=== PATIENT | female | born 1925 | race Caucasian/White ===

== ENCOUNTER 2016-02-22 16:19 | Inpatient (IN) | payer OTHER ==
[~2016-02-22] VITALS: Ht 154.9 cm; Wt 53.0 kg
[~2016-02-22 16:19] MED LIST: AZIT250T PO; CALC-354 PO; CYAN250T PO; FSM70 PO; INSDGI SQ; IPRASOL4 INH; ISOS60TA25 PO; LEVO50TA PO; LPT/20 PO; LSX40 PO; MAGN1CAP2 PO; METF-384 PO; METO25TA3 PO; MOME50SP5; MONT1TAB3 PO; POLY335019 PO; POTA-327 PO; PRED10TA PO; PRT/40 PO; TIOTCAP INH; TORS20TA2 PO
[2016-02-22 18:39] LABS: BASO ABS # 0.05 K/uL (0-0.2); COMPLETE YES; EOS % 2.2 %; HEMATOCRIT 29.1 % (37-47); IG% 0.2 %; LYMPH ABS # 0.81 K/uL (1.2-3.4); MEAN CELL VOLUME 85.3 fL (80-100); MEAN CORPUSCULAR HEMOGLOBIN 30.2 pg (25-34); MEAN CORPUSCULAR HGB CONC 35.4 g/dl (32-36); MEAN PLATELET VOLUME 10.6 fL (7.4-10.4); MONO % 13.3 %; NEUT % 67.3 %; PLATELET COUNT 225 K/uL (130-400); RED BLOOD COUNT 3.41 M/uL (4.2-5.4); WHITE BLOOD COUNT 5.05 K/uL (4.8-10.8)
[2016-02-22] MEDS ORDERED: DMD20 PO (18:52)
[2016-02-22 19:01] LABS: URINE APPEARANCE CLEAR (CLEAR); URINE BILIRUBIN NEG (NEG); URINE COLOR YELLOW; URINE NITRITE NEG (NEG); URINE PH 7.5 (4.5-7.5); URINE SPECIFIC GRAVITY 1.009 (1.000-1.030); UROBILINOGEN NEG (NEG); ZZUR CULT IF INDIC CLEAN CATCH NO
[2016-02-22 19:01] LABS: BUN/CREATININE RATIO 21.9 (10-20); CALCIUM 9.1 mg/dl (8.5-10.1); CREATININE 1.5 mg/dl (0.60-1.20); POTASSIUM 3.9 mmol/L (3.5-5.1)
[2016-02-22 19:03] LABS: MANUAL MICROSCOPIC REQUIRED? NO; REVIEW REQ? NO
[2016-02-22 19:11] LABS: BETA-HYDROXYBUTYRATE 1.31 mg/dL (0.2-2.81)
[2016-02-22] MEDS ORDERED: CEFTRIAXONE SOD INJ 1 GM ADDVIAL IV STA (19:38)
[2016-02-22] MEDS ORDERED: VANCOMYCIN 1GM/270ML NSS IV STA (19:38)
[2016-02-22] MEDS ORDERED: ALBUT/IPRATROP 3MG/0.5MG NEB 3 ML VIAL INH PRN (21:15)
[2016-02-22] MEDS ORDERED: GLUCOSE 10 TABS/TUBE PO PRN (21:15)
[2016-02-22] MEDS ORDERED: ALUMINUM/MAGNESIUM/SIMETH (MAALOX MAX) 30 ML UDC PO PRN (21:15)
[2016-02-22] MEDS ORDERED: POLYETHYLENE (MIRALAX) 17 GM PACK PO PRN (21:15)
[2016-02-22] MEDS ORDERED: ONDANSETRON INJ 2 MG/ML 2 ML VIAL IV PRN (21:15)
[2016-02-22] MEDS ORDERED: DEXTROSE 50% 50 ML SYR IV PRN (21:15)
[2016-02-22] MEDS ORDERED: GLUCOSE 40% GEL 15 GM TUBE PO PRN (21:15)
[2016-02-22] MEDS ORDERED: GLUCAGON FOR INJ 1 MG VIAL SQ PRN (21:15)
[2016-02-22] MEDS ORDERED: MAGNESIUM HYDROXIDE SUSP 30 ML UDC PO PRN (21:15)
[2016-02-22] MEDS ORDERED: PHARMACY GLYCEMIC MGMT CONSULT PRN (22:42)
--- NOTE | 2016-02-22 23:01 | DIAGNOSTIC IMAGING REPORT ---
BILATERAL LOWER EXTREMITY VENOUS DOPPLER HISTORY: leg swelling COMPARISON STUDY: None. FINDINGS: No acute DVT within the bilateral lower examination. Mild thickening at the periphery of the mid right superficial femoral vein. This favors a small amount of residual chronic thrombus. This is nonocclusive. Calf vessels were not well visualized but likely patent. IMPRESSION: No acute DVT within the right or left lower extremity. Mild thickening at the periphery the right mid superficial femoral vein which favors nonocclusive chronic thrombus. Electronically signed by: Sree Gilliam M.D. 02/22/2016 10:59 PM Dictated Date/Time: 02/22/2016 10:54 PM
--- NOTE | 2016-02-22 23:06 | History and Physical ---
History & Physical Date & Time of Service: Feb 22, 2016 at 21:09 Chief Complaint: Sores On Both Legs Primary Care Physician: Ken Penaloza D.O. 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 Patient lives with her sister at home and has caregivers and nursing who come in to check on her. Wound care nurse came in today to change her dressing for her legs and noticed they were warm to touch and erythematous; she had weeping ulcerations noted - nurse tried to get an appointment with patient's primary care, but they could not take her so she presented here. She was last here in December 2015 with cellulitic changes of the lower extremities and during that episode, Bactrim was used and cleared the infection. Recently, her dose of Lasix was changed to Torsemide due to Lasix affecting her kidneys. She was last seen by Wound care last week at the clinic and was doing well; had the legs dressed at that time. Patient is demented and unable to verbalize any complaints - though she is comfortable. Past Medical/Surgical History Medical Problems: (1) Asthma, moderate persistent Status: Chronic (2) CAD (coronary artery disease) Permanent Comment: 2002 - CABG x 2 Status: Chronic (3) CKD (chronic kidney disease), stage III Status: Chronic (4) COPD, mild Status: Chronic (5) Dementia Status: Chronic (6) DM type 2 (diabetes mellitus, type 2) Status: Chronic (7) GERD (gastroesophageal reflux disease) Status: Chronic (8) HLD (hyperlipidemia) Status: Chronic (9) HTN (hypertension) Status: Chronic (10) Hypothyroidism Status: Chronic (11) TIA (transient ischemic attack) Status: Chronic Surgical Problems: (1) H/O oophorectomy Status: Chronic (2) History of cataract surgery Status: Chronic (3) History of hysterectomy Status: Chronic (4) Hx of cholecystectomy Status: Chronic (5) S/P CABG x 2 Status: Chronic (6) S/P tonsillectomy and adenoidectomy Status: Chronic Family History FH: COPD (chronic obstructive pulmonary disease) Hypertension Social History Smoking Status: Never Smoker Drug Use: none Marital Status: Housing status: lives with family Occupational Status: retired Immunizations History of Influenza Vaccine: Yes Influenza Vaccine Date: Nov 16, 2015 History of Tetanus Vaccine?: Yes Tetanus Immunization Date: Aug 12, 2014 History of Pneumococcal: Yes Pneumococcal Date: Dec 18, 2013 Multi-Drug Resistant Organisms History of MDRO: No Allergies Coded Allergies: Polymyxin B (Verified Allergy, Mild, RASH, 01/06/16) DEBBIE Inhibitors (Unverified Allergy, Unknown, UNKNOWN, 01/06/16) Camphor (Verified Allergy, Unknown, 01/06/16) Eucalyptus Oil (Verified Allergy, Unknown, 01/06/16) Menthol (Verified Allergy, Unknown, VICKS VAPO-RUB, 01/06/16) Quinolones (Unverified Allergy, Unknown, UNKNOWN, 01/06/16) Uncoded Allergies: ANGIOTENSIN RECEPTOR BLOCKERS (Allergy, Unknown, UNKNOWN, 12/02/14) Home Medications Scheduled Alendronate Sodium (Alendronate Sodium), 70 MG PO WK Atorvastatin (Atorvastatin Calcium), 1 TAB PO DAILY Azithromycin (Zithromax), 250 MG PO UD Calcium Carbonate-Cholecalcife (Caltrate 600+D), 1 TAB PO BID Cyanocobalamin (Vitamin B-12), 250 MCG PO BID Insulin Glargine (Lantus), 12 UNITS SQ DAILY Isosorbide Mononitrate Ext Rel (Imdur Ext Rel), 60 MG PO DAILY Levothyroxine Sodium (Synthroid), 50 MCG PO DAILY Magnesium Oxide (Mg Supplement (Magnesium), 400 MG PO BID Metformin Hcl (Glucophage), 500 MG PO BID Metoprolol Succ (Toprol Xl) (Toprol-Xl), 12.5 MG PO DAILY Mometasone Furoate (Nasonex), 2 SPRAY NA BID Montelukast Sodium (Singulair), 10 MG PO QPM Pantoprazole (Pantoprazole Sodium), 40 MG PO DAILY Potassium Chloride (Micro-K Ext Rel), 10 MEQ PO DAILY Prednisone Tab (Prednisone), 5 MG PO DAILY Tiotropium [place] (Spiriva Handihaler), 1 CAP INH DAILY Torsemide (Torsemide), 40 MG PO BID Scheduled PRN Ipratropium-Albuterol (Duoneb), 1 TREATMENT INH QID PRN for Shortness of Breath Polyethylene Glycol 3350 (Miralax), 1 TBS PO DAILY PRN for Constipation Physical Exam Vital Signs Date Time Temp Pulse Resp B/P Pulse Ox O2 Delivery O2 Flow Rate FiO2 02/22/16 20:33 36.7 63 15 170/72 98 Room Air 02/22/16 19:13 66 02/22/16 18:45 65 16 152/93 95 Room Air 02/22/16 16:26 36.5 66 17 146/48 100 Room Air General Appearance: no apparent distress Head: normocephalic, atraumatic Eyes: normal inspection Respiratory/Chest: lungs clear, normal breath sounds, no respiratory distress, no accessory muscle use Cardiovascular: regular rate, rhythm, no edema, no murmur Abdomen/GI: non tender, soft Extremities/Musculoskelatal: no pedal edema, + pertinent finding (b/l LE dressed, erythematous, warm to touch, weeping ulcerations) Neurologic/Psych: no motor/sensory deficits, alert, + pertinent finding ( pleasantly demented) Diagnostics Laboratory Results Results Past 24 Hours Test 02/22/16 00:00 02/22/16 18:20 02/22/16 20:17 Range/Units Urine Color YELLOW Urine Appearance CLEAR CLEAR Urine pH 7.5 4.5-7.5 Urine Specific [place] 1.009 1.000-1.030 Urine Protein NEG NEG Urine Glucose (UA) 2+ NEG Urine Ketones NEG NEG Urine Occult Blood NEG NEG Urine Nitrite NEG NEG Urine Bilirubin NEG NEG Urine Urobilinogen NEG NEG Urine Leukocyte Esterase NEG NEG White Blood Count 5.05 4.8-10.8 K/uL Red Blood Count 3.41 4.2-5.4 M/uL Hemoglobin 10.3 12.0-16.0 g/dL Hematocrit 29.1 37-47 % Mean Corpuscular Volume 85.3 80-100 fL Mean Corpuscular Hemoglobin 30.2 25-34 pg Mean Corpuscular Hemoglobin Concent 35.4 32-36 g/dl Platelet Count 225 130-400 K/uL Mean Platelet Volume 10.6 7.4-10.4 fL Neutrophils (%) (Auto) 67.3 % Lymphocytes (%) (Auto) 16.0 % Monocytes (%) (Auto) 13.3 % Eosinophils (%) (Auto) 2.2 % Basophils (%) (Auto) 1.0 % Neutrophils # (Auto) 3.40 1.4-6.5 K/uL Lymphocytes # (Auto) 0.81 1.2-3.4 K/uL Monocytes # (Auto) 0.67 0.11-0.59 K/uL Eosinophils # (Auto) 0.11 0-0.5 K/uL Basophils # (Auto) 0.05 0-0.2 K/uL RDW Standard Deviation 39.7 36.4-46.3 fL RDW Coefficient of Variation 12.8 11.5-14.5 % Immature Granulocyte % (Auto) 0.2 % Immature Granulocyte # (Auto) 0.01 0.00-0.02 K/uL Sodium Level 136 136-145 mmol/L Potassium Level 3.9 3.5-5.1 mmol/L Chloride Level 96 98-107 mmol/L Carbon Dioxide Level 32 21-32 mmol/L Anion Gap 8.0 3-11 mmol/L Blood Urea Nitrogen 33 7-18 mg/dl Creatinine 1.50 0.60-1.20 mg/dl Est Creatinine Clear Calc Drug Dose 19.5 ml/min Estimated GFR () 35.7 Estimated GFR (Non- 30.8 BUN/Creatinine Ratio 21.9 10-20 Random Glucose 369 70-99 mg/dl Calcium Level 9.1 8.5-10.1 mg/dl Total Bilirubin 0.6 0.2-1 mg/dl Direct Bilirubin 0.2 0-0.2 mg/dl Aspartate Amino Transf (AST/SGOT) 11 15-37 U/L Alanine Aminotransferase (ALT/SGPT) 15 12-78 U/L Alkaline Phosphatase 82 45-117 U/L Total Protein 6.7 6.4-8.2 gm/dl Albumin 3.2 3.4-5.0 gm/dl Lipase 119 73-393 U/L Beta-Hydroxybutyric Acid 1.31 0.2-2.81 mg/dL Bedside Lactic Acid Venous 2.68 0.90-1.70 mmol/L Microbiology Results 02/22/16 Blood Culture, Received Pending 02/22/16 Blood Culture, Received Pending Impression Assessment and Plan This is an 89 year old pleasantly demented female with PMH of CAD s/p CABG, HTN , HLD, DM2, hypothyroidism, diastolic CHF, chronic lower extremity ulcerations/ wounds presented here secondary to acute infection of bilateral lower extremities. Cellulitis of bilateral lower extremities Wound Ulcerations -->chronic lower extremity edema with diastolic CHF -->has had episodes of decompensated diastolic CHF -->recent change in Lasix to Torsemide in January 2016 -->swelling and edema improved with Torsemide dose -->has been following wound are for the ulcerations in the legs -->wound care nursing sent patient over because of erythema and more drainage -->wound culture and blood cultures pending -->started IV Rocephin and Vanco -->wound care nurse consulted -->b/l lower extremity Doppler pending Chronic Diastolic CHF -->type I diastolic CHF -->due to renal dysfunction with Lasix, switched to Torsemide -->hold Torsemide secondary to increase in creat -->monitor creat and restart Torsemide once kidney function improves CAD s/p CABG -->at baseline, no acute issues -->continue current cardiac medications -->was seen by cardiology last month with no changes in medications Insulin Dependent DM2 -->start Lantus and a sliding scale -->patient takes 5mg of prednisone daily due to breathing problems -->last A1c = 7.6% in January 2016, which was a jump 6.1% in July 2015 -->glycemic control consult HTN -->BP improving in the ER -->continue imdur, b-jose a -->avoid CCB, if able, due to edema -->DEBBIE-I and ARB allergy noted DVT ppx -->subq heparin FULL CODE
--- NOTE | 2016-02-22 23:08 | EMERGENCY ROOM VISIT NOTE ---
History Report prepared by Rosemarieiboctavio: Shayla Larsen Under the Supervision of: Dr. Cameron Mabry M.D. First contact with patient: 18:08 Chief Complaint: SWELLING TO EXTREMITY Stated Complaint: SORES ON BOTH LEGS History of Present Illness The patient is an 89 year old female who presents to the Emergency Room with complaints of worsening pain and swelling to her bilateral legs for the past 1 week. She is accompanied by her sister and nephew. The patient rates her discomfort as a 7/10. Her sister reports their home health nurse came over this afternoon and told the patient to come to the ED for further evaluation due to increased redness and warmth. The patient admits to a history of cellulitis in her bilateral legs in the past, but states it has been "quite a while" since she has experienced similar symptoms. She denies any recent falls or injuries. Her sister notes all the patient wants to do is sleep recently. The patient denies LOC, headache, fevers, chills, diaphoresis, visual changes, neck pain, chest pain, breathing difficulties, nausea, vomiting, abdominal pain, back pain , melena, hematochezia, urinary symptoms, numbness, weakness, lymphadenopathy, rash, or other complaints. Source of History: patient, sibling (sister) Onset: 1 week [employer] Position: leg (bilateral) Symptom Intensity: 7/10 Timing: worsening Associated Symptoms: + fatigue Review of Systems See HPI for pertinent positives and negatives. A total of ten systems were reviewed and were otherwise negative. Past Medical & Surgical Medical Problems: (1) Asthma, moderate persistent (2) Bilateral lower leg cellulitis (3) CAD (coronary artery disease) (4) CKD (chronic kidney disease), stage III (5) COPD, mild (6) Dementia (7) DM type 2 (diabetes mellitus, type 2) (8) GERD (gastroesophageal reflux disease) (9) HLD (hyperlipidemia) (10) HTN (hypertension) (11) Hypothyroidism (12) TIA (transient ischemic attack) (13) Ulcers of both lower extremities Surgical Problems: (1) H/O oophorectomy (2) History of cataract surgery (3) History of hysterectomy (4) Hx of cholecystectomy (5) S/P CABG x 2 (6) S/P tonsillectomy and adenoidectomy Family History FH: COPD (chronic obstructive pulmonary disease) Hypertension Social History Smoking Status: Never Smoker Alcohol Use: none Drug Use: none Marital Status: Housing Status: lives with family Occupation Status: retired Current/Historical Medications Scheduled Alendronate Sodium (Alendronate Sodium), 70 MG PO WK Atorvastatin (Atorvastatin Calcium), 1 TAB PO DAILY Azithromycin (Zithromax), 250 MG PO UD Calcium Carbonate-Cholecalcife (Caltrate 600+D), 1 TAB PO BID Cyanocobalamin (Vitamin B-12), 250 MCG PO BID Insulin Glargine (Lantus), 12 UNITS SQ DAILY Isosorbide Mononitrate Ext Rel (Imdur Ext Rel), 60 MG PO DAILY Levothyroxine Sodium (Synthroid), 50 MCG PO DAILY Magnesium Oxide (Mg Supplement (Magnesium), 400 MG PO BID Metformin Hcl (Glucophage), 500 MG PO BID Metoprolol Succ (Toprol Xl) (Toprol-Xl), 12.5 MG PO DAILY Mometasone Furoate (Nasonex), 2 SPRAY NA BID Montelukast Sodium (Singulair), 10 MG PO QPM Pantoprazole (Pantoprazole Sodium), 40 MG PO DAILY Potassium Chloride (Micro-K Ext Rel), 10 MEQ PO DAILY Prednisone Tab (Prednisone), 5 MG PO DAILY Tiotropium [place] (Spiriva Handihaler), 1 CAP INH DAILY Torsemide (Torsemide), 40 MG PO BID Scheduled PRN Ipratropium-Albuterol (Duoneb), 1 TREATMENT INH QID PRN for Shortness of Breath Polyethylene Glycol 3350 (Miralax), 1 TBS PO DAILY PRN for Constipation Allergies Coded Allergies: Polymyxin B (Verified Allergy, Mild, RASH, 01/06/16) DEBBIE Inhibitors (Unverified Allergy, Unknown, UNKNOWN, 01/06/16) Camphor (Verified Allergy, Unknown, 01/06/16) Eucalyptus Oil (Verified Allergy, Unknown, 01/06/16) Menthol (Verified Allergy, Unknown, VICKS VAPO-RUB, 01/06/16) Quinolones (Unverified Allergy, Unknown, UNKNOWN, 01/06/16) Uncoded Allergies: ANGIOTENSIN RECEPTOR BLOCKERS (Allergy, Unknown, UNKNOWN, 12/02/14) Physical Exam Vital Signs Date Time Temp Pulse Resp B/P Pulse Ox O2 Delivery O2 Flow Rate FiO2 02/22/16 23:02 36.7 64 20 177/78 91 02/22/16 22:55 64 20 177/78 91 Room Air 02/22/16 20:33 36.7 63 15 170/72 98 Room Air 02/22/16 19:13 66 02/22/16 18:45 65 16 152/93 95 Room Air 02/22/16 16:26 36.5 66 17 146/48 100 Room Air Physical Exam GENERAL: Awake, alert, uncomfortable-appearing, in no distress HENT: Normocephalic, atraumatic. Oropharynx unremarkable. EYES: Normal conjunctiva. Sclera non-icteric. NECK: Supple. No nuchal rigidity. FROM. No JVD. RESPIRATORY: Clear to auscultation. CARDIAC: Regular rate, normal rhythm. Extremities warm and well perfused. Pulses equal. ABDOMEN: Soft, non-distended. No tenderness to palpation. No rebound or guarding. No masses. RECTAL: Deferred. MUSCULOSKELETAL: Chest examination reveals no tenderness. The back is symmetrical on inspection without obvious abnormality. There is no CVA tenderness to palpation. No joint edema. LOWER EXTREMITIES: Stage 2 decubitus wound on medial and lateral aspect of right lower leg, with associated cellulitis from mid-foot to just below right knee. Left foot has breakdown of skin on medial and lateral aspect, with cellulitis from the toes up to the level of the knee. NEURO: Normal sensorium. No sensory or motor deficits noted. SKIN: No rash or jaundice noted. Medical Decision & Procedures Laboratory Results 02/22/16 18:20 Red Blood Count 3.41, Mean Corpuscular Volume 85.3, Mean Corpuscular Hemoglobin 30.2, Mean Corpuscular Hemoglobin Concent 35.4, Mean Platelet Volume 10.6, Neutrophils (%) (Auto) 67.3, Lymphocytes (%) (Auto) 16.0, Monocytes (%) (Auto) 13.3, Eosinophils (%) (Auto) 2.2, Basophils (%) (Auto) 1.0, Neutrophils # (Auto ) 3.40, Lymphocytes # (Auto) 0.81, Monocytes # (Auto) 0.67, Eosinophils # (Auto ) 0.11, Basophils # (Auto) 0.05 02/22/16 18:20 Test 02/22/16 00:00 02/22/16 18:20 02/22/16 20:17 Urine Color YELLOW Urine Appearance CLEAR (CLEAR) Urine pH 7.5 (4.5-7.5) Urine Specific [place] 1.009 (1.000-1.030) Urine Protein NEG (NEG) Urine Glucose (UA) 2+ (NEG) Urine Ketones NEG (NEG) Urine Occult Blood NEG (NEG) Urine Nitrite NEG (NEG) Urine Bilirubin NEG (NEG) Urine Urobilinogen NEG (NEG) Urine Leukocyte Esterase NEG (NEG) White Blood Count 5.05 K/uL (4.8-10.8) Red Blood Count 3.41 M/uL (4.2-5.4) Hemoglobin 10.3 g/dL (12.0-16.0) Hematocrit 29.1 % (37-47) Mean Corpuscular Volume 85.3 fL (80-100) Mean Corpuscular Hemoglobin 30.2 pg (25-34) Mean Corpuscular Hemoglobin Concent 35.4 g/dl (32-36) Platelet Count 225 K/uL (130-400) Mean Platelet Volume 10.6 fL (7.4-10.4) Neutrophils (%) (Auto) 67.3 % Lymphocytes (%) (Auto) 16.0 % Monocytes (%) (Auto) 13.3 % Eosinophils (%) (Auto) 2.2 % Basophils (%) (Auto) 1.0 % Neutrophils # (Auto) 3.40 K/uL (1.4-6.5) Lymphocytes # (Auto) 0.81 K/uL (1.2-3.4) Monocytes # (Auto) 0.67 K/uL (0.11-0.59) Eosinophils # (Auto) 0.11 K/uL (0-0.5) Basophils # (Auto) 0.05 K/uL (0-0.2) RDW Standard Deviation 39.7 fL (36.4-46.3) RDW Coefficient of Variation 12.8 % (11.5-14.5) Immature Granulocyte % (Auto) 0.2 % Immature Granulocyte # (Auto) 0.01 K/uL (0.00-0.02) Anion Gap 8.0 mmol/L (3-11) Est Creatinine Clear Calc Drug Dose 19.5 ml/min Estimated GFR () 35.7 Estimated GFR (Non- 30.8 BUN/Creatinine Ratio 21.9 (10-20) Calcium Level 9.1 mg/dl (8.5-10.1) Total Bilirubin 0.6 mg/dl (0.2-1) Direct Bilirubin 0.2 mg/dl (0-0.2) Aspartate Amino Transf (AST/SGOT) 11 U/L (15-37) Alanine Aminotransferase (ALT/SGPT) 15 U/L (12-78) Alkaline Phosphatase 82 U/L (45-117) Total Protein 6.7 gm/dl (6.4-8.2) Albumin 3.2 gm/dl (3.4-5.0) Lipase 119 U/L (73-393) Beta-Hydroxybutyric Acid 1.31 mg/dL (0.2-2.81) Bedside Lactic Acid Venous 2.68 mmol/L (0.90-1.70) Laboratory results reviewed by me Medications Administered Medications (Trade) Dose Ordered Sig/Remy Route Start Time Stop Time Status Last Admin Dose Admin Ceftriaxone Sodium (Rocephin Inj) 1 gm NOW STAT IV 02/22/16 19:38 02/22/16 19:40 DC 02/22/16 20:41 1 GM Vancomycin HCl (Vancomycin 1gm/ 270ml Nss) 1 gm NOW STAT IV 02/22/16 19:38 02/22/16 19:40 DC 02/22/16 20:41 1 GM ED Course 1824: The patient was evaluated in room A12. A complete history and physical exam was performed. 1937: Vancomycin 1 gm/270 ml NSS 1 gm IV, Rocephin 1 gm IV. 1944: I reevaluated the patient. She is resting comfortably. I discussed my plan for her to remain in the hospital for further evaluation and management and she verbalized complete understanding and agreement. 1951: I discussed the patient's case with Dr. De La Rosa, [facility] Hospitalist. The patient will be further evaluated. Medical Decision Triage Nursing notes reviewed. The patient's presentation and history were concerning for possible infection in the legs. Etiologies such as cellulitis, DVT, joint effusion, infection, trauma, muscular , lymphedema, idiopathic, CHF, as well as others were entertained. The patient was evaluated. Her legs are very concerning for cellulitis. The patient had a CBC done which showed a mild anemia. Urinalysis negative. She was mildly dehydrated on chemistry panel. LFTs were unremarkable. Blood cultures were obtained as well as wound cultures from the ulcerations on both legs. The patient was given Rocephin and vancomycin due to the concerns for infection. Ultrasound was performed and did not reveal any evidence of DVT. I did consult with the [facility] Hospitalist service for further evaluation and management as an inpatient. The patient and family were in agreement. Patient was evaluated in the Emergency Room by the hospitalist service. The chart was completed utilizing [employer] Speech voice recognition software. Grammatical errors, random word insertions, pronoun errors, and incomplete sentences are an occasional consequence of this system due to software limitations, ambient noise, and hardware issues. Any formal questions or concerns about the content, text, or information contained within the body of this dictation should be directly addressed to the physician for clarification. Consults Time Called: 1949 Consulting Physician: Dr. De La Rosa [facility] Returned Call: 1951 I discussed the patient's [facility] The patient will be further evaluated. Impression Primary Impression: Bilateral lower leg cellulitis Additional Impression: Generalized weakness Scribe Attestation The scribe's documentation has been prepared under my direction and personally reviewed by me in its entirety. I confirm that the note above accurately reflects all work, treatment, procedures, and medical decision making performed by me. Departure Information Dispostion Being Evaluated By Hospitalist Referrals Frank Larsen M.D. (PCP) Patient Instructions A Signature Page, My [facility]
[2016-02-22] MEDS ORDERED: INSULIN GLARGINE SOLOSTAR 100 UNITS/ML 3 ML PEN SC STA (23:39)
[2016-02-22] MEDS ORDERED: VANCOMYCIN CONSULT ACTIVE PRN (23:45)
[2016-02-23 00:15] VITALS: BP 182/69; PULSE 63; TEMP 37; O2SAT 100; BMI 22.1
[2016-02-23] MEDS: SODIUM CHLORIDE 0.9% 1000ML 1,000 ML IV SCH ×2 (00:26→11:37)
[2016-02-23] MEDS: INSULIN ASPART 100 UNITS/ML 3 ML PEN SC SCH ×6 (00:41→20:17)
[2016-02-23] MEDS: LEVOTHYROXINE 50 MCG TAB PO SCH (06:37)
[2016-02-23] MEDS: HEPARIN SOD 5000 UNIT/0.5 ML CARP SQ SCH ×3 (06:40→20:27)
[2016-02-23 07:03] LABS: HEMATOCRIT 25.8 % (37-47); MEAN CELL VOLUME 83.8 fL (80-100); MEAN CORPUSCULAR HEMOGLOBIN 29.2 pg (25-34); MEAN CORPUSCULAR HGB CONC 34.9 g/dl (32-36); MEAN PLATELET VOLUME 9.9 fL (7.4-10.4); PLATELET COUNT 206 K/uL (130-400); RED BLOOD COUNT 3.08 M/uL (4.2-5.4); WHITE BLOOD COUNT 5.86 K/uL (4.8-10.8)
[2016-02-23 07:26] VITALS: BP 165/62; PULSE 56; TEMP 37; O2SAT 98
[2016-02-23 07:33] LABS: BUN/CREATININE RATIO 23.8 (10-20); CALCIUM 8.6 mg/dl (8.5-10.1); CREATININE 1.1 mg/dl (0.60-1.20); MAGNESIUM 1.8 mg/dl (1.8-2.4); POTASSIUM 3.5 mmol/L (3.5-5.1)
[2016-02-23] MEDS: FLUTICASONE PROPIONATE NA SPR 16 GM BTL SCH ×2 (07:56→20:14)
[2016-02-23] MEDS: TIOTROPIUM BROMIDE 5 PUFF/90 MCG INH INH SCH (07:56)
[2016-02-23] MEDS: POTASSIUM CHLORIDE 10 MEQ TABCR PO SCH (07:57)
[2016-02-23] MEDS: ATORVASTATIN 20 MG TAB PO SCH (07:57)
[2016-02-23] MEDS: ISOSORBIDE MONONITRATE 60 MG TABCR PO SCH (07:57)
[2016-02-23] MEDS: METOPROLOL SUCC 25MG EXT REL TAB PO SCH (07:58)
[2016-02-23] MEDS: PANTOprazole SOD 40 MG TAB PO SCH (07:58)
[2016-02-23] MEDS: MAGNESIUM OXIDE 400 MG TAB PO SCH ×2 (07:58→20:14)
[2016-02-23] MEDS: CYANOCOBALAMIN 500 MCG TAB (VIT B-12) PO SCH ×2 (07:59→20:16)
[2016-02-23] MEDS ORDERED: VANCOMYCIN INJ 1,000 MG in SODIUM CHLORIDE 0.9% 250ML 250 ML IV SCH (09:00)
[2016-02-23] MEDS ORDERED: TORSEMIDE 20 MG TAB PO SCH (09:00)
[2016-02-23 09:07] LABS: ESTIMATED AVERAGE GLUCOSE 197 mg/dl; HA1C FLAG Normal (Normal)
--- NOTE | 2016-02-23 10:17 | Pharmacy Progress Note ---
Pharmacy Antibiotic Consult Date of Service: Feb 23, 2016. Pharmacy Dosing Scope Pharmacy is consulted to initiate VANC-IV dosing therapy, order appropriate labs and adjust drug dose/frequency. Subjective The patient is a 89 year old female admitted on Feb 22, 2016 at 21:26 ordered VANC/Rocephin for bilateral LE cellulitis. Pertinent PMH: recent ADM 12/2015-completed course of Bactrim po, gets f/u at [facility], CKD-3, DM-2, advanced age Objective Height (Feet): 5 Height (Inches): 1.00 Weight (Kilograms): 53.000 Lab Results (24hrs): Laboratory Tests Test 02/22/16 18:20 02/23/16 06:53 BUN/Creatinine Ratio 21.9 23.8 Blood Urea Nitrogen 33 mg/dl 26 mg/dl Creatinine 1.50 mg/dl 1.10 mg/dl White Blood Count 5.05 K/uL 5.86 K/uL Red Blood Count 3.41 M/uL Hemoglobin 10.3 g/dL Hematocrit 29.1 % Mean Corpuscular Volume 85.3 fL Mean Corpuscular Hemoglobin 30.2 pg Mean Corpuscular Hemoglobin Concent 35.4 g/dl Platelet Count 225 K/uL Mean Platelet Volume 10.6 fL Neutrophils (%) (Auto) 67.3 % Lymphocytes (%) (Auto) 16.0 % Monocytes (%) (Auto) 13.3 % Eosinophils (%) (Auto) 2.2 % Basophils (%) (Auto) 1.0 % Neutrophils # (Auto) 3.40 K/uL Lymphocytes # (Auto) 0.81 K/uL Monocytes # (Auto) 0.67 K/uL Eosinophils # (Auto) 0.11 K/uL Basophils # (Auto) 0.05 K/uL Micro Results: Item Value Date Time Blood Culture Received 02/22/162004 Blood Pending Blood Culture Received 02/22/161819 Blood Pending Gram Stain - Final Resulted 02/22/16 0000 Ulcer Leg Right Lower Gram Stain - Final Resulted 02/22/16 0000 Ulcer Leg Lower Left Recent Pertinent Medications * Day # 2: Rocephin 1 grams IV every 24 hours Assessment & Plan PLAN: Will order Vanc q 24 hours, being cautious to follow daily serum creat and make adjustments prn. Her Scr is already looking better this am. Cultures pending. Will f/u. VANC-IV: * Estimated p'kinetics: Vd~0.7L/kg, Ke~0.0268hr-1, T1/2~25 hours * Loading dose: VANC 1000mg (18 mg/kg) IV X 1 dose then: * Maintenance Dose: VANC 850mg (~15mg/kg) IV every 24 hours. * Goal trough level estimate: ~ 15 mcg/mL for skin/skin structure inf. * VANC trough level has been ordered @ [facility] prior to 02/25/16 1200 dose. Pharmacy will continue to follow and will adjust dose/frequency as necessary. Thank you
[2016-02-23] MEDS: VANCOMYCIN INJ 850 MG in SODIUM CHLORIDE 0.9% 250ML 250 ML IV SCH (11:36)
[2016-02-23] MEDS: ACETAMINOPHEN 325 MG TAB PO PRN (12:33)
--- NOTE | 2016-02-23 13:37 | Progress Note ---
Medicine Progress Note Date & Time of Visit: Feb 23, 2016 at 13:26. Subjective Sleeping and although arousable and answers 1-2 questions, falls asleep easily Just had some Tylenol for pain Sister at bedside and answering questions States she had a low-grade fever at home and wounds started to look worse; wound nurse was concerned. Pt has been afebrile here-ROS limited 2/2 fatigue. Pt denies pain at this time Wound nurse recently came by and wrapped legs; no supplies to re-wrap at bedside. Will eval later when nurse has supplies or if picture in computer Sister notes that she ate breakfast and lunch today without difficulty Objective Last 8 Hrs Date Time Temp Pulse Resp B/P Pulse Ox O2 Delivery O2 Flow Rate FiO2 02/23/16 08:00 Room Air 02/23/16 07:26 37.0 56 16 165/62 98 Room Air Physical Exam: GEN: frail, elderly, in no acute distress, arousable but lethargic HEENT: NC/AT, normal sclerae CARDIO: reg rate, S1/2 heard without m/g/r LUNGS: CTA bilaterally, no crackles, rales or wheezes, good diaphragmatic excursion ABD: soft, non-tender, non-distended, no rebound or guarding EXTREMITY: RP and DP palpable 2+ bilat, no LE swelling or edema, extremities are warm and well-perfused, dressings in place c/d/i to bilateral lower ext NEURO: could not assess 2/2 fatigue MUSC: could not assess 2/2 fatigue SKIN: warm and dry Laboratory Results: Last 24 Hours Test 02/22/16 18:20 02/22/16 20:17 02/22/16 23:37 02/23/16 00:28 White Blood Count 5.05 K/uL Red Blood Count 3.41 M/uL Hemoglobin 10.3 g/dL Hematocrit 29.1 % Mean Corpuscular Volume 85.3 fL Mean Corpuscular Hemoglobin 30.2 pg Mean Corpuscular Hemoglobin Concent 35.4 g/dl Platelet Count 225 K/uL Mean Platelet Volume 10.6 fL Neutrophils (%) (Auto) 67.3 % Lymphocytes (%) (Auto) 16.0 % Monocytes (%) (Auto) 13.3 % Eosinophils (%) (Auto) 2.2 % Basophils (%) (Auto) 1.0 % Neutrophils # (Auto) 3.40 K/uL Lymphocytes # (Auto) 0.81 K/uL Monocytes # (Auto) 0.67 K/uL Eosinophils # (Auto) 0.11 K/uL Basophils # (Auto) 0.05 K/uL RDW Standard Deviation 39.7 fL RDW Coefficient of Variation 12.8 % Immature Granulocyte % (Auto) 0.2 % Immature Granulocyte # (Auto) 0.01 K/uL Sodium Level 136 mmol/L Potassium Level 3.9 mmol/L Chloride Level 96 mmol/L Carbon Dioxide Level 32 mmol/L Anion Gap 8.0 mmol/L Blood Urea Nitrogen 33 mg/dl Creatinine 1.50 mg/dl Est Creatinine Clear Calc Drug Dose 19.5 ml/min Estimated GFR () 35.7 Estimated GFR (Non- 30.8 BUN/Creatinine Ratio 21.9 Random Glucose 369 mg/dl Calcium Level 9.1 mg/dl Total Bilirubin 0.6 mg/dl Direct Bilirubin 0.2 mg/dl Aspartate Amino Transf (AST/SGOT) 11 U/L Alanine Aminotransferase (ALT/SGPT) 15 U/L Alkaline Phosphatase 82 U/L Total Protein 6.7 gm/dl Albumin 3.2 gm/dl Lipase 119 U/L Beta-Hydroxybutyric Acid 1.31 mg/dL Bedside Lactic Acid Venous 2.68 mmol/L Lactic Acid Level 2.2 mmol/L Bedside Glucose 218 mg/dl Test 02/23/16 04:01 02/23/16 06:53 02/23/16 07:40 02/23/16 11:22 Bedside Glucose 85 mg/dl 94 mg/dl 270 mg/dl White Blood Count 5.86 K/uL Red Blood Count 3.08 M/uL Hemoglobin 9.0 g/dL Hematocrit 25.8 % Mean Corpuscular Volume 83.8 fL Mean Corpuscular Hemoglobin 29.2 pg Mean Corpuscular Hemoglobin Concent 34.9 g/dl RDW Standard Deviation 38.6 fL RDW Coefficient of Variation 12.6 % Platelet Count 206 K/uL Mean Platelet Volume 9.9 fL Sodium Level 142 mmol/L Potassium Level 3.5 mmol/L Chloride Level 102 mmol/L Carbon Dioxide Level 29 mmol/L Anion Gap 11.0 mmol/L Blood Urea Nitrogen 26 mg/dl Creatinine 1.10 mg/dl Est Creatinine Clear Calc Drug Dose 26.7 ml/min Estimated GFR () 51.9 Estimated GFR (Non- 44.8 BUN/Creatinine Ratio 23.8 Random Glucose 86 mg/dl Estimated Average Glucose 197 mg/dl Hemoglobin A1c 8.5 % Lactic Acid Level 0.9 mmol/L Calcium Level 8.6 mg/dl Magnesium Level 1.8 mg/dl Date/Time Source Procedure Growth Status 02/22/16 20:05 Blood Blood Culture Pending Received 02/22/16 18:20 Blood Blood Culture Pending Received Assessment & Plan 89 yo F with worsened infection superimposed on chronic lower extremity ulcers bilaterally Cellulitis of bilateral lower extremities Wound Ulcerations -->chronic lower extremity edema with diastolic CHF -->has had episodes of decompensated diastolic CHF -->recent change in Lasix to Torsemide in January 2016 -->swelling and edema improved with Torsemide dose -->has been following wound are for the ulcerations in the legs -->wound care nursing sent patient over because of erythema and more drainage -->wound culture and blood cultures pending -->started IV Rocephin and Vanco -->wound care nurse consulted -->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-per Heme/Onc this does not require treatment --> afebrile overnight -->will examine legs more closely when supplies are in the room (recently wrapped and patient is comfortable) Chronic Diastolic CHF -->type I diastolic CHF, chronic, compensated -->due to renal dysfunction with Lasix, switched to Torsemide -->hold Torsemide secondary to increase in creat -->monitor creat and restart Torsemide once kidney function improves CAD s/p CABG -->at baseline, no acute issues -->continue current cardiac medications -->was seen by cardiology last month with no changes in medications COPD-severe, on daily low dose prednisone, no wheezing on exam. Stable. Cont pred, Spiriva, Singulair and Duonebs as needed Insulin Dependent DM2 -->start Lantus and a sliding scale -->patient takes 5mg of prednisone daily due to breathing problems -->last A1c = 7.6% in January 2016, which was a jump 6.1% in July 2015 -->glycemic control consult HTN -->continue imdur, b-jose a -->avoid CCB, if able, due to edema -->DEBBIE-I and ARB allergy noted DVT ppx -->subq heparin Dispo-cont to monitor for improvement while awaiting culture results. Tolerating PO and renal function has improved so will stop IVF at this time. FULL CODE Janine Iyer DO [facility] Hospitalist Current Inpatient Medications: Current Inpatient Medications Medications (Trade) Dose Ordered Sig/Remy Route Start Time Stop Time Status Last Admin Dose Admin Heparin Sodium (Porcine) (Heparin Sq 5000 Unit/0.5ml) 5,000 unit Q8 SQ 02/23/16 06:00 03/24/16 05:59 02/23/16 06:40 5,000 UNIT Acetaminophen (Tylenol Tab) 650 mg Q4H PRN PO 02/22/16 21:15 03/23/16 21:14 02/23/16 12:33 650 MG Al Hydrox/Mg Hydrox/Simethicone (Maalox Max Susp) 15 ml Q4H PRN PO 02/22/16 21:15 03/23/16 21:14 Magnesium Hydroxide (Milk Of Magnesia Susp) 30 ml Q6H PRN PO 02/22/16 21:15 03/23/16 21:14 Polyethylene (Miralax Powder Packet) 17 gm DAILY PRN PO 02/22/16 21:15 03/23/16 21:14 Ondansetron HCl (Zofran Inj) 4 mg Q6H PRN IV 02/22/16 21:15 03/23/16 21:14 Insulin Aspart (novoLOG ASPART) SLIDING SCALE If C... ACHS SC 02/23/16 06:30 03/24/16 06:59 02/23/16 13:18 5 UNITS Glucose (Glucose 40% Gel) 15-30 GRAMS 15 GRAMS... UD PRN PO 02/22/16 21:15 03/23/16 21:14 Glucose (Glucose Chew Tab) 4-8 Tablets 4 Tabl... UD PRN PO 02/22/16 21:15 03/23/16 21:14 Dextrose (Dextrose 50% 50ML Syringe) 25-50ML OF 50% DW IV FOR... UD PRN IV 02/22/16 21:15 03/23/16 21:14 Glucagon (Glucagon Inj) 1 mg UD PRN SQ 02/22/16 21:15 03/23/16 21:14 Miscellaneous Information 1 ea 1 ea DAILY PRN N/A 02/22/16 22:42 03/23/16 22:41 Ceftriaxone Sodium/Dextrose (Rocephin Inj/ Dextrose Add-[place] 50ML) 50 ml @ 100 mls/hr Q24H IV 02/23/16 20:00 03/02/16 20:29 Atorvastatin Calcium (Lipitor Tab) 20 mg DAILY PO 02/23/16 09:00 03/24/16 08:59 02/23/16 07:57 20 MG Cyanocobalamin (Vitamin B-12 Tab) 250 mcg BID PO 02/23/16 09:00 03/24/16 08:59 02/23/16 07:59 250 MCG Isosorbide Mononitrate (Imdur Ext Rel Tab) 60 mg DAILY PO 02/23/16 09:00 03/24/16 08:59 02/23/16 07:57 60 MG Levothyroxine Sodium (Synthroid Tab) 50 mcg DAILYBB PO 02/23/16 06:30 03/24/16 06:59 02/23/16 06:37 50 MCG Metoprolol Succinate (Toprol Xl Tab) 12.5 mg DAILY PO 02/23/16 09:00 03/24/16 08:59 02/23/16 07:58 12.5 MG Montelukast Sodium (Singulair Tab) 10 mg QPM PO 02/23/16 21:00 03/24/16 20:59 Pantoprazole Sodium (Protonix Tab) 40 mg DAILY PO 02/23/16 09:00 03/24/16 08:59 02/23/16 07:58 40 MG Potassium Chloride (Klor-Con M10) 10 meq DAILY PO 02/23/16 09:00 03/24/16 08:59 02/23/16 07:57 10 MEQ Prednisone (PredniSONE TAB) 5 mg DAILY PO 02/23/16 09:00 03/24/16 08:59 02/23/16 07:58 5 MG Tiotropium [place] (Spiriva Handihaler Inhaler) 1 puff DAILY INH 02/23/16 09:00 03/24/16 08:59 02/23/16 07:56 1 PUFF Torsemide (Demadex Tab) 40 mg BID PO 02/23/16 09:00 03/24/16 08:59 Future Hold Magnesium Oxide (Mag-Ox Tab) 400 mg BID PO 02/23/16 09:00 03/24/16 08:59 02/23/16 07:58 400 MG Fluticasone Propionate (Flonase Nasal [place]) 2 sprays BID NA 02/23/16 09:00 03/24/16 08:59 02/23/16 07:56 2 SPRAYS Albuterol/ Ipratropium 3 ml 3 ml Q4R PRN INH 02/22/16 21:15 03/23/16 21:14 Sodium Chloride (Nss 1000ml) 1,000 ml @ 80 mls/hr [id number] IV 02/22/16 23:30 03/23/16 23:29 02/23/16 11:37 80 MLS/HR Insulin Aspart (novoLOG ASPART) SLIDING SCALE If C... 0000,0400 SC 02/23/16 00:00 03/24/16 00:00 02/23/16 00:41 4 UNITS Vancomycin HCl 1 ea 1 ea UD PRN N/A 02/22/16 23:45 03/23/16 23:44 Vancomycin HCl/ Sodium Chloride (Vancomycin Inj/ Nss 250ml) 267 ml @ 125 mls/hr DAILY@1200 IV 02/23/16 12:00 03/02/16 23:59 02/23/16 11:36 125 MLS/HR
[2016-02-23 14:30] VITALS: Ht 154.9 cm; Wt 53.0 kg
[2016-02-23] MEDS: INSULIN GLARGINE SOLOSTAR 100 UNITS/ML 3 ML PEN SC SCH (14:31)
--- NOTE | 2016-02-23 14:34 | Pharmacy Progress Note ---
Glycemic Control Intl Consult Date of Service Feb 23, 2016. Scope Glycemic Pharmacist consulted by Dr De La Rosa on 02/22/16 for glycemic control and to write orders per [facility] inpatient glycemic control protocol Objective Weight (Kilograms): 53.000 Accuchecks BSG (last 24hrs): Test 02/22/16 18:20 02/23/16 00:28 02/23/16 04:01 02/23/16 06:53 Random Glucose 369 mg/dl (70-99) 86 mg/dl (70-99) Bedside Glucose 218 mg/dl (70-90) 85 mg/dl (70-90) Test 02/23/16 07:40 02/23/16 11:22 Bedside Glucose 94 mg/dl (70-90) 270 mg/dl (70-90) Laboratory Data (last 24hrs) Test 02/22/16 18:20 02/23/16 06:53 Anion Gap 8.0 mmol/L 11.0 mmol/L BUN/Creatinine Ratio 21.9 23.8 Blood Urea Nitrogen 33 mg/dl 26 mg/dl Creatinine 1.50 mg/dl 1.10 mg/dl Potassium Level 3.9 mmol/L 3.5 mmol/L Sodium Level 136 mmol/L 142 mmol/L White Blood Count 5.05 K/uL 5.86 K/uL Red Blood Count 3.41 M/uL Hemoglobin 10.3 g/dL Hematocrit 29.1 % Mean Corpuscular Volume 85.3 fL Mean Corpuscular Hemoglobin 30.2 pg Mean Corpuscular Hemoglobin Concent 35.4 g/dl Platelet Count 225 K/uL Mean Platelet Volume 10.6 fL Neutrophils (%) (Auto) 67.3 % Lymphocytes (%) (Auto) 16.0 % Monocytes (%) (Auto) 13.3 % Eosinophils (%) (Auto) 2.2 % Basophils (%) (Auto) 1.0 % Neutrophils # (Auto) 3.40 K/uL Lymphocytes # (Auto) 0.81 K/uL Monocytes # (Auto) 0.67 K/uL Eosinophils # (Auto) 0.11 K/uL Basophils # (Auto) 0.05 K/uL Hemoglobin A1c 8.5 % HbA1c Test 02/23/16 06:53 Hemoglobin A1c 8.5 % (4.5-5.6) H Recent Pertinent Medications Outpatient Anti-diabetic Regimen: * Lantus 12 units daily, Metformin 500 mg bid * A1c = 8.5 % 02/23/16 The patient is currently receiving: * Basal insulin: Lantus 5 units x 1 dose last evening * Correctional Insulin: Novolog Correction per scale ACHS Goal Range: Low 100 mg/dL - High 140 mg/dL Correction Factor: 25 mg/dL/unit * Prandial insulin: Per carb ratio of 1 unit per 15 grams CHO consumed * Oral Agents: none Risk Factors for Insulin Resistance: * Steroids: Prednisone 5 mg daily (home dose) * Infection: cellulitis, on vancomycin, Rocephin * Pressors: no * IVF: NS @ 80 ml/hr * Recent Surgery: no * Diet: type 2 diabetic * Mechanical Ventilation: no Assessment & Plan ASSESSMENT: * ADA & AACE recommend a goal blood sugar range 140-180 mg/dl for the majority of critically ill & non-critically ill patients. However, more stringent targets may be selected in individual cases. * 89 yo type 2 diabetic moderately well controlled past 3 months. Will start similar regimen to previous admission and reassess in am. PLAN FOR INPATIENT GLYCEMIC CONTROL: * Increasing Lantus to 10 units SQ daily * Changing correction factor to 45 mg/dl/unit * Continuing carb ratio 1 unit per 15 grams CHO consumed * Changing goal range to Low 120 mg/dL - High 160 mg/dL, higher to decrease risk of hypoglycemia in elderly patient * Please note that the plan above was derived based on current level of insulin resistance and hospital stress. These recommendations are appropriate for inpatient admission only. Plan of care upon discharge will need to be reassessed to avoid potential outpatient hypo/hyperglycemia. Thank you.
--- NOTE | 2016-02-23 15:14 | Medical Consult ---
Consultation Date of Consultation: Feb 23, 2016. 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 Jones is new to consulting hematology service. 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 She was admitted to [facility] secondary to acute infection of bilateral lower extremities on 02/22/16. Wound care nurse came in yesterday to change her dressing of her legs at her home and noticed they were warm to touch and erythematous; she had weeping ulcerations noted. No acute outpatient care could be obtained so she came to [facility]. She was last here in December 2015 with cellulitic changes of the lower extremities. Bactrim was used successfully. She was last seen by wound care last week at the clinic and was doing well; had the legs dressed at that time. History obtained from admission H+P and at bedside from patient's younger sister as patient's dementia is limiting factor in history. Since the bilateral lower extremities were erythematous on admission and infection was suspected, a Doppler of bilateral lower extremities was obtained to rule out phlebitic cause. Of note, the Doppler did show a chronic right femoral vein thrombus, but no DVT bilaterally. The sister and the patient deny any major trauma to the right lower extremity in the recent past. The sister denies the patient having any history of varicose veins or personal history of venous thromboembolic disease. The left lower leg was harvested back in 2002 for CABG procedure, but no veins were harvested on the right. The sister confirms a history of intermittent congestive heart failure exacerbations over the past 3-4 years, with chronic edema of the lower extremities. Since this time, the sister states the patient has had intermittent cellulitis of the bilateral lower extremity. More recently, her Lasix was changed to torsemide due to development of CKD stage 3 in past 3-6 months. In the past couple months the patient was told she was "iron deficient" and required an intravenous infusion of Venofer at end of 01/2016. The patient states more recently she has had episodes of black stool, but no hematochezia, abdominal pain or nausea. She has not had cough, dyspnea or chest pain. She is , status post bilateral oophorectomy and hysterectomy for unknown reason. The sister confirmed that the patient has not had any blood disorders previously. She has no history of malignancy. The sister confirmed that a different biological sister in the family had recurrent VTE, unknown cause. 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 Past Medical/Surgical History Medical Problems: (1) Abrasion Status: Acute (2) Altered mental status Status: Acute (3) Fall Status: Acute (4) Fall Status: Acute (5) Generalized weakness Status: Acute (6) Head contusion Status: Acute (7) Hypoglycemia Status: Acute (8) UTI (urinary tract infection) Status: Acute Family History FH: COPD (chronic obstructive pulmonary disease) Hypertension Social History Smoking Status: Never Smoker Drug Use: none Marital Status: Housing Status: lives with family Occupation Status: retired Allergies Coded Allergies: Polymyxin B (Verified Allergy, Mild, RASH, 01/06/16) DEBBIE Inhibitors (Unverified Allergy, Unknown, UNKNOWN, 01/06/16) Angiotensin Receptor Blockers (Verified Allergy, Unknown, `, 02/23/16) Camphor (Verified Allergy, Unknown, 01/06/16) Eucalyptus Oil (Verified Allergy, Unknown, 01/06/16) Menthol (Verified Allergy, Unknown, VICKS VAPO-RUB, 01/06/16) Quinolones (Unverified Allergy, Unknown, UNKNOWN, 01/06/16) Current Inpatient Medications Current Inpatient Medications Medications (Trade) Dose Ordered Sig/Remy Route Start Time Stop Time Status Last Admin Dose Admin Heparin Sodium (Porcine) (Heparin Sq 5000 Unit/0.5ml) 5,000 unit Q8 SQ 02/23/16 06:00 03/24/16 05:59 02/23/16 06:40 5,000 UNIT Acetaminophen (Tylenol Tab) 650 mg Q4H PRN PO 02/22/16 21:15 03/23/16 21:14 Al Hydrox/Mg Hydrox/Simethicone (Maalox Max Susp) 15 ml Q4H PRN PO 02/22/16 21:15 03/23/16 21:14 Magnesium Hydroxide (Milk Of Magnesia Susp) 30 ml Q6H PRN PO 02/22/16 21:15 03/23/16 21:14 Polyethylene (Miralax Powder Packet) 17 gm DAILY PRN PO 02/22/16 21:15 03/23/16 21:14 Ondansetron HCl (Zofran Inj) 4 mg Q6H PRN IV 02/22/16 21:15 03/23/16 21:14 Insulin Aspart (novoLOG ASPART) SLIDING SCALE If C... ACHS SC 02/23/16 06:30 03/24/16 06:59 Glucose (Glucose 40% Gel) 15-30 GRAMS 15 GRAMS... UD PRN PO 02/22/16 21:15 03/23/16 21:14 Glucose (Glucose Chew Tab) 4-8 Tablets 4 Tabl... UD PRN PO 02/22/16 21:15 03/23/16 21:14 Dextrose (Dextrose 50% 50ML Syringe) 25-50ML OF 50% DW IV FOR... UD PRN IV 02/22/16 21:15 03/23/16 21:14 Glucagon (Glucagon Inj) 1 mg UD PRN SQ 02/22/16 21:15 03/23/16 21:14 Miscellaneous Information 1 ea 1 ea DAILY PRN N/A 02/22/16 22:42 03/23/16 22:41 Ceftriaxone Sodium/Dextrose (Rocephin Inj/ Dextrose Add-Fort Recovery 50ML) 50 ml @ 100 mls/hr Q24H IV 02/23/16 20:00 03/02/16 20:29 Atorvastatin Calcium (Lipitor Tab) 20 mg DAILY PO 02/23/16 09:00 03/24/16 08:59 02/23/16 07:57 20 MG Cyanocobalamin (Vitamin B-12 Tab) 250 mcg BID PO 02/23/16 09:00 03/24/16 08:59 02/23/16 07:59 250 MCG Isosorbide Mononitrate (Imdur Ext Rel Tab) 60 mg DAILY PO 02/23/16 09:00 03/24/16 08:59 02/23/16 07:57 60 MG Levothyroxine Sodium (Synthroid Tab) 50 mcg DAILYBB PO 02/23/16 06:30 03/24/16 06:59 02/23/16 06:37 50 MCG Metoprolol Succinate (Toprol Xl Tab) 12.5 mg DAILY PO 02/23/16 09:00 03/24/16 08:59 02/23/16 07:58 12.5 MG Montelukast Sodium (Singulair Tab) 10 mg QPM PO 02/23/16 21:00 03/24/16 20:59 Pantoprazole Sodium (Protonix Tab) 40 mg DAILY PO 02/23/16 09:00 03/24/16 08:59 02/23/16 07:58 40 MG Potassium Chloride (Klor-Con M10) 10 meq DAILY PO 02/23/16 09:00 03/24/16 08:59 02/23/16 07:57 10 MEQ Prednisone (PredniSONE TAB) 5 mg DAILY PO 02/23/16 09:00 03/24/16 08:59 02/23/16 07:58 5 MG Tiotropium [place] (Spiriva Handihaler Inhaler) 1 puff DAILY INH 02/23/16 09:00 03/24/16 08:59 02/23/16 07:56 1 PUFF Torsemide (Demadex Tab) 40 mg BID PO 02/23/16 09:00 03/24/16 08:59 Future Hold Magnesium Oxide (Mag-Ox Tab) 400 mg BID PO 02/23/16 09:00 03/24/16 08:59 02/23/16 07:58 400 MG Fluticasone Propionate (Flonase Nasal [place]) 2 sprays BID NA 02/23/16 09:00 03/24/16 08:59 02/23/16 07:56 2 SPRAYS Albuterol/ Ipratropium 3 ml 3 ml Q4R PRN INH 02/22/16 21:15 03/23/16 21:14 Sodium Chloride (Nss 1000ml) 1,000 ml @ 80 mls/hr [id number] IV 02/22/16 23:30 03/23/16 23:29 02/23/16 00:26 80 MLS/HR Insulin Aspart (novoLOG ASPART) SLIDING SCALE If C... 0000,0400 SC 02/23/16 00:00 03/24/16 00:00 02/23/16 00:41 4 UNITS Vancomycin HCl 1 ea 1 ea UD PRN N/A 02/22/16 23:45 03/23/16 23:44 Vancomycin HCl/ Sodium Chloride (Vancomycin Inj/ Nss 250ml) 267 ml @ 125 mls/hr DAILY@1200 IV 02/23/16 12:00 03/02/16 23:59 Review of Systems Constitutional: No chills, No fever, No sweats, No weight loss Respiratory: No cough, No shortness of breath, No sputum Cardiovascular: + chest pain, + edema, No palpitations Abdomen: + problem reported (black stools intermittently over past few months) , No constipation, No diarrhea, No nausea, No pain, No vomiting Musculoskeletal: + joint pain (knees with OA bilaterally, per sister) Neurologic: + memory loss (dementia- per sister, evident on exam), + weakness Hematologic / Lymphatic: + problem reported (right femoral vein thrombus, chronic, uncertain onset), No abnormal bleeding/bruising, No clotting problems Physical Exam Date Time Temp Pulse Resp B/P Pulse Ox O2 Delivery O2 Flow Rate FiO2 02/23/16 08:00 Room Air 02/23/16 07:26 37.0 56 16 165/62 98 Room Air 02/23/16 00:15 37.0 63 20 182/69 100 Room Air 02/22/16 23:02 36.7 64 20 177/78 91 02/22/16 22:55 64 20 177/78 91 Room Air 02/22/16 20:33 36.7 63 15 170/72 98 Room Air 02/22/16 19:13 66 02/22/16 18:45 65 16 152/93 95 Room Air 02/22/16 16:26 36.5 66 17 146/48 100 Room Air General Appearance: WD/WN, no apparent distress, + thin Respiratory/Chest: lungs clear, normal breath sounds, no respiratory distress, no accessory muscle use Cardiovascular: regular rate, rhythm, + systolic murmur, + pertinent finding ( not able to assess from upper calf to foot due to dressing for cellulitis) Abdomen/GI: normal bowel sounds, non tender, soft, + pertinent finding Neurologic/Psych: alert, + disoriented Skin: normal color, warm/dry Laboratory Results 02/22/16 18:20 Red Blood Count 3.41, Mean Corpuscular Volume 85.3, Mean Corpuscular Hemoglobin 30.2, Mean Corpuscular Hemoglobin Concent 35.4, Mean Platelet Volume 10.6, Neutrophils (%) (Auto) 67.3, Lymphocytes (%) (Auto) 16.0, Monocytes (%) (Auto) 13.3, Eosinophils (%) (Auto) 2.2, Basophils (%) (Auto) 1.0, Neutrophils # (Auto ) 3.40, Lymphocytes # (Auto) 0.81, Monocytes # (Auto) 0.67, Eosinophils # (Auto ) 0.11, Basophils # (Auto) 0.05 02/23/16 06:53 02/22/16 18:20 02/23/16 06:53 Test 02/22/16 00:00 02/22/16 18:20 02/22/16 20:17 02/22/16 23:37 Urine Color YELLOW Urine Appearance CLEAR (CLEAR) Urine pH 7.5 (4.5-7.5) Urine Specific [place] 1.009 (1.000-1.030) Urine Protein NEG (NEG) Urine Glucose (UA) 2+ (NEG) Urine Ketones NEG (NEG) Urine Occult Blood NEG (NEG) Urine Nitrite NEG (NEG) Urine Bilirubin NEG (NEG) Urine Urobilinogen NEG (NEG) Urine Leukocyte Esterase NEG (NEG) White Blood Count 5.05 K/uL (4.8-10.8) Red Blood Count 3.41 M/uL (4.2-5.4) Hemoglobin 10.3 g/dL (12.0-16.0) Hematocrit 29.1 % (37-47) Mean Corpuscular Volume 85.3 fL (80-100) Mean Corpuscular Hemoglobin 30.2 pg (25-34) Mean Corpuscular Hemoglobin Concent 35.4 g/dl (32-36) Platelet Count 225 K/uL (130-400) Mean Platelet Volume 10.6 fL (7.4-10.4) Neutrophils (%) (Auto) 67.3 % Lymphocytes (%) (Auto) 16.0 % Monocytes (%) (Auto) 13.3 % Eosinophils (%) (Auto) 2.2 % Basophils (%) (Auto) 1.0 % Neutrophils # (Auto) 3.40 K/uL (1.4-6.5) Lymphocytes # (Auto) 0.81 K/uL (1.2-3.4) Monocytes # (Auto) 0.67 K/uL (0.11-0.59) Eosinophils # (Auto) 0.11 K/uL (0-0.5) Basophils # (Auto) 0.05 K/uL (0-0.2) RDW Standard Deviation 39.7 fL (36.4-46.3) RDW Coefficient of Variation 12.8 % (11.5-14.5) Immature Granulocyte % (Auto) 0.2 % Immature Granulocyte # (Auto) 0.01 K/uL (0.00-0.02) Anion Gap 8.0 mmol/L (3-11) Est Creatinine Clear Calc Drug Dose 19.5 ml/min Estimated GFR () 35.7 Estimated GFR (Non- 30.8 BUN/Creatinine Ratio 21.9 (10-20) Calcium Level 9.1 mg/dl (8.5-10.1) Total Bilirubin 0.6 mg/dl (0.2-1) Direct Bilirubin 0.2 mg/dl (0-0.2) Aspartate Amino Transf (AST/SGOT) 11 U/L (15-37) Alanine Aminotransferase (ALT/SGPT) 15 U/L (12-78) Alkaline Phosphatase 82 U/L (45-117) Total Protein 6.7 gm/dl (6.4-8.2) Albumin 3.2 gm/dl (3.4-5.0) Lipase 119 U/L (73-393) Beta-Hydroxybutyric Acid 1.31 mg/dL (0.2-2.81) Bedside Lactic Acid Venous 2.68 mmol/L (0.90-1.70) Lactic Acid Level 2.2 mmol/L (0.4-2.0) Test 02/23/16 00:28 02/23/16 04:01 02/23/16 06:53 02/23/16 07:40 Bedside Glucose 218 mg/dl (70-90) 85 mg/dl (70-90) 94 mg/dl (70-90) Red Blood Count 3.08 M/uL (4.2-5.4) Mean Corpuscular Volume 83.8 fL (80-100) Mean Corpuscular Hemoglobin 29.2 pg (25-34) Mean Corpuscular Hemoglobin Concent 34.9 g/dl (32-36) RDW Standard Deviation 38.6 fL (36.4-46.3) RDW Coefficient of Variation 12.6 % (11.5-14.5) Mean Platelet Volume 9.9 fL (7.4-10.4) Anion Gap 11.0 mmol/L (3-11) Est Creatinine Clear Calc Drug Dose 26.7 ml/min Estimated GFR () 51.9 Estimated GFR (Non- 44.8 BUN/Creatinine Ratio 23.8 (10-20) Estimated Average Glucose 197 mg/dl Hemoglobin A1c 8.5 % (4.5-5.6) Lactic Acid Level 0.9 mmol/L (0.4-2.0) Calcium Level 8.6 mg/dl (8.5-10.1) Magnesium Level 1.8 mg/dl (1.8-2.4) Bilateral lower extremity US from 02/23/16: No acute DVT within the bilateral lower examination. Mouth thickening at the periphery of the right mid superficial femoral vein, favoring a small amount of residual chronic thrombus that is nonocclusive. Calf vessels were not well visualized but likely patent. Assessment & Plan (1) Femoral vein thrombosis, right Assessment & Plan: Dr. Rivera discussed the case with hospitalist, Dr. Iyer, this morning about chronic right femoral vein thrombus, incidental finding when Dopplers ordered on admission to r/o DVT in setting of erythematous lower extremities. Onset of thrombus is uncertain by imaging and by history, no history of acute/subacute trauma, surgery to area. Last RLE Doppler was 11/04/08 , negative for DVT or superficial thrombus. With patient's multiple co-morbid conditions of CAD, T2DM, CHF, current performance status and age, Dr. Rivera does not recommend formal anticoagulation in her case. (2) Normocytic anemia Assessment & Plan: Onset appears to be in 12/2015 (prior CBC from 04/2015 without anemia) after reviewing last few years blood work. Onset of CKD Stage 3 noted in 01/2015, with baseline Cr of 1.2/1.3 in last 9 months. Ferritin 68.9, iron 65, TIBC 276 and trans sat 24% on 01/20/16. Folic acid at 17.5 in 09/2014, vitamin B 12 at 898 in 08/2014. Nephrology consult obtained in 01/[address] De La O recommended one dose of Venofer 300 mg IV to increase ferritin to above 100 prior to starting Procrit therapy for anemia in CKD. (3) Bilateral lower leg cellulitis Assessment & Plan: Per hospitalist team. Wound and blood cultures pending. On IV Vanco and Rocephin. (4) CKD (chronic kidney disease), stage III Status: Chronic Assessment & Plan: Creatinine mildly bumped on admission to 1.5, now back to baseline around 1.2. Is currently on torsemide for issues for CKD while on Lasix for CHF exacerbations. (5) Right upper quadrant abdominal rigidity Assessment & Plan: On exam, area of firmness from below right ribs to about umbilicus. Question hepatomegaly vs edema/mass. LFTs noted to be normal. Reviewed imaging from last summer after a few falls. CT chest from 07/24/15 did not reveal hepatic abnormality, free fluid, small amount, around liver, likely from CHF. Pelvis CT from 08/29/15 without adenopathy noted. Discussed with Dr. Rivera and in light of her CKD, performance status, other comorbidities, would like to have US of [facility] to further evaluate. (6) Melena Assessment & Plan: See anemia discussion as above. Check FOBT. Not on oral iron supplement. I performed history and physical examination of the patient. I have discussed the patient's case, impression and plan with Radha Quinn PA-C. Her note reflects my findings and plan. She has multiple comorbid conditions, has chronic right femoral vein thrombus which was noted incidentally, I would not recommend anticoagulant treatment in her case unless progression of the thrombus noted.
[2016-02-23 15:51] VITALS: BP 152/51; PULSE 56; TEMP 36.7; O2SAT 96
[2016-02-23 16:15] VITALS: O2SAT 96
--- NOTE | 2016-02-23 19:21 | DIAGNOSTIC IMAGING REPORT ---
ABDOMINAL ULTRASOUND, RIGHT UPPER QUADRANT HISTORY: Bilateral lower extremity cellulitis. Hard indurated area on exam. COMPARISON: None. FINDINGS: Liver morphology is normal. There is mild dilatation of the common bile duct measuring 9 mm. The gallbladder is surgically absent. No common bile duct calculi are identified although the distal common bile duct is obscured. The pancreas is obscured by overlying bowel gas. There is no right hydronephrosis. There is a 1 cm right renal cyst. IMPRESSION: 1. Mild dilatation of the common bile duct. This is likely due to prior cholecystectomy but could be correlated with obstructive liver function tests. 2. Obscured pancreas. Electronically signed by: iK Villalpando M.D. 02/23/2016 7:19 PM Dictated Date/Time: 02/23/2016 7:16 PM
[2016-02-23] MEDS ORDERED: CEFTRIAXONE SOD INJ 1 GM in DEXTROSE 5% ADD-VANTAGE 50ML 50 ML IV SCH (20:00)
[2016-02-23] MEDS: MONTELUKAST SOD 10 MG TAB PO SCH (20:15)
[2016-02-23 22:57] VITALS: BP 157/53; PULSE 53; TEMP 37.1; O2SAT 96
[2016-02-24] MEDS ORDERED: INSULIN ASPART 100 UNITS/ML 3 ML PEN SC SCH (02:00)
[2016-02-24 05:49] LABS: HEMATOCRIT 24.1 % (37-47); MEAN CELL VOLUME 84.3 fL (80-100); MEAN CORPUSCULAR HEMOGLOBIN 30.4 pg (25-34); MEAN CORPUSCULAR HGB CONC 36.1 g/dl (32-36); MEAN PLATELET VOLUME 10.5 fL (7.4-10.4); PLATELET COUNT 199 K/uL (130-400); RED BLOOD COUNT 2.86 M/uL (4.2-5.4); WHITE BLOOD COUNT 4.82 K/uL (4.8-10.8)
[2016-02-24] MEDS: HEPARIN SOD 5000 UNIT/0.5 ML CARP SQ SCH ×3 (06:00→21:19)
[2016-02-24 06:12] LABS: BUN/CREATININE RATIO 19.1 (10-20); CALCIUM 8.2 mg/dl (8.5-10.1); CREATININE 1.2 mg/dl (0.60-1.20); POTASSIUM 3.7 mmol/L (3.5-5.1)
[2016-02-24] MEDS: LEVOTHYROXINE 50 MCG TAB PO SCH (06:24)
[2016-02-24] MEDS: INSULIN ASPART 100 UNITS/ML 3 ML PEN SC SCH ×4 (06:30→21:18)
[2016-02-24 06:54] VITALS: BP 170/70; PULSE 97; TEMP 36.6; O2SAT 96
[2016-02-24] MEDS: TIOTROPIUM BROMIDE 5 PUFF/90 MCG INH INH SCH (07:30)
[2016-02-24] MEDS: FLUTICASONE PROPIONATE NA SPR 16 GM BTL SCH ×2 (07:31→21:09)
[2016-02-24] MEDS: PANTOprazole SOD 40 MG TAB PO SCH (07:31)
[2016-02-24] MEDS: POTASSIUM CHLORIDE 10 MEQ TABCR PO SCH (07:32)
[2016-02-24] MEDS: ATORVASTATIN 20 MG TAB PO SCH (07:32)
[2016-02-24] MEDS: MAGNESIUM OXIDE 400 MG TAB PO SCH ×2 (07:32→21:11)
[2016-02-24] MEDS: METOPROLOL SUCC 25MG EXT REL TAB PO SCH (07:33)
[2016-02-24] MEDS: ISOSORBIDE MONONITRATE 60 MG TABCR PO SCH (07:33)
[2016-02-24] MEDS: CYANOCOBALAMIN 500 MCG TAB (VIT B-12) PO SCH ×2 (07:34→21:12)
[2016-02-24] MEDS: INSULIN GLARGINE SOLOSTAR 100 UNITS/ML 3 ML PEN SC SCH (07:36)
[2016-02-24] MEDS: VANCOMYCIN INJ 850 MG in SODIUM CHLORIDE 0.9% 250ML 250 ML IV SCH (12:00)
[2016-02-24] MEDS ORDERED: CEFEPIME CONSULT ACTIVE PRN ×2 (15:15)
[2016-02-24 16:00] VITALS: O2SAT 98
[2016-02-24 16:12] VITALS: BP 114/51; PULSE 62; TEMP 36.7; O2SAT 98
[2016-02-24] MEDS: CEFEPIME IV 1,000 MG in DEXTROSE 5% 100ML IV SCH (16:18)
--- NOTE | 2016-02-24 16:26 | Medical Consult ---
Consultation Date of Consultation: Feb 24, 2016. Attending Physician: Janine Iyer DO Reason for Consultation: Recurrent leg wounds/cellulitis History of Present Illness Patient is an 89 yo pleasantly demented female with PMHx of CAD, DM, and other chronic problems listed below who presented to the ED with concerns of worsening edema, erythema, and pain of the bilateral lower extremities. She states that she has had problems with her legs for "a long time." Her nephew is in the room with her during my exam and helps fill in her history. He states that she has been seen at the wound care center recently and also has been to the ED in the past for concerns of cellulitis/leg infections. She has a home health nurse that noted change in her lower extremities concerning for infection. The patient's previous records were reviewed today. I reviewed her most recent wound care visit record as well during which time she did require debridement of her wounds. Wound images were reviewed as well today. Venous Doppler of the B/L LE showed No acute DVT but possible chronic thrombus. Liver U /S showed mild dilatation of the common bile duct and obscured pancreas. On admission, her WBC count was 5.05. Her Glucose was elevated, and her Lactic acid was 2.2. I did speak to Dr. Iyer about this patient as well. Past Medical/Surgical History Medical Problems: (1) Abrasion Status: Acute (2) Altered mental status Status: Acute (3) Fall Status: Acute (4) Fall Status: Acute (5) Generalized weakness Status: Acute (6) Head contusion Status: Acute (7) Hypoglycemia Status: Acute (8) UTI (urinary tract infection) Status: Acute Medical Problems: (1) Asthma, moderate persistent (2) Bilateral lower leg cellulitis (3) CAD (coronary artery disease) (4) CKD (chronic kidney disease), stage III (5) COPD, mild (6) Dementia (7) DM type 2 (diabetes mellitus, type 2) (8) Femoral vein thrombosis, right (9) GERD (gastroesophageal reflux disease) (10) HLD (hyperlipidemia) (11) HTN (hypertension) (12) Hypothyroidism (13) Melena (14) Normocytic anemia (15) Right upper quadrant abdominal rigidity (16) TIA (transient ischemic attack) (17) Ulcers of both lower extremities Surgical Problems: (1) H/O oophorectomy (2) History of cataract surgery (3) History of hysterectomy (4) Hx of cholecystectomy (5) S/P CABG x 2 (6) S/P tonsillectomy and adenoidectomy Family History FH: COPD (chronic obstructive pulmonary disease) Hypertension Noncontributory Social History Smoking Status: Never Smoker Drug Use: none Marital Status: Housing Status: lives with family Occupation Status: retired Allergies Coded Allergies: Polymyxin B (Verified Allergy, Mild, RASH, 01/06/16) DEBBIE Inhibitors (Unverified Allergy, Unknown, UNKNOWN, 01/06/16) Angiotensin Receptor Blockers (Verified Allergy, Unknown, `, 02/23/16) Camphor (Verified Allergy, Unknown, 01/06/16) Eucalyptus Oil (Verified Allergy, Unknown, 01/06/16) Menthol (Verified Allergy, Unknown, VICKS VAPO-RUB, 01/06/16) Quinolones (Unverified Allergy, Unknown, UNKNOWN, 01/06/16) Home Medications Reported Home Medications Medications Dose Route/Sig Max Daily Dose Days Date Category Dose Instructions Torsemide 20 Mg Tab 40 Mg PO BID 02/22/16 Reported Singulair (Montelukast Sodium) 10 Mg Tab 10 Mg PO QPM 01/04/16 Reported Caltrate 600+D (Calcium Carbonate-Cholecalcife) 1 Tab Tab 1 Tab PO BID 11/24/15 Reported Synthroid (Levothyroxine Sodium) 50 Mcg Tab 50 Mcg PO DAILY 11/24/15 Reported Glucophage (Metformin Hcl) 1,000 Mg Tab 500 Mg PO BID 08/29/15 Reported Magnesium (Magnesium Oxide (Mg Supplement) 400 Mg Cap 400 Mg PO BID 08/29/15 Reported Nasonex (Mometasone Furoate) [place] 2 [place] NA BID 08/29/15 Reported Vitamin B-12 (Cyanocobalamin) 250 Mcg Tab 250 Mcg PO BID 05/24/15 Reported Zithromax (Azithromycin) 250 Mg Tab 250 Mg PO UD 08/12/14 Reported PRN RESCUE KIT Alendronate Sodium 70 Mg Tab 70 Mg PO WK 08/12/14 Reported TAKE ON MONDAYS Spiriva Handihaler (Tiotropium [place]) 18 Mcg/ Aerp 1 Cap INH DAILY 08/12/14 Reported Miralax (Polyethylene Glycol 3350) 1 Pow Pow 1 Tbs PO DAILY PRN 08/12/14 Reported Atorvastatin Calcium (Atorvastatin) 20 Mg Tab 1 Tab PO DAILY 08/12/14 Reported Imdur Ext Rel (Isosorbide Mononitrate) 60 Mg Ertab 60 Mg PO DAILY 08/12/14 Reported Pantoprazole Sodium (Pantoprazole) 40 Mg Tab 40 Mg PO DAILY 08/12/14 Reported Micro-K Ext Rel (Potassium Chloride) 10 Meq Tab 10 Meq PO DAILY 08/12/14 Reported Prednisone 10 Mg Tab 5 Mg PO DAILY 08/12/14 Reported Lantus (Insulin Glargine) Vial 12 Units SQ DAILY 08/12/14 Reported Duoneb (Ipratropium-Albuterol) 3 Ml Nebu 1 Treatment INH QID PRN 10/06/12 Reported Toprol-Xl (Metoprolol Succinate) 25 Mg Tabcr 12.5 Mg PO DAILY 02/06/09 Reported Current Inpatient Medications Current Inpatient Medications Medications (Trade) Dose Ordered Sig/Remy Route Start Time Stop Time Status Last Admin Dose Admin Heparin Sodium (Porcine) (Heparin Sq 5000 Unit/0.5ml) 5,000 unit Q8 SQ 02/23/16 06:00 03/24/16 05:59 02/24/16 12:48 5,000 UNIT Acetaminophen (Tylenol Tab) 650 mg Q4H PRN PO 02/22/16 21:15 03/23/16 21:14 02/23/16 12:33 650 MG Al Hydrox/Mg Hydrox/Simethicone (Maalox Max Susp) 15 ml Q4H PRN PO 02/22/16 21:15 03/23/16 21:14 Magnesium Hydroxide (Milk Of Magnesia Susp) 30 ml Q6H PRN PO 02/22/16 21:15 03/23/16 21:14 Polyethylene (Miralax Powder Packet) 17 gm DAILY PRN PO 02/22/16 21:15 03/23/16 21:14 Ondansetron HCl (Zofran Inj) 4 mg Q6H PRN IV 02/22/16 21:15 03/23/16 21:14 Insulin Aspart (novoLOG ASPART) SLIDING SCALE If C... ACHS SC 02/23/16 06:30 03/24/16 06:59 02/24/16 12:47 5 UNITS Glucose (Glucose 40% Gel) 15-30 GRAMS 15 GRAMS... UD PRN PO 02/22/16 21:15 03/23/16 21:14 Glucose (Glucose Chew Tab) 4-8 Tablets 4 Tabl... UD PRN PO 02/22/16 21:15 03/23/16 21:14 Dextrose (Dextrose 50% 50ML Syringe) 25-50ML OF 50% DW IV FOR... UD PRN IV 02/22/16 21:15 03/23/16 21:14 Glucagon (Glucagon Inj) 1 mg UD PRN SQ 02/22/16 21:15 03/23/16 21:14 Miscellaneous Information (Consult Glycemic Management Pharmacy) 1 ea DAILY PRN N/A 02/22/16 22:42 03/23/16 22:41 Atorvastatin Calcium (Lipitor Tab) 20 mg DAILY PO 02/23/16 09:00 03/24/16 08:59 02/24/16 07:32 20 MG Cyanocobalamin (Vitamin B-12 Tab) 250 mcg BID PO 02/23/16 09:00 03/24/16 08:59 02/24/16 07:34 250 MCG Isosorbide Mononitrate (Imdur Ext Rel Tab) 60 mg DAILY PO 02/23/16 09:00 03/24/16 08:59 02/24/16 07:33 60 MG Levothyroxine Sodium (Synthroid Tab) 50 mcg DAILYBB PO 02/23/16 06:30 03/24/16 06:59 02/24/16 06:24 50 MCG Metoprolol Succinate (Toprol Xl Tab) 12.5 mg DAILY PO 02/23/16 09:00 03/24/16 08:59 02/24/16 07:33 12.5 MG Montelukast Sodium (Singulair Tab) 10 mg QPM PO 02/23/16 21:00 03/24/16 20:59 02/23/16 20:15 10 MG Pantoprazole Sodium (Protonix Tab) 40 mg DAILY PO 02/23/16 09:00 03/24/16 08:59 02/24/16 07:31 40 MG Potassium Chloride (Klor-Con M10) 10 meq DAILY PO 02/23/16 09:00 03/24/16 08:59 02/24/16 07:32 10 MEQ Prednisone (PredniSONE TAB) 5 mg DAILY PO 02/23/16 09:00 03/24/16 08:59 02/24/16 07:33 5 MG Tiotropium [place] (Spiriva Handihaler Inhaler) 1 puff DAILY INH 02/23/16 09:00 03/24/16 08:59 02/24/16 07:30 1 PUFF Torsemide (Demadex Tab) 40 mg BID PO 02/23/16 09:00 03/24/16 08:59 Future Hold Magnesium Oxide (Mag-Ox Tab) 400 mg BID PO 02/23/16 09:00 03/24/16 08:59 02/24/16 07:32 400 MG Fluticasone Propionate (Flonase Nasal [place]) 2 sprays BID NA 02/23/16 09:00 03/24/16 08:59 02/24/16 07:31 2 SPRAYS Albuterol/ Ipratropium (Duoneb) 3 ml Q4R PRN INH 02/22/16 21:15 03/23/16 21:14 Vancomycin HCl 1 ea 1 ea UD PRN N/A 02/22/16 23:45 03/23/16 23:44 Vancomycin HCl/ Sodium Chloride (Vancomycin Inj/ Nss 250ml) 267 ml @ 125 mls/hr DAILY@1200 IV 02/23/16 12:00 03/02/16 23:59 02/24/16 12:00 125 MLS/HR Insulin Glargine (Lantus Solostar Pen) 10 unit DAILY SC 02/23/16 14:16 03/24/16 14:15 02/24/16 07:36 10 UNIT Cefepime HCl 1 ea 1 ea UD PRN N/A 02/24/16 15:15 03/25/16 15:14 Cefepime HCl/ Dextrose (Maxipime IV/D5 100ml) 111.3 ml @ 222.6 mls/ hr DAILY@1600 IV 02/24/16 16:00 03/05/16 15:59 Review of Systems ROS is unreliable due to patient's dementia Constitutional: No chills, No fever, No sweats, No weakness Eyes: No worsening of vision ENT: No hearing loss Respiratory: No cough, No shortness of breath Cardiovascular: No chest pain Abdomen: No diarrhea, No nausea, No pain, No vomiting Musculoskeletal: + problem reported (pain in B/L LE), + swelling (b/l LE) Genitourinary - Female: No dysuria, No urinary frequency Integumentary: + color change (erythema B/L LE), + new/changing skin lesions, No rash Physical Exam Date Time Temp Pulse Resp B/P Pulse Ox O2 Delivery O2 Flow Rate FiO2 02/24/16 08:00 Room Air 02/24/16 06:54 36.6 97 20 170/70 96 Room Air 02/24/16 00:00 Room Air 02/23/16 22:57 37.1 53 21 157/53 96 Room Air 02/23/16 16:15 96 Room Air General Appearance: WD/WN, no apparent distress Head: normocephalic, atraumatic Eyes: normal inspection, sclerae normal ENT: hearing grossly normal Neck: supple, trachea midline Respiratory/Chest: chest non-tender, lungs clear, normal breath sounds, no respiratory distress, no accessory muscle use Cardiovascular: regular rate, rhythm Abdomen/GI: normal bowel sounds, soft Back: normal inspection, no CVA tenderness Extremities/Musculoskelatal: no calf tenderness, normal capillary refill, + swelling Neurologic/Psych: alert, normal mood/affect Skin: normal color, + pertinent finding (bright erythema of the bilateral lower extremities. L>R. Noted multiple ulcerations which appear to be mostly superficial. Largest of which is on the left lateral leg with yellow/white areas and mildly bleeding on exam which measures at least 10 cm in length) Laboratory Results BILATERAL LOWER EXTREMITY VENOUS DOPPLER HISTORY: leg swelling COMPARISON STUDY: None. FINDINGS: No acute DVT within the bilateral lower examination. Mild thickening at the periphery of the mid right superficial femoral vein. This favors a small amount of residual chronic thrombus. This is nonocclusive. Calf vessels were not well visualized but likely patent. IMPRESSION: No acute DVT within the right or left lower extremity. Mild thickening at the periphery the right mid superficial femoral vein which favors nonocclusive chronic thrombus. ABDOMINAL ULTRASOUND, RIGHT UPPER QUADRANT HISTORY: Bilateral lower extremity cellulitis. Hard indurated area on exam. COMPARISON: None. FINDINGS: Liver morphology is normal. There is mild dilatation of the common bile duct measuring 9 mm. The gallbladder is surgically absent. No common bile duct calculi are identified although the distal common bile duct is obscured. The pancreas is obscured by overlying bowel gas. There is no right hydronephrosis. There is a 1 cm right renal cyst. IMPRESSION: 1. Mild dilatation of the common bile duct. This is likely due to prior cholecystectomy but could be correlated with obstructive liver function tests. 2. Obscured pancreas. RUN DATE: 02/24/16 [facility] LAB PAGE 1 RUN TIME: 1356 Specimen Inquiry PATIENT: RIKKI KIRAN LOC: [id number] U # : [id number] AGE/SX: 89/F ROOM: [facility] REG : 02/22/[address]: Janine Iyer DO : [id number] BED: 2 DIS : STATUS: ADM IN TLOC: SPEC #: [id number] SERG: 02/22/16-UNK STATUS: COMP REQ #: [id number] RECD: 02/22/[address]: Cameron Mabry MD SOURCE: ULCER ENTR: 02/22/[address] [facility] DR: Chris De La Rosa DO [facility]: LEG Ken Penaloza D.O. ORDERED: POLINA HADDAD/SUDHEER COMMENTS: Has Specimen Been Obtained/Collected? Y Procedure Result Verified Site GRAM STAIN Final 02/23/16 RESULT RARE EPITHELIAL CELLS NO WBCs SEEN NO ORGANISMS SEEN SURFACE WOUND CULTURE Final 02/24/16587 Organism 1 PSEUDOMONAS AERUGINOSA QUANITY FEW SENS SENSITIVITY TO FOLLOW 1. PSEUDOMONAS AERUGINOSA Target Route Dose RX AB Cost M.I.C. IQ ------ ----- ------ -- ------ -------- - ------ CEFTAZIDIME S 4 CEFEPIME S <=4 IMIPENEM S <=1 AZTREONAM S <=4 GENTAMICIN S <=4 TOBRAMYCIN S <=4 AMIKACIN S <=16 CIPROFLOXACIN S <=1 LEVOFLOXACIN S <=2 PIP/TAZO S <=16 S = SENSITIVE I = INTERMEDIATE R = RESISTANT Item Value Date Time Blood Culture - Preliminary Resulted 02/22/162004 Blood NO GROWTH TO DATE. Blood Culture - Preliminary Resulted 02/22/160 Blood NO GROWTH TO DATE. Gram Stain - Final Complete 02/22/16 0000 Ulcer Leg Right Lower Gram Stain - Final Complete 02/22/16 0000 Ulcer Leg Lower Left Last 24 Hours Test 02/23/16 16:28 02/23/16 19:46 02/24/16 02:14 02/24/16 05:10 Bedside Glucose 273 mg/dl 169 mg/dl 110 mg/dl White Blood Count 4.82 K/uL Red Blood Count 2.86 M/uL Hemoglobin 8.7 g/dL Hematocrit 24.1 % Mean Corpuscular Volume 84.3 fL Mean Corpuscular Hemoglobin 30.4 pg Mean Corpuscular Hemoglobin Concent 36.1 g/dl RDW Standard Deviation 38.9 fL RDW Coefficient of Variation 12.5 % Platelet Count 199 K/uL Mean Platelet Volume 10.5 fL Sodium Level 138 mmol/L Potassium Level 3.7 mmol/L Chloride Level 101 mmol/L Carbon Dioxide Level 30 mmol/L Anion Gap 7.0 mmol/L Blood Urea Nitrogen 23 mg/dl Creatinine 1.20 mg/dl Est Creatinine Clear Calc Drug Dose 24.5 ml/min Estimated GFR () 46.7 Estimated GFR (Non- 40.3 BUN/Creatinine Ratio 19.1 Random Glucose 97 mg/dl Calcium Level 8.2 mg/dl Test 02/24/16 07:31 02/24/16 11:29 Bedside Glucose 108 mg/dl 217 mg/dl Assessment & Plan Patient with recurrent bilateral lower extremity wounds and cellulitis with Pseudomonas growing from 1/2 cultures. She is currently on IV Cefepime and Vancomycin, which seems appropriate due to her culture results with Pseudomonas and likelihood of gram positive infection. Noted that wound care nurse is consulted- continue wound care. She likely will need at least a few more days of IV abx pending improvement. We will continue to follow this patient. PROVIDER ADDENDUM: Patient examined and reviewed with Ms. Lewis. Agree with above assessment.
--- NOTE | 2016-02-24 19:28 | Progress Note ---
Medicine Progress Note Date & Time of Visit: Feb 24, 2016 at 14:00. Subjective 89 yoF with recurrent LE cellulitis Pt feels fine today, she is alert and appropriate and sitting at bedside in a chair Dressings are off and wounds exposed with dome drainage and surrounding areas of redness Patient denies pain Denies CP, SOB, Fevers, Chills. She is tolerating PO without issue. Nephew is at bedside with her today. Objective Last 8 Hrs Date Time Temp Pulse Resp B/P Pulse Ox O2 Delivery O2 Flow Rate FiO2 02/24/16 16:12 36.7 62 16 114/51 98 Room Air Physical Exam: GEN: frail, elderly, in no acute distress, sitting in bedside chair, alert and appropriate HEENT: NC/AT, normal sclerae CARDIO: reg rate, S1/2 heard without m/g/r LUNGS: CTA bilaterally, no crackles, rales or wheezes, good diaphragmatic excursion ABD: soft, non-tender, non-distended, no rebound or guarding EXTREMITY: RP and DP palpable 2+ bilat, no LE swelling or edema, extremities are warm and well-perfused, significant ulcerative wounds (several cms on each side) with extensive surrounding erythema and some serous drainage from the wounds which makes them appear wet. NEURO: CN 2-12 grossly intact, no gross focal deficits MUSC: no gross focal deficits, moves all extremities equally SKIN: warm and dry and wounds as above. Laboratory Results: Last 24 Hours Test 02/23/16 19:46 02/24/16 02:14 02/24/16 05:10 02/24/16 07:31 Bedside Glucose 169 mg/dl 110 mg/dl 108 mg/dl White Blood Count 4.82 K/uL Red Blood Count 2.86 M/uL Hemoglobin 8.7 g/dL Hematocrit 24.1 % Mean Corpuscular Volume 84.3 fL Mean Corpuscular Hemoglobin 30.4 pg Mean Corpuscular Hemoglobin Concent 36.1 g/dl RDW Standard Deviation 38.9 fL RDW Coefficient of Variation 12.5 % Platelet Count 199 K/uL Mean Platelet Volume 10.5 fL Sodium Level 138 mmol/L Potassium Level 3.7 mmol/L Chloride Level 101 mmol/L Carbon Dioxide Level 30 mmol/L Anion Gap 7.0 mmol/L Blood Urea Nitrogen 23 mg/dl Creatinine 1.20 mg/dl Est Creatinine Clear Calc Drug Dose 24.5 ml/min Estimated GFR () 46.7 Estimated GFR (Non- 40.3 BUN/Creatinine Ratio 19.1 Random Glucose 97 mg/dl Calcium Level 8.2 mg/dl Test 02/24/16 11:29 02/24/16 16:43 Bedside Glucose 217 mg/dl 196 mg/dl Assessment & Plan 89 yo F with worsened infection superimposed on chronic lower extremity ulcers bilaterally Cellulitis of bilateral lower extremities Wound Ulcerations -->chronic lower extremity edema with diastolic CHF -->has had episodes of decompensated diastolic CHF and subsequent wounds -->recent change in Lasix to Torsemide in January 2016 which has been effective for her -->has been following wound are for the ulcerations in the legs -->wound care nursing sent patient over because of erythema and more drainage -->wound culture and blood cultures revealing some Pseudomonas and RESTROOMS OR LOUNGES MAID -->started IV Rocephin and Vanco-->Rocephin switched to Cefepime for Pseudomonal coverage on 02/23 and ID was consulted-->agrees to cont IV abx for next couple of days -->wound care nurse consulted and following -->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 JACOB-resolved, at baseline. Chronic Diastolic CHF -->type I diastolic CHF, chronic, compensated -->due to renal dysfunction with Lasix, switched to Torsemide -->hold Torsemide secondary to increase in creat which is improved to 1.2 -->no edema at this time so cont to hold CAD s/p CABG -->asymptomatic -->continue current cardiac medications -->was seen by cardiology last month with no changes in medications COPD-severe, on daily low dose prednisone, no wheezing on exam. Stable. 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 Uncertain at this time. FULL CODE DO Abel Love Hospitalist Continued [facility] stay due to: multiple IV medications needed Consultants: ID, Wound Care Current Inpatient Medications: Current Inpatient Medications Medications (Trade) Dose Ordered Sig/Remy Route Start Time Stop Time Status Last Admin Dose Admin Heparin Sodium (Porcine) (Heparin Sq 5000 Unit/0.5ml) 5,000 unit Q8 SQ 02/23/16 06:00 03/24/16 05:59 02/24/16 12:48 5,000 UNIT Acetaminophen (Tylenol Tab) 650 mg Q4H PRN PO 02/22/16 21:15 03/23/16 21:14 02/23/16 12:33 650 MG Al Hydrox/Mg Hydrox/Simethicone (Maalox Max Susp) 15 ml Q4H PRN PO 02/22/16 21:15 03/23/16 21:14 Magnesium Hydroxide (Milk Of Magnesia Susp) 30 ml Q6H PRN PO 02/22/16 21:15 03/23/16 21:14 Polyethylene (Miralax Powder Packet) 17 gm DAILY PRN PO 02/22/16 21:15 03/23/16 21:14 Ondansetron HCl (Zofran Inj) 4 mg Q6H PRN IV 02/22/16 21:15 03/23/16 21:14 Insulin Aspart (novoLOG ASPART) SLIDING SCALE If C... ACHS SC 02/23/16 06:30 03/24/16 06:59 02/24/16 16:30 3 UNITS Glucose (Glucose 40% Gel) 15-30 GRAMS 15 GRAMS... UD PRN PO 02/22/16 21:15 03/23/16 21:14 Glucose (Glucose Chew Tab) 4-8 Tablets 4 Tabl... UD PRN PO 02/22/16 21:15 03/23/16 21:14 Dextrose (Dextrose 50% 50ML Syringe) 25-50ML OF 50% DW IV FOR... UD PRN IV 02/22/16 21:15 03/23/16 21:14 Glucagon (Glucagon Inj) 1 mg UD PRN SQ 02/22/16 21:15 03/23/16 21:14 Miscellaneous Information (Consult Glycemic Management Pharmacy) 1 ea DAILY PRN N/A 02/22/16 22:42 03/23/16 22:41 Atorvastatin Calcium (Lipitor Tab) 20 mg DAILY PO 02/23/16 09:00 03/24/16 08:59 02/24/16 07:32 20 MG Cyanocobalamin (Vitamin B-12 Tab) 250 mcg BID PO 02/23/16 09:00 03/24/16 08:59 02/24/16 07:34 250 MCG Isosorbide Mononitrate (Imdur Ext Rel Tab) 60 mg DAILY PO 02/23/16 09:00 03/24/16 08:59 02/24/16 07:33 60 MG Levothyroxine Sodium (Synthroid Tab) 50 mcg DAILYBB PO 02/23/16 06:30 03/24/16 06:59 02/24/16 06:24 50 MCG Metoprolol Succinate (Toprol Xl Tab) 12.5 mg DAILY PO 02/23/16 09:00 03/24/16 08:59 02/24/16 07:33 12.5 MG Montelukast Sodium (Singulair Tab) 10 mg QPM PO 02/23/16 21:00 03/24/16 20:59 02/23/16 20:15 10 MG Pantoprazole Sodium (Protonix Tab) 40 mg DAILY PO 02/23/16 09:00 03/24/16 08:59 02/24/16 07:31 40 MG Potassium Chloride (Klor-Con M10) 10 meq DAILY PO 02/23/16 09:00 03/24/16 08:59 02/24/16 07:32 10 MEQ Prednisone (PredniSONE TAB) 5 mg DAILY PO 02/23/16 09:00 03/24/16 08:59 02/24/16 07:33 5 MG Tiotropium [place] (Spiriva Handihaler Inhaler) 1 puff DAILY INH 02/23/16 09:00 03/24/16 08:59 02/24/16 07:30 1 PUFF Torsemide (Demadex Tab) 40 mg BID PO 02/23/16 09:00 03/24/16 08:59 Future Hold Magnesium Oxide (Mag-Ox Tab) 400 mg BID PO 02/23/16 09:00 03/24/16 08:59 02/24/16 07:32 400 MG Fluticasone Propionate (Flonase Nasal [place]) 2 sprays BID NA 02/23/16 09:00 03/24/16 08:59 02/24/16 07:31 2 SPRAYS Albuterol/ Ipratropium (Duoneb) 3 ml Q4R PRN INH 02/22/16 21:15 03/23/16 21:14 Vancomycin HCl 1 ea 1 ea UD PRN N/A 02/22/16 23:45 03/23/16 23:44 Vancomycin HCl/ Sodium Chloride (Vancomycin Inj/ Nss 250ml) 267 ml @ 125 mls/hr DAILY@1200 IV 02/23/16 12:00 03/02/16 23:59 02/24/16 12:00 125 MLS/HR Insulin Glargine (Lantus Solostar Pen) 10 unit DAILY SC 02/23/16 14:16 03/24/16 14:15 02/24/16 07:36 10 UNIT Cefepime HCl 1 ea 1 ea UD PRN N/A 02/24/16 15:15 03/25/16 15:14 Cefepime HCl/ Dextrose (Maxipime IV/D5 100ml) 111.3 ml @ 222.6 mls/ hr DAILY@1600 IV 02/24/16 16:00 03/05/16 15:59 02/24/16 16:18 222.6 MLS/HR
[2016-02-24] MEDS: MONTELUKAST SOD 10 MG TAB PO SCH (21:11)
[2016-02-25 00:19] VITALS: BP 168/61; PULSE 57; TEMP 36.5; O2SAT 96
[2016-02-25] MEDS: HEPARIN SOD 5000 UNIT/0.5 ML CARP SQ SCH ×4 (06:00→21:47)
[2016-02-25] MEDS: LEVOTHYROXINE 50 MCG TAB PO SCH (07:18)
[2016-02-25 07:24] LABS: BASO % 1.1 %; BASO ABS # 0.04 K/uL (0-0.2); EOS % 5.8 %; HEMATOCRIT 23.9 % (37-47); IG% 0.3 %; LYMPH % 26.6 %; LYMPH ABS # 0.97 K/uL (1.2-3.4); MEAN CELL VOLUME 82.7 fL (80-100); MEAN CORPUSCULAR HEMOGLOBIN 29.8 pg (25-34); MEAN PLATELET VOLUME 10.1 fL (7.4-10.4); MONO % 11.8 %; NEUT % 54.4 %; PLATELET COUNT 198 K/uL (130-400); RED BLOOD COUNT 2.89 M/uL (4.2-5.4); WHITE BLOOD COUNT 3.65 K/uL (4.8-10.8)
[2016-02-25 07:46] VITALS: BP 158/53; PULSE 54; TEMP 37; O2SAT 95
[2016-02-25 07:54] LABS: BUN/CREATININE RATIO 21.4 (10-20); CALCIUM 8.6 mg/dl (8.5-10.1); CREATININE 1.1 mg/dl (0.60-1.20); POTASSIUM 3.8 mmol/L (3.5-5.1)
[2016-02-25 08:07] LABS: COMPLETE YES
[2016-02-25] MEDS: METOPROLOL SUCC 25MG EXT REL TAB PO SCH (09:00)
[2016-02-25] MEDS: ATORVASTATIN 20 MG TAB PO SCH (09:27)
[2016-02-25] MEDS: TIOTROPIUM BROMIDE 5 PUFF/90 MCG INH INH SCH (09:27)
[2016-02-25] MEDS: POTASSIUM CHLORIDE 10 MEQ TABCR PO SCH (09:27)
[2016-02-25] MEDS: FLUTICASONE PROPIONATE NA SPR 16 GM BTL SCH ×2 (09:27→20:24)
[2016-02-25] MEDS: MAGNESIUM OXIDE 400 MG TAB PO SCH ×2 (09:27→20:25)
[2016-02-25] MEDS: ISOSORBIDE MONONITRATE 60 MG TABCR PO SCH (09:27)
[2016-02-25] MEDS: CYANOCOBALAMIN 500 MCG TAB (VIT B-12) PO SCH ×2 (09:28→20:26)
[2016-02-25] MEDS: PANTOprazole SOD 40 MG TAB PO SCH (09:28)
[2016-02-25] MEDS: INSULIN ASPART 100 UNITS/ML 3 ML PEN SC SCH ×4 (09:39→20:32)
[2016-02-25] MEDS: INSULIN GLARGINE SOLOSTAR 100 UNITS/ML 3 ML PEN SC SCH (09:40)
--- NOTE | 2016-02-25 10:19 | Infectious Disease Progress Nt ---
Progress Note Date of Service Feb 25, 2016. Subjective Pt evaluation today including: conversation w/ patient, conversation w/ family (sister), physical exam, chart review, lab review, review of studies, review of inpatient medication list WBC count is 3.65 this morning and her Hgb is 8.6. Creatinine is 1.10. She is currently on IV Vancomycin and Cefepime. Blood cultures continue to show no growth. Patient is feeling OK this morning but is very fatigued. Falls asleep on and off during exam. All Other Systems: Reviewed and Negative Medications Current Inpatient Medications Medications (Trade) Dose Ordered Sig/Remy Route Start Time Stop Time Status Last Admin Dose Admin Heparin Sodium (Porcine) (Heparin Sq 5000 Unit/0.5ml) 5,000 unit Q8 SQ 02/23/16 06:00 03/24/16 05:59 02/24/16 21:19 5,000 UNIT Acetaminophen (Tylenol Tab) 650 mg Q4H PRN PO 02/22/16 21:15 03/23/16 21:14 02/23/16 12:33 650 MG Al Hydrox/Mg Hydrox/Simethicone (Maalox Max Susp) 15 ml Q4H PRN PO 02/22/16 21:15 03/23/16 21:14 Magnesium Hydroxide (Milk Of Magnesia Susp) 30 ml Q6H PRN PO 02/22/16 21:15 03/23/16 21:14 Polyethylene (Miralax Powder Packet) 17 gm DAILY PRN PO 02/22/16 21:15 03/23/16 21:14 Ondansetron HCl (Zofran Inj) 4 mg Q6H PRN IV 02/22/16 21:15 03/23/16 21:14 Insulin Aspart (novoLOG ASPART) SLIDING SCALE If C... ACHS SC 02/23/16 06:30 03/24/16 06:59 02/25/16 09:39 5 UNITS Glucose (Glucose 40% Gel) 15-30 GRAMS 15 GRAMS... UD PRN PO 02/22/16 21:15 03/23/16 21:14 Glucose (Glucose Chew Tab) 4-8 Tablets 4 Tabl... UD PRN PO 02/22/16 21:15 03/23/16 21:14 Dextrose (Dextrose 50% 50ML Syringe) 25-50ML OF 50% DW IV FOR... UD PRN IV 02/22/16 21:15 03/23/16 21:14 Glucagon (Glucagon Inj) 1 mg UD PRN SQ 02/22/16 21:15 03/23/16 21:14 Miscellaneous Information (Consult Glycemic Management Pharmacy) 1 ea DAILY PRN N/A 02/22/16 22:42 03/23/16 22:41 Atorvastatin Calcium (Lipitor Tab) 20 mg DAILY PO 02/23/16 09:00 03/24/16 08:59 02/25/16 09:27 20 MG Cyanocobalamin (Vitamin B-12 Tab) 250 mcg BID PO 02/23/16 09:00 03/24/16 08:59 02/25/16 09:28 250 MCG Isosorbide Mononitrate (Imdur Ext Rel Tab) 60 mg DAILY PO 02/23/16 09:00 03/24/16 08:59 02/25/16 09:27 60 MG Levothyroxine Sodium (Synthroid Tab) 50 mcg DAILYBB PO 02/23/16 06:30 03/24/16 06:59 02/25/16 07:18 50 MCG Metoprolol Succinate (Toprol Xl Tab) 12.5 mg DAILY PO 02/23/16 09:00 03/24/16 08:59 02/24/16 07:33 12.5 MG Montelukast Sodium (Singulair Tab) 10 mg QPM PO 02/23/16 21:00 03/24/16 20:59 02/24/16 21:11 10 MG Pantoprazole Sodium (Protonix Tab) 40 mg DAILY PO 02/23/16 09:00 03/24/16 08:59 02/25/16 09:28 40 MG Potassium Chloride (Klor-Con M10) 10 meq DAILY PO 02/23/16 09:00 03/24/16 08:59 02/25/16 09:27 10 MEQ Prednisone (PredniSONE TAB) 5 mg DAILY PO 02/23/16 09:00 03/24/16 08:59 02/25/16 09:27 5 MG Tiotropium [place] (Spiriva Handihaler Inhaler) 1 puff DAILY INH 02/23/16 09:00 03/24/16 08:59 02/25/16 09:27 1 PUFF Torsemide (Demadex Tab) 40 mg BID PO 02/23/16 09:00 03/24/16 08:59 Future Hold Magnesium Oxide (Mag-Ox Tab) 400 mg BID PO 02/23/16 09:00 03/24/16 08:59 02/25/16 09:27 400 MG Fluticasone Propionate (Flonase Nasal [place]) 2 sprays BID NA 02/23/16 09:00 03/24/16 08:59 02/25/16 09:27 2 SPRAYS Albuterol/ Ipratropium (Duoneb) 3 ml Q4R PRN INH 02/22/16 21:15 03/23/16 21:14 Vancomycin HCl 1 ea 1 ea UD PRN N/A 02/22/16 23:45 03/23/16 23:44 Vancomycin HCl/ Sodium Chloride (Vancomycin Inj/ Nss 250ml) 267 ml @ 125 mls/hr DAILY@1200 IV 02/23/16 12:00 03/02/16 23:59 02/24/16 12:00 125 MLS/HR Insulin Glargine (Lantus Solostar Pen) 10 unit DAILY SC 02/23/16 14:16 03/24/16 14:15 02/25/16 09:40 10 UNIT Cefepime HCl 1 ea 1 ea UD PRN N/A 02/24/16 15:15 03/25/16 15:14 Cefepime HCl/ Dextrose (Maxipime IV/D5 100ml) 111.3 ml @ 222.6 mls/ hr DAILY@1600 IV 02/24/16 16:00 03/05/16 15:59 02/24/16 16:18 222.6 MLS/HR Objective Vital Signs Date Time Temp Pulse Resp B/P Pulse Ox O2 Delivery O2 Flow Rate FiO2 02/25/16 07:46 37.0 54 18 158/53 95 Room Air 02/25/16 00:19 36.5 57 16 168/61 96 Room Air 02/25/16 00:00 Room Air 02/24/16 16:12 36.7 62 16 114/51 98 Room Air 02/24/16 16:00 98 Room Air Physical Exam General Appearance: WD/WN, no apparent distress Eyes: normal inspection, sclerae normal ENT: hearing grossly normal Neck: supple, trachea midline Respiratory/Chest: no respiratory distress, no accessory muscle use Cardiovascular: + bradycardia Extremities: + pertinent finding (dressings on b/l LE. Some mild drainage noted on the left lower extremity bandage. No drainage noted of the RLE. Continued moderate erythema of the bilateral lower extremities with L > R. Appears slightly improved. ) Neurologic/Psychiatric: + pertinent finding (falls asleep on and off) Skin: + pertinent finding (continued erythema as described above) Laboratory Results Item Value Date Time Blood Culture - Preliminary Resulted 02/22/162004 Blood NO GROWTH TO DATE. Blood Culture - Preliminary Resulted 02/22/161819 Blood NO GROWTH TO DATE. Gram Stain - Final Complete 02/22/16 0000 Ulcer Leg Right Lower Gram Stain - Final Complete 02/22/16 0000 Ulcer Leg Lower Left Last 24 Hours Test 02/24/16 11:29 02/24/16 16:43 02/24/16 21:08 02/25/16 06:32 Bedside Glucose 217 mg/dl 196 mg/dl 235 mg/dl White Blood Count 3.65 K/uL Red Blood Count 2.89 M/uL Hemoglobin 8.6 g/dL Hematocrit 23.9 % Mean Corpuscular Volume 82.7 fL Mean Corpuscular Hemoglobin 29.8 pg Mean Corpuscular Hemoglobin Concent 36.0 g/dl Platelet Count 198 K/uL Mean Platelet Volume 10.1 fL Neutrophils (%) (Auto) 54.4 % Lymphocytes (%) (Auto) 26.6 % Monocytes (%) (Auto) 11.8 % Eosinophils (%) (Auto) 5.8 % Basophils (%) (Auto) 1.1 % Neutrophils # (Auto) 1.99 K/uL Lymphocytes # (Auto) 0.97 K/uL Monocytes # (Auto) 0.43 K/uL Eosinophils # (Auto) 0.21 K/uL Basophils # (Auto) 0.04 K/uL RDW Standard Deviation 38.5 fL RDW Coefficient of Variation 12.5 % Immature Granulocyte % (Auto) 0.3 % Immature Granulocyte # (Auto) 0.01 K/uL Red Blood Cell Morphology Unremarkable Sodium Level 138 mmol/L Potassium Level 3.8 mmol/L Chloride Level 102 mmol/L Carbon Dioxide Level 25 mmol/L Anion Gap 11.0 mmol/L Blood Urea Nitrogen 24 mg/dl Creatinine 1.10 mg/dl Est Creatinine Clear Calc Drug Dose 26.7 ml/min Estimated GFR () 51.9 Estimated GFR (Non- 44.8 BUN/Creatinine Ratio 21.4 Random Glucose 160 mg/dl Calcium Level 8.6 mg/dl Test 02/25/16 07:10 Bedside Glucose 171 mg/dl Assessment and Plan (1) Bilateral lower leg cellulitis Patient with recurrent bilateral lower extremity wounds and cellulitis with Pseudomonas growing from 1/2 cultures and coag-negative staph growing from another. She is currently on IV Cefepime and Vancomycin, this is appropriate due to her culture results with Pseudomonas and likelihood of gram positive infection. Continue wound care. She likely will need at least a few more days of IV abx pending improvement. We will continue to follow this patient. PROVIDER ADDENDUM: Patient reviewed with Ms. Lewis. Agree with above assessment.
[2016-02-25] MEDS: VANCOMYCIN INJ 850 MG in SODIUM CHLORIDE 0.9% 250ML 250 ML IV SCH (12:28)
[2016-02-25 15:01] VITALS: BP 147/75; PULSE 60; TEMP 37; O2SAT 97
--- NOTE | 2016-02-25 15:12 | Pharmacy Progress Note ---
Pharmacy Antibiotic Prog Note Date of Service: Feb 25, 2016. Subjective: The patient is currently receiving IV Vancomycin/Cefepime for bilat LE cellulitis. The patient is currently on day #4 of Vanco therapy & day #2 of Cefepime therapy. Objective: Height (Feet): 5 Height (Inches): 1.00 Weight (Kilograms): 53.000 Levels: Item Value Date Time Vancomycin Level Trough 13.6 mcg/ml 02/25/16 1127 Lab Results (24hrs): Laboratory Tests Test 02/25/16 06:32 BUN/Creatinine Ratio 21.4 Blood Urea Nitrogen 24 mg/dl Creatinine 1.10 mg/dl White Blood Count 3.65 K/uL Red Blood Count 2.89 M/uL Hemoglobin 8.6 g/dL Hematocrit 23.9 % Mean Corpuscular Volume 82.7 fL Mean Corpuscular Hemoglobin 29.8 pg Mean Corpuscular Hemoglobin Concent 36.0 g/dl Platelet Count 198 K/uL Mean Platelet Volume 10.1 fL Neutrophils (%) (Auto) 54.4 % Lymphocytes (%) (Auto) 26.6 % Monocytes (%) (Auto) 11.8 % Eosinophils (%) (Auto) 5.8 % Basophils (%) (Auto) 1.1 % Neutrophils # (Auto) 1.99 K/uL Lymphocytes # (Auto) 0.97 K/uL Monocytes # (Auto) 0.43 K/uL Eosinophils # (Auto) 0.21 K/uL Basophils # (Auto) 0.04 K/uL Micro Results: Item Value Date Time Gram Stain - Final Complete 02/22/16 0000 Ulcer Leg Right Lower Item Value Date Time Gram Stain - Final Complete 02/22/16 0000 Ulcer Leg Lower Left RUN DATE: 02/24/16 [facility] LAB PAGE 1 RUN TIME: 1356 Specimen Inquiry PATIENT: RIKKI KIRAN LOC: [facility] U # : [id number] AGE/SX: 89/F ROOM: [facility] REG : 02/22/[address]: Janine Iyer DO : [id number] BED: 2 DIS : STATUS: ADM IN TLOC: SPEC #: [id number] SERG: 02/22/16-UNK STATUS: COMP REQ #: [id number] RECD: 02/22/[address]: Cameron Mabry MD SOURCE: ULCER ENTR: 02/22/[address]: Chris De La Rosa DO SPDESC: LEG Ken Thomas D.OSlade ORDERED: SURF ARLEEN CU/SUDHEER COMMENTS: Has Specimen Been Obtained/Collected? Y Procedure Result Verified Site GRAM STAIN Final 02/23/16-843 RESULT RARE EPITHELIAL CELLS NO WBCs SEEN NO ORGANISMS SEEN SURFACE WOUND CULTURE Final 02/24/16-1356 Organism 1 PSEUDOMONAS AERUGINOSA QUANITY FEW SENS SENSITIVITY TO FOLLOW 1. PSEUDOMONAS AERUGINOSA Target Route Dose RX AB Cost M.I.C. IQ ------ ----- ------ -- ------ -------- - ------ CEFTAZIDIME S 4 CEFEPIME S <=4 IMIPENEM S <=1 AZTREONAM S <=4 GENTAMICIN S <=4 TOBRAMYCIN S <=4 AMIKACIN S <=16 CIPROFLOXACIN S <=1 LEVOFLOXACIN S <=2 PIP/TAZO S <=16 S = SENSITIVE I = INTERMEDIATE R = RESISTANT Item Value Date Time Blood Culture - Preliminary Resulted 02/22/16 1820 Blood NO GROWTH TO DATE. Blood Culture - Preliminary Resulted 02/22/162004 Blood NO GROWTH TO DATE. Recent Pertinent Medications: Item Value Date Time Cefepime HCl 1000 111.3 ml @ 222.6 mls/hr 02/24/16 1600 mg/Dextrose DAILY@1600/IV 02/24/16 1618 Vancomycin HCl 267 ml @ 125 mls/hr 02/23/16 1200 850 mg/Sodium DAILY@1200/IV 02/25/16 1228 Chloride Vancomycin HCl 1 gm 02/22/16 1938 (Vancomycin 1gm/ NOW STAT/IV 02/22/16 2041 270ml Nss) Assessment & Plan: Vancomycin * Goal trough level: 10-15mcg/mL * Trough drawn: 13.6mcg/mL --> Therapeutic * Continue current dose of Vanco 850mg IV q24h * Recheck level in a few days if renal fxn stable, otherwise will check sooner Pharmacy will continue to follow and will adjust dose/frequency as necessary. Thank you
[2016-02-25] MEDS: CEFEPIME IV 1,000 MG in DEXTROSE 5% 100ML IV SCH (15:24)
--- NOTE | 2016-02-25 15:26 | Pharmacy Progress Note ---
Glycemic: Assessment & Plan Date of Service Feb 25, 2016. Assessment & Plan The patient received 22 units of insulin on 02/22, 20 units on 02/23. BSGs ranging 160 -235 mg/dl over the past 24hrs. Generally trending down. Still on prednisone 5 mg daily. Rocephin dc'd, now on cefepime and vancomycin. Will tighten carb ratio a bit and reassess in am. * Basal insulin: Lantus 10 units every am * Correctional Insulin: Novolog Correction per scale ACHS Goal Range: Low 120 mg/dL - High 160 mg/dL Correction Factor: 45 mg/dL/unit * Prandial insulin: Per carb ratio of 1 unit per 12 grams CHO consumed BSGs continue to improve, no other changes needed to inpatient regimen at this time. Pharmacy will continue to monitor patient daily and write orders per [facility] inpatient glycemic control protocol. Thanks. * Please note that the plan above was derived based on current level of insulin resistance and hospital stress. These recommendations are appropriate for inpatient admission only. Plan of care upon discharge will need to be reassessed to avoid potential outpatient hypo/hyperglycemia.
[2016-02-25] MEDS: ACETAMINOPHEN 325 MG TAB PO PRN (18:38)
[2016-02-25] MEDS: ACETAMINOPHEN 325 MG TAB PO SCH (20:24)
[2016-02-25] MEDS: MONTELUKAST SOD 10 MG TAB PO SCH (20:25)
[2016-02-25 23:10] VITALS: BP 178/70; PULSE 62; TEMP 37; O2SAT 96
--- NOTE | 2016-02-25 23:55 | Progress Note ---
Medicine Progress Note Date & Time of Visit: Feb 25, 2016 at 18:44. Subjective Pt and her sister report that she had pain in her legs all night overnight APAP was scheduled Nurse reports patient was sleeping most of the day today. Tolerating PO To bedside commode with assistance. No fevers/chills overnight Objective Last 8 Hrs Date Time Temp Pulse Resp B/P Pulse Ox O2 Delivery O2 Flow Rate FiO2 02/25/16 15:15 Room Air 02/25/16 15:01 37.0 60 18 147/75 97 Room Air Physical Exam: GEN: frail, elderly, in no acute distress, alert and appropriate HEENT: NC/AT, normal sclerae CARDIO: reg rate, S1/2 heard without m/g/r LUNGS: CTA bilaterally, no crackles, rales or wheezes, good diaphragmatic excursion ABD: soft, non-tender, non-distended, no rebound or guarding EXTREMITY: RP and DP palpable 2+ bilat, no LE swelling or edema, extremities are warm and well-perfused, significant ulcerative wounds (several cms on each side) with extensive surrounding erythema and some serous drainage from the wounds which makes them appear wet. NEURO: CN 2-12 grossly intact, no gross focal deficits MUSC: no gross focal deficits, moves all extremities equally SKIN: warm and dry and wounds as above. Laboratory Results: Last 24 Hours Test 02/24/16 21:08 02/25/16 06:32 02/25/16 07:10 02/25/16 11:20 Bedside Glucose 235 mg/dl 171 mg/dl 165 mg/dl White Blood Count 3.65 K/uL Red Blood Count 2.89 M/uL Hemoglobin 8.6 g/dL Hematocrit 23.9 % Mean Corpuscular Volume 82.7 fL Mean Corpuscular Hemoglobin 29.8 pg Mean Corpuscular Hemoglobin Concent 36.0 g/dl Platelet Count 198 K/uL Mean Platelet Volume 10.1 fL Neutrophils (%) (Auto) 54.4 % Lymphocytes (%) (Auto) 26.6 % Monocytes (%) (Auto) 11.8 % Eosinophils (%) (Auto) 5.8 % Basophils (%) (Auto) 1.1 % Neutrophils # (Auto) 1.99 K/uL Lymphocytes # (Auto) 0.97 K/uL Monocytes # (Auto) 0.43 K/uL Eosinophils # (Auto) 0.21 K/uL Basophils # (Auto) 0.04 K/uL RDW Standard Deviation 38.5 fL RDW Coefficient of Variation 12.5 % Immature Granulocyte % (Auto) 0.3 % Immature Granulocyte # (Auto) 0.01 K/uL Red Blood Cell Morphology Unremarkable Sodium Level 138 mmol/L Potassium Level 3.8 mmol/L Chloride Level 102 mmol/L Carbon Dioxide Level 25 mmol/L Anion Gap 11.0 mmol/L Blood Urea Nitrogen 24 mg/dl Creatinine 1.10 mg/dl Est Creatinine Clear Calc Drug Dose 26.7 ml/min Estimated GFR () 51.9 Estimated GFR (Non- 44.8 BUN/Creatinine Ratio 21.4 Random Glucose 160 mg/dl Calcium Level 8.6 mg/dl Test 02/25/16 11:27 02/25/16 16:25 Vancomycin Level Trough 13.6 mcg/ml Bedside Glucose 119 mg/dl Assessment & Plan 89 yo F with worsened infection superimposed on chronic lower extremity ulcers bilaterally Cellulitis of bilateral lower extremities Wound Ulcerations--improved -->chronic lower extremity edema with diastolic CHF -->has had episodes of decompensated diastolic CHF and subsequent wounds -->recent change in Lasix to Torsemide in January 2016 which has been effective for her -->has been following wound are for the ulcerations in the legs -->wound care nursing sent patient over because of erythema and more drainage -->wound culture and blood cultures revealing some Pseudomonas and [employer] -->started IV Rocephin and Vanco-->Rocephin switched to Cefepime for Pseudomonal coverage on 02/23 and ID was consulted-->agrees to cont IV abx for next couple of days -->wound care nurse consulted and following -->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 JACOB-resolved, at baseline. Chronic Diastolic CHF -->type I diastolic CHF, chronic, compensated -->due to renal dysfunction with Lasix, switched to Torsemide -->hold Torsemide secondary to increase in creat which is improved to 1.2 -->no edema at this time so cont to hold CAD s/p CABG -->asymptomatic -->continue current cardiac medications -->was seen by cardiology last month with no changes in medications COPD-severe, on daily low dose prednisone, no wheezing on exam. Stable. 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 Uncertain at this time. FULL CODE Janine Iyer DO [facility] Hospitalist Continued [facility] stay due to: multiple IV medications needed Consultants: ID, Wound Care Current Inpatient Medications: Current Inpatient Medications Medications (Trade) Dose Ordered Sig/Remy Route Start Time Stop Time Status Last Admin Dose Admin Heparin Sodium (Porcine) (Heparin Sq 5000 Unit/0.5ml) 5,000 unit Q8 SQ 02/23/16 06:00 03/24/16 05:59 02/25/16 13:24 5,000 UNIT Al Hydrox/Mg Hydrox/Simethicone (Maalox Max Susp) 15 ml Q4H PRN PO 02/22/16 21:15 03/23/16 21:14 Magnesium Hydroxide (Milk Of Magnesia Susp) 30 ml Q6H PRN PO 02/22/16 21:15 03/23/16 21:14 Polyethylene (Miralax Powder Packet) 17 gm DAILY PRN PO 02/22/16 21:15 03/23/16 21:14 Ondansetron HCl (Zofran Inj) 4 mg Q6H PRN IV 02/22/16 21:15 03/23/16 21:14 Insulin Aspart (novoLOG ASPART) SLIDING SCALE If C... ACHS SC 02/23/16 06:30 03/24/16 06:59 02/25/16 17:28 2 UNITS Glucose (Glucose 40% Gel) 15-30 GRAMS 15 GRAMS... UD PRN PO 02/22/16 21:15 03/23/16 21:14 Glucose (Glucose Chew Tab) 4-8 Tablets 4 Tabl... UD PRN PO 02/22/16 21:15 03/23/16 21:14 Dextrose (Dextrose 50% 50ML Syringe) 25-50ML OF 50% DW IV FOR... UD PRN IV 02/22/16 21:15 03/23/16 21:14 Glucagon (Glucagon Inj) 1 mg UD PRN SQ 02/22/16 21:15 03/23/16 21:14 Miscellaneous Information (Consult Glycemic Management Pharmacy) 1 ea DAILY PRN N/A 02/22/16 22:42 03/23/16 22:41 Atorvastatin Calcium (Lipitor Tab) 20 mg DAILY PO 02/23/16 09:00 03/24/16 08:59 02/25/16 09:27 20 MG Cyanocobalamin (Vitamin B-12 Tab) 250 mcg BID PO 02/23/16 09:00 03/24/16 08:59 02/25/16 09:28 250 MCG Isosorbide Mononitrate (Imdur Ext Rel Tab) 60 mg DAILY PO 02/23/16 09:00 03/24/16 08:59 02/25/16 09:27 60 MG Levothyroxine Sodium (Synthroid Tab) 50 mcg DAILYBB PO 02/23/16 06:30 03/24/16 06:59 02/25/16 07:18 50 MCG Metoprolol Succinate (Toprol Xl Tab) 12.5 mg DAILY PO 02/23/16 09:00 03/24/16 08:59 02/24/16 07:33 12.5 MG Montelukast Sodium (Singulair Tab) 10 mg QPM PO 02/23/16 21:00 03/24/16 20:59 02/24/16 21:11 10 MG Pantoprazole Sodium (Protonix Tab) 40 mg DAILY PO 02/23/16 09:00 03/24/16 08:59 02/25/16 09:28 40 MG Potassium Chloride (Klor-Con M10) 10 meq DAILY PO 02/23/16 09:00 03/24/16 08:59 02/25/16 09:27 10 MEQ Prednisone (PredniSONE TAB) 5 mg DAILY PO 02/23/16 09:00 03/24/16 08:59 02/25/16 09:27 5 MG Tiotropium [place] (Spiriva Handihaler Inhaler) 1 puff DAILY INH 1/10/17 09:00 03/24/16 08:59 02/25/16 09:27 1 PUFF Torsemide (Demadex Tab) 40 mg BID PO 02/23/16 09:00 03/24/16 08:59 Future Hold Magnesium Oxide (Mag-Ox Tab) 400 mg BID PO 02/23/16 09:00 03/24/16 08:59 02/25/16 09:27 400 MG Fluticasone Propionate (Flonase Nasal [place]) 2 sprays BID NA 02/23/16 09:00 03/24/16 08:59 02/25/16 09:27 2 SPRAYS Albuterol/ Ipratropium (Duoneb) 3 ml Q4R PRN INH 02/22/16 21:15 03/23/16 21:14 Vancomycin HCl 1 ea 1 ea UD PRN N/A 02/22/16 23:45 03/23/16 23:44 Vancomycin HCl/ Sodium Chloride (Vancomycin Inj/ Nss 250ml) 267 ml @ 125 mls/hr DAILY@1200 IV 02/23/16 12:00 03/02/16 23:59 02/25/16 12:28 125 MLS/HR Insulin Glargine (Lantus Solostar Pen) 10 unit DAILY SC 02/23/16 14:16 03/24/16 14:15 02/25/16 09:40 10 UNIT Cefepime HCl 1 ea 1 ea UD PRN N/A 02/24/16 15:15 03/25/16 15:14 Cefepime HCl/ Dextrose (Maxipime IV/D5 100ml) 111.3 ml @ 222.6 mls/ hr DAILY@1600 IV 02/24/16 16:00 03/05/16 15:59 02/25/16 15:24 222.6 MLS/HR Acetaminophen (Tylenol Tab) 650 mg Q6H PO 02/25/16 18:45 02/27/16 18:44 UNV
[2016-02-26] MEDS: ACETAMINOPHEN 325 MG TAB PO SCH ×5 (01:46→19:43)
[2016-02-26 05:52] LABS: BASO ABS # 0.06 K/uL (0-0.2); EOS % 6.9 %; HEMATOCRIT 23.9 % (37-47); IG% 0.3 %; LYMPH % 23.9 %; LYMPH ABS # 0.73 K/uL (1.2-3.4); MEAN CELL VOLUME 84.2 fL (80-100); MEAN CORPUSCULAR HEMOGLOBIN 29.9 pg (25-34); MEAN CORPUSCULAR HGB CONC 35.6 g/dl (32-36); MONO % 12.7 %; NEUT % 54.2 %; PLATELET COUNT 203 K/uL (130-400); RED BLOOD COUNT 2.84 M/uL (4.2-5.4); WHITE BLOOD COUNT 3.06 K/uL (4.8-10.8)
[2016-02-26 06:16] LABS: BUN/CREATININE RATIO 24.9 (10-20); CALCIUM 8.1 mg/dl (8.5-10.1); POTASSIUM 3.9 mmol/L (3.5-5.1)
[2016-02-26 06:24] LABS: COMPLETE YES
[2016-02-26] MEDS: LEVOTHYROXINE 50 MCG TAB PO SCH (06:39)
[2016-02-26] MEDS: HEPARIN SOD 5000 UNIT/0.5 ML CARP SQ SCH ×3 (06:43→20:04)
[2016-02-26 07:53] VITALS: BP 187/69; PULSE 57; TEMP 36.9; O2SAT 95
[2016-02-26] MEDS: FLUTICASONE PROPIONATE NA SPR 16 GM BTL SCH ×2 (08:18→19:43)
[2016-02-26] MEDS: TIOTROPIUM BROMIDE 5 PUFF/90 MCG INH INH SCH (08:19)
[2016-02-26] MEDS: PANTOprazole SOD 40 MG TAB PO SCH (08:19)
[2016-02-26] MEDS: METOPROLOL SUCC 25MG EXT REL TAB PO SCH (08:22)
[2016-02-26] MEDS: ATORVASTATIN 20 MG TAB PO SCH (08:23)
[2016-02-26] MEDS: CYANOCOBALAMIN 500 MCG TAB (VIT B-12) PO SCH ×2 (08:23→19:45)
[2016-02-26] MEDS: POTASSIUM CHLORIDE 10 MEQ TABCR PO SCH (08:25)
[2016-02-26] MEDS: ISOSORBIDE MONONITRATE 60 MG TABCR PO SCH (08:25)
[2016-02-26] MEDS ORDERED: AZTREONAM CONSULT ACTIVE PRN ×2 (09:45)
[2016-02-26] MEDS: MAGNESIUM OXIDE 400 MG TAB PO SCH ×2 (09:59→19:44)
[2016-02-26] MEDS ORDERED: AZTREONAM 2000 MG in DEXTROSE 5% 100 ML IV ONE (10:00)
[2016-02-26] MEDS: INSULIN ASPART 100 UNITS/ML 3 ML PEN SC SCH ×4 (10:03→20:04)
[2016-02-26] MEDS: INSULIN GLARGINE SOLOSTAR 100 UNITS/ML 3 ML PEN SC SCH (10:04)
[2016-02-26 10:59] VITALS: BP 127/48; PULSE 85
[2016-02-26] MEDS: VANCOMYCIN INJ 850 MG in SODIUM CHLORIDE 0.9% 250ML 250 ML IV SCH (11:54)
--- NOTE | 2016-02-26 12:59 | Infectious Disease Progress Nt ---
Progress Note Date of Service Feb 26, 2016. Subjective Pt evaluation today including: conversation w/ patient, conversation w/ family (sister), physical exam, chart review, lab review, review of studies, review of inpatient medication list White blood cell count this morning was 3.08. Her hemoglobin was 8.5. Her creatinine was 1.00. Blood cultures continue to show no growth to date. No new imaging studies. Note that the patient was changed from IV cefepime to IV aztreonam and continues on IV vancomycin. She continues to be very fatigued today. She states that her leg pain is slightly less. All Other Systems: Reviewed and Negative Medications Current Inpatient Medications Medications (Trade) Dose Ordered Sig/Remy Route Start Time Stop Time Status Last Admin Dose Admin Heparin Sodium (Porcine) (Heparin Sq 5000 Unit/0.5ml) 5,000 unit Q8 SQ 02/23/16 06:00 03/24/16 05:59 02/26/16 06:43 5,000 UNIT Al Hydrox/Mg Hydrox/Simethicone (Maalox Max Susp) 15 ml Q4H PRN PO 02/22/16 21:15 03/23/16 21:14 Magnesium Hydroxide (Milk Of Magnesia Susp) 30 ml Q6H PRN PO 02/22/16 21:15 03/23/16 21:14 Polyethylene (Miralax Powder Packet) 17 gm DAILY PRN PO 02/22/16 21:15 03/23/16 21:14 Ondansetron HCl (Zofran Inj) 4 mg Q6H PRN IV 02/22/16 21:15 03/23/16 21:14 Insulin Aspart (novoLOG ASPART) SLIDING SCALE If C... ACHS SC 02/23/16 06:30 03/24/16 06:59 02/26/16 10:03 3 UNITS Glucose (Glucose 40% Gel) 15-30 GRAMS 15 GRAMS... UD PRN PO 02/22/16 21:15 03/23/16 21:14 Glucose (Glucose Chew Tab) 4-8 Tablets 4 Tabl... UD PRN PO 02/22/16 21:15 03/23/16 21:14 Dextrose (Dextrose 50% 50ML Syringe) 25-50ML OF 50% DW IV FOR... UD PRN IV 02/22/16 21:15 03/23/16 21:14 Glucagon (Glucagon Inj) 1 mg UD PRN SQ 02/22/16 21:15 03/23/16 21:14 Miscellaneous Information (Consult Glycemic Management Pharmacy) 1 ea DAILY PRN N/A 02/22/16 22:42 03/23/16 22:41 Atorvastatin Calcium (Lipitor Tab) 20 mg DAILY PO 02/23/16 09:00 03/24/16 08:59 02/26/16 08:23 20 MG Cyanocobalamin (Vitamin B-12 Tab) 250 mcg BID PO 02/23/16 09:00 03/24/16 08:59 02/26/16 08:23 250 MCG Isosorbide Mononitrate (Imdur Ext Rel Tab) 60 mg DAILY PO 02/23/16 09:00 03/24/16 08:59 02/26/16 08:25 60 MG Levothyroxine Sodium (Synthroid Tab) 50 mcg DAILYBB PO 02/23/16 06:30 03/24/16 06:59 02/26/16 06:39 50 MCG Metoprolol Succinate (Toprol Xl Tab) 12.5 mg DAILY PO 02/23/16 09:00 03/24/16 08:59 02/26/16 08:22 12.5 MG Montelukast Sodium (Singulair Tab) 10 mg QPM PO 02/23/16 21:00 03/24/16 20:59 02/25/16 20:25 10 MG Pantoprazole Sodium (Protonix Tab) 40 mg DAILY PO 02/23/16 09:00 03/24/16 08:59 02/26/16 08:19 40 MG Potassium Chloride (Klor-Con M10) 10 meq DAILY PO 02/23/16 09:00 03/24/16 08:59 02/26/16 08:25 10 MEQ Prednisone (PredniSONE TAB) 5 mg DAILY PO 02/23/16 09:00 03/24/16 08:59 02/26/16 08:26 5 MG Tiotropium [place] (Spiriva Handihaler Inhaler) 1 puff DAILY INH 02/23/16 09:00 03/24/16 08:59 02/26/16 08:19 1 PUFF Torsemide (Demadex Tab) 40 mg BID PO 02/23/16 09:00 03/24/16 08:59 Future Hold Magnesium Oxide (Mag-Ox Tab) 400 mg BID PO 02/23/16 09:00 03/24/16 08:59 02/26/16 09:59 400 MG Fluticasone Propionate (Flonase Nasal [place]) 2 sprays BID NA 02/23/16 09:00 03/24/16 08:59 02/26/16 08:18 2 SPRAYS Albuterol/ Ipratropium (Duoneb) 3 ml Q4R PRN INH 02/22/16 21:15 03/23/16 21:14 Vancomycin HCl 1 ea 1 ea UD PRN N/A 02/22/16 23:45 03/23/16 23:44 Vancomycin HCl/ Sodium Chloride (Vancomycin Inj/ Nss 250ml) 267 ml @ 125 mls/hr DAILY@1200 IV 02/23/16 12:00 03/02/16 23:59 02/26/16 11:54 125 MLS/HR Insulin Glargine (Lantus Solostar Pen) 10 unit DAILY SC 02/23/16 14:16 03/24/16 14:15 02/26/16 10:04 10 UNIT Acetaminophen (Tylenol Tab) 650 mg Q6H PO 02/25/16 20:00 02/27/16 19:59 02/26/16 08:17 650 MG Aztreonam 1 ea 1 ea UD PRN N/A 02/26/16 09:45 03/27/16 09:44 Aztreonam/Dextrose (Azactam IV/D5 100ml) 110 ml @ 110 mls/hr Q12H IV 02/26/16 22:00 03/07/16 21:59 Objective Vital Signs Date Time Temp Pulse Resp B/P Pulse Ox O2 Delivery O2 Flow Rate FiO2 02/26/16 10:59 85 127/48 02/26/16 07:53 36.9 57 16 187/69 95 Room Air 02/26/16 00:00 Room Air 02/25/16 23:10 37.0 62 16 178/70 96 Room Air 02/25/16 20:00 Room Air 02/25/16 15:15 Room Air 02/25/16 15:01 37.0 60 18 147/75 97 Room Air Physical Exam General Appearance: WD/WN, + pertinent finding (sleeping on and off-lethargic) Eyes: normal inspection ENT: hearing grossly normal Neck: supple, trachea midline Respiratory/Chest: chest non-tender, no respiratory distress, no accessory muscle use Cardiovascular: regular rate, rhythm Abdomen: normal bowel sounds, non tender Extremities: + pedal edema (Mild bilaterally), + pertinent finding Neurologic/Psychiatric: alert, normal mood/affect Skin: warm/dry, no rash, + pertinent finding (Patient continues to have multiple open ulcerations of the bilateral lower extremities. These appear to be much improved today. The erythema surrounding her ulcerations is much less. She does continue to have tenderness of the surrounding area.) Laboratory Results Item Value Date Time Blood Culture - Preliminary Resulted 02/22/162004 Blood NO GROWTH TO DATE. Blood Culture - Preliminary Resulted 02/22/160 Blood NO GROWTH TO DATE. Gram Stain - Final Complete 02/22/16 0000 Ulcer Leg Right Lower Gram Stain - Final Complete 02/22/16 0000 Ulcer Leg Lower Left Last 24 Hours Test 02/25/16 16:25 02/25/16 20:21 02/26/16 05:00 02/26/16 07:44 Bedside Glucose 119 mg/dl 199 mg/dl 201 mg/dl White Blood Count 3.06 K/uL Red Blood Count 2.84 M/uL Hemoglobin 8.5 g/dL Hematocrit 23.9 % Mean Corpuscular Volume 84.2 fL Mean Corpuscular Hemoglobin 29.9 pg Mean Corpuscular Hemoglobin Concent 35.6 g/dl Platelet Count 203 K/uL Mean Platelet Volume 10.0 fL Neutrophils (%) (Auto) 54.2 % Lymphocytes (%) (Auto) 23.9 % Monocytes (%) (Auto) 12.7 % Eosinophils (%) (Auto) 6.9 % Basophils (%) (Auto) 2.0 % Neutrophils # (Auto) 1.66 K/uL Lymphocytes # (Auto) 0.73 K/uL Monocytes # (Auto) 0.39 K/uL Eosinophils # (Auto) 0.21 K/uL Basophils # (Auto) 0.06 K/uL RDW Standard Deviation 39.2 fL RDW Coefficient of Variation 12.7 % Immature Granulocyte % (Auto) 0.3 % Immature Granulocyte # (Auto) 0.01 K/uL Red Blood Cell Morphology Unremarkable Sodium Level 139 mmol/L Potassium Level 3.9 mmol/L Chloride Level 102 mmol/L Carbon Dioxide Level 28 mmol/L Anion Gap 9.0 mmol/L Blood Urea Nitrogen 25 mg/dl Creatinine 1.00 mg/dl Est Creatinine Clear Calc Drug Dose 29.3 ml/min Estimated GFR () 58.3 Estimated GFR (Non- 50.3 BUN/Creatinine Ratio 24.9 Random Glucose 181 mg/dl Calcium Level 8.1 mg/dl Test 02/26/16 11:17 Bedside Glucose 261 mg/dl Assessment and Plan (1) Bilateral lower leg cellulitis Patient with recurrent bilateral lower extremity wounds and cellulitis with Pseudomonas growing from 1/2 cultures and coag-negative staph growing from another. She is currently on IV Aztreonam and Vancomycin. She is greatly improved at this time, but she appears that she likely would benefit from at least 2-3 more days of IV antibiotic therapy. Length of therapy will be determined based on improvement. We will continue to follow. PROVIDER ADDENDUM: Patient reviewed with Ms. Lewis. Agree with above assessment.
[2016-02-26 15:11] VITALS: BP 185/78; PULSE 64; TEMP 36.5; O2SAT 96
--- NOTE | 2016-02-26 15:52 | Pharmacy Progress Note ---
Glycemic: Assessment & Plan Date of Service Feb 26, 2016. Assessment & Plan The patient received 20 units of insulin on 02/23, 22 units on 02/24. BSGs ranging 119-261 mg/dl over the past 24hrs. Still on prednisone. Cefepime dc'd and aztreonam (mixed in D5W) started. BSG may be lower at supper today due to stacking. With increased D5W in IVPB's, FBS has slowly trended up, so will increase basal a bit. Will reassess in am. * Basal insulin: Lantus 12 units every am, give 1/2 dose (6 units) if BSG is less than 120 * Correctional Insulin: Novolog Correction per scale ACHS Goal Range: Low 120 mg/dL - High 160 mg/dL Correction Factor: 45 mg/dL/unit * Prandial insulin: Per carb ratio of 1 unit per 12 grams CHO consumed BSGs continue to improve, no other changes needed to inpatient regimen at this time. Pharmacy will continue to monitor patient daily and write orders per [facility] inpatient glycemic control protocol. Thanks. * Please note that the plan above was derived based on current level of insulin resistance and hospital stress. These recommendations are appropriate for inpatient admission only. Plan of care upon discharge will need to be reassessed to avoid potential outpatient hypo/hyperglycemia.
[2016-02-26] MEDS ORDERED: SOAP SUDS ENEMA PR ONE (18:00)
[2016-02-26] MEDS ORDERED: BISACODYL 10 MG SUPP PR PRN (18:30)
--- NOTE | 2016-02-26 18:54 | Progress Note ---
Medicine Progress Note Date & Time of Visit: Feb 26, 2016 at 17:37. Subjective cont scheduled APAP-this is going well for her--pain is improved redness is much improved on the legs which were unwrapped and examined at bedside no fevers or chills Tolerating PO Denies nausea Cefepime changed to Aztreonam for better skin penetration per pharmacy [id number] ordered Objective Last 8 Hrs Date Time Temp Pulse Resp B/P Pulse Ox O2 Delivery O2 Flow Rate FiO2 02/26/16 15:11 36.5 64 22 185/78 96 Room Air 02/26/16 10:59 85 127/48 Physical Exam: GEN: frail, elderly, in no acute distress, alert and appropriate, sitting at bedside HEENT: NC/AT, normal sclerae CARDIO: reg rate, S1/2 heard without m/g/r LUNGS: CTA bilaterally, no crackles, rales or wheezes, good diaphragmatic excursion ABD: soft, non-tender, non-distended, no rebound or guarding EXTREMITY: RP and DP palpable 2+ bilat, no LE swelling or edema, extremities are warm and well-perfused, significant ulcerative wounds (several cms on each side) minimal surrounding erythema. Aquacell in place over the wounds. NEURO: CN 2-12 grossly intact, no gross focal deficits MUSC: no gross focal deficits, moves all extremities equally SKIN: warm and dry and wounds as above. Laboratory Results: Last 24 Hours Test 02/25/16 20:21 02/26/16 05:00 02/26/16 07:44 02/26/16 11:17 Bedside Glucose 199 mg/dl 201 mg/dl 261 mg/dl White Blood Count 3.06 K/uL Red Blood Count 2.84 M/uL Hemoglobin 8.5 g/dL Hematocrit 23.9 % Mean Corpuscular Volume 84.2 fL Mean Corpuscular Hemoglobin 29.9 pg Mean Corpuscular Hemoglobin Concent 35.6 g/dl Platelet Count 203 K/uL Mean Platelet Volume 10.0 fL Neutrophils (%) (Auto) 54.2 % Lymphocytes (%) (Auto) 23.9 % Monocytes (%) (Auto) 12.7 % Eosinophils (%) (Auto) 6.9 % Basophils (%) (Auto) 2.0 % Neutrophils # (Auto) 1.66 K/uL Lymphocytes # (Auto) 0.73 K/uL Monocytes # (Auto) 0.39 K/uL Eosinophils # (Auto) 0.21 K/uL Basophils # (Auto) 0.06 K/uL RDW Standard Deviation 39.2 fL RDW Coefficient of Variation 12.7 % Immature Granulocyte % (Auto) 0.3 % Immature Granulocyte # (Auto) 0.01 K/uL Red Blood Cell Morphology Unremarkable Sodium Level 139 mmol/L Potassium Level 3.9 mmol/L Chloride Level 102 mmol/L Carbon Dioxide Level 28 mmol/L Anion Gap 9.0 mmol/L Blood Urea Nitrogen 25 mg/dl Creatinine 1.00 mg/dl Est Creatinine Clear Calc Drug Dose 29.3 ml/min Estimated GFR () 58.3 Estimated GFR (Non- 50.3 BUN/Creatinine Ratio 24.9 Random Glucose 181 mg/dl Calcium Level 8.1 mg/dl Test 02/26/16 16:29 Bedside Glucose 271 mg/dl Assessment & Plan 89 yo F with worsened infection superimposed on chronic lower extremity ulcers bilaterally Cellulitis of bilateral lower extremities Wound Ulcerations--improved -->chronic lower extremity edema with diastolic CHF -->has had episodes of decompensated diastolic CHF and subsequent wounds -->recent change in Lasix to Torsemide in January 2016 which has been effective for her -->has been following wound are for the ulcerations in the legs -->wound care nursing sent patient over because of erythema and more drainage -->wound culture and blood cultures revealing Pseudomonas and [employer] -->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 Cont IV abx through the weekend per ID. -->wound care nurse consulted and following, cont Aquacell, ABD, Kerlex -->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 JACOB-resolved, at baseline. ANEMIA-poss 2/2 ACD vs frequent phlebotomy Chronic Diastolic CHF -->type I diastolic CHF, chronic, compensated -->due to renal dysfunction with Lasix, switched to Torsemide -->hold Torsemide secondary to increase in creat which is improved to 1.0 -->no edema at this time so cont to hold CAD s/p CABG -->asymptomatic -->continue current cardiac medications -->was seen by cardiology last month with no changes in medications COPD-severe, on daily low dose prednisone, no wheezing on exam. Stable. Cont pred, Spiriva, Singulair and Duonebs as needed Insulin Dependent DM2-at goal on Lantus and ISS -->patient takes 5mg of prednisone daily due to breathing problems -->last A1c = 7.6% in January 2016, which was a jump 6.1% in July 2015 -->Cont recs per glycemic control pharmacist, glucose around 200 today HTN -->continue imdur, b-jose a -->avoid CCB, if able, due to edema -->DEBBIE-I and ARB allergy noted CONSTIPATION: enema ordered today DVT ppx -->subq heparin Dispo-cont IV abx. Likely d/c to home by Mon/ FULL CODE Janine Iyer DO [facility] Hospitalist Continued [facility] stay due to: multiple IV medications needed Consultants: ID, Wound Care Current Inpatient Medications: Current Inpatient Medications Medications (Trade) Dose Ordered Sig/Remy Route Start Time Stop Time Status Last Admin Dose Admin Heparin Sodium (Porcine) (Heparin Sq 5000 Unit/0.5ml) 5,000 unit Q8 SQ 02/23/16 06:00 03/24/16 05:59 02/26/16 13:52 5,000 UNIT Al Hydrox/Mg Hydrox/Simethicone (Maalox Max Susp) 15 ml Q4H PRN PO 02/22/16 21:15 03/23/16 21:14 Magnesium Hydroxide (Milk Of Magnesia Susp) 30 ml Q6H PRN PO 02/22/16 21:15 03/23/16 21:14 Polyethylene (Miralax Powder Packet) 17 gm DAILY PRN PO 02/22/16 21:15 03/23/16 21:14 Ondansetron HCl (Zofran Inj) 4 mg Q6H PRN IV 02/22/16 21:15 03/23/16 21:14 Insulin Aspart (novoLOG ASPART) SLIDING SCALE If C... ACHS SC 02/23/16 06:30 03/24/16 06:59 02/26/16 12:46 8 UNITS Glucose (Glucose 40% Gel) 15-30 GRAMS 15 GRAMS... UD PRN PO 02/22/16 21:15 03/23/16 21:14 Glucose (Glucose Chew Tab) 4-8 Tablets 4 Tabl... UD PRN PO 02/22/16 21:15 03/23/16 21:14 Dextrose (Dextrose 50% 50ML Syringe) 25-50ML OF 50% DW IV FOR... UD PRN IV 02/22/16 21:15 03/23/16 21:14 Glucagon (Glucagon Inj) 1 mg UD PRN SQ 02/22/16 21:15 03/23/16 21:14 Miscellaneous Information (Consult Glycemic Management Pharmacy) 1 ea DAILY PRN N/A 02/22/16 22:42 03/23/16 22:41 Atorvastatin Calcium (Lipitor Tab) 20 mg DAILY PO 02/23/16 09:00 03/24/16 08:59 02/26/16 08:23 20 MG Cyanocobalamin (Vitamin B-12 Tab) 250 mcg BID PO 02/23/16 09:00 03/24/16 08:59 02/26/16 08:23 250 MCG Isosorbide Mononitrate (Imdur Ext Rel Tab) 60 mg DAILY PO 02/23/16 09:00 03/24/16 08:59 02/26/16 08:25 60 MG Levothyroxine Sodium (Synthroid Tab) 50 mcg DAILYBB PO 02/23/16 06:30 03/24/16 06:59 02/26/16 06:39 50 MCG Metoprolol Succinate (Toprol Xl Tab) 12.5 mg DAILY PO 02/23/16 09:00 03/24/16 08:59 02/26/16 08:22 12.5 MG Montelukast Sodium (Singulair Tab) 10 mg QPM PO 02/23/16 21:00 03/24/16 20:59 02/25/16 20:25 10 MG Pantoprazole Sodium (Protonix Tab) 40 mg DAILY PO 02/23/16 09:00 03/24/16 08:59 02/26/16 08:19 40 MG Potassium Chloride (Klor-Con M10) 10 meq DAILY PO 02/23/16 09:00 03/24/16 08:59 02/26/16 08:25 10 MEQ Prednisone (PredniSONE TAB) 5 mg DAILY PO 02/23/16 09:00 03/24/16 08:59 02/26/16 08:26 5 MG Tiotropium [place] (Spiriva Handihaler Inhaler) 1 puff DAILY INH 02/23/16 09:00 03/24/16 08:59 02/26/16 08:19 1 PUFF Torsemide (Demadex Tab) 40 mg BID PO 02/23/16 09:00 03/24/16 08:59 Future Hold Magnesium Oxide (Mag-Ox Tab) 400 mg BID PO 02/23/16 09:00 03/24/16 08:59 02/26/16 09:59 400 MG Fluticasone Propionate (Flonase Nasal [place]) 2 sprays BID NA 02/23/16 09:00 03/24/16 08:59 02/26/16 08:18 2 SPRAYS Albuterol/ Ipratropium (Duoneb) 3 ml Q4R PRN INH 02/22/16 21:15 03/23/16 21:14 Vancomycin HCl 1 ea 1 ea UD PRN N/A 02/22/16 23:45 03/23/16 23:44 Vancomycin HCl/ Sodium Chloride (Vancomycin Inj/ Nss 250ml) 267 ml @ 125 mls/hr DAILY@1200 IV 02/23/16 12:00 03/02/16 23:59 02/26/16 11:54 125 MLS/HR Acetaminophen (Tylenol Tab) 650 mg Q6H PO 02/25/16 20:00 02/27/16 19:59 02/26/16 14:13 650 MG Aztreonam 1 ea 1 ea UD PRN N/A 02/26/16 09:45 03/27/16 09:44 Aztreonam/Dextrose (Azactam IV/D5 100ml) 110 ml @ 110 mls/hr Q12H IV 02/26/16 22:00 03/07/16 21:59 Insulin Glargine (Lantus Solostar Pen) DAILY SC 02/27/16 09:00 03/28/16 08:59
[2016-02-26] MEDS ORDERED: SOD PHOSPHATE/SOD BIPHOSPHATE ENEMA 132 ML BTL PR ONE (19:00)
[2016-02-26] MEDS: MONTELUKAST SOD 10 MG TAB PO SCH (19:44)
[2016-02-26] MEDS: AZTREONAM IV 1,000 MG in DEXTROSE 5% 100ML IV SCH (22:18)
[2016-02-27] VITALS (7 sets, daily range): BP systolic 124–190; BP diastolic 54–82; PULSE 54–88; TEMP 36.3–37.6; O2SAT 97–98
[2016-02-27] MEDS: ACETAMINOPHEN 325 MG TAB PO SCH ×3 (01:43→13:44)
[2016-02-27] MEDS: LEVOTHYROXINE 50 MCG TAB PO SCH (06:02)
[2016-02-27] MEDS: HEPARIN SOD 5000 UNIT/0.5 ML CARP SQ SCH ×3 (06:20→22:02)
[2016-02-27] MEDS: INSULIN ASPART 100 UNITS/ML 3 ML PEN SC SCH ×4 (08:38→22:01)
[2016-02-27] MEDS: INSULIN GLARGINE SOLOSTAR 100 UNITS/ML 3 ML PEN SC SCH (08:41)
[2016-02-27] MEDS: ISOSORBIDE MONONITRATE 60 MG TABCR PO SCH (08:57)
[2016-02-27] MEDS: ATORVASTATIN 20 MG TAB PO SCH (08:58)
[2016-02-27] MEDS: MAGNESIUM OXIDE 400 MG TAB PO SCH ×2 (08:59→21:47)
[2016-02-27] MEDS: PANTOprazole SOD 40 MG TAB PO SCH (09:01)
[2016-02-27] MEDS: METOPROLOL SUCC 25MG EXT REL TAB PO SCH (09:03)
[2016-02-27] MEDS: CYANOCOBALAMIN 500 MCG TAB (VIT B-12) PO SCH ×2 (09:04→21:48)
[2016-02-27] MEDS: TIOTROPIUM BROMIDE 5 PUFF/90 MCG INH INH SCH (09:07)
[2016-02-27] MEDS: FLUTICASONE PROPIONATE NA SPR 16 GM BTL SCH ×2 (09:08→21:47)
[2016-02-27] MEDS: AZTREONAM IV 1,000 MG in DEXTROSE 5% 100ML IV SCH ×2 (09:34→22:04)
[2016-02-27] MEDS: POTASSIUM CHLORIDE 10 MEQ TABCR PO SCH (09:48)
[2016-02-27] MEDS ORDERED: VANCOMYCIN TROUGH ONE (11:30)
--- NOTE | 2016-02-27 11:51 | Pharmacy Progress Note ---
Glycemic Control: Progress Nt Date of Service Feb 27, 2016. Scope Glycemic Pharmacist consulted by Dr De La Rosa on 02/22/16 for glycemic control and to write orders per [facility] inpatient glycemic control protocol. Objective Accuchecks BSG (last 24hrs): Test 02/26/16 16:29 02/26/16 19:57 02/27/16 07:42 02/27/16 11:28 Bedside Glucose 271 mg/dl (70-90) 270 mg/dl (70-90) 150 mg/dl (70-90) 194 mg/dl (70-90) HbA1c: Test 02/23/16 06:53 Hemoglobin A1c 8.5 %(4.5-5.6) H Recent Pertinent Medications Outpatient Anti-diabetic Regimen: * Lantus 12 units SQ daily * Metformin 500mg PO BID * Also with prednisone 5mg PO daily * A1c = 8.5 % 02/23/16 The patient is currently receiving: * Basal insulin: Lantus 12 units every 24 hours * Correctional Insulin: Novolog Correction per scale ACHS Goal Range: Low 120 mg/dL - High 160 mg/dL Correction Factor: 45 mg/dL/unit * Prandial insulin: Per carb ratio of 1 unit per 12 grams CHO consumed * Oral Agents: none at this time Risk Factors for Insulin Resistance: * Steroids: Prednisone 5mg PO daily (home medication) * Infection: aztreonam and vancomycin (day #5 of ABX) * Diet: T2DM Assessment & Plan ASSESSMENT: * ADA & AACE recommend a goal blood sugar range 140-180 mg/dl for the majority of critically ill & non-critically ill patients. However, more stringent targets may be selected in individual cases. 02/27/16 * Imer has been requiring 20-32 units of insulin per day * Yesterday, the basal insulin was increased ~20% * continue this until steady state is reached. * Fasting BSG much improved this morning * BSGs increased throughout the day yesterday * Resume home metformin dose to help with insulin sensitivity * "tighten" carb ratio slightly to 1:10 * Lower goal range * A1c is current * add to discharge instructions PLAN FOR INPATIENT GLYCEMIC CONTROL: * Lantus 12 units SQ daily * half dose if BSG is below 110mg/dL * NovoLog SQ AC and HS * Correction factor: 45mg/dL/unit * Carb ratio: 1 unit per 10 g of CHO consumed * Goal range: 110-150mg/dL * Begin metformin 500mg PO BID with meals (first dose tonight with supper) * A1c * add to discharge instructions RECOMMENDATIONS FOR DISCHARGE: * Likely, Imer will be able to continue her home regimen at discharge * Please note that the plan above was derived based on current level of insulin resistance and hospital stress. These recommendations are appropriate for inpatient admission only. Plan of care upon discharge will need to be reassessed to avoid potential outpatient hypo/hyperglycemia. Thank you.
[2016-02-27] MEDS: VANCOMYCIN INJ 850 MG in SODIUM CHLORIDE 0.9% 250ML 250 ML IV SCH (13:24)
--- NOTE | 2016-02-27 14:28 | Pharmacy Progress Note ---
Pharmacy Antibiotic Prog Note Date of Service: Feb 27, 2016. Subjective: The patient is currently receiving vancomycin 850mg IV q24h and aztreonam 1g IV q12h. The patient is currently on day #6 of IV vancomycin and day #2 of IV aztreonam. Objective: Height (Feet): 5 Height (Inches): 1.00 Weight (Kilograms): 53.000 Levels: Item Value Date Time Vancomycin Level Trough 13.6 mcg/ml 02/25/16 1127 Micro Results: Item Value Date Time Gram Stain - Final Complete 02/22/16 0000 Ulcer Leg Lower Left Gram Stain - Final Complete 02/22/16 0000 Ulcer Leg Right Lower Blood Culture - Preliminary Resulted 02/22/16 182 Blood NO GROWTH TO DATE. Blood Culture - Preliminary Resulted 02/22/162004 Blood NO GROWTH TO DATE. RUN DATE: 02/24/16 [facility] PAGE 1 RUN TIME: 1356 Specimen Inquiry PATIENT: RIKKI KIRAN LOC: [id number] U # : [id number] AGE/SX: 89/F ROOM: W250 REG : 02/22/[address]: Janine Iyer, DO : 1925 BED: 2 DIS : STATUS: ADM IN TLOC: SPEC #: [id number] SERG: 02/22/16-UNK STATUS: COMP REQ #: [id number] RECD: 02/22/[address]: Cameron Mabry MD SOURCE: ULCER ENTR: 02/22/[address]: Chris De La Rosa DO SPDESC: LEG Ken Penaloza D.OSlade ORDERED: POLINA HADDAD/SUDHEER COMMENTS: Has Specimen Been Obtained/Collected? Y Procedure Result Verified Site GRAM STAIN Final 02/23/16-843 RESULT RARE EPITHELIAL CELLS NO WBCs SEEN NO ORGANISMS SEEN SURFACE WOUND CULTURE Final 02/24/16-2893 Organism 1 PSEUDOMONAS AERUGINOSA QUANITY FEW SENS SENSITIVITY TO FOLLOW 1. PSEUDOMONAS AERUGINOSA Target Route Dose RX AB Cost M.I.C. IQ ------ ----- ------ -- ------ -------- - ------ CEFTAZIDIME S 4 CEFEPIME S <=4 IMIPENEM S <=1 AZTREONAM S <=4 GENTAMICIN S <=4 TOBRAMYCIN S <=4 AMIKACIN S <=16 CIPROFLOXACIN S <=1 LEVOFLOXACIN S <=2 PIP/TAZO S <=16 S = SENSITIVE I = INTERMEDIATE R = RESISTANT Assessment & Plan: ASSESSMENT: * Patient is an 89 year-old female admitted with bilateral LE wounds and cellulitis with Pseudomonas growing with 1/2 cultures and coag-negative Staph growing from another. * Pharmacy is consulted to dose the aztreonam IV and vancomycin IV therapies. * Patient is to continue on IV ABX through the weekend and will convert to po ABX on Monday. * ID was consulted on the patient. PLAN: Vancomycin: * Patient was on 850mg IV of vancomycin daily at 12pm. * Goal trough of ~15mcg/ml. Previous trough from 02/24 was wnl at 13.6mcg/ml. * Trough was ordered for 1130 today. However, Dr. Iyer accidently DCed the trough ordered for today and vancomycin was held. Vancomycin was restarted at 1300 today. * Reordered trough level for tomorrow at 1230. * Once the level comes back, will readjust the dosing regimen. Aztreonam: * Patient continues on 1g IV q12h, which is appropriate dosing for CrCl< 30ml/ min. Pharmacy will continue to follow and will adjust dose/frequency as necessary. Thank you
--- NOTE | 2016-02-27 16:55 | Progress Note ---
Medicine Progress Note Date & Time of Visit: Feb 27, 2016 at 16:11. Subjective Sister at bedside and gave most of history as patient more interested in sleeping at this point in time. She states the patient was up most of the night taking BMs after enema and suppository were given. She also states there was still some breakthrough pain in her legs. The patient woke up and stated that everything was going well, and then went back to sleep. Objective Last 8 Hrs Date Time Temp Pulse Resp B/P Pulse Ox O2 Delivery O2 Flow Rate FiO2 02/27/16 14:59 36.4 57 18 170/54 98 Room Air 02/27/16 12:12 37.6 88 17 124/82 97 Room Air 02/27/16 11:04 36.5 60 18 168/66 98 Room Air 02/27/16 10:11 97 Room Air Physical Exam: GEN: frail, elderly, in no acute distress, alert and appropriate but fatigued HEENT: NC/AT, normal sclerae CARDIO: reg rate, S1/2 heard without m/g/r LUNGS: CTA bilaterally, no crackles, rales or wheezes, good diaphragmatic excursion ABD: soft, non-tender, non-distended, no rebound or guarding EXTREMITY: no LE swelling or edema, extremities are warm and well-perfused, significant ulcerative wounds (several cms on each side) minimal surrounding erythema-improved from yesterday. Aquacell in place over the wounds. SKIN: warm and dry and wounds as above. Laboratory Results: Last 24 Hours Test 02/26/16 16:29 02/26/16 19:48 02/26/16 19:57 02/27/16 07:42 Bedside Glucose 271 mg/dl 270 mg/dl 150 mg/dl Stool Occult Blood NEGATIVE Test 02/27/16 11:28 Bedside Glucose 194 mg/dl Assessment & Plan 89 yo F with worsened infection superimposed on chronic lower extremity ulcers bilaterally Cellulitis of bilateral lower extremities Wound Ulcerations--improved -->chronic lower extremity edema with diastolic CHF -->has had episodes of decompensated diastolic CHF and subsequent wounds -->recent change in Lasix to Torsemide in January 2016 which has been effective for her (has been on hold this hospitalization) -->has been following wound care for the ulcerations in the legs -->wound care nursing sent patient over because of erythema and more drainage -->wound culture and blood cultures revealing Pseudomonas and ENDOSCOPY TECH -->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 Cont IV abx through the weekend per ID. -->wound care nurse consulted and following, cont Aquacell, ABD, Kerlex -->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 -->some pain in legs despite scheduled APAP, so Tramadol ordered PRN on 02/26 ANEMIA-poss 2/2 ACD vs frequent phlebotomy, seen by Dr De La O in Jan 2016. Iron studies at that time revealed iron 65, Ferritin 69, TIBC 276, 25% saturation-- sufficient. Procrit considered but ferritin should be higher than 100 prior to giving this. Considering Venofer infusion as outpatient. Will discuss with Dr. De La O to see if this may be something we could do here Chronic Diastolic CHF -->type I diastolic CHF, chronic, compensated -->due to renal dysfunction with Lasix, switched to Torsemide -->hold Torsemide secondary to increase in creat which is improved to 1.0 -->no edema at this time so cont to hold CAD s/p CABG -->asymptomatic -->continue current cardiac medications -->was seen by cardiology last month with no changes in medications COPD-severe, on daily low dose prednisone, no wheezing on exam. Stable. 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 Likely d/c to home by Mon/Tues FULL CODE Janine Iyer DO [facility] Hospitalist Continued [facility] stay due to: multiple IV medications needed Consultants: ID, Wound Care Current Inpatient Medications: Current Inpatient Medications Medications (Trade) Dose Ordered Sig/Remy Route Start Time Stop Time Status Last Admin Dose Admin Heparin Sodium (Porcine) (Heparin Sq 5000 Unit/0.5ml) 5,000 unit Q8 SQ 02/23/16 06:00 03/24/16 05:59 02/27/16 13:50 5,000 UNIT Al Hydrox/Mg Hydrox/Simethicone (Maalox Max Susp) 15 ml Q4H PRN PO 02/22/16 21:15 03/23/16 21:14 Magnesium Hydroxide (Milk Of Magnesia Susp) 30 ml Q6H PRN PO 02/22/16 21:15 03/23/16 21:14 Polyethylene (Miralax Powder Packet) 17 gm DAILY PRN PO 02/22/16 21:15 03/23/16 21:14 Ondansetron HCl (Zofran Inj) 4 mg Q6H PRN IV 02/22/16 21:15 03/23/16 21:14 Insulin Aspart (novoLOG ASPART) SLIDING SCALE If C... ACHS SC 02/23/16 06:30 03/24/16 06:59 02/27/16 12:36 3 UNITS Glucose (Glucose 40% Gel) 15-30 GRAMS 15 GRAMS... UD PRN PO 02/22/16 21:15 03/23/16 21:14 Glucose (Glucose Chew Tab) 4-8 Tablets 4 Tabl... UD PRN PO 02/22/16 21:15 03/23/16 21:14 Dextrose (Dextrose 50% 50ML Syringe) 25-50ML OF 50% DW IV FOR... UD PRN IV 02/22/16 21:15 03/23/16 21:14 Glucagon (Glucagon Inj) 1 mg UD PRN SQ 02/22/16 21:15 03/23/16 21:14 Miscellaneous Information (Consult Glycemic Management Pharmacy) 1 ea DAILY PRN N/A 02/22/16 22:42 03/23/16 22:41 Atorvastatin Calcium (Lipitor Tab) 20 mg DAILY PO 02/23/16 09:00 03/24/16 08:59 02/27/16 08:58 20 MG Cyanocobalamin (Vitamin B-12 Tab) 250 mcg BID PO 02/23/16 09:00 03/24/16 08:59 02/27/16 09:04 250 MCG Isosorbide Mononitrate (Imdur Ext Rel Tab) 60 mg DAILY PO 02/23/16 09:00 03/24/16 08:59 02/27/16 08:57 60 MG Levothyroxine Sodium (Synthroid Tab) 50 mcg DAILYBB PO 02/23/16 06:30 03/24/16 06:59 02/27/16 06:02 50 MCG Metoprolol Succinate (Toprol Xl Tab) 12.5 mg DAILY PO 02/23/16 09:00 03/24/16 08:59 02/27/16 09:03 12.5 MG Montelukast Sodium (Singulair Tab) 10 mg QPM PO 02/23/16 21:00 03/24/16 20:59 02/26/16 19:44 10 MG Pantoprazole Sodium (Protonix Tab) 40 mg DAILY PO 02/23/16 09:00 03/24/16 08:59 02/27/16 09:01 40 MG Potassium Chloride (Klor-Con M10) 10 meq DAILY PO 02/23/16 09:00 03/24/16 08:59 02/27/16 09:48 10 MEQ Prednisone (PredniSONE TAB) 5 mg DAILY PO 02/23/16 09:00 03/24/16 08:59 02/27/16 09:00 5 MG Tiotropium [place] (Spiriva Handihaler Inhaler) 1 puff DAILY INH 02/23/16 09:00 03/24/16 08:59 02/27/16 09:07 1 PUFF Torsemide (Demadex Tab) 40 mg BID PO 02/23/16 09:00 03/24/16 08:59 Future Hold Magnesium Oxide (Mag-Ox Tab) 400 mg BID PO 02/23/16 09:00 03/24/16 08:59 02/27/16 08:59 400 MG Fluticasone Propionate (Flonase Nasal [place]) 2 sprays BID NA 02/23/16 09:00 2/9/17 08:59 02/27/16 09:08 2 SPRAYS Albuterol/ Ipratropium (Duoneb) 3 ml Q4R PRN INH 02/22/16 21:15 03/23/16 21:14 Vancomycin HCl 1 ea 1 ea UD PRN N/A 02/22/16 23:45 03/23/16 23:44 Vancomycin HCl/ Sodium Chloride (Vancomycin Inj/ Nss 250ml) 267 ml @ 125 mls/hr DAILY@1200 IV 02/23/16 12:00 02/27/16 18:00 02/27/16 13:24 125 MLS/HR Acetaminophen (Tylenol Tab) 650 mg Q6H PO 02/25/16 20:00 02/27/16 19:59 02/27/16 13:44 650 MG Aztreonam 1 ea 1 ea UD PRN N/A 02/26/16 09:45 03/27/16 09:44 Aztreonam/Dextrose (Azactam IV/D5 100ml) 110 ml @ 110 mls/hr Q12H IV 02/26/16 22:00 03/07/16 21:59 02/27/16 09:34 110 MLS/HR Insulin Glargine (Lantus Solostar Pen) DAILY SC 02/27/16 09:00 03/28/16 08:59 02/27/16 08:41 12 UNIT Bisacodyl (Dulcolax Supp) 10 mg DAILY PRN ND 02/26/16 18:30 03/27/16 18:29 02/26/16 19:30 10 MG Metformin HCl 500 mg 500 mg BIDM PO 02/27/16 17:00 03/28/16 16:59 Vancomycin HCl/ Sodium Chloride (Vancomycin Inj/ Nss 250ml) 267 ml @ 125 mls/hr DAILY@1300 IV 02/28/16 13:00 03/02/16 12:59
[2016-02-27] MEDS: METFORMIN HCL 500 MG TAB PO SCH (17:11)
[2016-02-27] MEDS: MONTELUKAST SOD 10 MG TAB PO SCH (21:51)
[2016-02-28] MEDS: HEPARIN SOD 5000 UNIT/0.5 ML CARP SQ SCH ×3 (06:01→21:29)
[2016-02-28] MEDS: LEVOTHYROXINE 50 MCG TAB PO SCH (06:01)
[2016-02-28 06:09] LABS: HEMATOCRIT 25.5 % (37-47); MEAN CELL VOLUME 83.3 fL (80-100); MEAN CORPUSCULAR HEMOGLOBIN 29.4 pg (25-34); MEAN CORPUSCULAR HGB CONC 35.3 g/dl (32-36); PLATELET COUNT 216 K/uL (130-400); RED BLOOD COUNT 3.06 M/uL (4.2-5.4); WHITE BLOOD COUNT 3.45 K/uL (4.8-10.8)
[2016-02-28 06:41] LABS: CALCIUM 8.1 mg/dl (8.5-10.1); CREATININE 0.9 mg/dl (0.60-1.20); MAGNESIUM 1.9 mg/dl (1.8-2.4); POTASSIUM 4.2 mmol/L (3.5-5.1)
[2016-02-28 07:57] VITALS: BP_SYST 136; BP_SYST 166; BP_SYST 198; BP_DIAS 65; BP_DIAS 66; PULSE 60; TEMP 36.8; O2SAT 96
[2016-02-28] MEDS: FLUTICASONE PROPIONATE NA SPR 16 GM BTL SCH ×2 (07:59→21:17)
[2016-02-28] MEDS: ISOSORBIDE MONONITRATE 60 MG TABCR PO SCH (08:00)
[2016-02-28] MEDS: CYANOCOBALAMIN 500 MCG TAB (VIT B-12) PO SCH ×2 (08:00→21:15)
[2016-02-28] MEDS: PANTOprazole SOD 40 MG TAB PO SCH (08:01)
[2016-02-28] MEDS: METOPROLOL SUCC 25MG EXT REL TAB PO SCH (08:01)
[2016-02-28] MEDS: ATORVASTATIN 20 MG TAB PO SCH (08:01)
[2016-02-28] MEDS: POTASSIUM CHLORIDE 10 MEQ TABCR PO SCH (08:01)
[2016-02-28] MEDS: TIOTROPIUM BROMIDE 5 PUFF/90 MCG INH INH SCH (08:02)
[2016-02-28] MEDS: METFORMIN HCL 500 MG TAB PO SCH ×2 (08:02→17:21)
[2016-02-28] MEDS: MAGNESIUM OXIDE 400 MG TAB PO SCH ×2 (08:06→21:16)
[2016-02-28] MEDS: INSULIN GLARGINE SOLOSTAR 100 UNITS/ML 3 ML PEN SC SCH (08:59)
[2016-02-28] MEDS: INSULIN ASPART 100 UNITS/ML 3 ML PEN SC SCH ×4 (08:59→21:00)
[2016-02-28] MEDS: AZTREONAM IV 1,000 MG in DEXTROSE 5% 100ML IV SCH ×2 (10:30→21:38)
[2016-02-28] MEDS ORDERED: VANCOMYCIN TROUGH ONE (12:30)
[2016-02-28] MEDS: VANCOMYCIN INJ 850 MG in SODIUM CHLORIDE 0.9% 250ML 250 ML IV SCH (13:01)
--- NOTE | 2016-02-28 14:56 | Pharmacy Progress Note ---
Pharmacy Antibiotic Prog Note Date of Service: Feb 28, 2016. Subjective: The patient is currently receiving vancomycin 850mg IV daily and aztreonam 1g IV q12h. The patient is currently on day #7 of vancomycin IV and day #3 of aztreonam IV therapies. Objective: Height (Feet): 5 Height (Inches): 1.00 Weight (Kilograms): 53.000 Levels: Item Value Date Time Vancomycin Level Trough 13.6 mcg/ml 02/25/16 1127 Vancomycin Level Trough 16.2 mcg/ml 02/28/16 1244 Lab Results (24hrs): Laboratory Tests Test 02/28/16 05:05 BUN/Creatinine Ratio 24.0 Blood Urea Nitrogen 22 mg/dl Creatinine 0.90 mg/dl White Blood Count 3.45 K/uL Micro Results: RUN DATE: 02/24/16 [facility] LAB PAGE 1 RUN TIME: 1356 Specimen Inquiry PATIENT: RIKKI KIRAN LOC: [id number] U # : [id number] AGE/SX: 89/F ROOM: [facility] REG : 02/22/[address]: Janine Iyer DO : 1925 BED: 2 DIS : STATUS: ADM IN TLOC: SPEC #: [id number] SERG: 02/22/16-UNK STATUS: COMP REQ #: [id number] RECD: 02/22/[address]: Cameron Mabry MD SOURCE: ULCER ENTR: 02/22/[address]: Chris De La Rosa DO SPDESC: LEG Ken Penaloza D.OSlade ORDERED: POLINA HADDAD/SUDHEER COMMENTS: Has Specimen Been Obtained/Collected? Y Procedure Result Verified Site GRAM STAIN Final 02/23/16-843 RESULT RARE EPITHELIAL CELLS NO WBCs SEEN NO ORGANISMS SEEN SURFACE WOUND CULTURE Final 02/24/16-7331 Organism 1 PSEUDOMONAS AERUGINOSA QUANITY FEW SENS SENSITIVITY TO FOLLOW 1. PSEUDOMONAS AERUGINOSA Target Route Dose RX AB Cost M.I.C. IQ ------ ----- ------ -- ------ -------- - ------ CEFTAZIDIME S 4 CEFEPIME S <=4 IMIPENEM S <=1 AZTREONAM S <=4 GENTAMICIN S <=4 TOBRAMYCIN S <=4 AMIKACIN S <=16 CIPROFLOXACIN S <=1 LEVOFLOXACIN S <=2 PIP/TAZO S <=16 S = SENSITIVE I = INTERMEDIATE R = RESISTANT RUN DATE: 02/24/16 [facility] LAB PAGE 1 RUN TIME: 1356 Specimen Inquiry PATIENT: RIKKI KIRAN LOC: [id number] U # : [id number] AGE/SX: 89/F ROOM: [facility] REG : 02/22/[address]: Janine Iyer DO : 1925 BED: 2 DIS : STATUS: ADM IN TLOC: SPEC #: [id number] SERG: 02/22/16-UNK STATUS: MIGUEL REQ #: [id number] RECD: 02/22/[address]: Cameron Mabry MD SOURCE: ULCER ENTR: 02/22/[address]: Chris De La Rosa [facility]G Ken Thomas D.OSlade ORDERED: SURF WND CU/SMR COMMENTS: Has Specimen Been Obtained/Collected? Y Procedure Result Verified Site GRAM STAIN Final 02/23/1608 RESULT RARE EPITHELIAL CELLS NO WBCs SEEN NO ORGANISMS SEEN SURFACE WOUND CULTURE Final 02/24/16-1356 Organism 1 PSEUDOMONAS AERUGINOSA QUANITY FEW SENS SENSITIVITY TO FOLLOW 1. PSEUDOMONAS AERUGINOSA Target Route Dose RX AB Cost M.I.C. IQ ------ ----- ------ -- ------ -------- - ------ CEFTAZIDIME S 4 CEFEPIME S <=4 IMIPENEM S <=1 AZTREONAM S <=4 GENTAMICIN S <=4 TOBRAMYCIN S <=4 AMIKACIN S <=16 CIPROFLOXACIN S <=1 LEVOFLOXACIN S <=2 PIP/TAZO S <=16 S = SENSITIVE I = INTERMEDIATE R = RESISTANT Item Value Date Time Gram Stain - Final Complete 02/22/16 0000 Ulcer Leg Right Lower Blood Culture - Final Complete 02/22/16 1820 Blood NO GROWTH Blood Culture - Final Complete 02/22/162004 Blood NO GROWTH Assessment & Plan: ASSESSMENT: * Patient is an 89 year-old female admitted with bilateral LE wounds and cellulitis with Pseudomonas growing with 1/2 cultures and coag-negative Staph growing from another. * Wound ulcerations have improved on patient. * Pharmacy is consulted to dose the aztreonam IV and vancomycin IV therapies. * Patient is to continue on IV ABX through the weekend and will convert to po ABX on Monday. * ID was consulted on the patient. PLAN: Vancomycin: * Goal trough of ~15mcg/ml. * Trough level came back today at 16.2mcg/ml, which is therapeutic. * Will continue on the the current regimen then. * Will get another level if patient continues on IV ABX/renal function drastically changes. Aztreonam: * Will continue patient on 1g IV q12h, which is appropriate dosing for CrCl< 30ml/min. However, renal function is at 32.6ml/min today, but will follow future trend and adjust accordingly. Pharmacy will continue to follow and will adjust dose/frequency as necessary. Thank you
[2016-02-28] MEDS: TRAMADOL HCL 50 MG TAB PO PRN (15:24)
[2016-02-28 15:29] VITALS: BP 121/56; PULSE 62; TEMP 36.7; O2SAT 97
--- NOTE | 2016-02-28 18:30 | Progress Note ---
Medicine Progress Note Date & Time of Visit: Feb 28, 2016 at 14:39. Subjective Resting comfortable Says everything is OK and she is not in pain She ate well this evening Sister corroborates this. Objective Last 8 Hrs Date Time Temp Pulse Resp B/P Pulse Ox O2 Delivery O2 Flow Rate FiO2 02/28/16 08:00 Room Air 02/28/16 07:57 36.8 60 18 198/65 96 Room Air 02/28/16 07:57 166/66 Physical Exam: GEN: frail, elderly, in no acute distress, alert and appropriate but fatigued HEENT: NC/AT, normal sclerae CARDIO: reg rate, S1/2 heard without m/g/r LUNGS: CTA bilaterally, no crackles, rales or wheezes, good diaphragmatic excursion ABD: soft, non-tender, non-distended, no rebound or guarding EXTREMITY: no LE swelling or edema, extremities are warm and well-perfused, significant ulcerative wounds (several cms on each side) minimal surrounding erythema-improved from yesterday. Aquacell in place over the wounds. SKIN: warm and dry and wounds as above. Laboratory Results: Last 24 Hours Test 02/27/16 16:05 02/27/16 20:23 02/28/16 05:05 02/28/16 07:35 Bedside Glucose 219 mg/dl 208 mg/dl 132 mg/dl White Blood Count 3.45 K/uL Red Blood Count 3.06 M/uL Hemoglobin 9.0 g/dL Hematocrit 25.5 % Mean Corpuscular Volume 83.3 fL Mean Corpuscular Hemoglobin 29.4 pg Mean Corpuscular Hemoglobin Concent 35.3 g/dl RDW Standard Deviation 39.1 fL RDW Coefficient of Variation 12.8 % Platelet Count 216 K/uL Mean Platelet Volume 10.0 fL Sodium Level 137 mmol/L Potassium Level 4.2 mmol/L Chloride Level 103 mmol/L Carbon Dioxide Level 24 mmol/L Anion Gap 10.0 mmol/L Blood Urea Nitrogen 22 mg/dl Creatinine 0.90 mg/dl Est Creatinine Clear Calc Drug Dose 32.6 ml/min Estimated GFR () 66.2 Estimated GFR (Non- 57.1 BUN/Creatinine Ratio 24.0 Random Glucose 106 mg/dl Calcium Level 8.1 mg/dl Magnesium Level 1.9 mg/dl Test 02/28/16 11:18 02/28/16 12:44 Bedside Glucose 179 mg/dl Vancomycin Level Trough 16.2 mcg/ml Assessment & Plan 89 yo F with worsened infection superimposed on chronic lower extremity ulcers bilaterally Cellulitis of bilateral lower extremities Wound Ulcerations--improved -->chronic lower extremity edema with diastolic CHF -->has had episodes of decompensated diastolic CHF and subsequent wounds -->recent change in Lasix to Torsemide in January 2016 which has been effective for her (has been on hold this hospitalization) -->has been following wound care for the ulcerations in the legs -->wound care nursing sent patient over because of erythema and more drainage -->wound culture and blood cultures revealing Pseudomonas 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 Cont IV abx through the weekend per ID. -->wound care nurse consulted and following, cont Aquacell, ABD, Kerlex -->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 -->some pain in legs despite scheduled APAP, so Tramadol ordered PRN on 02/26 -->tramadol very effective today per patient and her sister --area of erythema continues to improve, cont IV Vanc and Aztreonam--to be switched to orals tomorrow by ID ANEMIA-poss 2/2 ACD vs frequent phlebotomy, seen by Dr De La O in Jan 2016. Iron studies at that time revealed iron 65, Ferritin 69, TIBC 276, 25% saturation-- sufficient. Procrit considered but ferritin should be higher than 100 prior to giving this. Considering Venofer infusion as outpatient. Will discuss with Dr. De La O to see if this may be something we could do here--repeating iron studies in am Chronic Diastolic CHF -->type I diastolic CHF, chronic, compensated -->due to renal dysfunction with Lasix, switched to Torsemide -->hold Torsemide secondary to increase in creat which is improved to 1.0 -->no edema at this time so cont to hold CAD s/p CABG -->asymptomatic -->continue current cardiac medications -->was seen by cardiology last month with no changes in medications COPD-severe, on daily low dose prednisone, no wheezing on exam. Stable. 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 Likely d/c to home by Mon/ FULL CODE Janine Iyer DO [facility] Hospitalist Continued [facility] stay due to: multiple IV medications needed Consultants: ID, Wound Care Current Inpatient Medications: Current Inpatient Medications Medications (Trade) Dose Ordered Sig/Remy Route Start Time Stop Time Status Last Admin Dose Admin Heparin Sodium (Porcine) (Heparin Sq 5000 Unit/0.5ml) 5,000 unit Q8 SQ 02/23/16 06:00 03/24/16 05:59 02/28/16 13:04 5,000 UNIT Al Hydrox/Mg Hydrox/Simethicone (Maalox Max Susp) 15 ml Q4H PRN PO 02/22/16 21:15 03/23/16 21:14 Magnesium Hydroxide (Milk Of Magnesia Susp) 30 ml Q6H PRN PO 02/22/16 21:15 03/23/16 21:14 Polyethylene (Miralax Powder Packet) 17 gm DAILY PRN PO 02/22/16 21:15 03/23/16 21:14 Ondansetron HCl (Zofran Inj) 4 mg Q6H PRN IV 02/22/16 21:15 03/23/16 21:14 Insulin Aspart (novoLOG ASPART) SLIDING SCALE If C... ACHS SC 02/23/16 06:30 03/24/16 06:59 02/28/16 12:58 7 UNITS Glucose (Glucose 40% Gel) 15-30 GRAMS 15 GRAMS... UD PRN PO 02/22/16 21:15 03/23/16 21:14 Glucose (Glucose Chew Tab) 4-8 Tablets 4 Tabl... UD PRN PO 02/22/16 21:15 03/23/16 21:14 Dextrose (Dextrose 50% 50ML Syringe) 25-50ML OF 50% DW IV FOR... UD PRN IV 02/22/16 21:15 03/23/16 21:14 Glucagon (Glucagon Inj) 1 mg UD PRN SQ 02/22/16 21:15 03/23/16 21:14 Miscellaneous Information (Consult Glycemic Management Pharmacy) 1 ea DAILY PRN N/A 02/22/16 22:42 03/23/16 22:41 Atorvastatin Calcium (Lipitor Tab) 20 mg DAILY PO 02/23/16 09:00 03/24/16 08:59 02/28/16 08:01 20 MG Cyanocobalamin (Vitamin B-12 Tab) 250 mcg BID PO 02/23/16 09:00 03/24/16 08:59 02/28/16 08:00 250 MCG Isosorbide Mononitrate (Imdur Ext Rel Tab) 60 mg DAILY PO 02/23/16 09:00 03/24/16 08:59 02/28/16 08:00 60 MG Levothyroxine Sodium (Synthroid Tab) 50 mcg DAILYBB PO 02/23/16 06:30 03/24/16 06:59 02/28/16 06:01 50 MCG Metoprolol Succinate (Toprol Xl Tab) 12.5 mg DAILY PO 02/23/16 09:00 03/24/16 08:59 02/28/16 08:01 12.5 MG Montelukast Sodium (Singulair Tab) 10 mg QPM PO 02/23/16 21:00 03/24/16 20:59 02/27/16 21:51 10 MG Pantoprazole Sodium (Protonix Tab) 40 mg DAILY PO 02/23/16 09:00 03/24/16 08:59 02/28/16 08:01 40 MG Potassium Chloride (Klor-Con M10) 10 meq DAILY PO 02/23/16 09:00 03/24/16 08:59 02/28/16 08:01 10 MEQ Prednisone (PredniSONE TAB) 5 mg DAILY PO 02/23/16 09:00 03/24/16 08:59 02/28/16 08:05 5 MG Tiotropium [place] (Spiriva Handihaler Inhaler) 1 puff DAILY INH 02/23/16 09:00 03/24/16 08:59 02/28/16 08:02 1 PUFF Torsemide (Demadex Tab) 40 mg BID PO 02/23/16 09:00 03/24/16 08:59 Future Hold Magnesium Oxide (Mag-Ox Tab) 400 mg BID PO 02/23/16 09:00 03/24/16 08:59 02/28/16 08:06 400 MG Fluticasone Propionate (Flonase Nasal [place]) 2 sprays BID NA 02/23/16 09:00 03/24/16 08:59 02/28/16 07:59 2 SPRAYS Albuterol/ Ipratropium (Duoneb) 3 ml Q4R PRN INH 02/22/16 21:15 03/23/16 21:14 Vancomycin HCl (Consult) 1 ea UD PRN N/A 02/22/16 23:45 03/23/16 23:44 Aztreonam 1 ea 1 ea UD PRN N/A 02/26/16 09:45 03/27/16 09:44 Aztreonam/Dextrose (Azactam IV/D5 100ml) 110 ml @ 110 mls/hr Q12H IV 02/26/16 22:00 03/07/16 21:59 02/28/16 10:30 110 MLS/HR Insulin Glargine (Lantus Solostar Pen) DAILY SC 02/27/16 09:00 03/28/16 08:59 02/28/16 08:59 12 UNIT Bisacodyl (Dulcolax Supp) 10 mg DAILY PRN [place] 02/26/16 18:30 03/27/16 18:29 02/26/16 19:30 10 MG Metformin HCl 500 mg 500 mg BIDM PO 02/27/16 17:00 03/28/16 16:59 02/28/16 08:02 500 MG Vancomycin HCl/ Sodium Chloride (Vancomycin Inj/ Nss 250ml) 267 ml @ 125 mls/hr DAILY@1300 IV 02/28/16 13:00 03/02/16 12:59 02/28/16 13:01 125 MLS/HR Tramadol HCl (Ultram Tab) 50 mg Q6H PRN PO 02/27/16 17:00 03/28/16 16:59
[2016-02-28 19:45] VITALS: O2SAT 97
[2016-02-28] MEDS: MONTELUKAST SOD 10 MG TAB PO SCH (21:16)
[2016-02-28 22:47] VITALS: BP 207/77; PULSE 57; TEMP 37.2; O2SAT 97
[2016-02-28 23:35] VITALS: BP 167/84; PULSE 57; TEMP 37.2; O2SAT 97
[2016-02-29 00:07] VITALS: O2SAT 97
[2016-02-29] MEDS: HEPARIN SOD 5000 UNIT/0.5 ML CARP SQ SCH ×2 (05:35→14:36)
[2016-02-29] MEDS: LEVOTHYROXINE 50 MCG TAB PO SCH (05:37)
[2016-02-29 06:46] LABS: HEMATOCRIT 24.6 % (37-47); MEAN CELL VOLUME 82.8 fL (80-100); MEAN CORPUSCULAR HEMOGLOBIN 29.3 pg (25-34); MEAN CORPUSCULAR HGB CONC 35.4 g/dl (32-36); MEAN PLATELET VOLUME 9.2 fL (7.4-10.4); PLATELET COUNT 214 K/uL (130-400); RED BLOOD COUNT 2.97 M/uL (4.2-5.4); WHITE BLOOD COUNT 3.26 K/uL (4.8-10.8)
[2016-02-29 07:13] LABS: BUN/CREATININE RATIO 21.4 (10-20); CALCIUM 8.3 mg/dl (8.5-10.1); CREATININE 0.92 mg/dl (0.60-1.20); POTASSIUM 4.4 mmol/L (3.5-5.1)
[2016-02-29 08:36] VITALS: BP 154/64; PULSE 62
[2016-02-29] MEDS: TIOTROPIUM BROMIDE 5 PUFF/90 MCG INH INH SCH (08:40)
[2016-02-29] MEDS: FLUTICASONE PROPIONATE NA SPR 16 GM BTL SCH (08:40)
[2016-02-29] MEDS: ISOSORBIDE MONONITRATE 60 MG TABCR PO SCH (08:40)
[2016-02-29] MEDS: METFORMIN HCL 500 MG TAB PO SCH (08:40)
[2016-02-29] MEDS: MAGNESIUM OXIDE 400 MG TAB PO SCH (08:40)
[2016-02-29] MEDS: ATORVASTATIN 20 MG TAB PO SCH (08:40)
[2016-02-29] MEDS: POTASSIUM CHLORIDE 10 MEQ TABCR PO SCH (08:40)
[2016-02-29] MEDS: CYANOCOBALAMIN 500 MCG TAB (VIT B-12) PO SCH (08:41)
[2016-02-29] MEDS: PANTOprazole SOD 40 MG TAB PO SCH (08:41)
[2016-02-29] MEDS: METOPROLOL SUCC 25MG EXT REL TAB PO SCH (08:41)
[2016-02-29] MEDS: INSULIN ASPART 100 UNITS/ML 3 ML PEN SC SCH ×2 (08:50→12:30)
[2016-02-29] MEDS: INSULIN GLARGINE SOLOSTAR 100 UNITS/ML 3 ML PEN SC SCH (08:54)
[2016-02-29 08:58] VITALS: TEMP 36.7; O2SAT 98
[2016-02-29] MEDS: AZTREONAM IV 1,000 MG in DEXTROSE 5% 100ML IV SCH (10:50)
[2016-02-29] MEDS: TRAMADOL HCL 50 MG TAB PO PRN (11:15)
[2016-02-29 11:17] VITALS: BP 140/73
[2016-02-29] MEDS: VANCOMYCIN INJ 850 MG in SODIUM CHLORIDE 0.9% 250ML 250 ML IV SCH ×2 (12:28→12:50)
--- NOTE | 2016-02-29 12:39 | Pharmacy Progress Note ---
Glycemic: Assessment & Plan Date of Service Feb 29, 2016. Assessment & Plan Recent Pertinent Medications Outpatient Anti-diabetic Regimen: * Lantus 12 units SQ daily * Metformin 500mg PO BID * Also with prednisone 5mg PO daily * A1c = 8.5 % 02/23/16 The patient is currently receiving: * Basal insulin: Lantus 12 units every 24 hours * Correctional Insulin: NovoLog Correction per scale AC/HS Goal Range: Low 110 mg/dL - High 150 mg/dL Correction Factor: 45 mg/dL/unit * Prandial insulin: Per carb ratio of 1 unit per 10 grams CHO consumed * Oral Agents: metformin 500mg PO BID with meals Risk Factors for Insulin Resistance: * Steroids: Prednisone 5mg PO daily (home medication) * Infection: aztreonam and vancomycin ) * Diet: T2DM Assessment & Plan ASSESSMENT: * ADA & AACE recommend a goal blood sugar range 140-180 mg/dl for the majority of critically ill & non-critically ill patients. However, more stringent targets may be selected in individual cases. 02/27/16 * Imer has been requiring 20-32 units of insulin per day * Yesterday, the basal insulin was increased ~20% * continue this until steady state is reached. 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 These recommendations are appropriate for inpatient admission only. Plan of care upon discharge will need to be reassessed to avoid potential outpatient hypo/hyperglycemia. Thank you.
[2016-02-29] MEDS ORDERED: AZTR1INJ5 IV ×2 (14:42→14:49)
[2016-02-29] MEDS ORDERED: ULT50X PO (14:42)
[2016-02-29] MEDS ORDERED: CEPH-571 PO ×2 (14:42→14:49)
--- NOTE | 2016-02-29 14:56 | Discharge Instructions ---
Discharge Instructions Admission Reason for Admission: Bilateral Lower Leg Cellulitis Discharge Discharge Diagnosis / Problem: Bilateral lower leg cellulitis Discharge Goals Goal(s): Prevent Disease Progression Activity Recommendations Activity Limitations: resume your previous activity . Instructions / Follow-Up Instructions / Follow-Up Please take all medications as instructed. You will need to continue AZTREONAM IV and KEFLEX (oral) as directed for an additional 7 days while at rehab. These are antibiotics to treat your leg infection. You will need to make a follow-up appointment with Lynne Lewis PA-C with the [facility] within 1-2 weeks. You may need a referral from your primary care provider (PCP) prior to scheduling this. I have stopped your TORSEMIDE for the last week, and you have been well with no swelling or increased work of breathing. Cont to stay off of this until you are able to follow-up with your PCP. You will need a follow-up appointment from this hospitalization within 1 week of discharge from rehab. Please have the staff help make this appointment closer to your discharge date. 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 It was a pleasure taking care of you! Call if you have any questions or problems. You can reach a [facility] hospitalist on duty at [facility] 24 hours a day by calling [phone]. Take care of yourself. Janine Iyer, [facility] Hospitalist Current Hospital Diet Patient's current hospital diet: Diabetes Type 2 Diet Discharge Diet Recommended Diet: Diabetes Type 2 Diet Procedures Procedures Performed: None. Pending Studies Studies pending at discharge: no Laboratory Results Hemoglobin A1c Test 02/23/16 06:53 Range/Units Estimated Average Glucose 197 mg/dl Hemoglobin A1c 8.5 H 4.5-5.6 % Medical Emergencies . Who to Call and When: Medical Emergencies: If at any time you feel your situation is an emergency, please call 911 immediately. . Non-Emergent Contact Non-Emergency issues call your: Primary Care Provider . . "Provider Documentation" section prepared by Janine Iyer. VTE Core Measure Inpt VTE Proph given/why not?: Unfractionated heparin SQ
[2016-02-29 16:06] VITALS: BP 154/64; PULSE 57; TEMP 36.7; O2SAT 98
--- NOTE | 2016-02-29 16:21 | Infectious Disease Progress Nt ---
Progress Note Date of Service Feb 29, 2016. Subjective Pt evaluation today including: conversation w/ patient, physical exam, chart review, lab review, review of studies, conversation w/ senior market intelligence consultant (Dr. Iyer), review of inpatient medication list WBC count today was 3.26. Her creatinine was 0.92. She continues on Aztreonam and Vancomycin. Patient is feeling well today. She is hoping to leave the hospital soon. She states that she continues to have bilateral lower extremity pain especially on the right, but that they feel better than they previously had. All Other Systems: Reviewed and Negative Medications Current Inpatient Medications Medications (Trade) Dose Ordered Sig/Remy Route Start Time Stop Time Status Last Admin Dose Admin Heparin Sodium (Porcine) (Heparin Sq 5000 Unit/0.5ml) 5,000 unit Q8 SQ 02/23/16 06:00 03/24/16 05:59 02/29/16 14:36 5,000 UNIT Al Hydrox/Mg Hydrox/Simethicone (Maalox Max Susp) 15 ml Q4H PRN PO 02/22/16 21:15 03/23/16 21:14 Magnesium Hydroxide (Milk Of Magnesia Susp) 30 ml Q6H PRN PO 02/22/16 21:15 03/23/16 21:14 Polyethylene (Miralax Powder Packet) 17 gm DAILY PRN PO 02/22/16 21:15 03/23/16 21:14 Ondansetron HCl (Zofran Inj) 4 mg Q6H PRN IV 02/22/16 21:15 03/23/16 21:14 Insulin Aspart (novoLOG ASPART) SLIDING SCALE If C... ACHS SC 02/23/16 06:30 03/24/16 06:59 02/29/16 12:30 1 UNITS Glucose (Glucose 40% Gel) 15-30 GRAMS 15 GRAMS... UD PRN PO 02/22/16 21:15 03/23/16 21:14 Glucose (Glucose Chew Tab) 4-8 Tablets 4 Tabl... UD PRN PO 02/22/16 21:15 03/23/16 21:14 Dextrose (Dextrose 50% 50ML Syringe) 25-50ML OF 50% DW IV FOR... UD PRN IV 02/22/16 21:15 03/23/16 21:14 Glucagon (Glucagon Inj) 1 mg UD PRN SQ 02/22/16 21:15 03/23/16 21:14 Miscellaneous Information (Consult Glycemic Management Pharmacy) 1 ea DAILY PRN N/A 02/22/16 22:42 03/23/16 22:41 Atorvastatin Calcium (Lipitor Tab) 20 mg DAILY PO 02/23/16 09:00 03/24/16 08:59 02/29/16 08:40 20 MG Cyanocobalamin (Vitamin B-12 Tab) 250 mcg BID PO 02/23/16 09:00 03/24/16 08:59 02/29/16 08:41 250 MCG Isosorbide Mononitrate (Imdur Ext Rel Tab) 60 mg DAILY PO 02/23/16 09:00 03/24/16 08:59 02/29/16 08:40 60 MG Levothyroxine Sodium (Synthroid Tab) 50 mcg DAILYBB PO 02/23/16 06:30 03/24/16 06:59 02/29/16 05:37 50 MCG Metoprolol Succinate (Toprol Xl Tab) 12.5 mg DAILY PO 02/23/16 09:00 03/24/16 08:59 02/29/16 08:41 12.5 MG Montelukast Sodium (Singulair Tab) 10 mg QPM PO 02/23/16 21:00 03/24/16 20:59 02/28/16 21:16 10 MG Pantoprazole Sodium (Protonix Tab) 40 mg DAILY PO 02/23/16 09:00 03/24/16 08:59 02/29/16 08:41 40 MG Potassium Chloride (Klor-Con M10) 10 meq DAILY PO 02/23/16 09:00 03/24/16 08:59 02/29/16 08:40 10 MEQ Prednisone (PredniSONE TAB) 5 mg DAILY PO 02/23/16 09:00 03/24/16 08:59 02/29/16 08:41 5 MG Tiotropium [place] (Spiriva Handihaler Inhaler) 1 puff DAILY INH 02/23/16 09:00 03/24/16 08:59 02/29/16 08:40 1 PUFF Torsemide (Demadex Tab) 40 mg BID PO 02/23/16 09:00 03/24/16 08:59 Future Hold Magnesium Oxide (Mag-Ox Tab) 400 mg BID PO 02/23/16 09:00 03/24/16 08:59 02/29/16 08:40 400 MG Fluticasone Propionate (Flonase Nasal [place]) 2 sprays BID NA 02/23/16 09:00 03/24/16 08:59 02/29/16 08:40 2 SPRAYS Albuterol/ Ipratropium (Duoneb) 3 ml Q4R PRN INH 02/22/16 21:15 03/23/16 21:14 Vancomycin HCl (Consult) 1 ea UD PRN N/A 02/22/16 23:45 03/23/16 23:44 Aztreonam (Consult) 1 ea UD PRN N/A 02/26/16 09:45 03/27/16 09:44 Insulin Glargine (Lantus Solostar Pen) DAILY SC 02/27/16 09:00 03/28/16 08:59 02/29/16 08:54 6 UNIT Bisacodyl (Dulcolax Supp) 10 mg DAILY PRN WI 02/26/16 18:30 03/27/16 18:29 02/26/16 19:30 10 MG Metformin HCl 500 mg 500 mg BIDM PO 02/27/16 17:00 03/28/16 16:59 02/29/16 08:40 500 MG Vancomycin HCl/ Sodium Chloride (Vancomycin Inj/ Nss 250ml) 267 ml @ 125 mls/hr DAILY@1300 IV 02/28/16 13:00 03/02/16 12:59 02/29/16 12:50 125 MLS/HR Tramadol HCl 50 mg 50 mg Q6H PRN PO 02/27/16 17:00 03/28/16 16:59 02/29/16 11:15 50 MG Aztreonam/Dextrose (Azactam IV/D5 100ml) 110 ml @ 110 mls/hr Q12H IV 02/29/16 22:00 03/10/16 21:59 Objective Vital Signs Date Time Temp Pulse Resp B/P Pulse Ox O2 Delivery O2 Flow Rate FiO2 02/29/16 16:06 36.7 57 14 98 Room Air 02/29/16 08:58 36.7 14 98 Room Air 02/29/16 08:36 62 154/64 02/29/16 08:20 Room Air 02/29/16 00:07 97 Room Air 02/28/16 23:35 37.2 57 20 167/84 97 Room Air 02/28/16 22:47 37.2 57 19 207/77 97 Room Air 02/28/16 19:45 97 Room Air Physical Exam General Appearance: WD/WN, no apparent distress Eyes: normal inspection, sclerae normal ENT: hearing grossly normal Neck: supple, trachea midline Respiratory/Chest: no respiratory distress, no accessory muscle use Extremities: + pertinent finding (No continued swelling of the bilateral lower extremities. Continues tenderness) Neurologic/Psychiatric: alert, normal mood/affect Skin: warm/dry, + pertinent finding (Mild erythema of the bilateral lower extremities. Continues ulcerations. Much improvement seen) Laboratory Results Last 24 Hours Test 02/28/16 19:59 02/29/16 06:17 02/29/16 07:20 02/29/16 11:17 Bedside Glucose 131 mg/dl 90 mg/dl 163 mg/dl White Blood Count 3.26 K/uL Red Blood Count 2.97 M/uL Hemoglobin 8.7 g/dL Hematocrit 24.6 % Mean Corpuscular Volume 82.8 fL Mean Corpuscular Hemoglobin 29.3 pg Mean Corpuscular Hemoglobin Concent 35.4 g/dl RDW Standard Deviation 39.3 fL RDW Coefficient of Variation 12.9 % Platelet Count 214 K/uL Mean Platelet Volume 9.2 fL Sodium Level 138 mmol/L Potassium Level 4.4 mmol/L Chloride Level 104 mmol/L Carbon Dioxide Level 25 mmol/L Anion Gap 9.0 mmol/L Blood Urea Nitrogen 20 mg/dl Creatinine 0.92 mg/dl Est Creatinine Clear Calc Drug Dose 31.9 ml/min Estimated GFR () 64.4 Estimated GFR (Non- 55.6 BUN/Creatinine Ratio 21.4 Random Glucose 79 mg/dl Calcium Level 8.3 mg/dl Ionized Calcium 1.19 mmol/l Iron Level 51 mcg/dl Total Iron Binding Capacity 185 mcg/dl Transferrin 142 mg/dl Transferrin % Saturation 26 % Assessment and Plan (1) Bilateral lower leg cellulitis Patient with recurrent bilateral lower extremity wounds and cellulitis with Pseudomonas growing from 1/2 cultures and coag-negative staph growing from another. She is currently on IV Aztreonam and Vancomycin. She is greatly improved at this time, but she does appear to need some continued antibiotic therapy. I discussed this patient with Dr. Iyer. Due to culture growing Pseudomonas, the patient's quinolone allergy, and her likely placement in rehab , seems easiest to continue IV Aztreonam for this patient but transition to PO Keflex to continue gram positive coverage. She should continue for at least 1 more week and follow up with myself prior to discontinuation. Thank you PROVIDER ADDENDUM: Patient reviewed with Ms. Lewis. Agree with above assessment.
[2016-02-29] MEDS ORDERED: AZTREONAM 2000 MG in DEXTROSE 5% 100 ML IV SCH (22:00)
--- NOTE | 2016-03-03 18:12 | PULMONARY CONSULTATION ---
DATE OF CONSULTATION: 02/29/2016 HISTORY OF PRESENT ILLNESS: The patient is an elderly white female who was admitted to the hospital with bilateral lower extremity cellulitis. A consult was placed for an allergy/immunology evaluation. I was not contacted concerning this consult and was not aware of it until after the patient was already discharged from the hospital. Therefore, no consultation was performed. HOANG
--- NOTE | 2016-03-04 20:54 | Discharge Summary ---
Discharge Summary Admission Date: Feb 22, 2016 at 21:26 Discharge Date: Feb 29, 2016 Discharge Disposition: Rehab Principal Diagnosis: Acute on chronic LE cellulitis Chronic LE ulcerative wounds Procedures: None. Vaccinations: None. Consultations: ID, Wound Care Pending Studies/Follow-Up: see instructions below Medication Reconciliation New Medications: Aztreonam (Aztreonam) 1 Gm Inj 1 GM IV Q12H for 7 Days, #14 GM Please continue Aztreonam 1gm IV q12h for 7 more days, then stop Cephalexin (Keflex) 500 Mg Cap 1 CAP PO BID for 7 Days, #14 CAP Cont Keflex 500mg every 12 hours for 7 more days, then stop. Tramadol HCl (Tramadol HCl) 50 Mg Tab 50 MG PO Q6H PRN for Pain for 30 Days, #120 TAB Continued Medications: Alendronate Sodium (Alendronate Sodium) 70 Mg Tab 70 MG PO WK TAKE ON MONDAYS Atorvastatin (Atorvastatin Calcium) 20 Mg Tab 1 TAB PO DAILY Azithromycin (Zithromax) 250 Mg Tab 250 MG PO UD PRN RESCUE KIT Calcium Carbonate-Cholecalcife (Caltrate 600+D) 1 Tab Tab 1 TAB PO BID Cyanocobalamin (Vitamin B-12) 250 Mcg Tab 250 MCG PO BID, TAB Insulin Glargine (Lantus) Vial 12 UNITS SQ DAILY, VIAL Ipratropium-Albuterol (Duoneb) 3 Ml Nebu 1 TREATMENT INH QID PRN for Shortness of Breath, INHA Isosorbide Mononitrate Ext Rel (Imdur Ext Rel) 60 Mg Ertab 60 MG PO DAILY Levothyroxine Sodium (Synthroid) 50 Mcg Tab 50 MCG PO DAILY, TAB Magnesium Oxide (Mg Supplement (Magnesium) 400 Mg Cap 400 MG PO BID Metformin Hcl (Glucophage) 1,000 Mg Tab 500 MG PO BID, #180 Metoprolol Succ (Toprol Xl) (Toprol-Xl) 25 Mg Tabcr 12.5 MG PO DAILY Mometasone Furoate (Nasonex) [place] 2 SPRAY NA BID, BTL Montelukast Sodium (Singulair) 10 Mg Tab 10 MG PO QPM, TAB Pantoprazole (Pantoprazole Sodium) 40 Mg Tab 40 MG PO DAILY Polyethylene Glycol 3350 (Miralax) 1 Pow Pow 1 TBS PO DAILY PRN for Constipation Prednisone Tab (Prednisone) 10 Mg Tab 5 MG PO DAILY, TAB Tiotropium [place] (Spiriva Handihaler) 18 Mcg/ Aerp 1 CAP INH DAILY, INHALER Discontinued Medications: Potassium Chloride (Micro-K Ext Rel) 10 Meq Tab 10 MEQ PO DAILY Torsemide (Torsemide) 20 Mg Tab 40 MG PO BID, #120 Admission Information HPI (per Admitting provider): This is an 89 year old 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 Patient lives with her sister at home and has caregivers and nursing who come in to check on her. Wound care nurse came in today to change her dressing for her legs and noticed they were warm to touch and erythematous; she had weeping ulcerations noted - nurse tried to get an appointment with patient's primary care, but they could not take her so she presented here. She was last here in December 2015 with cellulitic changes of the lower extremities and during that episode, Bactrim was used and cleared the infection. Recently, her dose of Lasix was changed to Torsemide due to Lasix affecting her kidneys. She was last seen by Wound care last week at the clinic and was doing well; had the legs dressed at that time. Patient is demented and unable to verbalize any complaints - though she is comfortable. Physical Exam (per Admitting): General Appearance: no apparent distress Head: normocephalic, atraumatic Eyes: normal inspection Respiratory/Chest: lungs clear, normal breath sounds, no respiratory distress, no accessory muscle use Cardiovascular: regular rate, rhythm, no edema, no murmur Abdomen/GI: non tender, soft Extremities/Musculoskelatal: no pedal edema, + pertinent finding (b/l LE dressed, erythematous, warm to touch, weeping ulcerations) Neurologic/Psych: no motor/sensory deficits, alert, + pertinent finding ( pleasantly demented) Hospital Course 89 yo F with worsened infection superimposed on chronic lower extremity ulcers bilaterally Cellulitis of bilateral lower extremities Wound Ulcerations--improved -->chronic lower extremity edema with diastolic CHF -->has had episodes of decompensated diastolic CHF and subsequent wounds -->recent change in Lasix to Torsemide in January 2016 which has been effective for her (has been on hold this hospitalization) -->has been following wound care for the ulcerations in the legs -->wound care nursing sent patient over because of erythema and more drainage -->wound culture and blood cultures revealing Pseudomonas and ESL TUTOR -->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 Cont IV abx through the weekend per ID. -->wound care nurse consulted and following, cont Aquacell, ABD, Kerlex -->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 -->some pain in legs despite scheduled APAP, so Tramadol ordered PRN on 02/26 -->tramadol very effective today per patient and her sister --area of erythema continues to improve, cont IV Vanc and Aztreonam- -->discussed with ID and based on C&S and allergy to FQs, it was decided to cont IV Aztreonam and PO Keflex for an additional 7 days upon discharge to rehab. This was administered through PIV--not midline or PICC. ANEMIA-poss 2/2 ACD vs frequent phlebotomy, seen by Dr De La O in Jan 2016. Iron studies at that time revealed iron 65, Ferritin 69, TIBC 276, 25% saturation-- sufficient. Procrit considered but ferritin should be higher than 100 prior to giving this. Considering Venofer infusion as outpatient. Will discuss with Dr. De La O to see if this may be something we could do here--repeating iron studies in am Chronic Diastolic CHF -->type I diastolic CHF, chronic, compensated -->due to renal dysfunction with Lasix, switched to Torsemide -->hold Torsemide secondary to increase in creat which is improved to 1.0 -->no edema at this time so cont to hold CAD s/p CABG -->asymptomatic -->continue current cardiac medications -->was seen by cardiology last month with no changes in medications COPD-severe, on daily low dose prednisone, no wheezing on exam. Stable. Cont pred, Spiriva, Singulair and Duonebs as needed Insulin Dependent DM2-at goal on Lantus and ISS -->patient takes 5mg of prednisone daily due to breathing problems -->last A1c = 7.6% in January 2016, which was a jump 6.1% in July 2015 -->Cont recs per glycemic control pharmacist, glucose at goal today HTN -->continue imdur, b-jose a -->avoid CCB, if able, due to edema -->DEBBIE-I and ARB allergy noted CONSTIPATION: mult BMs s/p enema, feels better On day of discharge ulcers were improved and there was no surrounding erythema present on her wounds. Aquacell/ABDs and Kerlex was in place. Patient was afebrile, hemodynamically stable and tolerating PO. She was ambulatory with assist which was not her baseline, and therefore, qualified for rehab. She was discharged in good condition to rehab with an additional 7 days on abx including Azteonam through a peripheral IV and PO Keflex. She was instructed to follow-up with her PCP within 7 days of discharge from the hospital. Total time spent on discharge = 60 minutes This includes examination of the patient, discharge planning, medication reconciliation, and communication with other providers. Discharge Instructions Discharge Instructions Admission Reason for Admission: Bilateral Lower Leg Cellulitis Discharge Discharge Diagnosis / Problem: Bilateral lower leg cellulitis Discharge Goals Goal(s): Prevent Disease Progression Activity Recommendations Activity Limitations: resume your previous activity . Instructions / Follow-Up Instructions / Follow-Up Please take all medications as instructed. You will need to continue AZTREONAM IV and KEFLEX (oral) as directed for an additional 7 days while at rehab. These are antibiotics to treat your leg infection. You will need to make a follow-up appointment with Lynne Lewis PA-C with the [facility] within 1-2 weeks. You may need a referral from your primary care provider (PCP) prior to scheduling this. I have stopped your TORSEMIDE for the last week, and you have been well with no swelling or increased work of breathing. Cont to stay off of this until you are able to follow-up with your PCP. You will need a follow-up appointment from this hospitalization within 1 week of discharge from rehab. Please have the staff help make this appointment closer to your discharge date. 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 It was a pleasure taking care of you! Call if you have any questions or problems. You can reach a [facility] 24 hours a day by calling [phone]. Take care of yourself. Janine Iyer, DO [facility] Medical Centerist Additional Copies To Ken Penaloza D.O.
== END 2016-02-29 16:30 | DRG 603 ==
LOC: ENRESERVTM → ENRESERVDT → C.EDB 16:20 → C.MS2W 21:26
PROVIDERS: ADMIT Family Medicine; ATTEND Hospitalist
DX: L03.115 Cellulitis of right lower limb (principal); L03.116 Cellulitis of left lower limb; I82.511 Chronic embolism and thrombosis of right femoral vein; K92.1 Melena; N17.9 Acute kidney failure, unspecified; L97.929 Non-pressure chronic ulcer of unspecified part of left lower leg with unspecified severity; I50.32 Chronic diastolic (congestive) heart failure; I25.10 Atherosclerotic heart disease of native coronary artery without angina pectoris; N18.3 Chronic kidney disease, stage 3 (moderate); E03.9 Hypothyroidism, unspecified; Z95.1 Presence of aortocoronary bypass graft; I12.9 Hypertensive chronic kidney disease with stage 1 through stage 4 chronic kidney disease, or unspecified chronic kidney disease; E11.21 Type 2 diabetes mellitus with diabetic nephropathy; F03.90 Unspecified dementia, unspecified severity, without behavioral disturbance, psychotic disturbance, mood disturbance, and anxiety; D50.9 Iron deficiency anemia, unspecified; N28.1 Cyst of kidney, acquired; J44.9 Chronic obstructive pulmonary disease, unspecified; B96.5 Pseudomonas (aeruginosa) (mallei) (pseudomallei) as the cause of diseases classified elsewhere; K59.00 Constipation, unspecified; Z79.4 Long term (current) use of insulin; E78.5 Hyperlipidemia, unspecified; Z86.73 Personal history of transient ischemic attack (TIA), and cerebral infarction without residual deficits

== ENCOUNTER 2016-03-16 09:13 | Inpatient (IN) | payer OTHER ==
[2016-03-16] VITALS (9 sets, daily range): BP systolic 110–206; BP diastolic 49–75; PULSE 51–60; TEMP 36.5–36.9; O2SAT 99–100; BMI 23.3
[~2016-03-16] VITALS: Ht 154.9 cm; Wt 61.9 kg
[~2016-03-16 09:13] MED LIST changes: -ACET-1311 PO; -ATRINSX INH; -INSDGIPEN SC; -MOME6000 NAE; -MULT-16 PO; -NTRS PO; -NVLGI/PEN SC; -PRLSR20 PO; -TRAM-10 PO
[2016-03-16] MEDS ORDERED: LABETALOL HCL IV 5 MG/ML 20ML IV STA (09:26)
[2016-03-16] MEDS ORDERED: METHYLPREDNISOLONE 125 MG VIAL IV STA (09:26)
[2016-03-16] MEDS ORDERED: FAMOTIDINE 20MG/102 ML D5W IV STA (09:26)
[2016-03-16 09:37] LABS: BASO % 0.6 %; BASO ABS # 0.03 K/uL (0-0.2); COMPLETE YES; EOS % 3.3 %; HEMATOCRIT 32.1 % (37-47); IG% 0.2 %; LYMPH % 18.3 %; LYMPH ABS # 0.99 K/uL (1.2-3.4); MEAN CELL VOLUME 81.7 fL (80-100); MEAN CORPUSCULAR HEMOGLOBIN 29.8 pg (25-34); MEAN CORPUSCULAR HGB CONC 36.4 g/dl (32-36); MEAN PLATELET VOLUME 9.9 fL (7.4-10.4); NEUT % 67.6 %; PLATELET COUNT 228 K/uL (130-400); RED BLOOD COUNT 3.93 M/uL (4.2-5.4)
[2016-03-16] MEDS ORDERED: RAPID SEQUENCE INDUCTION BAG ONE (09:37)
--- NOTE | 2016-03-16 09:40 | EMERGENCY ROOM VISIT NOTE ---
History Report prepared by Gunner: Oswaldo Malave Under the Supervision of: Dr. Pallavi Christie M.D. First contact with patient: 09:20 Chief Complaint: ALTERED MENTAL STATUS Stated Complaint: AMS/HTN History of Present Illness The patient is an 89 year old female who presents to the Emergency Room via [facility] with a change of mental status. The patient is also having difficulty breathing because of airway swelling. The patient presents to the ED for altered mental status, cellulitis, confusion, and hypertension. The patient' s HPI is limited due to AMS or nonverbal status. Source of History: patient, sibling History Limited By: AMS, other (nonverbal status) Position: other (global) Associated Symptoms: + SOB (difficulty breathing) Note: Other associated symptoms: airway swelling, cellulitis, confusion, hypertension Review of Systems The ROS is limited due to AMS or nonverbal status. Past Medical & Surgical Medical Problems: (1) Asthma exacerbation (2) Asthma, moderate persistent (3) Bilateral lower leg cellulitis (4) CAD (coronary artery disease) (5) CKD (chronic kidney disease), stage III (6) COPD, mild (7) Dementia (8) DM type 2 (diabetes mellitus, type 2) (9) Femoral vein thrombosis, right (10) GERD (gastroesophageal reflux disease) (11) HLD (hyperlipidemia) (12) HTN (hypertension) (13) Hypothyroidism (14) Melena (15) Normocytic anemia (16) Right upper quadrant abdominal rigidity (17) TIA (transient ischemic attack) (18) Ulcers of both lower extremities Surgical Problems: (1) H/O oophorectomy (2) History of cataract surgery (3) History of hysterectomy (4) Hx of cholecystectomy (5) S/P CABG x 2 (6) S/P tonsillectomy and adenoidectomy Family History FH: COPD (chronic obstructive pulmonary disease) Hypertension Social History Smoking Status: Never Smoker Alcohol Use: none Drug Use: none Marital Status: Housing Status: lives with family Occupation Status: retired Current/Historical Medications Scheduled Acetaminophen (Tylenol), 650 MG PO Q6H Alendronate Sodium (Alendronate Sodium), 70 MG PO WK Atorvastatin (Atorvastatin Calcium), 1 TAB PO DAILY Calcium Carbonate-Cholecalcife (Caltrate 600+D), 1 TAB PO BID Cyanocobalamin (Vitamin B-12), 250 MCG PO BID Enteral Nutrition Formula (Nutritional Supplement), 120 ML PO TID Insulin Glargine (Lantus Solostar), 8 UNITS SC QAM Ipratropium [place] (Atrovent 0.02% Soln), 1 VIAL INH QID Isosorbide Mononitrate Ext Rel (Imdur Ext Rel), 90 MG PO DAILY Levothyroxine Sodium (Synthroid), 50 MCG PO DAILY Magnesium Oxide (Mg Supplement (Magnesium), 400 MG PO BID Metformin Hcl (Glucophage), 500 MG PO BID Metoprolol Succinate (Toprol Xl), 25 MG PO DAILY Mometasone Furoate (Nasal) (Mometasone Furoate), 2 SPRAY ELIJAH BID Montelukast Sodium (Singulair), 10 MG PO QPM Multiple Vitamins W/ Minerals (Thera-M), 1 TAB PO DAILY Omeprazole (Prilosec), 40 MG PO QAM Prednisone Tab (Prednisone), 5 MG PO DAILY Scheduled PRN Insulin Aspart (Novolog Flexpen), 0-16 UNITS SC ACHS PRN for SLIDING SCALE Ipratropium-Albuterol (Duoneb), 1 TREATMENT INH Q6H PRN for Shortness of Breath Polyethylene Glycol 3350 (Miralax), 17 GM PO DAILY PRN for Constipation Tramadol (Ultram), 50 MG PO Q6 PRN for Pain Allergies Coded Allergies: Polymyxin B (Verified Allergy, Mild, RASH, 01/06/16) DEBBIE Inhibitors (Unverified Allergy, Unknown, UNKNOWN, 01/06/16) Angiotensin Receptor Blockers (Verified Allergy, Unknown, `, 02/23/16) Camphor (Verified Allergy, Unknown, 01/06/16) Eucalyptus Oil (Verified Allergy, Unknown, 01/06/16) Menthol (Verified Allergy, Unknown, VICKS VAPO-RUB, 01/06/16) Quinolones (Unverified Allergy, Unknown, UNKNOWN, 01/06/16) Physical Exam Vital Signs Date Time Temp Pulse Resp B/P Pulse Ox O2 Delivery O2 Flow Rate FiO2 03/16/16 11:04 152/43 03/16/16 11:03 51 14 99 03/16/16 10:58 52 14 153/36 99 03/16/16 10:53 52 12 147/38 99 03/16/16 10:48 55 126/44 99 03/16/16 10:44 111/42 03/16/16 10:43 56 99 03/16/16 10:40 36.9 57 14 128/40 98 Mechanical Ventilator 03/16/16 10:38 56 128/40 98 03/16/16 10:33 56 96 03/16/16 10:30 54 137/52 98 03/16/16 10:28 54 137/52 97 03/16/16 10:26 Nasal Cannula 03/16/16 10:25 54 125/70 98 03/16/16 10:23 54 125/70 97 03/16/16 10:20 54 125/60 97 Mechanical Ventilator 03/16/16 10:19 125/60 03/16/16 10:18 54 97 03/16/16 10:15 53 150/71 98 03/16/16 10:13 55 197/88 98 Mechanical Ventilator 03/16/16 10:13 53 150/71 98 03/16/16 10:12 197/88 03/16/16 10:10 61 209/105 98 Mechanical Ventilator 03/16/16 10:10 50 03/16/16 10:08 62 209/105 98 03/16/16 10:06 79 235/135 100 03/16/16 10:04 235/135 03/16/16 10:03 62 100 03/16/16 10:00 68 236/121 100 03/16/16 09:58 69 236/121 100 03/16/16 09:57 73 247/135 99 03/16/16 09:55 247/135 03/16/16 09:53 77 100 03/16/16 09:49 211/104 03/16/16 09:48 62 03/16/16 09:33 81 17 95 03/16/16 09:28 85 8 230/128 96 03/16/16 09:27 252/129 03/16/16 09:26 251/136 03/16/16 09:25 83 22 251/136 95 Room Air 03/16/16 09:23 81 19 96 03/16/16 09:18 81 15 95 03/16/16 09:18 97 Room Air 03/16/16 09:18 81 03/16/16 09:15 266/136 Physical Exam Vital signs reviewed. General: Elderly chronically ill-appearing, frail, in no significant distress. HEENT: No scleral icterus, PERRLA, neck supple. Positive stridor with significant tongue edema. Unable to visualize the posterior oropharynx. Cardiovascular: Hypertensive, no extra sounds. Pulmonary: Clear to auscultation bilaterally, normal work of breathing. Abdomen: Soft, nontender, nondistended, positive bowel sounds. Musculoskeletal: Atraumatic, no peripheral edema. Dressing to bilateral lower extremities. Neurologic: Patient awake alert and oriented x 3, full strength in all 4 extremities. Cranial nerves 2 through 12 grossly intact. Skin: Warm, dry, no rash Medical Decision & Procedures ER Provider Diagnostic Interpretation: X-ray results as stated below per interpretation by me and the radiologist: CHEST ONE VIEW PORTABLE CLINICAL HISTORY: AMS, angioedema dyspnea COMPARISON STUDY: 01/06/2016 FINDINGS: Placement of an endotracheal tube 2.5 cm both [place]. Lungs are considered clear. Prior median sternotomy. Diaphragms smooth. IMPRESSION: Endotracheal tube in good position 2.5 cm above the [place]. Lungs are clear. Electronically signed by: Justino Baptiste M.D. 03/16/2016 10:23 AM Dictated Date/Time: 03/16/2016 10:22 AM Laboratory Results 03/16/16 08:35 Red Blood Count 3.93, Mean Corpuscular Volume 81.7, Mean Corpuscular Hemoglobin 29.8, Mean Corpuscular Hemoglobin Concent 36.4, Mean Platelet Volume 9.9, Neutrophils (%) (Auto) 67.6, Lymphocytes (%) (Auto) 18.3, Monocytes (%) (Auto) 10.0, Eosinophils (%) (Auto) 3.3, Basophils (%) (Auto) 0.6, Neutrophils # (Auto ) 3.65, Lymphocytes # (Auto) 0.99, Monocytes # (Auto) 0.54, Eosinophils # (Auto ) 0.18, Basophils # (Auto) 0.03 03/16/16 08:35 Test 03/16/16 08:35 03/16/16 10:40 White Blood Count 5.40 K/uL (4.8-10.8) Red Blood Count 3.93 M/uL (4.2-5.4) Hemoglobin 11.7 g/dL (12.0-16.0) Hematocrit 32.1 % (37-47) Mean Corpuscular Volume 81.7 fL (80-100) Mean Corpuscular Hemoglobin 29.8 pg (25-34) Mean Corpuscular Hemoglobin Concent 36.4 g/dl (32-36) Platelet Count 228 K/uL (130-400) Mean Platelet Volume 9.9 fL (7.4-10.4) Neutrophils (%) (Auto) 67.6 % Lymphocytes (%) (Auto) 18.3 % Monocytes (%) (Auto) 10.0 % Eosinophils (%) (Auto) 3.3 % Basophils (%) (Auto) 0.6 % Neutrophils # (Auto) 3.65 K/uL (1.4-6.5) Lymphocytes # (Auto) 0.99 K/uL (1.2-3.4) Monocytes # (Auto) 0.54 K/uL (0.11-0.59) Eosinophils # (Auto) 0.18 K/uL (0-0.5) Basophils # (Auto) 0.03 K/uL (0-0.2) RDW Standard Deviation 39.2 fL (36.4-46.3) RDW Coefficient of Variation 13.1 % (11.5-14.5) Immature Granulocyte % (Auto) 0.2 % Immature Granulocyte # (Auto) 0.01 K/uL (0.00-0.02) Anion Gap 11.0 mmol/L (3-11) Estimated GFR () 90.5 Estimated GFR (Non- 78.1 BUN/Creatinine Ratio 15.6 (10-20) Calcium Level 7.8 mg/dl (8.5-10.1) Magnesium Level 1.6 mg/dl (1.8-2.4) Total Bilirubin 0.6 mg/dl (0.2-1) Direct Bilirubin 0.2 mg/dl (0-0.2) Aspartate Amino Transf (AST/SGOT) 13 U/L (15-37) Alanine Aminotransferase (ALT/SGPT) 14 U/L (12-78) Alkaline Phosphatase 71 U/L (45-117) Total Creatine Kinase 48 U/L (26-192) Creatine Kinase MB 2.7 ng/ml (0.5-3.6) Creatine Kinase MB Ratio 5.6 (0-3.0) Total Protein 5.5 gm/dl (6.4-8.2) Albumin 2.5 gm/dl (3.4-5.0) Urine Color YELLOW Urine Appearance CLEAR (CLEAR) Urine pH 7.5 (4.5-7.5) Urine Specific [place] 1.016 (1.000-1.030) Urine Protein NEG (NEG) Urine Glucose (UA) 2+ (NEG) Urine Ketones NEG (NEG) Urine Occult Blood NEG (NEG) Urine Nitrite NEG (NEG) Urine Bilirubin NEG (NEG) Urine Urobilinogen NEG (NEG) Urine Leukocyte Esterase NEG (NEG) Urine WBC (Auto) 5-10 /hpf (0-5) Urine RBC (Auto) 0-4 /hpf (0-4) Urine Hyaline Casts (Auto) 0 /lpf (0-5) Urine Epithelial Cells (Auto) 10-20 /lpf (0-5) Urine Bacteria (Auto) NEG (NEG) Laboratory results per my review. Medications Administered Medications (Trade) Dose Ordered Sig/Remy Route Start Time Stop Time Status Last Admin Dose Admin Labetalol HCl (Normodyne IV) 10 mg NOW STAT IV 03/16/16 09:26 03/16/16 09:29 DC 03/16/16 10:16 10 MG Methylprednisolone Sodium Succinate (Solu-Medrol IV) 125 mg NOW STAT IV 03/16/16 09:26 03/16/16 09:29 DC 03/16/16 10:16 125 MG Famotidine (Pepcid 20mg/100 ml) 20 mg ONE STAT IV 03/16/16 09:26 03/16/16 09:29 DC 03/16/16 10:16 20 MG Miscellaneous (Rapid Sequence Induction Bag) 1 ea STK-MED ONCE N/A 03/16/16 09:37 03/16/16 09:39 DC 03/16/16 10:07 1 EA Fentanyl Citrate (Fentanyl Inj) 100 mcg STK-MED ONCE .ROUTE 03/16/16 09:41 03/16/16 09:42 DC 03/16/16 09:41 100 MCG Lidocaine HCl (Afrin W/ Lidocaine 4%) 4 ml STK-MED ONCE .ROUTE 03/16/16 09:41 03/16/16 09:43 DC 03/16/16 10:56 4 ML Lidocaine HCl (Lidocaine 2% 20MG/Ml Syringe) 100 mg STK-MED ONCE .ROUTE 03/16/16 09:47 03/16/16 09:49 DC 03/16/16 10:19 100 MG Propofol (Diprivan Iv Emulsion 100ml Vial) 1 dose STK-MED ONCE IV 03/16/16 10:07 03/16/16 10:08 DC 03/16/16 10:21 1 DOSE Magnesium Sulfate 1 gm 1 gm NOW STAT IV 03/16/16 10:14 03/16/16 10:16 DC 03/16/16 10:39 1 GM Sodium Chloride (Nss 1000ml) 1,000 ml @ 125 mls/hr Q8H STAT IV 03/16/16 10:14 03/16/16 13:30 DC 03/16/16 10:15 125 MLS/HR Succinylcholine Chloride (Quelicin Inj) 100 mg ONE ONCE IV 03/16/16 10:18 03/16/16 10:19 DC 03/16/16 10:18 100 MG ECG Indication: other Rate (beats per minute): 90 Rhythm: sinus rhythm Findings: PVC, other (t-wave abnormality in inferior and lateral leads) ED Course 0922: Past medical records reviewed. The patient was evaluated in room C6. A complete history and physical examination was performed. 0926: Ordered Famotidine 20 mg IV, Solu-Medrol IV 125 mg IV, Labetalol HCl 10 mg IV. 0933: At this time, I discussed the patient's case with Dr. Goldsmith - [employer] [facility] [place] and he agreed to come and see the patient. 1014: Ordered NSS 1000 ml @ 125 mls/hr IV, Magnesium Sulfate 1 gm IV. 1019: At this time, I discussed the patient's case with Dr. Quiroz - Hospitalist [facility] and he agreed to accept the patient for further evaluation. Medical Decision Differential diagnosis: Etiologies such as infections, reactive airway disease, pneumonia, pneumothorax , COPD, CHF, cardiac ischemia, pulmonary embolism, musculoskeletal, gastrointestinal, angioedema as well as others were entertained. This patient was evaluated and appeared to be in significant respiratory distress. Physical examination reveals a marked edema of the tongue with stridorous respirations. Patient's oxygen saturations have been maintained. A nasopharyngeal airway was inserted and seemed to improve symptoms. Patient's mental status seems to wax and wane. The patient was given IV Solu-Medrol, IV Benadryl and Pepcid. I do not suspect this to be anaphylaxis rather angioedema. The etiology of the angioedema is unclear. The patient's sister was informed of the findings. She believes that the patient would want to be intubated. She is a full code. Dr. Goldsmith of the ICU was consulted and arrived in the emergency department to assist with airway management. Patient was given various topical agents as well as IV ketamine and fentanyl. With anesthesia's assistance, Dr. Goldsmith was able to secure an airway. The patient 's laboratory work is fairly unrevealing. She does have a mild hyperglycemia. EKG reveals a normal sinus rhythm. The patient will be evaluated by the hospitalist service for admission and further management. Consults Time Called: [phone] Consulting Physician: Dr. Goldsmith - [employer] Machine Operator [facility] [place] Returned Call: [phone] At this time, I discussed the patient's case with Dr. Goldsmith and he agreed to come and see the patient. Additional Consults: Time Called: [phone] Consulted Physician: Dr. Quiroz - Hospitalist [facility] [place] Returned Call: [phone] Additional Comments: At this time, I discussed the patient's case with Dr. Quiroz and he agreed to accept the patient for further evaluation. Impression Primary Impression: Angioedema Additional Impression: Acute airway obstruction Critical Care I have personally spent greater than 30 minutes of critical care time in the direct management of this patient. This includes bedside care, interpretation of diagnostic studies, and testing, discussion with consultants, patient, and family members, and other required patient management activities. This 30 minutes is in excess of all separately billable procedures. Scribe Attestation The scribe's documentation has been prepared under my direction and personally reviewed by me in its entirety. I confirm that the note above accurately reflects all work, treatment, procedures, and medical decision making performed by me. Departure Information Dispostion Being Evaluated By Hospitalist Referrals Connor Kingsley (PCP) Problem Qualifiers Primary Impression: Angioedema Encounter type: initial encounter Qualified Codes: T78.3XXA - Angioneurotic edema, initial encounter
[2016-03-16] MEDS ORDERED: FENTANYL CITRATE INJ 50 MCG/1 ML 2 ML VIAL ONE (09:41)
[2016-03-16] MEDS ORDERED: LIDOCAINE 4% W/AFRIN NASAL SOLN 4ML ONE (09:41)
[2016-03-16 09:47] LABS: ALT/SGPT 14 U/L (12-78); BLOOD UREA NITROGEN 11 mg/dl (7-18); BUN/CREATININE RATIO 15.6 (10-20); CALCIUM 7.8 mg/dl (8.5-10.1); CARBON DIOXIDE 23 mmol/L (21-32); CHLORIDE 97 mmol/L (98-107); CREATININE 0.68 mg/dl (0.60-1.20); GLUCOSE 205 mg/dl (70-99); MAGNESIUM 1.6 mg/dl (1.8-2.4); SODIUM 131 mmol/L (136-145)
[2016-03-16] MEDS ORDERED: LIDOCAINE 2% 20 MG/ML 5ML SYR ONE (09:47)
[2016-03-16 09:52] LABS: ALKALINE PHOSPHATASE 71 U/L (45-117); AST/SGOT 13 U/L (15-37); CKMB/CK RATIO 5.6 (0-3.0)
[2016-03-16] MEDS ORDERED: NTRS PO (09:59)
[2016-03-16] MEDS ORDERED: NVLGI/PEN SC (09:59)
[2016-03-16] MEDS ORDERED: INSDGIPEN SC (09:59)
[2016-03-16] MEDS ORDERED: ACET-1311 PO (09:59)
[2016-03-16] MEDS ORDERED: MULT-16 PO (09:59)
[2016-03-16] MEDS ORDERED: MOME6000 NAE (09:59)
[2016-03-16] MEDS ORDERED: ATRINSX INH (09:59)
[2016-03-16] MEDS ORDERED: TRAM-10 PO (09:59)
[2016-03-16] MEDS ORDERED: METO25TA3 PO (09:59)
[2016-03-16] MEDS ORDERED: PRLSR20 PO (09:59)
[2016-03-16] MEDS ORDERED: PROPOFOL IV EMULSION 10 MG/ML 100 ML VIAL IV ONE ×2 (10:07→18:41)
[2016-03-16] MEDS ORDERED: MAGNESIUM SULFATE 1GM / D5W 1 GM BAG IV STA (10:14)
[2016-03-16] MEDS ORDERED: SODIUM CHLORIDE 0.9% 1000ML 1,000 ML IV STA (10:14)
[2016-03-16] MEDS ORDERED: SUCCINYLCHOLINE CHLORIDE 20 MG/ML 10 ML VIAL IV ONE (10:18)
--- NOTE | 2016-03-16 10:24 | DIAGNOSTIC IMAGING REPORT ---
CHEST ONE VIEW PORTABLE CLINICAL HISTORY: AMS, angioedema dyspnea COMPARISON STUDY: 01/06/2016 FINDINGS: Placement of an endotracheal tube 2.5 cm both [place]. Lungs are considered clear. Prior median sternotomy. Diaphragms smooth. IMPRESSION: Endotracheal tube in good position 2.5 cm above the [place]. Lungs are clear. Electronically signed by: Justino Baptiste M.D. 03/16/2016 10:23 AM Dictated Date/Time: 03/16/2016 10:22 AM
[2016-03-16] MEDS ORDERED: ALUMINUM/MAGNESIUM/SIMETH (MAALOX MAX) 30 ML UDC PO PRN (11:00)
[2016-03-16] MEDS ORDERED: MAGNESIUM HYDROXIDE SUSP 30 ML UDC PO PRN (11:00)
[2016-03-16] MEDS ORDERED: MoRPHine SULFATE 2 MG/ML CARP IV PRN (11:00)
[2016-03-16] MEDS ORDERED: MoRPHine SULFATE 4 MG/ML 1 ML CARP\\VIAL IV PRN (11:00)
[2016-03-16] MEDS ORDERED: NITROGLYCERIN 0.4 MG SL PER TAB CHARGE SL PRN (11:00)
[2016-03-16 11:12] LABS: URINE APPEARANCE CLEAR (CLEAR); URINE BILIRUBIN NEG (NEG); URINE COLOR YELLOW; URINE NITRITE NEG (NEG); URINE PH 7.5 (4.5-7.5); URINE SPECIFIC GRAVITY 1.016 (1.000-1.030); UROBILINOGEN NEG (NEG); ZZURINE CULT IF INDIC CATH NO
[2016-03-16 11:13] LABS: MANUAL MICROSCOPIC REQUIRED? NO; REVIEW REQ? NO
[2016-03-16 11:14] LABS: SULFASALICYLIC ACID NEG (NEG)
[2016-03-16] MEDS ORDERED: ALBUT/IPRATROP 3MG/0.5MG NEB 3 ML VIAL INH PRN (11:30)
[2016-03-16] MEDS ORDERED: SODIUM CHLORIDE 0.9% 1000ML 1,000 ML IV SCH (11:30)
[2016-03-16] MEDS ORDERED: HydrALAZINE HCL 20 MG/ML VIAL ONE (12:10)
[2016-03-16] MEDS ORDERED: HydrALAZINE HCL 20 MG/ML VIAL IV. STA (12:22)
[2016-03-16] MEDS ORDERED: DEXTROSE 50% 50 ML SYR IV PRN (13:00)
[2016-03-16] MEDS ORDERED: GLUCOSE 10 TABS/TUBE PO PRN (13:00)
[2016-03-16] MEDS ORDERED: GLUCAGON FOR INJ 1 MG VIAL SQ PRN (13:00)
[2016-03-16] MEDS ORDERED: GLUCOSE 40% GEL 15 GM TUBE PO PRN (13:00)
[2016-03-16] MEDS: IPRATROPIUM BROMIDE HFA INHALER INH SCH ×2 (14:58→20:53)
[2016-03-16] MEDS ORDERED: OPTIRAY 320 IV PRN (15:30)
[2016-03-16 15:33] LABS: ISTAT ARTERIAL BLOOD GAS HCO3 22 meq/L (19-24); ISTAT ARTERIAL BLOOD GAS PCO2 39 mmHg (35-46); ISTAT ARTERIAL BLOOD GAS PO2 189 mmHg (80-95); ISTAT ARTERIAL BLOOD GAS pH 7.36 (7.35-7.45); ISTAT CARBON DIOXIDE 23 mEq/l (24-31); ISTAT DELIVERY SYSTEM Ventilator; ISTAT FIO2 40 %; ISTAT PEEP 5; ISTAT RATE 12; ISTAT SITE Art Line; VE 4.8; Vt 400
[2016-03-16] MEDS ORDERED: IPRATROPIUM BROMIDE NEB SOLN 0.02% 2.5 ML VIAL INH SCH (16:00)
--- NOTE | 2016-03-16 16:56 | DIAGNOSTIC IMAGING REPORT ---
SINGLE VIEW CHEST CLINICAL HISTORY: PICC placement. FINDINGS: An AP, portable, upright chest radiograph is compared to study performed earlier the same day 03/16/2016 and correlated with chest CT dated 07/24/2015. The examination is significantly degraded by portable technique and patient rotation, as well as by the patient's head obscuring the right apex. An endotracheal tube is unchanged in position. A right PICC line has been placed. The tip crosses midline and projects over the left subclavian vein. The patient is status post midline sternotomy. The heart is enlarged and there is atherosclerotic calcification of the thoracic aorta. The pulmonary vasculature is noncongested. Chronic interstitial thickening and mild elevation of the left hemidiaphragm are unchanged. No airspace consolidation, large pleural effusion, or pneumothorax is seen. The skeletal structures are osteopenic. The bony thorax is grossly intact. Cholecystectomy clips are noted. IMPRESSION: 1. A right PICC line has been placed. The tip of the catheter crosses midline and projects of the left subclavian vein. Repositioning is indicated. 2. Cardiomegaly with no acute cardiopulmonary abnormality. Electronically signed by: Sergio Rizzo M.D. 03/16/2016 4:55 PM Dictated Date/Time: 03/16/2016 4:53 PM
[2016-03-16] MEDS: INSULIN ASPART 100 UNITS/ML 3 ML PEN SC SCH ×2 (17:29→21:22)
[2016-03-16] MEDS: METHYLPREDNISOLONE IV 60 MG in SYRINGE 0 ML IV SCH (17:30)
[2016-03-16 17:34] LABS: PROTHROMBIN TIME (PATIENT) 10.9 SECONDS (9.0-12.0)
--- NOTE | 2016-03-16 17:49 | History and Physical ---
History & Physical Date & Time of Service: Mar 16, 2016 at 17:31 Chief Complaint: Asthma Exacerbation Primary Care Physician: Connor Kingsley History of Present Illness Source: family History obtained from sister Tiffany, (poa). Patient is S/p Intubation This is an 89 y/o F with a h/o of asthma, allergies, CAD s/p CABG, DM, HTN who presented to the ED via ALS from [facility] after being found short of breath and with altered mentation. Her sister reveals that she was with her at [facility] Yesterday night and noticed that she was refusing her nebulizer treatments and kept pulling off the mask. She was not sure until later that Imer was having trouble breathing. This persisted throughout the night where she was uncomfortable and finally her sister had called for help. Upon further assessment she was found to be less responsive and short of breath. I contacted Dr. Carson at [facility] who reported that the patient was seen by him yesterday for the first time and was somewhat somnolent, baseline dementia, with a nonfocal exam. He had discussed with the sister that there were no overt signs of a stroke or infection but did do preliminary labs. Pulse ox at the time was 93-95% on RA. He offered to have her taken to the ED but the sister decided to wait and see how she did. This morning he was called about the patient being much less responsive and hypotensive; therefore was sent to the ED. There was also a comment about the patient's tongue being enlarged. In the ED, the patient was emergently intubated. Sister denies that the patient ever smoked. Denies COPD Patient had two daughter who have passed, one from [facility] and the other from [facility]. Past Medical/Surgical History Medical Problems: (1) Asthma, moderate persistent Status: Chronic (2) CAD (coronary artery disease) Permanent Comment: 2003 - CABG x 2 Status: Chronic (3) CKD (chronic kidney disease), stage III Status: Chronic (4) COPD, mild Status: Chronic (5) Dementia Status: Chronic (6) DM type 2 (diabetes mellitus, type 2) Status: Chronic (7) GERD (gastroesophageal reflux disease) Status: Chronic (8) HLD (hyperlipidemia) Status: Chronic (9) HTN (hypertension) Status: Chronic (10) Hypothyroidism Status: Chronic (11) TIA (transient ischemic attack) Status: Chronic Surgical Problems: (1) H/O oophorectomy Status: Chronic (2) History of cataract surgery Status: Chronic (3) History of hysterectomy Status: Chronic (4) Hx of cholecystectomy Status: Chronic (5) S/P CABG x 2 Status: Chronic (6) S/P tonsillectomy and adenoidectomy Status: Chronic Family History FH: COPD (chronic obstructive pulmonary disease) Hypertension [place] disease Social History Smoking Status: Unknown if Ever Smoked Drug Use: none Marital Status: Housing status: lives with family Occupational Status: retired Immunizations History of Influenza Vaccine: Yes Influenza Vaccine Date: Nov 16, 2015 History of Tetanus Vaccine?: Yes Tetanus Immunization Date: Aug 12, 2014 History of Pneumococcal: Yes Pneumococcal Date: Dec 18, 2013 Multi-Drug Resistant Organisms History of MDRO: No Allergies Coded Allergies: Polymyxin B (Verified Allergy, Mild, RASH, 01/06/16) DEBBIE Inhibitors (Unverified Allergy, Unknown, UNKNOWN, 01/06/16) Angiotensin Receptor Blockers (Verified Allergy, Unknown, `, 02/23/16) Camphor (Verified Allergy, Unknown, 01/06/16) Eucalyptus Oil (Verified Allergy, Unknown, 01/06/16) Menthol (Verified Allergy, Unknown, VICKS VAPO-RUB, 01/06/16) Quinolones (Unverified Allergy, Unknown, UNKNOWN, 01/06/16) Home Medications Scheduled Acetaminophen (Tylenol), 650 MG PO Q6H Alendronate Sodium (Alendronate Sodium), 70 MG PO WK Atorvastatin (Atorvastatin Calcium), 1 TAB PO DAILY Calcium Carbonate-Cholecalcife (Caltrate 600+D), 1 TAB PO BID Cyanocobalamin (Vitamin B-12), 250 MCG PO BID Enteral Nutrition Formula (Nutritional Supplement), 120 ML PO TID Insulin Glargine (Lantus Solostar), 8 UNITS SC QAM Ipratropium [place] (Atrovent 0.02% Soln), 1 VIAL INH QID Isosorbide Mononitrate Ext Rel (Imdur Ext Rel), 90 MG PO DAILY Levothyroxine Sodium (Synthroid), 50 MCG PO DAILY Magnesium Oxide (Mg Supplement (Magnesium), 400 MG PO BID Metformin Hcl (Glucophage), 500 MG PO BID Metoprolol Succinate (Toprol Xl), 25 MG PO DAILY Mometasone Furoate (Nasal) (Mometasone Furoate), 2 SPRAY ELIJAH BID Montelukast Sodium (Singulair), 10 MG PO QPM Multiple Vitamins W/ Minerals (Thera-M), 1 TAB PO DAILY Omeprazole (Prilosec), 40 MG PO QAM Prednisone Tab (Prednisone), 5 MG PO DAILY Scheduled PRN Insulin Aspart (Novolog Flexpen), 0-16 UNITS SC ACHS PRN for SLIDING SCALE Ipratropium-Albuterol (Duoneb), 1 TREATMENT INH Q6H PRN for Shortness of Breath Polyethylene Glycol 3350 (Miralax), 17 GM PO DAILY PRN for Constipation Tramadol (Ultram), 50 MG PO Q6 PRN for Pain Review of Systems Unobtainable as patient is s/p intubation Physical Exam Vital Signs Date Time Temp Pulse Resp B/P Pulse Ox O2 Delivery O2 Flow Rate FiO2 03/16/16 17:01 Mechanical Ventilator 30 03/16/16 16:56 30 03/16/16 16:00 36.9 55 12 121/51 100 Mechanical Ventilator 30 03/16/16 15:46 36.9 56 12 125/50 Mechanical Ventilator 03/16/16 14:58 40 03/16/16 14:00 36.9 56 12 125/50 99 Mechanical Ventilator 40 03/16/16 13:15 40 03/16/16 12:28 57 13 122/52 99 03/16/16 12:23 54 11 136/48 99 03/16/16 12:19 147/50 03/16/16 12:18 53 12 100 03/16/16 12:13 52 12 201/73 100 03/16/16 12:09 183/58 03/16/16 12:08 50 13 100 03/16/16 12:04 208/60 03/16/16 12:03 51 12 100 03/16/16 11:59 197/58 03/16/16 11:58 52 14 100 03/16/16 11:54 190/65 03/16/16 11:53 51 10 100 03/16/16 11:48 49 13 177/65 100 03/16/16 11:44 170/62 03/16/16 11:43 51 13 100 03/16/16 11:39 180/58 03/16/16 11:38 51 12 100 03/16/16 11:34 188/70 03/16/16 11:33 52 13 99 03/16/16 11:29 187/62 03/16/16 11:28 51 16 99 03/16/16 11:24 181/58 03/16/16 11:23 51 13 99 03/16/16 11:19 160/72 03/16/16 11:18 51 13 99 03/16/16 11:14 165/48 03/16/16 11:13 50 15 99 03/16/16 11:08 51 14 176/49 99 03/16/16 11:04 152/43 03/16/16 11:03 51 14 99 03/16/16 10:58 52 14 153/36 99 03/16/16 10:53 52 12 147/38 99 03/16/16 10:48 55 126/44 99 03/16/16 10:44 111/42 03/16/16 10:43 56 99 03/16/16 10:40 36.9 57 14 128/40 98 Mechanical Ventilator 03/16/16 10:38 56 128/40 98 03/16/16 10:33 56 96 03/16/16 10:30 54 137/52 98 03/16/16 10:28 54 137/52 97 03/16/16 10:26 Nasal Cannula 03/16/16 10:25 54 125/70 98 03/16/16 10:23 54 125/70 97 03/16/16 10:20 54 125/60 97 Mechanical Ventilator 03/16/16 10:19 125/60 03/16/16 10:18 54 97 03/16/16 10:15 53 150/71 98 03/16/16 10:13 55 197/88 98 Mechanical Ventilator 03/16/16 10:13 53 150/71 98 03/16/16 10:12 197/88 03/16/16 10:10 61 209/105 98 Mechanical Ventilator 03/16/16 10:10 50 03/16/16 10:08 62 209/105 98 03/16/16 10:06 79 235/135 100 03/16/16 10:04 235/135 03/16/16 10:03 62 100 03/16/16 10:00 68 236/121 100 2/1/17 09:58 69 236/121 100 03/16/16 09:57 73 247/135 99 03/16/16 09:55 247/135 03/16/16 09:53 77 100 03/16/16 09:49 211/104 03/16/16 09:48 62 03/16/16 09:33 81 17 95 03/16/16 09:28 85 8 230/128 96 03/16/16 09:27 252/129 03/16/16 09:26 251/136 03/16/16 09:25 83 22 251/136 95 Room Air 03/16/16 09:23 81 19 96 03/16/16 09:18 81 15 95 03/16/16 09:18 97 Room Air 03/16/16 09:18 81 03/16/16 09:15 266/136 General Appearance: + pertinent finding (sedated and ventilated) Eyes: PERRL Neck: supple, no adenopathy Respiratory/Chest: lungs clear, normal breath sounds, no respiratory distress, no accessory muscle use, + pertinent finding (s/p intubation) Abdomen/GI: normal bowel sounds, non tender, soft Diagnostics Laboratory Results Results Past 24 Hours Test 03/16/16 08:35 03/16/16 10:40 03/16/16 15:12 03/16/16 16:20 Range/Units White Blood Count 5.40 4.8-10.8 K/uL Red Blood Count 3.93 4.2-5.4 M/uL Hemoglobin 11.7 12.0-16.0 g/dL Hematocrit 32.1 37-47 % Mean Corpuscular Volume 81.7 80-100 fL Mean Corpuscular Hemoglobin 29.8 25-34 pg Mean Corpuscular Hemoglobin Concent 36.4 32-36 g/dl Platelet Count 228 130-400 K/uL Mean Platelet Volume 9.9 7.4-10.4 fL Neutrophils (%) (Auto) 67.6 % Lymphocytes (%) (Auto) 18.3 % Monocytes (%) (Auto) 10.0 % Eosinophils (%) (Auto) 3.3 % Basophils (%) (Auto) 0.6 % Neutrophils # (Auto) 3.65 1.4-6.5 K/uL Lymphocytes # (Auto) 0.99 1.2-3.4 K/uL Monocytes # (Auto) 0.54 0.11-0.59 K/uL Eosinophils # (Auto) 0.18 0-0.5 K/uL Basophils # (Auto) 0.03 0-0.2 K/uL RDW Standard Deviation 39.2 36.4-46.3 fL RDW Coefficient of Variation 13.1 11.5-14.5 % Immature Granulocyte % (Auto) 0.2 % Immature Granulocyte # (Auto) 0.01 0.00-0.02 K/uL Sodium Level 131 136-145 mmol/L Potassium Level 4.0 3.5-5.1 mmol/L Chloride Level 97 98-107 mmol/L Carbon Dioxide Level 23 21-32 mmol/L Anion Gap 11.0 3-11 mmol/L Blood Urea Nitrogen 11 7-18 mg/dl Creatinine 0.68 0.60-1.20 mg/dl Estimated GFR () 90.5 Estimated GFR (Non- 78.1 BUN/Creatinine Ratio 15.6 10-20 Random Glucose 205 70-99 mg/dl Calcium Level 7.8 8.5-10.1 mg/dl Magnesium Level 1.6 1.8-2.4 mg/dl Total Bilirubin 0.6 0.2-1 mg/dl Direct Bilirubin 0.2 0-0.2 mg/dl Aspartate Amino Transf (AST/SGOT) 13 15-37 U/L Alanine Aminotransferase (ALT/SGPT) 14 12-78 U/L Alkaline Phosphatase 71 45-117 U/L Total Creatine Kinase 48 26-192 U/L Creatine Kinase MB 2.7 0.5-3.6 ng/ml Creatine Kinase MB Ratio 5.6 0-3.0 Total Protein 5.5 6.4-8.2 gm/dl Albumin 2.5 3.4-5.0 gm/dl Urine Color YELLOW Urine Appearance CLEAR CLEAR Urine pH 7.5 4.5-7.5 Urine Specific [place] 1.016 1.000-1.030 Urine Protein NEG NEG Urine Glucose (UA) 2+ NEG Urine Ketones NEG NEG Urine Occult Blood NEG NEG Urine Nitrite NEG NEG Urine Bilirubin NEG NEG Urine Urobilinogen NEG NEG Urine Leukocyte Esterase NEG NEG Urine WBC (Auto) 5-10 0-5 /hpf Urine RBC (Auto) 0-4 0-4 /hpf Urine Hyaline Casts (Auto) 0 0-5 /lpf Urine Epithelial Cells (Auto) 10-20 0-5 /lpf Urine Bacteria (Auto) NEG NEG Blood Gas Sample Site Art Line Bedside Blood Gas pH (LAB) 7.36 7.35-7.45 Bedside Blood Gas pCO2 (LAB) 39 35-46 mmHg Bedside Blood Gas pO2 (LAB) 189 80-95 mmHg Bedside Blood Gas HCO3 (LAB) 22 19-24 meq/L Bedside Blood Gas Total CO2 23 24-31 mEq/l Bedside Blood Gas Base Excess (LAB) -4.0 -9-1.8 meq/L Bedside Blood Gas O2 Saturation 100.0 90-95 % Parvez Test NA Oxygen Delivery Device Ventilator Bedside Oxygen Rate (breaths/min) 12 Blood Gas Minute Ventilation 4.8 Bedside FiO2 40 % Blood Gas Tidal Volume 400 Blood Gas PEEP 5 Test 03/16/16 16:52 03/16/16 17:22 Range/Units Bedside Glucose 319 70-90 mg/dl Microbiology Results 03/16/16 Blood Culture, Received Pending 03/16/16 Blood Culture, Received Pending 03/16/16 MRSA DNA Surveillance Screen - Final, Complete Specimen Negative for MRSA by DNA Probe Impression Assessment and Plan Respiratory Failure 03/17 angioedema vs. asthma exacerbation- vent dependant cause still unclear sedated and intubated. FiO2 - 40, TV - 400, PEEP - 5 management as per ICU team Solu-Medrol 60 q8 (patient has home daily dose of prednisone 5 mg that sister reports is for her asthma, again denies COPD) Duoneb, Atrovent Consider antihistamine Consider CT neck if angioedema Influenza negative Encephalopathy (prior to intubation) question infection vs. 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 Resuscitation Status FULL RESUSCITATION VTE Prophylaxis VTE Risk Assessment Done? Y/N: Yes Risk Level: Moderate History Resident Physician Supervision Note: I was present with Dr. Olson during the history and exam. I discussed the case with the resident and agree with the findings and plan as documented in the note. Any exceptions or clarifications are listed here. Pt seen and examined at bedside in ED - intubated, sedated. Sister at bedside - very concerned and tearful, but hopeful that her sister will improve with care. Is POA, POLST reviewed. General Appearance: other (sedated on ventilator) Respiratory: lungs clear, normal breath sounds, other (exam on vent) Cardiovascular: normal peripheral pulses, regular rate, rhythm, no murmur, other (trace LE edema) Assessment/Plan 89 y/o female h/o asthma, angioedema VDRF - ICU aware and management appreciated. Continue duoneb, atrovent and solu- medrol Encephalopathy - hypoxic - f/u BCx, trend CBC Hyponatremia - trend BMP, gentle hydration and close monitoring Hypomagnesemia - trend BMP, repleted DMII - Lantus and ISS, trend HTN - hydralazine PRN CAD - holding statin, would consider avoiding B jose a 2/2 asthma, imdur GI PPX - protonix IV FULL CODE
[2016-03-16 17:51] LABS: INFLUENZA A PCR Neg for Influ A (NEG); INFLUENZA B PCR Neg for Influ B (NEG)
[2016-03-16] MEDS ORDERED: NURSING VERBAL MED ORDER ONE ×2 (18:45→22:15)
[2016-03-16] MEDS ORDERED: PROPOFOL IV EMULSION 10 MG/ML 100 ML VIAL IV PRN (19:00)
--- NOTE | 2016-03-16 19:48 | DIAGNOSTIC IMAGING REPORT ---
CHEST ONE VIEW PORTABLE CLINICAL HISTORY: PICC catheter adjustment. COMPARISON STUDY: The 2016 FINDINGS: The cardiac and mediastinal contours remain stable. There is an endotracheal tube 36 mm above the [place]. The right-sided PICC catheter has been adjusted. The catheter demonstrates a loop within the midline. The tip projects over the right innominate superior vena caval junction.[ IMPRESSION: The right-sided PICC catheter extends across the midline and then loops back upon itself. The tip projects over the expected right innominate/superior vena caval junction Electronically signed by: Wei Ochoa M.D. 03/16/2016 7:47 PM Dictated Date/Time: 03/16/2016 7:45 PM
--- NOTE | 2016-03-16 20:32 | DIAGNOSTIC IMAGING REPORT ---
CT HEAD WITHOUT CONTRAST (CT) CLINICAL HISTORY: Acute change in mental status COMPARISON STUDY: 08/29/2015 TECHNIQUE: Axial CT of the brain is performed from the vertex to the skull base. IV contrast was not administered for this examination. CT DOSE: 975.07 mGy.cm FINDINGS: No intra or extra-axial mass lesions are visualized. There is no CT evidence of acute cortical infarction. There is no evidence of midline shift. There is no acute hemorrhage. No calvarial fractures are visualized. There are moderate white matter hypodensities likely on a small vessel basis. There is an old right cerebellar infarct. There is no evidence of pathologic ventricular dilatation. There is no evidence of acute sinusitis IMPRESSION: No acute intracranial findings Electronically signed by: Wei Ochoa M.D. 03/16/2016 8:31 PM Dictated Date/Time: 03/16/2016 8:29 PM
--- NOTE | 2016-03-16 20:42 | DIAGNOSTIC IMAGING REPORT ---
CT NECK ANGIO WITH CONTRAST CLINICAL HISTORY: Angioedema versus mass. Acute change in mental status. POSSIBLE CAROTID STENOSIS COMPARISON STUDY: No previous studies for comparison. TECHNIQUE: CT angiography was performed from the aortic arch to the skull base. MIP imaging was performed. The patient was scanned in a dynamic helical fashion during intravenous administration of 120 cc of Optiray 320. CT DOSE: Technique: CT angiogram of the carotid and vertebral arteries was obtained using intravenous contrast and 3-D reconstruction. NASCET criteria was utilized. Findings: The right carotid revealed no evidence of aneurysm and no evidence of dissection. There is no evidence of hemodynamic significant stenosis. The left carotid revealed no evidence of hemodynamic significant stenosis. There is no evidence of aneurysm. There is no evidence of dissection. There is no evidence of hemodynamically significant vertebral stenosis. There is no evidence of vertebral dissection. There is an indwelling endotracheal tube. There are air droplets within the internal jugular veins, likely iatrogenic. There is nonspecific oral and nasopharyngeal fluid/edema. IMPRESSION: 1. No evidence of hemodynamically significant carotid or vertebral artery stenosis. No evidence of dissection. 2. Indwelling endotracheal tube 3. Nonspecific oral and nasopharyngeal fluid/edema Electronically signed by: Wei Ochoa M.D. 03/16/2016 8:40 PM Dictated Date/Time: 03/16/2016 8:31 PM
[2016-03-16] MEDS ORDERED: ENOXAPARIN 40 MG/0.4 ML SYR SQ SCH (21:00)
[2016-03-16] MEDS: HydrALAZINE HCL 20 MG/ML VIAL IV. PRN (21:09)
[2016-03-16] MEDS ORDERED: DiphenhydrAMINE INJ 50 MG in SYRINGE 0 ML IV ONE (23:24)
[2016-03-16] MEDS: NORMOSOL R 1,000 ML IV SCH (23:30)
[2016-03-16] MEDS ORDERED: FAMOTIDINE IV INJ 20 MG in DEXTROSE 5% 100ML 100 ML IV STA (23:36)
[2016-03-16] MEDS ORDERED: DiphenhydrAMINE HCL 50 MG/ML VIAL IV STA (23:37)
--- NOTE | 2016-03-16 23:41 | Critical Care Consultation ---
Critical Care Consultation Date of Consultation: Mar 16, 2016. Attending Physician: Gurdeep Pittman MD Reason for Consultation: Impending airway collapse secondary to angioedema. History of Present Illness Patient is an 89-year-old female who presented to the emergency department due to change in mental status, was immediately realized that she is having difficulty breathing due to airway swelling that she was unable to speak and had sonorous respirations. I was immediately contacted by the emergency department physician. During my evaluation she had an pending airway collapse, we immediately consult the anesthesiology for assistance with airway management. Additional history was obtained from the patient's sister, there is report of intrinsic lung disease whether this is asthma versus COPD remains to be elucidated. Sister reports that she has had difficulty swallowing for approximately 1 week in the last 24 hours she's had increasing difficulty breathing. Does not appear that she is on lisinopril or any DEBBIE inhibitor to prompt the angioedema. She reportedly admitted for bilateral cellulitis recently and unsure of the antibiotic she was taking. The sister was not sure if she had finished the antibiotic or not. Impression records there is a ED visit regarding possible oropharyngeal swelling. Family History FH: COPD (chronic obstructive pulmonary disease) Hypertension Social History Smoking Status: Unknown if Ever Smoked Drug Use: none Marital Status: Housing Status: lives with family Occupation Status: retired Allergies Coded Allergies: Polymyxin B (Verified Allergy, Mild, RASH, 01/06/16) DEBBIE Inhibitors (Unverified Allergy, Unknown, UNKNOWN, 01/06/16) Angiotensin Receptor Blockers (Verified Allergy, Unknown, `, 02/23/16) Camphor (Verified Allergy, Unknown, 01/06/16) Eucalyptus Oil (Verified Allergy, Unknown, 01/06/16) Menthol (Verified Allergy, Unknown, VICKS VAPO-RUB, 01/06/16) Quinolones (Unverified Allergy, Unknown, UNKNOWN, 01/06/16) Home Medications Scheduled Acetaminophen (Tylenol), 650 MG PO Q6H Alendronate Sodium (Alendronate Sodium), 70 MG PO WK Atorvastatin (Atorvastatin Calcium), 1 TAB PO DAILY Calcium Carbonate-Cholecalcife (Caltrate 600+D), 1 TAB PO BID Cyanocobalamin (Vitamin B-12), 250 MCG PO BID Enteral Nutrition Formula (Nutritional Supplement), 120 ML PO TID Insulin Glargine (Lantus Solostar), 8 UNITS SC QAM Ipratropium Luna (Atrovent 0.02% Soln), 1 VIAL INH QID Isosorbide Mononitrate Ext Rel (Imdur Ext Rel), 90 MG PO DAILY Levothyroxine Sodium (Synthroid), 50 MCG PO DAILY Magnesium Oxide (Mg Supplement (Magnesium), 400 MG PO BID Metformin Hcl (Glucophage), 500 MG PO BID Metoprolol Succinate (Toprol Xl), 25 MG PO DAILY Mometasone Furoate (Nasal) (Mometasone Furoate), 2 SPRAY ELIJAH BID Montelukast Sodium (Singulair), 10 MG PO QPM Multiple Vitamins W/ Minerals (Thera-M), 1 TAB PO DAILY Omeprazole (Prilosec), 40 MG PO QAM Prednisone Tab (Prednisone), 5 MG PO DAILY Scheduled PRN Insulin Aspart (Novolog Flexpen), 0-16 UNITS SC ACHS PRN for SLIDING SCALE Ipratropium-Albuterol (Duoneb), 1 TREATMENT INH Q6H PRN for Shortness of Breath Polyethylene Glycol 3350 (Miralax), 17 GM PO DAILY PRN for Constipation Tramadol (Ultram), 50 MG PO Q6 PRN for Pain Current Inpatient Medications Current Inpatient Medications Medications (Trade) Dose Ordered Sig/Remy Route Start Time Stop Time Status Last Admin Dose Admin Enoxaparin Sodium (Lovenox Inj) 40 mg Q24H SQ 03/16/16 21:00 04/15/16 20:59 03/16/16 21:08 40 MG Acetaminophen (Tylenol Tab) 650 mg Q4H PRN PO 03/16/16 11:00 04/15/16 10:59 Nitroglycerin (Nitrostat Tab) 0.4 mg UD PRN SL 03/16/16 11:00 04/15/16 10:59 Al Hydrox/Mg Hydrox/Simethicone (Maalox Max Susp) 15 ml Q4H PRN PO 03/16/16 11:00 04/15/16 10:59 Magnesium Hydroxide 30 ml 30 ml Q12H PRN PO 03/16/16 11:00 04/15/16 10:59 Pantoprazole Sodium/Syringe (Protonix Inj/ Syringe) 10 ml @ 5 mls/min DAILY@1100 IV 03/17/16 11:00 3/4/17 10:59 Morphine Sulfate (MoRPHine SULFATE INJ) 2 mg Q2H PRN IV 03/16/16 11:00 03/30/16 10:59 Morphine Sulfate (MoRPHine SULFATE INJ) 4 mg Q2H PRN IV 03/16/16 11:00 03/30/16 10:59 Ipratropium Luna (Atrovent 0.02% 0.5MG/2.5ML Neb) 0.5 mg QIDR INH 03/16/16 16:00 04/15/16 15:59 Future Hold Albuterol/ Ipratropium 3 ml 3 ml Q6H PRN INH 03/16/16 11:30 04/15/16 11:29 Methylprednisolone Sodium Succinate 60 mg/Syringe 0.96 ml @ 1.5 mls/min Q8@0200,1000,1800 IV 03/16/16 18:00 04/15/16 17:59 03/16/16 17:30 1.5 MLS/MIN Sodium Chloride (Nss 1000ml) 1,000 ml @ 50 mls/hr Q20H IV 03/16/16 11:30 04/15/16 11:29 03/16/16 17:23 50 MLS/HR Insulin Glargine (Lantus Solostar Pen) 8 unit QAM SC 03/17/16 09:00 04/16/16 08:59 Glucose (Glucose 40% Gel) 15-30 GRAMS 15 GRAMS... UD PRN PO 03/16/16 13:00 04/15/16 12:59 Glucose (Glucose Chew Tab) 4-8 Tablets 4 Tabl... UD PRN PO 03/16/16 13:00 04/15/16 12:59 Dextrose (Dextrose 50% 50ML Syringe) 25-50ML OF 50% DW IV FOR... UD PRN IV 03/16/16 13:00 04/15/16 12:59 Glucagon (Glucagon Inj) 1 mg UD PRN SQ 03/16/16 13:00 04/15/16 12:59 Ipratropium Luna (Atrovent Hfa Inhaler) 4 puffs QIDR INH 03/16/16 16:00 04/15/16 15:59 03/16/16 20:53 4 PUFFS Fentanyl Citrate (Fentanyl Inj) 50 mcg Q1H PRN IV 03/16/16 14:45 03/30/16 14:44 Ioversol (Optiray 320) 100 ml UD PRN IV 03/16/16 15:30 03/20/16 15:29 Hydralazine HCl (HydrALAZINE INJ) 10 mg Q4 PRN IV. 03/16/16 18:15 04/15/16 18:14 03/16/16 21:09 10 MG Propofol (Diprivan Iv Emulsion 100ml Vial) 1 dose UD PRN IV 03/16/16 19:00 03/19/16 18:59 Insulin Aspart (novoLOG ASPART) SLIDING SCALE Q6 SC 03/17/16 00:00 04/16/16 00:00 Review of Systems Unable to obtain due to medical condition Physical Exam Date Time Temp Pulse Resp B/P Pulse Ox O2 Delivery O2 Flow Rate FiO2 03/16/16 22:00 59 12 129/49 100 Mechanical Ventilator 30 138/59 03/16/16 21:58 60 12 142/69 Mechanical Ventilator 30 03/16/16 21:01 52 12 190/73 100 Mechanical Ventilator 30 03/16/16 21:00 51 12 206/75 100 Mechanical Ventilator 30 03/16/16 20:53 30 03/16/16 20:00 36.6 53 13 110/62 100 Mechanical Ventilator 30 03/16/16 18:06 36.5 56 12 119/55 100 Mechanical Ventilator 30 03/16/16 17:55 40 03/16/16 17:01 Mechanical Ventilator 30 03/16/16 16:56 30 03/16/16 16:00 36.9 55 12 121/51 100 Mechanical Ventilator 30 03/16/16 15:46 36.9 56 12 125/50 Mechanical Ventilator 03/16/16 14:58 40 03/16/16 14:00 36.9 56 12 125/50 99 Mechanical Ventilator 40 03/16/16 13:15 40 03/16/16 12:28 57 13 122/52 99 03/16/16 12:23 54 11 136/48 99 03/16/16 12:19 147/50 03/16/16 12:18 53 12 100 03/16/16 12:13 52 12 201/73 100 03/16/16 12:09 183/58 03/16/16 12:08 50 13 100 03/16/16 12:04 208/60 03/16/16 12:03 51 12 100 03/16/16 11:59 197/58 03/16/16 11:58 52 14 100 03/16/16 11:54 190/65 03/16/16 11:53 51 10 100 03/16/16 11:48 49 13 177/65 100 03/16/16 11:44 170/62 03/16/16 11:43 51 13 100 03/16/16 11:39 180/58 03/16/16 11:38 51 12 100 03/16/16 11:34 188/70 03/16/16 11:33 52 13 99 03/16/16 11:29 187/62 03/16/16 11:28 51 16 99 03/16/16 11:24 181/58 03/16/16 11:23 51 13 99 03/16/16 11:19 160/72 03/16/16 11:18 51 13 99 03/16/16 11:14 165/48 03/16/16 11:13 50 15 99 03/16/16 11:08 51 14 176/49 99 03/16/16 11:04 152/43 03/16/16 11:03 51 14 99 03/16/16 10:58 52 14 153/36 99 03/16/16 10:53 52 12 147/38 99 03/16/16 10:48 55 126/44 99 03/16/16 10:44 111/42 03/16/16 10:43 56 99 03/16/16 10:40 36.9 57 14 128/40 98 Mechanical Ventilator 03/16/16 10:38 56 128/40 98 03/16/16 10:33 56 96 03/16/16 10:30 54 137/52 98 03/16/16 10:28 54 137/52 97 03/16/16 10:26 Nasal Cannula 03/16/16 10:25 54 125/70 98 03/16/16 10:23 54 125/70 97 03/16/16 10:20 54 125/60 97 Mechanical Ventilator 03/16/16 10:19 125/60 03/16/16 10:18 54 97 03/16/16 10:15 53 150/71 98 03/16/16 10:13 55 197/88 98 Mechanical Ventilator 03/16/16 10:13 53 150/71 98 03/16/16 10:12 197/88 03/16/16 10:10 61 209/105 98 Mechanical Ventilator 03/16/16 10:10 50 03/16/16 10:08 62 209/105 98 03/16/16 10:06 79 235/135 100 03/16/16 10:04 235/135 03/16/16 10:03 62 100 03/16/16 10:00 68 236/121 100 03/16/16 09:58 69 236/121 100 03/16/16 09:57 73 247/135 99 03/16/16 09:55 247/135 03/16/16 09:53 77 100 03/16/16 09:49 211/104 03/16/16 09:48 62 03/16/16 09:33 81 17 95 03/16/16 09:28 85 8 230/128 96 03/16/16 09:27 252/129 03/16/16 09:26 251/136 03/16/16 09:25 83 22 251/136 95 Room Air 03/16/16 09:23 81 19 96 03/16/16 09:18 81 15 95 03/16/16 09:18 97 Room Air 03/16/16 09:18 81 03/16/16 09:15 266/136 General Appearance: severe distress Eyes: PERRLA ENT: other (massive angioedema of the posterior oropharynx and uvula, nasal trumpet in place in the right naris) Neck: normal range of motion, no tenderness Respiratory: rhonchi (bilaterally) Cardiovasular: normal S1S2, other (tachycardia) Abdomen: non tender, normal bowel sounds Genitourinary - Female: external genitalia normal Back: normal inspection, no midline tenderness Upper Extremities: no edema, no deformity Lower Extremities: no edema, no deformity Neuro: alert, other (moves all 4 extremities, unable to vocalize due to oropharyngeal swelling) Psychiatric: other (unable to evaluate due to oropharyngeal swelling and subsequent intubation) Laboratory Results Last 24 Hours Test 03/16/16 08:35 03/16/16 10:40 03/16/16 15:12 03/16/16 16:20 White Blood Count 5.40 K/uL Red Blood Count 3.93 M/uL Hemoglobin 11.7 g/dL Hematocrit 32.1 % Mean Corpuscular Volume 81.7 fL Mean Corpuscular Hemoglobin 29.8 pg Mean Corpuscular Hemoglobin Concent 36.4 g/dl Platelet Count 228 K/uL Mean Platelet Volume 9.9 fL Neutrophils (%) (Auto) 67.6 % Lymphocytes (%) (Auto) 18.3 % Monocytes (%) (Auto) 10.0 % Eosinophils (%) (Auto) 3.3 % Basophils (%) (Auto) 0.6 % Neutrophils # (Auto) 3.65 K/uL Lymphocytes # (Auto) 0.99 K/uL Monocytes # (Auto) 0.54 K/uL Eosinophils # (Auto) 0.18 K/uL Basophils # (Auto) 0.03 K/uL RDW Standard Deviation 39.2 fL RDW Coefficient of Variation 13.1 % Immature Granulocyte % (Auto) 0.2 % Immature Granulocyte # (Auto) 0.01 K/uL Sodium Level 131 mmol/L Potassium Level 4.0 mmol/L Chloride Level 97 mmol/L Carbon Dioxide Level 23 mmol/L Anion Gap 11.0 mmol/L Blood Urea Nitrogen 11 mg/dl Creatinine 0.68 mg/dl Estimated GFR () 90.5 Estimated GFR (Non- 78.1 BUN/Creatinine Ratio 15.6 Random Glucose 205 mg/dl Calcium Level 7.8 mg/dl Magnesium Level 1.6 mg/dl Total Bilirubin 0.6 mg/dl Direct Bilirubin 0.2 mg/dl Aspartate Amino Transf (AST/SGOT) 13 U/L Alanine Aminotransferase (ALT/SGPT) 14 U/L Alkaline Phosphatase 71 U/L Total Creatine Kinase 48 U/L Creatine Kinase MB 2.7 ng/ml Creatine Kinase MB Ratio 5.6 Total Protein 5.5 gm/dl Albumin 2.5 gm/dl Urine Color YELLOW Urine Appearance CLEAR Urine pH 7.5 Urine Specific [place] 1.016 Urine Protein NEG Urine Glucose (UA) 2+ Urine Ketones NEG Urine Occult Blood NEG Urine Nitrite NEG Urine Bilirubin NEG Urine Urobilinogen NEG Urine Leukocyte Esterase NEG Urine WBC (Auto) 5-10 /hpf Urine RBC (Auto) 0-4 /hpf Urine Hyaline Casts (Auto) 0 /lpf Urine Epithelial Cells (Auto) 10-20 /lpf Urine Bacteria (Auto) NEG Blood Gas Sample Site Art Line Bedside Blood Gas pH (LAB) 7.36 Bedside Blood Gas pCO2 (LAB) 39 mmHg Bedside Blood Gas pO2 (LAB) 189 mmHg Bedside Blood Gas HCO3 (LAB) 22 meq/L Bedside Blood Gas Total CO2 23 mEq/l Bedside Blood Gas Base Excess (LAB) -4.0 meq/L Bedside Blood Gas O2 Saturation 100.0 % Parvez Test NA Oxygen Delivery Device Ventilator Bedside Oxygen Rate (breaths/min) 12 Blood Gas Minute Ventilation 4.8 Bedside FiO2 40 % Blood Gas Tidal Volume 400 Blood Gas PEEP 5 Influenza Type A (RT-PCR) Neg for Influ A Influenza Type B (RT-PCR) Neg for Influ B Test 03/16/16 16:52 03/16/16 17:22 Prothrombin Time 10.9 SECONDS Prothromb Time International Ratio 1.0 Bedside Glucose 319 mg/dl Diagnostic Results CTA head dated 04/05/2016 radiology report was reviewed Chest x-ray dated 03/16/2016 1022 radiology report and images reviewed CTA dated 04/05/2016 20:31 CT report and images reviewed Chest x-ray dated 03/16/2016 19:18 radiology report and images reviewed EKG dated March 16 09:32 reviewed Assessment & Plan (1) Acute airway obstruction (2) Angioedema Sent C4 level, quantitative C1 inhibitor, functional C1 inhibitor, C3 Give 3 doses of Solu-Medrol, if true angioedema, has not responded steroids unlikely to be effective and will only induce hyperglycemia Possible reported history of cardiac disease, will not give epinephrine, as airway now secure an only risk cardiac ischemia Continue Benadryl 50 mg every 12 for the next 2 days and Pepcid twice a day Propofol sedation with the goal RASS of -3 until angioedema resolves (3) DM type 2 (diabetes mellitus, type 2) (4) Hyponatremia (5) Hypomagnesemia (6) Ulcers of both lower extremities (7) Normocytic anemia Reason Critically Ill: Acute airway obstruction secondary to angioedema PLAN: Neuro: Sedation with propofol to goal RASS of -3 Resp:. Ventilator support, history of COPD on 5 mg prednisone daily on according to last discharge summary CV: Arterial line for frequent blood gas monitoring, hypertension during initial evaluation resolved Fluids/Renal: Normosol at 90 ML's per hour, will decrease as tube feedings increase ID: Influenza negative, urine unremarkable, CT head neck unremarkable for infectious source. Recent treatment for cellulitis of bilateral lower extremities. Wound care consult GI/Nutrition: Start fiber source HN, goal 40 miles per hour Heme: Normocytic anemia Endocrine: Hypoglycemia likely secondary to steroids, started home Lantus, steroid burst for next 24 hours, ordered daily home prednisone per last discharge instructions Patient's sister is her medical legal power of workers compensation defense attorney, reports that the patient would want to be full code. I have personally spent 50 minutes of critical care time in the direct management of this patient. This is a life/limb threatening event. This includes time spent evaluating patient, direct bedside care, chart review, placing orders, interpretation of diagnostic studies, discussion with consultants, patient, and family members, as well as other required patient management activities. Problem Qualifiers (1) Angioedema: Encounter type: initial encounter Qualified Codes: T78.3XXA - Angioneurotic edema, initial encounter
--- NOTE | 2016-03-16 23:48 | Procedure Note ---
Procedure Note Procedure Date: 03/16/2016 Procedure: Fiberoptic Endotracheal intubation Pre-procedure Diagnosis: Acute airway obstruction secondary to angioedema Post-procedure Diagnosis: same as above Prior to Procedure: Informed Consent: emergent Attending Staff: Veronica Goldsmith DO Indications: Acute airway obstruction The identity of the patient was confirmed and a bedside time out was performed. Description of Procedure: Patient was evaluated and required intubation for respiratory failure. Patient was noted to have massive posterior pharyngeal and uvular edema. Patient was started with a nebulized lidocaine, given transtracheal 2% lidocaine 1 mL. Patient was rather somnolent, with the assistance of anesthesia we first attempted to evaluate the airway with a glidescope. We were able to visualize the epiglottis and cords, however given the significant posterior pharyngeal edema were not able to pass the endotracheal tube. Then proceeded with a fiberoptic bronchoscopy with anesthesia assisting with the glidescope. With initial visualization of the epiglottis with a glidescope I was able to track the fiberoptic bronchoscope along the glidescope and successfully pass it through the cords into the airway. Anesthesiology, John Echevarria, was unable to advance a 7.0 endotracheal tube into the trachea. Position was confirmed with the glenoid scope and it was 2 cm above the [place], the balloon was inflated and the endotracheal tube secured. Chest rise was bilateral. Bilateral breath sounds were heard without air sounds in the abdomen. Mist was noted in the endotrachial tube. End-tidal CO2 measurement was positive. Chest x-ray shows proper endotrachial tube placement. Complications: Mild posterior pharyngeal oozing Findings: massive posterior pharyngeal angioedema, angioedema of the epiglottis Specimens: not applicable Estimated blood loss: Trace
--- NOTE | 2016-03-16 23:53 | Procedure Note ---
Procedure Note Procedure Date Mar 16, 2016. Procedure Description Procedure Name: Arterial line (radial) Procedure time out: side/site verified, patient ID confirmed, correct procedure Consent obtained: written (consent given from patient's sister, legal power of aerophysics engineer) Performed by: attending Indications: diagnostic Contraindications: none Description: The left wrist was prepped and draped in a sterile fashion after confirmation of an Parvez's test. 2 ML's of 1% lidocaine was instilled and a 20-gauge arterial line was inserted in the left radial artery via dynamic ultrasound guidance. Complications: none Patient tolerated procedure: well Post-procedure vital signs: reviewed and stable
[2016-03-17] VITALS (29 sets, daily range): BP systolic 41–230; BP diastolic 36–123; PULSE 54–73; TEMP 35.2–36.9; O2SAT 97–100; Ht 154.9 cm; Wt 61.9 kg
[2016-03-17] MEDS ORDERED: FIBERSOURCE HN 1000ML BAG PO SCH ×2
[2016-03-17] MEDS: INSULIN ASPART 100 UNITS/ML 3 ML PEN SC SCH ×6 (00:52→23:59)
[2016-03-17] MEDS ORDERED: NURSING VERBAL MED ORDER ONE (01:45)
[2016-03-17] MEDS ORDERED: LACTATED RINGER'S 1000ML 1,000 ML IV ONE (02:00)
[2016-03-17] MEDS: METHYLPREDNISOLONE IV 60 MG in SYRINGE 0 ML IV SCH ×3 (02:14→16:54)
[2016-03-17] MEDS: PROPOFOL IV EMULSION 10 MG/ML 100 ML VIAL IV PRN ×3 (03:29→20:12)
[2016-03-17 07:43] LABS: HEMATOCRIT 28.8 % (37-47); MEAN CELL VOLUME 82.1 fL (80-100); MEAN CORPUSCULAR HEMOGLOBIN 29.1 pg (25-34); MEAN CORPUSCULAR HGB CONC 35.4 g/dl (32-36); PLATELET COUNT 226 K/uL (130-400); RED BLOOD COUNT 3.51 M/uL (4.2-5.4); WHITE BLOOD COUNT 6.94 K/uL (4.8-10.8)
--- NOTE | 2016-03-17 07:56 | DIAGNOSTIC IMAGING REPORT ---
KUB CLINICAL HISTORY: Enteric tube placement. FINDINGS: AP, portable, supine abdominal radiograph is obtained. No prior studies are available for comparison at the time of dictation. There is a nonobstructed abdominal bowel gas pattern. An enteric tube projects over the stomach. A Sawyer catheter is noted in the bladder. The bladder is filled with excreted contrast. Trace contrast is also present within the renal collecting system bilaterally. Cholecystectomy clips are identified in the right upper quadrant. Rectosigmoid fecal impaction is suggested. There is advanced atherosclerotic calcification of the abdominal aorta and iliac arteries. The skeletal structures are osteopenic. Lumbosacral spondylosis is observed. The bony pelvis appears intact. IMPRESSION: 1. An enteric tube projects over the stomach. 2. Nonobstructed abdominal bowel gas pattern. 3. Additional findings as above. Electronically signed by: Sergio Rizzo M.D. 03/17/2016 7:54 AM Dictated Date/Time: 03/17/2016 7:53 AM
[2016-03-17] MEDS: IPRATROPIUM BROMIDE HFA INHALER INH SCH ×4 (08:02→19:54)
[2016-03-17 08:38] LABS: BUN/CREATININE RATIO 20.2 (10-20); CALCIUM 7.7 mg/dl (8.5-10.1); MAGNESIUM 2.1 mg/dl (1.8-2.4); PHOSPHORUS 3.9 mg/dl (2.5-4.9); POTASSIUM 4.3 mmol/L (3.5-5.1)
[2016-03-17] MEDS ORDERED: DiphenhydrAMINE INJ 50 MG in SYRINGE 0 ML IV SCH (09:00)
[2016-03-17] MEDS ORDERED: INSULIN GLARGINE SOLOSTAR 100 UNITS/ML 3 ML PEN SC SCH ×2 (09:00)
[2016-03-17] MEDS ORDERED: PHARMACY GLYCEMIC MGMT CONSULT PRN (09:30)
--- NOTE | 2016-03-17 09:44 | Pharmacy Progress Note ---
Glycemic Control Intl Consult Date of Service Mar 17, 2016. Scope Glycemic Pharmacist consulted by Dr Goldsmith on 03/17/16 for glycemic control and to write orders per [facility] inpatient glycemic control protocol Objective Weight (Kilograms): 53.200 Accuchecks BSG (last 24hrs): Test 03/16/16 17:22 03/16/16 21:16 03/17/16 00:30 03/17/16 05:49 Bedside Glucose 319 mg/dl (70-90) 302 mg/dl (70-90) 298 mg/dl (70-90) 302 mg/dl (70-90) Test 03/17/16 07:32 Random Glucose 230 mg/dl (70-99) Laboratory Data (last 24hrs) Test 03/17/16 07:32 Anion Gap 11.0 mmol/L BUN/Creatinine Ratio 20.2 Blood Urea Nitrogen 20 mg/dl Creatinine 1.00 mg/dl Potassium Level 4.3 mmol/L Sodium Level 131 mmol/L White Blood Count 6.94 K/uL Recent Pertinent Medications Outpatient Anti-diabetic Regimen: * Lantus 8 units SQ daily * NovoLog sliding scale (around 0-16 units per day) * Correction factor: ~8mg/dL/unit * Goal <150mg/dL * A1c = 8.5 % 02/23/16 The patient is currently receiving: * Basal insulin: Lantus 8 units every 24 hours * Correctional Insulin: NovoLog Correction per scale AC/HS or q6H if NPO Goal Range: Low 140 mg/dL - High 180 mg/dL Correction Factor: 25 mg/dL/unit * Prandial insulin: Per carb ratio of 1 unit per -- grams CHO consumed Risk Factors for Insulin Resistance: * Steroids: Solu-Medrol 125mg IV x1 dose in ED on 03/16, then Solu-Medrol 60mg IV q8H + home dose of prednisone 5mg PO daily * Infection: n/a * Pressors: n/a * IVF: famotidine q12H (mixed in dextrose) * Recent Surgery: n/a * Diet: NPO, FiberSource with a goal of 40mL/hr * Mechanical Ventilation: intubated in the ED on 03/16/16 Assessment & Plan ASSESSMENT: * ADA & AACE recommend a goal blood sugar range 140-180 mg/dl for the majority of critically ill & non-critically ill patients. However, more stringent targets may be selected in individual cases. 03/17/16 * 89 y/o type 2 diabetic who is known to the glycemic service from prior admissions (most recently in February 2016) * Uses basal/bolus insulin as an outpatient with near adequate control based on age and comorbidities * takes PO prednisone as an outpatient * Yesterday, the patient was brought to the ED with angioedema. At this time she was intubated and IV steroids have been started * unsurprisingly, BSGs have become quite elevated and Ms Jones will likely require more insulin compared to prior admissions while she is maintained on around the clock Solu-Medrol * Further complicating glycemic control is the continuous tube feedings with FiberSource - Will try to account for CHO contained in tube feeds to aid in achieving euglycemia PLAN FOR INPATIENT GLYCEMIC CONTROL: * Increase Lantus to 12 units SQ daily * Continue NovoLog SQ q6h or AC/HS * Correction factor and carb ratio will be based on the patient's weight and a stress of 3 (quite aggressive initially) - Correction factor: 30mg/dL/unit - Carb ratio: 1 unit per 10 g of CHO consumed - Goal range: 140-180mg/dL per ADA recommendations * A1c is current from last admission * add to discharge instructions * If hyperglycemia persists, the recommended treatment will be an IV insulin infusion while Ms Jones is critically ill. * Moderate severity * Goal range 140-180mg/dL * If hypoglycemia occurs, may consider decreasing Lantus back to home dose and loosening correction factor and carb ratio based on weight and a stress of 1-2. * Please note that the plan above was derived based on current level of insulin resistance and hospital stress. These recommendations are appropriate for inpatient admission only. Plan of care upon discharge will need to be reassessed to avoid potential outpatient hypo/hyperglycemia. Thank you.
[2016-03-17] MEDS: NORMOSOL R 1,000 ML IV SCH (10:15)
[2016-03-17] MEDS: HydrALAZINE HCL 20 MG/ML VIAL IV. PRN ×2 (10:16→20:17)
[2016-03-17] MEDS ORDERED: PANTOprazole INJ 40 MG in SYRINGE 0 ML IV SCH (11:00)
[2016-03-17] MEDS ORDERED: DiphenhydrAMINE HCL 50 MG/ML VIAL IV SCH (12:00)
[2016-03-17] MEDS: PEPTAMEN INTENSE VHP 1000ML BAG OG SCH ×2 (12:29→12:30)
[2016-03-17] MEDS: FAMOTIDINE IV INJ 20 MG in DEXTROSE 5% 100ML 100 ML IV SCH ×2 (12:29→23:46)
[2016-03-17] MEDS: DiphenhydrAMINE HCL 50 MG/ML VIAL IV. SCH ×2 (12:29→23:46)
--- NOTE | 2016-03-17 17:18 | Family Medicine Progress Note ---
Progress Note Date of Service Mar 17, 2016. Subjective sedated and ventilated No events overnight Additional Comments: unobtainable Objective Physical Exam General Appearance: + pertinent finding (sedated/ vented) Eyes: PERRL Neck: supple Respiratory/Chest: lungs clear, normal breath sounds Cardiovascular: regular rate, rhythm, no edema Abdomen: normal bowel sounds, soft Assessment and Plan Respiratory Failure 2/2 angioedema vs. asthma exacerbation- vent dependant cause still unclear sedated and intubated. management as per ICU team Solu-Medrol 60 q8 (patient has home daily dose of prednisone 5 mg that sister reports is for her asthma, again denies COPD) Duoneb, Atrovent On Benadryl and Famotidine CT Neck with evidence of oropharyngeal swelling Influenza negative Angioedema workup- pending Encephalopathy (prior to intubation) question infection vs. 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 History Resident Physician Supervision Note: I was present with Dr. Olson during the history and exam. I discussed the case with the resident and agree with the findings and plan as documented in the note. Any exceptions or clarifications are listed here. Pt sedated on vent, family present at time of visit. Questions regarding present state of care and future studies and treatments answered to satisfaction. General Appearance: other (sedated on vent) Ears, Nose, Throat: other (visible swelling of the tongue and mouth) Respiratory: rhonchi (b/l) Cardiovascular: normal peripheral pulses, regular rate, rhythm, no murmur Assessment/Plan 89 y/o female h/o asthma, angioedema VDRF - ICU aware and management appreciated - angioedema of unknown cause - FFP today, AE labs pending Electrolyte abnormalities - trend BMP, replete as needed DMII - Lantus and ISS, trend HTN - hydralazine PRN B/L LE wound w/ recent cellulitis - wound care c/s CAD - holding statin, would consider avoiding B jose a 2/2 asthma, Imdur GI PPX - protonix IV
--- NOTE | 2016-03-17 19:37 | Critical Care Progress Note ---
Critical Care Progress Note Date of Service Mar 17, 2016. ICU Day ICU Day Number: [address] Goldsmith Subjective Patient is intubated and heavily sedated. Objective General: RASS -3 Cardiovascular S1-S2 Lungs clear to auscultation Abdomen: Soft nontender nondistended Extremities: No clubbing cyanosis edema Neck: Significant firm soft tissues, tongue slightly protruding from the mouth consistent with angioedema. Assessment & Plan (1) Acute airway obstruction (2) Angioedema Sent C4 level, quantitative C1 inhibitor, functional C1 inhibitor, C3 Give 3 doses of Solu-Medrol, if true angioedema, has not responded steroids unlikely to be effective and will only induce hyperglycemia Possible reported history of cardiac disease, will not give epinephrine, as airway now secure an only risk cardiac ischemia Continue Benadryl 50 mg every 12 for the next 2 days and Pepcid twice a day Propofol sedation with the goal RASS of -3 until angioedema resolves (3) DM type 2 (diabetes mellitus, type 2) (4) Hyponatremia (5) Hypomagnesemia (6) Ulcers of both lower extremities (7) Normocytic anemia PLAN: Neuro: Sedation with propofol to goal RASS of -3, will do daily awakening trials tomorrow Resp:. Ventilator support no weaning today due to continued edema CV: Arterial line for frequent blood gas monitoring, hypertension during initial evaluation resolved Fluids/Renal: Discontinue fluids, to feeding a goal ID: Monitor fever curve GI/Nutrition: Tube feeding a goal Heme: Normocytic anemia Endocrine: Hypoglycemia likely secondary to steroids, started home Lantus, steroid burst for next 72 hours Patient's sister is her medical legal power of life insurance agent, reports that the patient would want to be full code. Discussed with the patient's sister, we will continue supportive measures, not giving FFP at this time as airway is secure and would only risk exposure to blood products at this point. I have personally spent 34 minutes of critical care time in the direct management of this patient. This is a life/limb threatening event. This includes time spent evaluating patient, direct bedside care, chart review, placing orders, interpretation of diagnostic studies, discussion with consultants, patient, and family members, as well as other required patient management activities. Data Medications: Current Inpatient Medications Medications (Trade) Dose Ordered Sig/Remy Route Start Time Stop Time Status Last Admin Dose Admin Acetaminophen (Tylenol Tab) 650 mg Q4H PRN PO 03/16/16 11:00 04/15/16 10:59 Nitroglycerin (Nitrostat Tab) 0.4 mg UD PRN SL 03/16/16 11:00 04/15/16 10:59 Al Hydrox/Mg Hydrox/Simethicone (Maalox Max Susp) 15 ml Q4H PRN PO 03/16/16 11:00 04/15/16 10:59 Magnesium Hydroxide (Milk Of Magnesia Susp) 30 ml Q12H PRN PO 03/16/16 11:00 04/15/16 10:59 Ipratropium [place] (Atrovent 0.02% 0.5MG/2.5ML Neb) 0.5 mg QIDR INH 03/16/16 16:00 04/15/16 15:59 Future Hold Albuterol/ Ipratropium 3 ml 3 ml Q6H PRN INH 03/16/16 11:30 04/15/16 11:29 Methylprednisolone Sodium Succinate/ Syringe (Solu-Medrol IV/ Syringe) 0.96 ml @ 1.5 mls/min Q8@0200,1000,1800 IV 03/16/16 18:00 03/19/16 10:01 03/17/16 16:54 1.5 MLS/MIN Glucose (Glucose 40% Gel) 15-30 GRAMS 15 GRAMS... UD PRN PO 03/16/16 13:00 04/15/16 12:59 Glucose (Glucose Chew Tab) 4-8 Tablets 4 Tabl... UD PRN PO 03/16/16 13:00 04/15/16 12:59 Dextrose (Dextrose 50% 50ML Syringe) 25-50ML OF 50% DW IV FOR... UD PRN IV 03/16/16 13:00 04/15/16 12:59 Glucagon (Glucagon Inj) 1 mg UD PRN SQ 03/16/16 13:00 04/15/16 12:59 Ipratropium [place] (Atrovent Hfa Inhaler) 4 puffs QIDR INH 03/16/16 16:00 04/15/16 15:59 03/17/16 14:27 4 PUFFS Fentanyl Citrate (Fentanyl Inj) 50 mcg Q1H PRN IV 03/16/16 14:45 03/30/16 14:44 Ioversol (Optiray 320) 100 ml UD PRN IV 03/16/16 15:30 03/20/16 15:29 Hydralazine HCl 10 mg 10 mg Q4 PRN IV. 03/16/16 18:15 04/15/16 18:14 03/17/16 10:16 10 MG Famotidine/ Dextrose (Pepcid IV Inj/ D5 100ml) 102 ml @ 200 mls/hr Q12H IV 03/17/16 12:00 04/16/16 11:59 03/17/16 12:29 200 MLS/HR Propofol 1 dose 1 dose UD PRN IV 03/17/16 00:03 03/20/16 00:02 03/17/16 10:16 1 DOSE Parenteral Electrolyte Solution (Normosol R) 1,000 ml @ 90 mls/hr Q11H7M IV 03/16/16 23:30 04/15/16 23:29 03/17/16 10:15 90 MLS/HR Diphenhydramine HCl (Benadryl Inj) 50 mg Q12H IV. 03/17/16 12:00 03/20/16 00:01 03/17/16 12:29 50 MG Prednisone (PredniSONE TAB) 5 mg DAILY PO 03/17/16 09:00 04/16/16 08:59 03/17/16 10:08 5 MG Insulin Glargine (Lantus Solostar Pen) 12 unit QAM SC 03/17/16 09:00 04/16/16 08:59 03/17/16 10:10 12 UNIT Miscellaneous Information (Consult Glycemic Management Pharmacy) 1 ea UD PRN N/A 03/17/16 09:30 04/16/16 09:29 Enoxaparin Sodium (Lovenox Inj) 30 mg QPM SQ 03/17/16 21:00 04/16/16 20:59 Enteral Nutritional Formula (Peptamen Intense VHP) 1,000 ml UD OG 03/17/16 10:30 04/16/16 10:29 03/17/16 12:30 1,000 ML Insulin Aspart (novoLOG ASPART) SLIDING SCALE Q4 SC 03/17/16 16:00 04/16/16 15:59 03/17/16 16:54 5 UNITS I & O: 24-Hour Column 03/17/16 07:59 Intake Total 3632 ml Output Total 250 ml Balance 3382 ml Vital Signs: Date Time Temp Pulse Resp B/P Pulse Ox O2 Delivery O2 Flow Rate FiO2 03/17/16 18:00 64 12 204/68 100 Mechanical Ventilator 24 155/53 03/17/16 17:15 24 03/17/16 16:00 71 14 193/65 100 Mechanical Ventilator 24 162/52 03/17/16 16:00 24 03/17/16 16:00 Mechanical Ventilator 24 03/17/16 14:28 24 03/17/16 14:00 70 12 176/65 99 Mechanical Ventilator 24 164/55 03/17/16 12:00 68 12 183/60 97 Mechanical Ventilator 137/54 03/17/16 12:00 Mechanical Ventilator 24 03/17/16 12:00 24 03/17/16 11:47 24 03/17/16 10:00 36.8 62 12 154/60 97 Mechanical Ventilator 24 114/40 03/17/16 09:40 24 03/17/16 09:00 196/66 03/17/16 08:04 30 03/17/16 08:00 36.9 65 14 152/53 100 Mechanical Ventilator 30 172/61 03/17/16 08:00 30 03/17/16 08:00 100 Mechanical Ventilator 30 03/17/16 08:00 Mechanical Ventilator 30 03/17/16 06:00 36.9 64 14 139/62 99 Mechanical Ventilator 30 134/63 03/17/16 05:19 30 03/17/16 04:00 Mechanical Ventilator 30 03/17/16 04:00 30 03/17/16 04:00 36.4 61 13 146/59 99 Mechanical Ventilator 30 158/62 03/17/16 02:00 35.3 55 13 120/54 100 Mechanical Ventilator 30 03/17/16 01:54 30 03/17/16 01:00 35.2 65 12 129/65 100 Mechanical Ventilator 30 03/17/16 00:00 35.2 54 12 130/67 100 Mechanical Ventilator 30 03/16/16 23:59 Mechanical Ventilator 30 03/16/16 23:59 30 03/16/16 23:32 30 03/16/16 22:00 59 12 129/49 100 Mechanical Ventilator 30 138/59 03/16/16 21:58 60 12 142/69 Mechanical Ventilator 30 03/16/16 21:01 52 12 190/73 100 Mechanical Ventilator 30 03/16/16 21:00 51 12 206/75 100 Mechanical Ventilator 30 03/16/16 20:53 30 03/16/16 20:00 36.6 53 13 110/62 100 Mechanical Ventilator 30 03/16/16 20:00 30 03/16/16 20:00 Mechanical Ventilator 30 Laboratory Results: Last 24 Hours Test 03/16/16 21:16 03/16/16 23:24 03/16/16 23:38 03/17/16 00:30 Bedside Glucose 302 mg/dl 298 mg/dl Test 03/17/16 05:49 03/17/16 07:32 03/17/16 12:32 03/17/16 16:47 Bedside Glucose 302 mg/dl 258 mg/dl 299 mg/dl White Blood Count 6.94 K/uL Red Blood Count 3.51 M/uL Hemoglobin 10.2 g/dL Hematocrit 28.8 % Mean Corpuscular Volume 82.1 fL Mean Corpuscular Hemoglobin 29.1 pg Mean Corpuscular Hemoglobin Concent 35.4 g/dl RDW Standard Deviation 41.1 fL RDW Coefficient of Variation 13.7 % Platelet Count 226 K/uL Mean Platelet Volume 10.0 fL Sodium Level 131 mmol/L Potassium Level 4.3 mmol/L Chloride Level 99 mmol/L Carbon Dioxide Level 21 mmol/L Anion Gap 11.0 mmol/L Blood Urea Nitrogen 20 mg/dl Creatinine 1.00 mg/dl Est Creatinine Clear Calc Drug Dose 29.3 ml/min Estimated GFR () 58.3 Estimated GFR (Non- 50.3 BUN/Creatinine Ratio 20.2 Random Glucose 230 mg/dl Calcium Level 7.7 mg/dl Phosphorus Level 3.9 mg/dl Magnesium Level 2.1 mg/dl Problem Qualifiers (1) Angioedema: Encounter type: initial encounter Qualified Codes: T78.3XXA - Angioneurotic edema, initial encounter
[2016-03-17] MEDS ORDERED: ENOXAPARIN 30 MG/0.3 ML SYR SQ SCH (21:00)
[2016-03-18] VITALS (39 sets, daily range): BP systolic 31–208; BP diastolic 27–122; PULSE 62–76; TEMP 36.3–37.4; O2SAT 96–100
[2016-03-18] MEDS: METHYLPREDNISOLONE IV 60 MG in SYRINGE 0 ML IV SCH ×3 (01:42→19:40)
[2016-03-18] MEDS: HydrALAZINE HCL 20 MG/ML VIAL IV. PRN (03:36)
[2016-03-18] MEDS: INSULIN ASPART 100 UNITS/ML 3 ML PEN SC SCH (03:37)
[2016-03-18 06:54] LABS: BUN/CREATININE RATIO 27.9 (10-20); CALCIUM 7.6 mg/dl (8.5-10.1); CREATININE 1.1 mg/dl (0.60-1.20); MAGNESIUM 2.4 mg/dl (1.8-2.4)
[2016-03-18 06:55] LABS: PHOSPHORUS 3.3 mg/dl (2.5-4.9)
[2016-03-18] MEDS: IPRATROPIUM BROMIDE HFA INHALER INH SCH ×4 (07:25→20:02)
--- NOTE | 2016-03-18 07:39 | DIAGNOSTIC IMAGING REPORT ---
CHEST ONE VIEW PORTABLE CLINICAL HISTORY: Respiratory failure COMPARISON STUDY: 03/16/2016 FINDINGS: There is an endotracheal tube 16 mm above the [place]. There is a nasogastric tube which passes in the stomach. The heart is mildly enlarged. There is no lobar consolidation. There are no specific or pleural effusions. There is mild interstitial thickening.[ IMPRESSION: Endotracheal tube 16 mm above the [place]. No evidence of focal pulmonary consolidation. Electronically signed by: Wei Ochoa M.D. 03/18/2016 7:38 AM Dictated Date/Time: 03/18/2016 7:36 AM
--- NOTE | 2016-03-18 08:57 | Family Medicine Progress Note ---
Progress Note Date of Service Mar 18, 2016. Subjective Pt evaluation today including: conversation w/ patient Voiding: gutierrez catheter in place Patient was somewhat awake and agitated while intubated, as the sedation was turned off in attempts for a wean trial Not responsive to questions or simple commands; mostly combative. Additional Comments: unobtainable Objective Physical Exam General Appearance: + mild distress Eyes: PERRL ENT: + pertinent finding (tongue swelling) Neck: supple Respiratory/Chest: lungs clear, normal breath sounds, no respiratory distress, no accessory muscle use Cardiovascular: regular rate, rhythm, no edema Abdomen: normal bowel sounds, soft Extremities: no pedal edema, + pertinent finding (lower extremity skin breakdown- covered in dressing) Assessment and Plan Vent dependant Respiratory Failure cause still unclear, question acquired vs. hereditary angioedema? has had 1-2 ER visits for facial swelling/angioedema. Sedation was turned off temporarily, patient awake but remains intubated. Tongue swelling/edema persists. Attempting to do a wean trial, ET cuff was deflated and there was an air leak , however, patient still has laryngeal swelling so will wait for swellign to further subside before weaning management as per ICU team Solu-Medrol 60 q8 (patient has home daily dose of prednisone 5 mg that sister reports is for her asthma, again denies COPD) Duoneb, Atrovent On Benadryl and Famotidine CT Neck with evidence of oropharyngeal swelling Influenza negative Angioedema workup- pending Encephalopathy (prior to intubation) question infection vs. 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 History Resident Physician Supervision Note: I was present with Dr. Olson during the history and exam. I discussed the case with the resident and agree with the findings and plan as documented in the note. Any exceptions or clarifications are listed here. Pt sedated on vent. Family at bedside. General Appearance: thin, other (sedated on vent) Respiratory: chest non-tender, rhonchi (diffusely) Cardiovascular: normal peripheral pulses, regular rate, rhythm, no edema, no murmur Assessment/Plan 89 y/o female h/o asthma, angioedema VDRF - ICU aware and management appreciated - angioedema of unknown cause - t/c FFP tomorrow, AE labs pending Electrolyte abnormalities - trend BMP, replete as needed DMII - Lantus and ISS, trend HTN - hydralazine PRN B/L LE wound w/ recent cellulitis - wound care c/s CAD - holding statin, would consider avoiding B jose a 2/2 asthma, Imdur GI PPX - [id number]
[2016-03-18] MEDS ORDERED: INSULIN GLARGINE SOLOSTAR 100 UNITS/ML 3 ML PEN SC SCH (09:00)
[2016-03-18] MEDS: INSULIN HUMAN REGULAR SC SCH ×8 (09:22→23:42)
[2016-03-18 09:27] LABS: ISTAT ARTERIAL BLOOD GAS HCO3 21 meq/L (19-24); ISTAT ARTERIAL BLOOD GAS PCO2 37 mmHg (35-46); ISTAT ARTERIAL BLOOD GAS PO2 109 mmHg (80-95); ISTAT ARTERIAL BLOOD GAS pH 7.36 (7.35-7.45); ISTAT CARBON DIOXIDE 22 mEq/l (24-31); ISTAT DELIVERY SYSTEM Ventilator; ISTAT FIO2 24 %; ISTAT PEEP 5; ISTAT RATE 12; ISTAT SITE Art Line; VE 5.2; Vt 400
[2016-03-18] MEDS: FAMOTIDINE IV INJ 20 MG in DEXTROSE 5% 100ML 100 ML IV SCH ×2 (11:49→23:44)
[2016-03-18] MEDS: DiphenhydrAMINE HCL 50 MG/ML VIAL IV. SCH ×2 (11:49→23:43)
--- NOTE | 2016-03-18 11:51 | Pharmacy Progress Note ---
Glycemic Control: Progress Nt Date of Service Mar 18, 2016. Scope Glycemic Pharmacist consulted by Dr Goldsmith on 03/17/16 for glycemic control and to write orders per [facility] inpatient glycemic control protocol. Objective Accuchecks BSG (last 24hrs): Test 03/17/16 12:32 03/17/16 16:47 03/17/16 19:33 03/17/16 23:44 Bedside Glucose 258 mg/dl (70-90) 299 mg/dl (70-90) 263 mg/dl (70-90) 337 mg/dl (70-90) Test 03/18/16 03:34 03/18/16 05:30 Bedside Glucose 262 mg/dl (70-90) Random Glucose 259 mg/dl (70-99) Laboratory Data (last 24hrs) Test 03/18/16 05:30 Anion Gap 13.0 mmol/L BUN/Creatinine Ratio 27.9 Blood Urea Nitrogen 31 mg/dl Creatinine 1.10 mg/dl Potassium Level 4.0 mmol/L Sodium Level 133 mmol/L Recent Pertinent Medications Outpatient Anti-diabetic Regimen: * Lantus 8 units SQ daily * NovoLog sliding scale (around 0-16 units per day) * Correction factor: ~8mg/dL/unit * Goal <150mg/dL * A1c = 8.5 % 02/23/16 The patient is currently receiving: * Basal insulin: Lantus 12 units every 24 hours * Correctional Insulin: NovoLog Correction per scale AC/HS or q6H if NPO Goal Range: Low 140 mg/dL - High 180 mg/dL Correction Factor: 25 mg/dL/unit --> 20mg/dL/unit around 21:00 * Prandial insulin: Per carb ratio of 1 unit per 8 grams CHO consumed Risk Factors for Insulin Resistance: * Steroids: Solu-Medrol 125mg IV x1 dose in ED on 03/16, then Solu-Medrol 60mg IV q8H + home dose of prednisone 5mg PO daily * IVF: famotidine q12H (mixed in dextrose) * Diet: NPO, Peptamen Bariatric with a goal of 35mL/hr (currently at goal rate - provides 65.5g of CHO per 24 hours) * Mechanical Ventilation: intubated in the ED on 03/16/16 Assessment & Plan ASSESSMENT: * ADA & AACE recommend a goal blood sugar range 140-180 mg/dl for the majority of critically ill & non-critically ill patients. However, more stringent targets may be selected in individual cases. 03/17/16 * 89 y/o type 2 diabetic who is known to the glycemic service from prior admissions (most recently in February 2016) * Uses basal/bolus insulin as an outpatient with near adequate control based on age and comorbidities * takes PO prednisone as an outpatient * Yesterday, the patient was brought to the ED with angioedema. At this time she was intubated and IV steroids have been started * unsurprisingly, BSGs have become quite elevated and Ms Jones will likely require more insulin compared to prior admissions while she is maintained on around the clock Solu-Medrol * Further complicating glycemic control is the continuous tube feedings with [employer] - Will try to account for CHO contained in tube feeds to aid in achieving euglycemia 03/18/16 * BSGs remained elevated despite additional correctional NovoLog and Lantus * further increase Lantus. * Tube feeds at goal at this time and providing additional CHO. Solu-Medrol continues around the clock. * Change NovoLog to Regular insulin for more favorable kinetics with tube feeds * Tighten correction factor * Add scheduled insulin to cover CHO in tube feeds (in addition to correction factor) * At risk for hypoglycemia as risk factors for insulin resistance are discontinued/changed * close monitoring PLAN FOR INPATIENT GLYCEMIC CONTROL: * Increase Lantus to 15 units SQ daily * Change NovoLog --> Regular insulin q6H * Correction factor: 15mg/dL/unit * Goal range: 140-180mg/dL per ADA recommendations * Regular insulin 1.5 units SQ q6 hours scheduled (in addition to correction factor) to cover tube feeds * continue to titrate based on response. * HOLD if tube feeds are held * A1c is current from last admission * add to discharge instructions * If hyperglycemia persists, the recommended treatment will be an IV insulin infusion while Ms Jones is critically ill. * Moderate severity * Goal range 140-180mg/dL * If hypoglycemia occurs, may consider decreasing Lantus back to home dose and loosening correction factor and carb ratio based on weight and a stress of 1-2. * Please note that the plan above was derived based on current level of insulin resistance and hospital stress. These recommendations are appropriate for inpatient admission only. Plan of care upon discharge will need to be reassessed to avoid potential outpatient hypo/hyperglycemia. Thank you.
[2016-03-18 14:59] LABS: URINE APPEARANCE CLEAR (CLEAR); URINE BILIRUBIN NEG (NEG); URINE COLOR YELLOW; URINE EPITHELIAL CELL AUTO >30 /lpf (0-5); URINE NITRITE NEG (NEG); URINE SPECIFIC GRAVITY 1.029 (1.000-1.030); UROBILINOGEN NEG (NEG)
[2016-03-18 15:05] LABS: MANUAL MICROSCOPIC REQUIRED? NO; REVIEW REQ? YES
[2016-03-18] MEDS ORDERED: INSULIN HUMAN REGULAR SC SCH (18:00)
[2016-03-18] MEDS: PROPOFOL IV EMULSION 10 MG/ML 100 ML VIAL IV PRN (19:13)
[2016-03-18] MEDS: PEPTAMEN INTENSE VHP 1000ML BAG OG SCH (19:39)
[2016-03-18] MEDS: DOCUSATE SODIUM 100 MG/10 ML UDC PO SCH (21:36)
[2016-03-18] MEDS: HEPARIN SOD 5000 UNIT/0.5 ML CARP SQ SCH (21:36)
[2016-03-19] VITALS (53 sets, daily range): BP systolic 40–220; BP diastolic 31–106; PULSE 57–74; TEMP 36.7–37.4; O2SAT 97–100
[2016-03-19] MEDS: FENTANYL CITRATE INJ 50 MCG/1 ML 2 ML VIAL IV PRN ×2 (00:31→22:52)
[2016-03-19] MEDS: METHYLPREDNISOLONE IV 60 MG in SYRINGE 0 ML IV SCH ×2 (01:29→09:08)
[2016-03-19] MEDS: PROPOFOL IV EMULSION 10 MG/ML 100 ML VIAL IV PRN (02:31)
[2016-03-19 05:25] LABS: COMPLETE YES; HEMATOCRIT 27.5 % (37-47); LYMPH % 4.2 %; LYMPH ABS # 0.24 K/uL (1.2-3.4); MEAN CELL VOLUME 84.4 fL (80-100); MEAN CORPUSCULAR HEMOGLOBIN 29.1 pg (25-34); MEAN CORPUSCULAR HGB CONC 34.5 g/dl (32-36); MONO % 3.7 %; NEUT % 92.1 %; PLATELET COUNT 221 K/uL (130-400); RED BLOOD COUNT 3.26 M/uL (4.2-5.4); WHITE BLOOD COUNT 5.65 K/uL (4.8-10.8)
[2016-03-19] MEDS: INSULIN HUMAN REGULAR SC SCH ×6 (05:33→23:56)
[2016-03-19 05:49] LABS: BUN/CREATININE RATIO 37.8 (10-20); CREATININE 1.1 mg/dl (0.60-1.20); MAGNESIUM 2.4 mg/dl (1.8-2.4); POTASSIUM 4.8 mmol/L (3.5-5.1)
[2016-03-19 05:54] LABS: PHOSPHORUS 3.4 mg/dl (2.5-4.9)
[2016-03-19] MEDS: IPRATROPIUM BROMIDE HFA INHALER INH SCH ×4 (08:13→20:06)
[2016-03-19] MEDS: DOCUSATE SODIUM 100 MG/10 ML UDC PO SCH ×2 (09:06→21:11)
[2016-03-19] MEDS: SENNA 8.8 MG/5 ML UDP PO SCH (09:07)
[2016-03-19] MEDS: HEPARIN SOD 5000 UNIT/0.5 ML CARP SQ SCH ×2 (09:08→21:12)
[2016-03-19] MEDS: INSULIN GLARGINE SOLOSTAR 100 UNITS/ML 3 ML PEN SC SCH (12:04)
[2016-03-19] MEDS: DiphenhydrAMINE HCL 50 MG/ML VIAL IV. SCH ×2 (12:04→23:58)
[2016-03-19] MEDS: FAMOTIDINE IV INJ 20 MG in DEXTROSE 5% 100ML 100 ML IV SCH ×2 (12:11→23:58)
--- NOTE | 2016-03-19 13:35 | Pharmacy Progress Note ---
Glycemic Control: Progress Nt Date of Service Mar 19, 2016. Scope Glycemic Pharmacist consulted by Dr Goldsmith on 03/17/16 for glycemic control and to write orders per [facility] inpatient glycemic control protocol. Objective Accuchecks BSG (last 24hrs): Test 03/18/16 23:37 03/19/16 05:00 03/19/16 05:10 03/19/16 12:07 Bedside Glucose 182 mg/dl (70-90) 189 mg/dl (70-90) 239 mg/dl (70-90) Random Glucose 192 mg/dl (70-99) Laboratory Data (last 24hrs) Test 03/19/16 05:00 Anion Gap 9.0 mmol/L BUN/Creatinine Ratio 37.8 Blood Urea Nitrogen 42 mg/dl Creatinine 1.10 mg/dl Potassium Level 4.8 mmol/L Sodium Level 133 mmol/L White Blood Count 5.65 K/uL Red Blood Count 3.26 M/uL Hemoglobin 9.5 g/dL Hematocrit 27.5 % Mean Corpuscular Volume 84.4 fL Mean Corpuscular Hemoglobin 29.1 pg Mean Corpuscular Hemoglobin Concent 34.5 g/dl Platelet Count 221 K/uL Mean Platelet Volume 10.0 fL Neutrophils (%) (Auto) 92.1 % Lymphocytes (%) (Auto) 4.2 % Monocytes (%) (Auto) 3.7 % Eosinophils (%) (Auto) 0.0 % Basophils (%) (Auto) 0.0 % Neutrophils # (Auto) 5.20 K/uL Lymphocytes # (Auto) 0.24 K/uL Monocytes # (Auto) 0.21 K/uL Eosinophils # (Auto) 0.00 K/uL Basophils # (Auto) 0.00 K/uL HbA1c: 8.5% on 02/23/16 Recent Pertinent Medications Outpatient Anti-diabetic Regimen: * Lantus 8 units SQ daily * NovoLog sliding scale (around 0-16 units per day) * Correction factor: ~8mg/dL/unit * Goal <150mg/dL * A1c = 8.5 % 02/23/16 The patient is currently receiving: * Basal insulin: Lantus 15 units every 24 hours given in the morning * Correctional Insulin: Regular Insulin Correction per scale ACHS Goal Range: Low 140 mg/dL - High 180 mg/dL Correction Factor: 10 mg/dL/unit * Prandial insulin: 3 units of Regular insulin Q 6hrs to cover CHO in continuous tube feedings with Peptamen @ 35ml/hr Risk Factors for Insulin Resistance: * Steroids * Dextrose IVF * Diet/tube feedings Assessment & Plan ASSESSMENT: * 89yo T2DM female with adequate degree of outpatient glycemic control per recent A1c based on age and co-morbidities * Patient is maintained on SQ basal bolus insulin regimen as an outpatient with Lantus + Metformin + NovoLog (of note, also takes chronic prednisone). * Metformin on hold for admission per ADA recommendations * Pt has been requiring ~ 40 units of insulin per day with sub-optimal control * Currently, basal & bolus/prandial insulin is being dosed higher than outpatient dosing --> increased stress from acute illness and steroids * Steroids rapidly tapereed today --> was receiving Solumedrol 60mg Q8hrs + PO Prednisone but Solumedrol d/c today. Expect BSGs to improve with this step down in steroid dosing. * Empirically decreased both basal & prandial insulin --> will continue to titrate according to BSG trends * ADA & AACE recommend a goal blood sugar range 140-180 mg/dl for the majority of critically ill & non-critically ill patients. However, more stringent targets may be selected in individual cases. PLAN FOR INPATIENT GLYCEMIC CONTROL: * Hold outpatient oral diabetes medications * DECREASE Basal insulin with LANTUS 10 units SQ Daily in the morning * Correctional Insulin with REGULAR per scale ACHS or Q6hrs while NPO * Goal Range: Low 140 mg/dL - High 180 mg/dL * "LOOSEN" Correction Factor: 15 mg/dL/unit * DECREASE Nutritional / Prandial insulin from 3 units SQ Q 6hrs to 2 units SQ Q6hrs to cover CHO in continuous tube feedings with peptamen @ 35ml/hr * Please note that the plan above was derived based on current level of insulin resistance and hospital stress. These recommendations are appropriate for inpatient admission only. Plan of care upon discharge will need to be reassessed to avoid potential outpatient hypo/hyperglycemia. Thank you.
[2016-03-19] MEDS ORDERED: FUROSEMIDE 40 MG/4 ML VIAL IV STA (17:23)
[2016-03-19] MEDS ORDERED: FUROSEMIDE INJ 40 MG in SYRINGE 0 ML IV ONE (17:45)
--- NOTE | 2016-03-19 18:16 | Family Medicine Progress Note ---
Progress Note Date of Service Mar 19, 2016. Subjective Pt evaluation today including: conversation w/ family, physical exam, chart review, lab review Patient is sedated and intubated. No history or ROS was elicited. The family was offered empathy regarding the current situations and their questions were answered as best as possible with current assessment. Objective Vital Signs Date Time Temp Pulse Resp B/P Pulse Ox O2 Delivery O2 Flow Rate FiO2 03/19/16 22:30 37.3 60 12 170/53 99 03/19/16 22:15 37.3 62 14 177/54 99 03/19/16 22:00 37.4 63 24 173/63 99 03/19/16 22:00 37.4 63 14 175/55 99 03/19/16 21:58 37.4 61 14 173/63 99 156/49 03/19/16 21:30 37.4 60 14 168/52 99 03/19/16 21:00 37.4 62 24 164/55 99 03/19/16 21:00 37.4 61 24 148/60 99 03/19/16 21:00 37.4 62 14 164/55 99 03/19/16 20:58 37.4 59 24 148/60 99 157/35 03/19/16 20:40 37.4 62 24 154/49 99 03/19/16 20:30 37.4 60 24 166/54 99 03/19/16 20:25 37.4 61 24 151/64 99 03/19/16 20:10 37.4 63 24 151/64 99 03/19/16 20:07 24 03/19/16 20:00 24 03/19/16 20:00 37.4 64 24 151/64 99 165/54 03/19/16 18:58 37.4 72 0 213/74 97 220/69 03/19/16 18:00 37.3 62 0 99 180/57 03/19/16 17:58 37.3 60 0 178/67 99 50/41 03/19/16 17:57 24 03/19/16 17:00 37.2 64 0 99 178/60 03/19/16 16:58 37.2 65 0 171/63 57/43 03/19/16 16:45 37.2 63 0 99 176/59 03/19/16 16:30 37.2 64 0 99 183/61 03/19/16 16:15 37.2 65 0 99 170/56 03/19/16 16:00 37.2 65 0 99 179/58 03/19/16 16:00 24 03/19/16 16:00 99 Mechanical Ventilator 24 03/19/16 15:58 37.2 65 0 174/66 40/31 03/19/16 15:45 37.1 65 0 99 174/56 03/19/16 15:31 60 14 99 Mechanical Ventilator 03/19/16 15:30 37.1 66 0 99 184/59 03/19/16 15:15 37.1 66 0 99 191/62 03/19/16 15:00 37.0 70 0 100 200/68 03/19/16 14:06 24 03/19/16 14:00 37.1 57 0 155/63 100 156/55 03/19/16 13:00 37.1 57 0 155/63 100 156/55 03/19/16 12:58 37.1 57 0 155/63 100 156/55 03/19/16 12:00 37.1 59 0 98 145/44 03/19/16 12:00 99 Mechanical Ventilator 03/19/16 12:00 24 03/19/16 11:58 37.1 58 0 141/53 53/33 03/19/16 11:17 24 03/19/16 11:00 37.0 60 0 100 167/51 03/19/16 10:58 37.0 61 0 162/63 42/34 03/19/16 10:00 37.0 69 0 100 205/64 03/19/16 09:59 37.0 69 0 201/74 100 203/63 03/19/16 09:00 36.9 63 0 100 116/90 03/19/16 08:58 36.9 63 0 157/63 110/106 03/19/16 08:00 24 03/19/16 08:00 99 Mechanical Ventilator 03/19/16 08:00 36.8 62 0 100 145/57 03/19/16 07:59 36.8 63 0 166/58 100 147/60 03/19/16 07:30 24 03/19/16 07:00 36.9 61 0 100 76/47 03/19/16 05:59 36.7 60 12 147/53 99 142/49 2/4/17 05:38 24 03/19/16 04:58 36.8 59 12 130/47 100 03/19/16 04:00 36.7 60 12 140/48 100 03/19/16 04:00 98 Mechanical Ventilator 24 03/19/16 04:00 24 03/19/16 03:58 36.7 58 12 153/63 100 133/55 03/19/16 03:00 36.8 61 12 125/45 99 03/19/16 02:58 36.8 62 12 128/53 99 03/19/16 02:11 24 03/19/16 02:00 36.8 62 14 133/47 99 03/19/16 01:58 36.8 64 14 138/54 99 03/19/16 01:00 36.9 66 12 127/44 98 03/19/16 00:58 36.9 67 12 120/53 98 03/19/16 00:00 37.1 74 15 139/49 98 03/18/16 23:59 24 03/18/16 23:59 99 Mechanical Ventilator 24 03/18/16 23:58 37.1 74 14 131/56 99 03/18/16 23:31 24 Physical Exam General Appearance: WD/WN ENT: + pertinent finding (Patient intubated, swollen tongue protruding. Significant angioedema present) Neck: supple Respiratory/Chest: normal breath sounds, + rhonchi Cardiovascular: regular rate, rhythm, no murmur Abdomen: normal bowel sounds, soft, no organomegaly Extremities: no pedal edema, + pedal edema Neurologic/Psychiatric: + pertinent finding (Sedated) Skin: normal color, warm/dry, no rash, + pertinent finding (Cellulitis improved ) Laboratory Results Results Past 24 Hours Test 03/18/16 23:37 03/19/16 05:00 03/19/16 05:10 03/19/16 12:07 Range/Units Bedside Glucose 182 189 239 70-90 mg/dl White Blood Count 5.65 4.8-10.8 K/uL Red Blood Count 3.26 4.2-5.4 M/uL Hemoglobin 9.5 12.0-16.0 g/dL Hematocrit 27.5 37-47 % Mean Corpuscular Volume 84.4 80-100 fL Mean Corpuscular Hemoglobin 29.1 25-34 pg Mean Corpuscular Hemoglobin Concent 34.5 32-36 g/dl Platelet Count 221 130-400 K/uL Mean Platelet Volume 10.0 7.4-10.4 fL Neutrophils (%) (Auto) 92.1 % Lymphocytes (%) (Auto) 4.2 % Monocytes (%) (Auto) 3.7 % Eosinophils (%) (Auto) 0.0 % Basophils (%) (Auto) 0.0 % Neutrophils # (Auto) 5.20 1.4-6.5 K/uL Lymphocytes # (Auto) 0.24 1.2-3.4 K/uL Monocytes # (Auto) 0.21 0.11-0.59 K/uL Eosinophils # (Auto) 0.00 0-0.5 K/uL Basophils # (Auto) 0.00 0-0.2 K/uL RDW Standard Deviation 43.5 36.4-46.3 fL RDW Coefficient of Variation 13.9 11.5-14.5 % Immature Granulocyte % (Auto) 0.0 % Immature Granulocyte # (Auto) 0.00 0.00-0.02 K/uL Sodium Level 133 136-145 mmol/L Potassium Level 4.8 3.5-5.1 mmol/L Chloride Level 100 98-107 mmol/L Carbon Dioxide Level 24 21-32 mmol/L Anion Gap 9.0 3-11 mmol/L Blood Urea Nitrogen 42 7-18 mg/dl Creatinine 1.10 0.60-1.20 mg/dl Est Creatinine Clear Calc Drug Dose 26.7 ml/min Estimated GFR () 51.9 Estimated GFR (Non- 44.8 BUN/Creatinine Ratio 37.8 10-20 Random Glucose 192 70-99 mg/dl Calcium Level 8.0 8.5-10.1 mg/dl Phosphorus Level 3.4 2.5-4.9 mg/dl Magnesium Level 2.4 1.8-2.4 mg/dl Total Bilirubin 0.2 0.2-1 mg/dl Direct Bilirubin 0.1 0-0.2 mg/dl Aspartate Amino Transf (AST/SGOT) 8 15-37 U/L Alanine Aminotransferase (ALT/SGPT) 14 12-78 U/L Alkaline Phosphatase 58 45-117 U/L Total Protein 4.8 6.4-8.2 gm/dl Albumin 2.1 3.4-5.0 gm/dl Triglycerides Level 119 0-150 mg/dl Test 03/19/16 18:23 Range/Units Bedside Glucose 224 70-90 mg/dl Assessment and Plan Vent dependant Respiratory Failure Cause still unclear, ?acquired vs. hereditary angioedema - Has had 1-2 ER visits for facial swelling/angioedema in the past Sedation was turned off temporarily, patient awake but remains intubated. Tongue swelling/edema persists. Attempting to do a wean trial, ET cuff was deflated and there was an air leak , however, patient still has laryngeal swelling so will wait for swelling to further subside before weaning Management as per ICU team Solu-Medrol 60mg q8 given initially, currently patient on home daily dose of prednisone 5 mg that sister reports is for her asthma (again denies COPD) Started on Duoneb, Atrovent, Benadryl and Famotidine CT Neck with evidence of oropharyngeal swelling Influenza negative Angioedema workup: Complement C3 and C4 levels normal. C1 esterase levels pending Patient given 1 unit of fresh frozen plasma Patient given IV furosemide in attempts to improve edema Encephalopathy (seen prior to sedation/intubation) ?infection vs. CVA - no evidence of either Blood cultures and urinalysis negative. Chest X-ray without evidence of consolidation. Afebrile, no white count, no LFT abnormality. 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 Continued [facility] stay due to: inadequate po fluid intake, multiple IV medications needed Resident Involvement: Resident Care Provided Care Provided: Adult Hospital Medicine History Resident Physician Supervision Note: I was present with Dr. Zavala during the history and exam. I discussed the case with the resident and agree with the findings and plan as documented in the note. Any exceptions or clarifications are listed here Pt seen and examined at bedside. Sedated on ventilator without visible agitation. Family in room, updates provided and questions answered to satisfaction. General Appearance: other (sedated on vent) Ears, Nose, Throat: other (tongue and anterior oropharyngeal swelling minimally improved from previous examination) Neck: non-tender, normal inspection, trachea midline Respiratory: rhonchi Cardiovascular: normal peripheral pulses, no murmur, other (trace b/l LE edema to the mid greene) Gastrointestinal: normal bowel sounds, soft, no organomegaly Extremities: other (LE wound stable from previous without erythema) Assessment/Plan 89 y/o female h/o asthma, angioedema VDRF - ICU aware and management appreciated - angioedema of unknown cause - FFP pending today, AE labs pending Electrolyte abnormalities - trend BMP, replete as needed DMII - Lantus and ISS, trend HTN - hydralazine PRN B/L LE wound w/ recent cellulitis - wound care on board CAD - holding statin, would consider avoiding B jose a 2/2 asthma, Imdur GI PPX - [id number]
[2016-03-20] VITALS (25 sets, daily range): BP systolic 104–222; BP diastolic 42–91; PULSE 64–108; TEMP 36.9–38.4; O2SAT 92–100
[2016-03-20] MEDS: HydrALAZINE HCL 20 MG/ML VIAL IV. PRN ×3 (00:04→22:11)
[2016-03-20] MEDS: PEPTAMEN INTENSE VHP 1000ML BAG OG SCH (03:40)
[2016-03-20] MEDS ORDERED: NURSING VERBAL MED ORDER ONE (05:00)
[2016-03-20] MEDS: INSULIN HUMAN REGULAR SC SCH ×9 (05:55→23:53)
[2016-03-20] MEDS: PROPOFOL IV EMULSION 10 MG/ML 100 ML VIAL IV PRN (05:59)
[2016-03-20 07:49] LABS: BUN/CREATININE RATIO 50.1 (10-20); CALCIUM 8.2 mg/dl (8.5-10.1); CREATININE 0.93 mg/dl (0.60-1.20); POTASSIUM 3.6 mmol/L (3.5-5.1)
[2016-03-20] MEDS: IPRATROPIUM BROMIDE HFA INHALER INH SCH ×2 (07:49→11:48)
[2016-03-20] MEDS ORDERED: FUROSEMIDE 40 MG/4 ML VIAL IV STA (08:52)
[2016-03-20] MEDS ORDERED: FENTANYL CITRATE INJ 50 MCG/1 ML 2 ML VIAL IM ONE (09:00)
[2016-03-20] MEDS ORDERED: INSULIN GLARGINE SOLOSTAR 100 UNITS/ML 3 ML PEN SC SCH (09:00)
[2016-03-20] MEDS: SENNA 8.8 MG/5 ML UDP PO SCH (09:05)
[2016-03-20] MEDS: DOCUSATE SODIUM 100 MG/10 ML UDC PO SCH ×2 (09:05→21:50)
[2016-03-20] MEDS: HEPARIN SOD 5000 UNIT/0.5 ML CARP SQ SCH ×2 (09:06→21:55)
[2016-03-20] MEDS: INSULIN GLARGINE SOLOSTAR 100 UNITS/ML 3 ML PEN SC SCH (09:06)
[2016-03-20] MEDS: POTASSIUM CHLR 10 MEQ / WTR 10 MEQ in PREMIXED WATER 100 ML IV SCH ×4 (09:09→12:43)
--- NOTE | 2016-03-20 10:45 | Critical Care Progress Note ---
Critical Care Progress Note Date of Service Mar 19, 2016. Delayed chart entry ICU Day ICU Day Number: [address] Goldsmith Subjective Intubated and sedated Objective General: RASS -3 Cardiovascular S1-S2 Lungs clear to auscultation Abdomen: Soft nontender nondistended Extremities: No clubbing cyanosis edema HEENT: Tongue appears to protrude slightly more today, examined posterior oropharynx with tongue depressor still significant posterior pharyngeal edema. Assessment & Plan (1) Acute airway obstruction (2) Angioedema Sent C4 level, quantitative C1 inhibitor, functional C1 inhibitor, C3 Give 3 doses of Solu-Medrol, if true angioedema, has not responded steroids unlikely to be effective and will only induce hyperglycemia Possible reported history of cardiac disease, will not give epinephrine, as airway now secure an only risk cardiac ischemia Continue Benadryl 50 mg every 12 for the next 2 days and Pepcid twice a day Propofol sedation with the goal RASS of -3 until angioedema resolves (3) JACOB (acute kidney injury) (4) DM type 2 (diabetes mellitus, type 2) (5) Hyponatremia (6) Hypomagnesemia (7) Ulcers of both lower extremities (8) Normocytic anemia Acute airway obstruction secondary to Angioedema: - Possible increasing in angioedema, discussed risks benefits of possible blood product exposure with sister, we will proceed at this point with 2 units of FFP - Acute kidney injury - Hopefully has peaked in creatinine, will give Lasix to help diurese and decrease anasarca - Hyperglycemia - On insulin protocol If decreased edema tomorrow we'll consider spontaneous waking trial with spontaneous breathing trial. I have personally spent 30 minutes of critical care time in the direct management of this patient. This is a life/limb threatening event. This includes time spent evaluating patient, direct bedside care, chart review, placing orders, interpretation of diagnostic studies, discussion with consultants, patient, and family members, as well as other required patient management activities. This time is exclusive of all separately billable procedures, and teaching time and separate from and in addition to any other critical care service time. Data Medications: Current Inpatient Medications Medications (Trade) Dose Ordered Sig/Remy Route Start Time Stop Time Status Last Admin Dose Admin Acetaminophen (Tylenol Tab) 650 mg Q4H PRN PO 03/16/16 11:00 04/15/16 10:59 Nitroglycerin (Nitrostat Tab) 0.4 mg UD PRN SL 03/16/16 11:00 04/15/16 10:59 Al Hydrox/Mg Hydrox/Simethicone (Maalox Max Susp) 15 ml Q4H PRN PO 03/16/16 11:00 04/15/16 10:59 Magnesium Hydroxide (Milk Of Magnesia Susp) 30 ml Q12H PRN PO 03/16/16 11:00 04/15/16 10:59 Ipratropium [place] (Atrovent 0.02% 0.5MG/2.5ML Neb) 0.5 mg QIDR INH 03/16/16 16:00 04/15/16 15:59 Future Hold Albuterol/ Ipratropium (Duoneb) 3 ml Q6H PRN INH 03/16/16 11:30 04/15/16 11:29 Glucose (Glucose 40% Gel) 15-30 GRAMS 15 GRAMS... UD PRN PO 03/16/16 13:00 04/15/16 12:59 Glucose (Glucose Chew Tab) 4-8 Tablets 4 Tabl... UD PRN PO 03/16/16 13:00 04/15/16 12:59 Dextrose (Dextrose 50% 50ML Syringe) 25-50ML OF 50% DW IV FOR... UD PRN IV 03/16/16 13:00 04/15/16 12:59 Glucagon (Glucagon Inj) 1 mg UD PRN SQ 03/16/16 13:00 04/15/16 12:59 Ipratropium [place] (Atrovent Hfa Inhaler) 4 puffs QIDR INH 03/16/16 16:00 04/15/16 15:59 03/20/16 07:49 4 PUFFS Fentanyl Citrate (Fentanyl Inj) 50 mcg Q1H PRN IV 03/16/16 14:45 03/30/16 14:44 03/19/16 22:52 50 MCG Ioversol (Optiray 320) 100 ml UD PRN IV 03/16/16 15:30 03/20/16 15:29 Hydralazine HCl 10 mg 10 mg Q4 PRN IV. 03/16/16 18:15 04/15/16 18:14 03/20/16 00:04 10 MG Famotidine/ Dextrose (Pepcid IV Inj/ D5 100ml) 102 ml @ 200 mls/hr Q12H IV 03/17/16 12:00 04/16/16 11:59 03/19/16 23:58 200 MLS/HR Propofol (Diprivan Iv Emulsion 100ml Vial) 1 dose UD PRN IV 03/17/16 00:03 03/23/16 00:02 03/20/16 05:59 1 DOSE Prednisone (PredniSONE TAB) 5 mg DAILY PO 03/17/16 09:00 04/16/16 08:59 03/20/16 09:05 5 MG Miscellaneous Information (Consult Glycemic Management Pharmacy) 1 ea UD PRN N/A 03/17/16 09:30 04/16/16 09:29 Enteral Nutritional Formula (Peptamen Intense VHP) 1,000 ml UD OG 03/17/16 10:30 04/16/16 10:29 03/20/16 03:40 1,000 ML Insulin Human Regular (novoLIN-R) SLIDING SCALE Q6 SC 03/18/16 08:00 04/17/16 07:59 03/19/16 18:27 3 UNITS Senna (Senokot Syrup) 8.8 mg DAILY PO 03/19/16 09:00 04/18/16 08:59 03/20/16 09:05 8.8 MG Docusate Sodium (coLACE SYRUP) 100 mg BID PO 03/18/16 21:00 04/17/16 20:59 03/20/16 09:05 100 MG Heparin Sodium (Porcine) (Heparin Sq 5000 Unit/0.5ml) 5,000 unit BID SQ 03/18/16 21:00 04/17/16 20:59 03/20/16 09:06 5,000 UNIT Insulin Glargine (Lantus Solostar Pen) 10 unit QAM SC 03/19/16 09:10 04/18/16 09:09 03/20/16 09:06 10 UNIT Insulin Human Regular 2 units 2 units Q6 SC 03/19/16 18:00 04/18/16 17:59 03/20/16 05:58 2 UNITS Potassium Chloride/Prmx (Kcl 10 Meq / Wtr/Premixed Water) 100 ml @ 100 mls/hr Q1H IV 03/20/16 09:00 03/20/16 12:59 03/20/16 10:31 100 MLS/HR I & O: 24-Hour Column 03/20/16 08:00 Intake Total 1795 ml Output Total 2800 ml Balance -1005 ml Vital Signs: Date Time Temp Pulse Resp B/P Pulse Ox O2 Delivery O2 Flow Rate FiO2 03/20/16 07:35 24 03/20/16 06:00 37.1 64 12 171/68 99 168/50 03/20/16 05:10 24 03/20/16 04:00 Mechanical Ventilator 24 03/20/16 04:00 24 03/20/16 04:00 37.2 70 12 178/65 100 171/53 03/20/16 02:21 24 03/20/16 02:00 37.0 69 12 140/70 100 03/20/16 01:30 36.9 68 12 190/49 100 03/20/16 01:00 36.9 68 12 175/66 100 182/49 03/20/16 00:30 36.9 68 14 169/46 100 03/20/16 00:01 37.1 66 12 191/70 100 201/61 03/19/16 23:59 24 03/19/16 23:59 Mechanical Ventilator 24 03/19/16 23:30 37.3 66 14 180/80 99 03/19/16 23:10 24 03/19/16 22:30 37.3 60 12 170/53 99 03/19/16 22:15 37.3 62 14 177/54 99 03/19/16 22:00 37.4 63 24 173/63 99 03/19/16 22:00 37.4 63 14 175/55 99 03/19/16 21:58 37.4 61 14 173/63 99 156/49 03/19/16 21:30 37.4 60 14 168/52 99 03/19/16 21:00 37.4 62 24 164/55 99 03/19/16 21:00 37.4 61 24 148/60 99 03/19/16 21:00 37.4 62 14 164/55 99 03/19/16 20:58 37.4 59 24 148/60 99 157/35 03/19/16 20:40 37.4 62 24 154/49 99 03/19/16 20:30 37.4 60 24 166/54 99 03/19/16 20:25 37.4 61 24 151/64 99 03/19/16 20:10 37.4 63 24 151/64 99 03/19/16 20:07 24 03/19/16 20:00 24 03/19/16 20:00 37.4 64 24 151/64 99 165/54 03/19/16 20:00 Mechanical Ventilator 03/19/16 18:58 37.4 72 0 213/74 97 220/69 03/19/16 18:00 37.3 62 0 99 180/57 03/19/16 17:58 37.3 60 0 178/67 99 50/41 03/19/16 17:57 24 03/19/16 17:00 37.2 64 0 99 178/60 03/19/16 16:58 37.2 65 0 171/63 57/43 03/19/16 16:45 37.2 63 0 99 176/59 03/19/16 16:30 37.2 64 0 99 183/61 03/19/16 16:15 37.2 65 0 99 170/56 03/19/16 16:00 37.2 65 0 99 179/58 03/19/16 16:00 24 03/19/16 16:00 99 Mechanical Ventilator 03/19/16 15:58 37.2 65 0 174/66 40/31 03/19/16 15:45 37.1 65 0 99 174/56 03/19/16 15:31 60 14 99 Mechanical Ventilator 03/19/16 15:30 37.1 66 0 99 184/59 03/19/16 15:15 37.1 66 0 99 191/62 03/19/16 15:00 37.0 70 0 100 200/68 03/19/16 14:06 24 03/19/16 14:00 37.1 57 0 155/63 100 156/55 03/19/16 13:00 37.1 57 0 155/63 100 156/55 03/19/16 12:58 37.1 57 0 155/63 100 156/55 03/19/16 12:00 37.1 59 0 98 145/44 03/19/16 12:00 99 Mechanical Ventilator 03/19/16 12:00 24 03/19/16 11:58 37.1 58 0 141/53 53/33 03/19/16 11:17 24 03/19/16 11:00 37.0 60 0 100 167/51 03/19/16 10:58 37.0 61 0 162/63 42/34 Laboratory Results: Last 24 Hours Test 03/19/16 12:07 03/19/16 18:23 03/20/16 05:48 03/20/16 07:05 Bedside Glucose 239 mg/dl 224 mg/dl 154 mg/dl Sodium Level 137 mmol/L Potassium Level 3.6 mmol/L Chloride Level 101 mmol/L Carbon Dioxide Level 26 mmol/L Anion Gap 10.0 mmol/L Blood Urea Nitrogen 47 mg/dl Creatinine 0.93 mg/dl Est Creatinine Clear Calc Drug Dose 31.5 ml/min Estimated GFR () 63.6 Estimated GFR (Non- 54.9 BUN/Creatinine Ratio 50.1 Random Glucose 141 mg/dl Calcium Level 8.2 mg/dl Problem Qualifiers (1) Angioedema: Encounter type: initial encounter Qualified Codes: T78.3XXA - Angioneurotic edema, initial encounter
--- NOTE | 2016-03-20 10:51 | Critical Care Progress Note ---
Critical Care Progress Note Date of Service Mar 18, 2016. Delayed chart entry ICU Day ICU Day Number: [address] Goldsmith Subjective Intubated sedated Objective General: RASS -3 Cardiovascular S1-S2 Lungs clear to auscultation Abdomen: Soft nontender nondistended Extremities: Slight peripheral edema HEENT: Continued upper airway edema. Assessment & Plan (1) Acute airway obstruction (2) Angioedema Sent C4 level, quantitative C1 inhibitor, functional C1 inhibitor, C3 Give 3 doses of Solu-Medrol, if true angioedema, has not responded steroids unlikely to be effective and will only induce hyperglycemia Possible reported history of cardiac disease, will not give epinephrine, as airway now secure an only risk cardiac ischemia Continue Benadryl 50 mg every 12 for the next 2 days and Pepcid twice a day Propofol sedation with the goal RASS of -3 until angioedema resolves (3) JACOB (acute kidney injury) (4) DM type 2 (diabetes mellitus, type 2) (5) Hyponatremia (6) Hypomagnesemia (7) Ulcers of both lower extremities (8) Normocytic anemia Continue supportive care. In discussion with patient's power of garden worker, her sister will continue supportive care and hold off blood product administration at this time. I have personally spent 30 minutes of critical care time in the direct management of this patient. This is a life/limb threatening event. This includes time spent evaluating patient, direct bedside care, chart review, placing orders, interpretation of diagnostic studies, discussion with consultants, patient, and family members, as well as other required patient management activities. This time is exclusive of all separately billable procedures, and teaching time and separate from and in addition to any other critical care service time. Data Medications: Current Inpatient Medications Medications (Trade) Dose Ordered Sig/Remy Route Start Time Stop Time Status Last Admin Dose Admin Acetaminophen (Tylenol Tab) 650 mg Q4H PRN PO 03/16/16 11:00 04/15/16 10:59 Nitroglycerin (Nitrostat Tab) 0.4 mg UD PRN SL 03/16/16 11:00 04/15/16 10:59 Al Hydrox/Mg Hydrox/Simethicone (Maalox Max Susp) 15 ml Q4H PRN PO 03/16/16 11:00 04/15/16 10:59 Magnesium Hydroxide (Milk Of Magnesia Susp) 30 ml Q12H PRN PO 03/16/16 11:00 04/15/16 10:59 Ipratropium [place] (Atrovent 0.02% 0.5MG/2.5ML Neb) 0.5 mg QIDR INH 03/16/16 16:00 04/15/16 15:59 Future Hold Albuterol/ Ipratropium (Duoneb) 3 ml Q6H PRN INH 03/16/16 11:30 04/15/16 11:29 Glucose (Glucose 40% Gel) 15-30 GRAMS 15 GRAMS... UD PRN PO 03/16/16 13:00 04/15/16 12:59 Glucose (Glucose Chew Tab) 4-8 Tablets 4 Tabl... UD PRN PO 03/16/16 13:00 04/15/16 12:59 Dextrose (Dextrose 50% 50ML Syringe) 25-50ML OF 50% DW IV FOR... UD PRN IV 03/16/16 13:00 04/15/16 12:59 Glucagon (Glucagon Inj) 1 mg UD PRN SQ 03/16/16 13:00 04/15/16 12:59 Ipratropium [place] (Atrovent Hfa Inhaler) 4 puffs QIDR INH 03/16/16 16:00 04/15/16 15:59 03/20/16 07:49 4 PUFFS Fentanyl Citrate (Fentanyl Inj) 50 mcg Q1H PRN IV 03/16/16 14:45 03/30/16 14:44 03/19/16 22:52 50 MCG Ioversol (Optiray 320) 100 ml UD PRN IV 03/16/16 15:30 03/20/16 15:29 Hydralazine HCl 10 mg 10 mg Q4 PRN IV. 03/16/16 18:15 04/15/16 18:14 03/20/16 00:04 10 MG Famotidine/ Dextrose (Pepcid IV Inj/ D5 100ml) 102 ml @ 200 mls/hr Q12H IV 03/17/16 12:00 04/16/16 11:59 03/19/16 23:58 200 MLS/HR Propofol (Diprivan Iv Emulsion 100ml Vial) 1 dose UD PRN IV 03/17/16 00:03 03/23/16 00:02 03/20/16 05:59 1 DOSE Prednisone (PredniSONE TAB) 5 mg DAILY PO 03/17/16 09:00 04/16/16 08:59 03/20/16 09:05 5 MG Miscellaneous Information (Consult Glycemic Management Pharmacy) 1 ea UD PRN N/A 03/17/16 09:30 04/16/16 09:29 Enteral Nutritional Formula (Peptamen Intense VHP) 1,000 ml UD OG 03/17/16 10:30 04/16/16 10:29 03/20/16 03:40 1,000 ML Insulin Human Regular (novoLIN-R) SLIDING SCALE Q6 SC 03/18/16 08:00 04/17/16 07:59 03/19/16 18:27 3 UNITS Senna (Senokot Syrup) 8.8 mg DAILY PO 03/19/16 09:00 04/18/16 08:59 03/20/16 09:05 8.8 MG Docusate Sodium (coLACE SYRUP) 100 mg BID PO 03/18/16 21:00 04/17/16 20:59 03/20/16 09:05 100 MG Heparin Sodium (Porcine) (Heparin Sq 5000 Unit/0.5ml) 5,000 unit BID SQ 03/18/16 21:00 04/17/16 20:59 03/20/16 09:06 5,000 UNIT Insulin Glargine (Lantus Solostar Pen) 10 unit QAM SC 03/19/16 09:10 04/18/16 09:09 03/20/16 09:06 10 UNIT Insulin Human Regular 2 units 2 units Q6 SC 03/19/16 18:00 04/18/16 17:59 03/20/16 05:58 2 UNITS Potassium Chloride/Prmx (Kcl 10 Meq / Wtr/Premixed Water) 100 ml @ 100 mls/hr Q1H IV 03/20/16 09:00 03/20/16 12:59 03/20/16 10:31 100 MLS/HR I & O: 24-Hour Column 03/20/16 08:00 Intake Total 1795 ml Output Total 2800 ml Balance -1005 ml Vital Signs: Date Time Temp Pulse Resp B/P Pulse Ox O2 Delivery O2 Flow Rate FiO2 03/20/16 07:35 24 03/20/16 06:00 37.1 64 12 171/68 99 168/50 03/20/16 05:10 24 03/20/16 04:00 Mechanical Ventilator 24 03/20/16 04:00 24 03/20/16 04:00 37.2 70 12 178/65 100 171/53 03/20/16 02:21 24 03/20/16 02:00 37.0 69 12 140/70 100 03/20/16 01:30 36.9 68 12 190/49 100 03/20/16 01:00 36.9 68 12 175/66 100 182/49 03/20/16 00:30 36.9 68 14 169/46 100 03/20/16 00:01 37.1 66 12 191/70 100 201/61 03/19/16 23:59 24 03/19/16 23:59 Mechanical Ventilator 24 03/19/16 23:30 37.3 66 14 180/80 99 03/19/16 23:10 24 03/19/16 22:30 37.3 60 12 170/53 99 03/19/16 22:15 37.3 62 14 177/54 99 03/19/16 22:00 37.4 63 24 173/63 99 03/19/16 22:00 37.4 63 14 175/55 99 03/19/16 21:58 37.4 61 14 173/63 99 156/49 03/19/16 21:30 37.4 60 14 168/52 99 03/19/16 21:00 37.4 62 24 164/55 99 03/19/16 21:00 37.4 61 24 148/60 99 03/19/16 21:00 37.4 62 14 164/55 99 03/19/16 20:58 37.4 59 24 148/60 99 157/35 03/19/16 20:40 37.4 62 24 154/49 99 03/19/16 20:30 37.4 60 24 166/54 99 03/19/16 20:25 37.4 61 24 151/64 99 03/19/16 20:10 37.4 63 24 151/64 99 03/19/16 20:07 24 03/19/16 20:00 24 03/19/16 20:00 37.4 64 24 151/64 99 165/54 03/19/16 20:00 Mechanical Ventilator 03/19/16 18:58 37.4 72 0 213/74 97 220/69 03/19/16 18:00 37.3 62 0 99 180/57 03/19/16 17:58 37.3 60 0 178/67 99 50/41 03/19/16 17:57 24 03/19/16 17:00 37.2 64 0 99 178/60 03/19/16 16:58 37.2 65 0 171/63 57/43 03/19/16 16:45 37.2 63 0 99 176/59 03/19/16 16:30 37.2 64 0 99 183/61 03/19/16 16:15 37.2 65 0 99 170/56 03/19/16 16:00 37.2 65 0 99 179/58 03/19/16 16:00 24 03/19/16 16:00 99 Mechanical Ventilator 24 03/19/16 15:58 37.2 65 0 174/66 40/31 03/19/16 15:45 37.1 65 0 99 174/56 03/19/16 15:31 60 14 99 Mechanical Ventilator 03/19/16 15:30 37.1 66 0 99 184/59 03/19/16 15:15 37.1 66 0 99 191/62 03/19/16 15:00 37.0 70 0 100 200/68 03/19/16 14:06 24 03/19/16 14:00 37.1 57 0 155/63 100 156/55 03/19/16 13:00 37.1 57 0 155/63 100 156/55 03/19/16 12:58 37.1 57 0 155/63 100 156/55 03/19/16 12:00 37.1 59 0 98 145/44 03/19/16 12:00 99 Mechanical Ventilator 03/19/16 12:00 24 03/19/16 11:58 37.1 58 0 141/53 53/33 03/19/16 11:17 24 03/19/16 11:00 37.0 60 0 100 167/51 03/19/16 10:58 37.0 61 0 162/63 42/34 Laboratory Results: Last 24 Hours Test 03/19/16 12:07 03/19/16 18:23 03/20/16 05:48 03/20/16 07:05 Bedside Glucose 239 mg/dl 224 mg/dl 154 mg/dl Sodium Level 137 mmol/L Potassium Level 3.6 mmol/L Chloride Level 101 mmol/L Carbon Dioxide Level 26 mmol/L Anion Gap 10.0 mmol/L Blood Urea Nitrogen 47 mg/dl Creatinine 0.93 mg/dl Est Creatinine Clear Calc Drug Dose 31.5 ml/min Estimated GFR () 63.6 Estimated GFR (Non- 54.9 BUN/Creatinine Ratio 50.1 Random Glucose 141 mg/dl Calcium Level 8.2 mg/dl Problem Qualifiers (1) Angioedema: Encounter type: initial encounter Qualified Codes: T78.3XXA - Angioneurotic edema, initial encounter
--- NOTE | 2016-03-20 10:57 | Critical Care Progress Note ---
Critical Care Progress Note Date of Service Mar 20, 2016. ICU Day ICU Day Number: [address] Goldsmith Objective General: RASS -3 Cardiovascular S1-S2 Lungs clear to auscultation Abdomen: Soft nontender nondistended Extremities: Slight peripheral edema HEENT: Continued upper airway edema. Assessment & Plan (1) Acute airway obstruction (2) Angioedema - Complement C3 within normal limits, C4 within normal limits - Unlikely to represent hereditary angioedema type I or type II, still cannot exclude hereditary angioedema type III - Unlikely to reviewed represent acquired angioedema type I or type II with normal C4 levels - Differential still includes DEBBIE inhibitor-induced angioedema and allergic/ immunologic angioedema. - May benefit from formal allergy evaluation - Given that leading diagnosis is allergic or immunologic angioedema patient should be discharged with epi-pen, may consider EpiPen Jr if patient has significant cardiovascular risk factors - Direct laryngoscopy today revealed decreased upper airway edema, we'll proceed with spontaneous waking trial spontaneous breathing trial (3) JACOB (acute kidney injury) Decreased patient's creatinine, we'll continue with diuresis in effort to decrease total body edema (4) DM type 2 (diabetes mellitus, type 2) On insulin protocol (5) Hyponatremia (6) Hypomagnesemia (7) Ulcers of both lower extremities (8) Normocytic anemia Spontaneous awakening child spontaneous breathing trial today, hopeful to extubate patient today. - Definitive decrease in upper airway edema today when compared to yesterday. 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 - Confounding factor is a patient had definitive decrease in edema today when compared to yesterday and this is after the administration of 2 units of FFP. - Still unsure of exact etiology of angioedema I have personally spent 45 minutes of critical care time in the direct management of this patient. This is a life/limb threatening event. This includes time spent evaluating patient, direct bedside care, chart review, placing orders, interpretation of diagnostic studies, discussion with consultants, patient, and family members, as well as other required patient management activities. This time is exclusive of all separately billable procedures, and teaching time and separate from and in addition to any other critical care service time. Data Medications: Current Inpatient Medications Medications (Trade) Dose Ordered Sig/Remy Route Start Time Stop Time Status Last Admin Dose Admin Acetaminophen (Tylenol Tab) 650 mg Q4H PRN PO 03/16/16 11:00 04/15/16 10:59 Nitroglycerin (Nitrostat Tab) 0.4 mg UD PRN SL 03/16/16 11:00 04/15/16 10:59 Al Hydrox/Mg Hydrox/Simethicone (Maalox Max Susp) 15 ml Q4H PRN PO 03/16/16 11:00 04/15/16 10:59 Magnesium Hydroxide (Milk Of Magnesia Susp) 30 ml Q12H PRN PO 03/16/16 11:00 04/15/16 10:59 Ipratropium [place] (Atrovent 0.02% 0.5MG/2.5ML Neb) 0.5 mg QIDR INH 03/16/16 16:00 04/15/16 15:59 Future Hold Albuterol/ Ipratropium (Duoneb) 3 ml Q6H PRN INH 03/16/16 11:30 04/15/16 11:29 Glucose (Glucose 40% Gel) 15-30 GRAMS 15 GRAMS... UD PRN PO 03/16/16 13:00 04/15/16 12:59 Glucose (Glucose Chew Tab) 4-8 Tablets 4 Tabl... UD PRN PO 03/16/16 13:00 04/15/16 12:59 Dextrose (Dextrose 50% 50ML Syringe) 25-50ML OF 50% DW IV FOR... UD PRN IV 03/16/16 13:00 04/15/16 12:59 Glucagon (Glucagon Inj) 1 mg UD PRN SQ 03/16/16 13:00 04/15/16 12:59 Ipratropium [place] (Atrovent Hfa Inhaler) 4 puffs QIDR INH 03/16/16 16:00 04/15/16 15:59 03/20/16 07:49 4 PUFFS Fentanyl Citrate (Fentanyl Inj) 50 mcg Q1H PRN IV 03/16/16 14:45 03/30/16 14:44 03/19/16 22:52 50 MCG Ioversol (Optiray 320) 100 ml UD PRN IV 03/16/16 15:30 03/20/16 15:29 Hydralazine HCl 10 mg 10 mg Q4 PRN IV. 03/16/16 18:15 04/15/16 18:14 03/20/16 00:04 10 MG Famotidine/ Dextrose (Pepcid IV Inj/ D5 100ml) 102 ml @ 200 mls/hr Q12H IV 03/17/16 12:00 04/16/16 11:59 03/19/16 23:58 200 MLS/HR Propofol (Diprivan Iv Emulsion 100ml Vial) 1 dose UD PRN IV 03/17/16 00:03 03/23/16 00:02 03/20/16 05:59 1 DOSE Prednisone (PredniSONE TAB) 5 mg DAILY PO 03/17/16 09:00 04/16/16 08:59 03/20/16 09:05 5 MG Miscellaneous Information (Consult Glycemic Management Pharmacy) 1 ea UD PRN N/A 03/17/16 09:30 04/16/16 09:29 Enteral Nutritional Formula (Peptamen Intense VHP) 1,000 ml UD OG 03/17/16 10:30 04/16/16 10:29 03/20/16 03:40 1,000 ML Insulin Human Regular (novoLIN-R) SLIDING SCALE Q6 SC 03/18/16 08:00 04/17/16 07:59 03/19/16 18:27 3 UNITS Senna (Senokot Syrup) 8.8 mg DAILY PO 03/19/16 09:00 04/18/16 08:59 03/20/16 09:05 8.8 MG Docusate Sodium (coLACE SYRUP) 100 mg BID PO 03/18/16 21:00 04/17/16 20:59 03/20/16 09:05 100 MG Heparin Sodium (Porcine) (Heparin Sq 5000 Unit/0.5ml) 5,000 unit BID SQ 03/18/16 21:00 04/17/16 20:59 03/20/16 09:06 5,000 UNIT Insulin Glargine (Lantus Solostar Pen) 10 unit QAM SC 03/19/16 09:10 04/18/16 09:09 03/20/16 09:06 10 UNIT Insulin Human Regular 2 units 2 units Q6 SC 03/19/16 18:00 04/18/16 17:59 03/20/16 05:58 2 UNITS Potassium Chloride/Prmx (Kcl 10 Meq / Wtr/Premixed Water) 100 ml @ 100 mls/hr Q1H IV 03/20/16 09:00 03/20/16 12:59 03/20/16 10:31 100 MLS/HR I & O: 24-Hour Column 03/20/16 08:00 Intake Total 1795 ml Output Total 2800 ml Balance -1005 ml Vital Signs: Date Time Temp Pulse Resp B/P Pulse Ox O2 Delivery O2 Flow Rate FiO2 03/20/16 07:35 24 03/20/16 06:00 37.1 64 12 171/68 99 168/50 03/20/16 05:10 24 03/20/16 04:00 Mechanical Ventilator 24 03/20/16 04:00 24 03/20/16 04:00 37.2 70 12 178/65 100 171/53 03/20/16 02:21 24 03/20/16 02:00 37.0 69 12 140/70 100 03/20/16 01:30 36.9 68 12 190/49 100 03/20/16 01:00 36.9 68 12 175/66 100 182/49 03/20/16 00:30 36.9 68 14 169/46 100 03/20/16 00:01 37.1 66 12 191/70 100 201/61 03/19/16 23:59 24 03/19/16 23:59 Mechanical Ventilator 24 03/19/16 23:30 37.3 66 14 180/80 99 03/19/16 23:10 24 03/19/16 22:30 37.3 60 12 170/53 99 03/19/16 22:15 37.3 62 14 177/54 99 03/19/16 22:00 37.4 63 24 173/63 99 03/19/16 22:00 37.4 63 14 175/55 99 03/19/16 21:58 37.4 61 14 173/63 99 156/49 03/19/16 21:30 37.4 60 14 168/52 99 03/19/16 21:00 37.4 62 24 164/55 99 03/19/16 21:00 37.4 61 24 148/60 99 03/19/16 21:00 37.4 62 14 164/55 99 03/19/16 20:58 37.4 59 24 148/60 99 157/35 03/19/16 20:40 37.4 62 24 154/49 99 03/19/16 20:30 37.4 60 24 166/54 99 03/19/16 20:25 37.4 61 24 151/64 99 03/19/16 20:10 37.4 63 24 151/64 99 03/19/16 20:07 24 03/19/16 20:00 24 03/19/16 20:00 37.4 64 24 151/64 99 165/54 03/19/16 20:00 Mechanical Ventilator 03/19/16 18:58 37.4 72 0 213/74 97 220/69 03/19/16 18:00 37.3 62 0 99 180/57 03/19/16 17:58 37.3 60 0 178/67 99 50/41 03/19/16 17:57 24 03/19/16 17:00 37.2 64 0 99 178/60 03/19/16 16:58 37.2 65 0 171/63 57/43 03/19/16 16:45 37.2 63 0 99 176/59 03/19/16 16:30 37.2 64 0 99 183/61 03/19/16 16:15 37.2 65 0 99 170/56 03/19/16 16:00 37.2 65 0 99 179/58 03/19/16 16:00 24 03/19/16 16:00 99 Mechanical Ventilator 03/19/16 15:58 37.2 65 0 174/66 40/31 03/19/16 15:45 37.1 65 0 99 174/56 03/19/16 15:31 60 14 99 Mechanical Ventilator 03/19/16 15:30 37.1 66 0 99 184/59 03/19/16 15:15 37.1 66 0 99 191/62 03/19/16 15:00 37.0 70 0 100 200/68 03/19/16 14:06 24 03/19/16 14:00 37.1 57 0 155/63 100 156/55 03/19/16 13:00 37.1 57 0 155/63 100 156/55 03/19/16 12:58 37.1 57 0 155/63 100 156/55 03/19/16 12:00 37.1 59 0 98 145/44 03/19/16 12:00 99 Mechanical Ventilator 24 03/19/16 12:00 24 03/19/16 11:58 37.1 58 0 141/53 53/33 03/19/16 11:17 24 03/19/16 11:00 37.0 60 0 100 167/51 03/19/16 10:58 37.0 61 0 162/63 42/34 Laboratory Results: Last 24 Hours Test 03/19/16 12:07 03/19/16 18:23 03/20/16 05:48 03/20/16 07:05 Bedside Glucose 239 mg/dl 224 mg/dl 154 mg/dl Sodium Level 137 mmol/L Potassium Level 3.6 mmol/L Chloride Level 101 mmol/L Carbon Dioxide Level 26 mmol/L Anion Gap 10.0 mmol/L Blood Urea Nitrogen 47 mg/dl Creatinine 0.93 mg/dl Est Creatinine Clear Calc Drug Dose 31.5 ml/min Estimated GFR () 63.6 Estimated GFR (Non- 54.9 BUN/Creatinine Ratio 50.1 Random Glucose 141 mg/dl Calcium Level 8.2 mg/dl Problem Qualifiers (1) Angioedema: Encounter type: initial encounter Qualified Codes: T78.3XXA - Angioneurotic edema, initial encounter
[2016-03-20] MEDS: FAMOTIDINE IV INJ 20 MG in DEXTROSE 5% 100ML 100 ML IV SCH ×2 (12:45→23:55)
[2016-03-20] MEDS: ACETAMINOPHEN 325 MG TAB PO PRN ×2 (12:53→22:11)
[2016-03-20] MEDS ORDERED: IPRATROPIUM BROMIDE HFA INHALER INH PRN (14:00)
--- NOTE | 2016-03-20 14:09 | Pharmacy Progress Note ---
Glycemic Control: Progress Nt Date of Service Mar 20, 2016. Scope Glycemic Pharmacist consulted by Dr Goldsmith on 03/17/16 for glycemic control and to write orders per [facility] inpatient glycemic control protocol. Objective Accuchecks BSG (last 24hrs): Test 03/19/16 18:23 03/20/16 05:48 03/20/16 07:05 03/20/16 12:47 Bedside Glucose 224 mg/dl (70-90) 154 mg/dl (70-90) 160 mg/dl (70-90) Random Glucose 141 mg/dl (70-99) Laboratory Data (last 24hrs) Test 03/20/16 07:05 Anion Gap 10.0 mmol/L BUN/Creatinine Ratio 50.1 Blood Urea Nitrogen 47 mg/dl Creatinine 0.93 mg/dl Potassium Level 3.6 mmol/L Sodium Level 137 mmol/L HbA1c: 8.5% on 02/23/16 Recent Pertinent Medications Outpatient Anti-diabetic Regimen: * Lantus 8 units SQ daily * NovoLog sliding scale (around 0-16 units per day) * Correction factor: ~8mg/dL/unit * Goal <150mg/dL * A1c = 8.5 % 02/23/16 The patient is currently receiving: * Basal insulin: Lantus 10 units every 24 hours given in the morning * Correctional Insulin: Regular Insulin Correction per scale ACHS Goal Range: Low 140 mg/dL - High 180 mg/dL Correction Factor: 15 mg/dL/unit * Prandial insulin: 2 units of Regular insulin Q 6hrs to cover CHO in continuous tube feedings with Peptamen @ 35ml/hr Risk Factors for Insulin Resistance: * Steroids * Dextrose IVF * Diet/tube feedings Assessment & Plan ASSESSMENT: * 89yo T2DM female with adequate degree of outpatient glycemic control per recent A1c based on age and co-morbidities * Daily insulin requiring has been changing daily based on steroid dosing, continuous tube feedings rate, stressors, etc. * Patient is currently receiving basal insulin, prandial insulin [per scheduled fixed dosing of regular insulin] to cover CHO in continuous tube feedings, + correctional insulin for stress hyperglycemia. * Steroids tapered today, solumedrol d/c'ed yesterday; therefore, basal + prandial insulin were empirically decreased in anticipation of improvement in BSGs. * Pt extubated today and tube feeds now on hold. * Discussed plan with nursing. No changes needed today. Prandial coverage will be held when tube feedings on hold. Basal insulin is currently dosed near outpatient dosing but slightly adjusted upwards for increased stress. * Pharmacy will continue to evaluate patient daily and titrate insulin according to BSG trends * ADA & AACE recommend a goal blood sugar range 140-180 mg/dl for the majority of critically ill & non-critically ill patients. However, more stringent targets may be selected in individual cases. PLAN FOR INPATIENT GLYCEMIC CONTROL: * Hold outpatient oral diabetes medications * Continue Basal insulin with LANTUS 10 units SQ Daily in the morning * Administer 1/2 dose if BSG < 120 mg/dl * Continue Correctional Insulin with REGULAR per scale ACHS or Q6hrs while NPO * Goal Range: Low 140 mg/dL - High 180 mg/dL * Correction Factor: 15 mg/dL/unit * Continue Nutritional / Prandial insulin with Regular insulin 2 units SQ Q6hrs to cover CHO in continuous tube feedings with peptamen @ 35ml/hr. This will be held while tube feeds are on hold. * Please note that the plan above was derived based on current level of insulin resistance and hospital stress. These recommendations are appropriate for inpatient admission only. Plan of care upon discharge will need to be reassessed to avoid potential outpatient hypo/hyperglycemia. Thank you.
--- NOTE | 2016-03-20 14:55 | Family Medicine Progress Note ---
Progress Note Date of Service Mar 20, 2016. Subjective Patient sedated and intubated. No history or ROS elicited. Objective Vital Signs Date Time Temp Pulse Resp B/P Pulse Ox O2 Delivery O2 Flow Rate FiO2 03/20/16 15:07 87 27 95 Nasal Cannula 2.0 03/20/16 12:00 24 03/20/16 12:00 Mechanical Ventilator 24 03/20/16 11:48 24 03/20/16 08:00 24 03/20/16 08:00 Mechanical Ventilator 03/20/16 07:35 24 03/20/16 06:00 37.1 64 12 171/68 99 168/50 03/20/16 05:10 24 03/20/16 04:00 Mechanical Ventilator 24 03/20/16 04:00 24 03/20/16 04:00 37.2 70 12 178/65 100 171/53 03/20/16 02:21 24 03/20/16 02:00 37.0 69 12 140/70 100 03/20/16 01:30 36.9 68 12 190/49 100 03/20/16 01:00 36.9 68 12 175/66 100 182/49 03/20/16 00:30 36.9 68 14 169/46 100 03/20/16 00:01 37.1 66 12 191/70 100 201/61 03/19/16 23:59 24 03/19/16 23:59 Mechanical Ventilator 03/19/16 23:30 37.3 66 14 180/80 99 03/19/16 23:10 24 03/19/16 22:30 37.3 60 12 170/53 99 03/19/16 22:15 37.3 62 14 177/54 99 03/19/16 22:00 37.4 63 24 173/63 99 03/19/16 22:00 37.4 63 14 175/55 99 03/19/16 21:58 37.4 61 14 173/63 99 156/49 03/19/16 21:30 37.4 60 14 168/52 99 03/19/16 21:00 37.4 62 24 164/55 99 03/19/16 21:00 37.4 61 24 148/60 99 03/19/16 21:00 37.4 62 14 164/55 99 03/19/16 20:58 37.4 59 24 148/60 99 157/35 03/19/16 20:40 37.4 62 24 154/49 99 03/19/16 20:30 37.4 60 24 166/54 99 03/19/16 20:25 37.4 61 24 151/64 99 03/19/16 20:10 37.4 63 24 151/64 99 03/19/16 20:07 24 03/19/16 20:00 24 03/19/16 20:00 37.4 64 24 151/64 99 165/54 03/19/16 20:00 Mechanical Ventilator 03/19/16 18:58 37.4 72 0 213/74 97 220/69 03/19/16 18:00 37.3 62 0 99 180/57 03/19/16 17:58 37.3 60 0 178/67 99 50/41 Physical Exam General Appearance: WD/WN, no apparent distress ENT: + pharyngeal erythema, + pertinent finding (Lips and tongue slightly less puffy than previous day) Neck: supple, no adenopathy Respiratory/Chest: no respiratory distress, no accessory muscle use, + rales, + pertinent finding (intubated) Cardiovascular: regular rate, rhythm Abdomen: normal bowel sounds, non tender, soft, no organomegaly Neurologic/Psychiatric: + pertinent finding Skin: normal color, warm/dry, no rash Laboratory Results Results Past 24 Hours Test 03/19/16 18:23 03/20/16 05:48 03/20/16 07:05 03/20/16 12:47 Range/Units Bedside Glucose 224 154 160 70-90 mg/dl Sodium Level 137 136-145 mmol/L Potassium Level 3.6 3.5-5.1 mmol/L Chloride Level 101 98-107 mmol/L Carbon Dioxide Level 26 21-32 mmol/L Anion Gap 10.0 3-11 mmol/L Blood Urea Nitrogen 47 7-18 mg/dl Creatinine 0.93 0.60-1.20 mg/dl Est Creatinine Clear Calc Drug Dose 31.5 ml/min Estimated GFR () 63.6 Estimated GFR (Non- 54.9 BUN/Creatinine Ratio 50.1 10-20 Random Glucose 141 70-99 mg/dl Calcium Level 8.2 8.5-10.1 mg/dl Test 03/20/16 15:01 Range/Units Blood Gas Sample Site Art Line Bedside Blood Gas pH (LAB) 7.49 7.35-7.45 Bedside Blood Gas pCO2 (LAB) 33 35-46 mmHg Bedside Blood Gas pO2 (LAB) 58 80-95 mmHg Bedside Blood Gas HCO3 (LAB) 25 19-24 meq/L Bedside Blood Gas Total CO2 26 24-31 mEq/l Bedside Blood Gas Base Excess (LAB) 2.0 -9-1.8 meq/L Bedside Blood Gas O2 Saturation 92.0 90-95 % Parvez Test NA Oxygen Delivery Device Cannula Assessment and Plan Vent dependant Respiratory Failure Management as per ICU team. Cause still unclear, ?acquired vs. hereditary angioedema. Patient has had 1-2 ER visits for facial swelling/angioedema in the past. Difficult intubation with pediatric tube. Tongue swelling/edema persists. CT Neck with evidence of oropharyngeal swelling. Influenza negative. Attempting to do a wean trial, ET cuff was deflated and there was an air leak, however, patient still has laryngeal swelling so will wait for swelling to further subside before weaning. Given Solu-Medrol 60mg q8 given initially, currently patient on home daily dose of prednisone 5 mg that sister reports is for her asthma (again denies COPD). Patient given 1 unit of fresh frozen plasma and IV furosemide in attempts to improve edema. Resulted in post transfusion fever. Patient extubated. However gas shows hypoxia without hypercapnia. Ongoing dynamic management overnight - Continue Duoneb, Atrovent, Benadryl and Famotidine - Trace angioedema workup: Complement C3 and C4 levels normal. C1 esterase levels pending Encephalopathy (seen prior to sedation/intubation) Etiologies considered: ?infection vs. CVA, however, no evidence of either. Blood cultures and urinalysis negative. Chest X-ray without evidence of consolidation. Afebrile, no white count, no LFT abnormality. Head CT without evidence of acute CVA - Reassess on waking of patient Electrolyte abnormalities - Continue to monitor Diabetes - Lantus + ISS. 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 Resident Involvement: Resident Care Provided Care Provided: Adult Hospital Medicine History Resident Physician Supervision Note: I was present with Dr. Zavala during the history and exam. I discussed the case with the resident and agree with the findings and plan as documented in the note. Any exceptions or clarifications are listed here. Pt seen and examined at bedside. Presently off ventilatory support but with limited mental status - arousable to voice and touch, not able to answer questions well at this time but not overtly agitated or in pain. General Appearance: other (sedated and disoriented) Eye Exam: bilateral eye EOMI, bilateral eye PERRL Respiratory: chest non-tender, rales (b/l bases, mildly), rhonchi Cardiovascular: normal peripheral pulses, regular rate, rhythm, no murmur, other (trace LE edema) Gastrointestinal: normal bowel sounds, non tender, soft, no organomegaly Assessment/Plan 89 y/o female h/o asthma presents with VDRF 2/2 angioedema VDRF - ICU aware and management appreciated - angioedema of unknown cause - s/p FFP with improvement but depressed mental status at present - monitor end tidal CO2, t/c repeat ABG - increasing O2 demand w/ respiratory alkalosis Fever - likely 2/2 FFP - continue to monitor, on next fever would draw pancultures and start empiric abx Angioedema - f/u C3/4, C1, C1 esterase levels Hyponatremia - stable @ 133, trend BMP DMII - Lantus 10 U, ISS - 6 units coverage today, would consider increasing lantus to 12 units HTN - hydralazine PRN B/L LE wound w/ recent cellulitis - wound care on board CAD - holding statin, would consider avoiding B jose a 2/2 asthma, Imdur GI PPX - [id number] Dispo: Monitor for continued improvement from angioedema, recent fever, will need insulin adjustment
[2016-03-20 15:14] LABS: ISTAT ARTERIAL BLOOD GAS HCO3 25 meq/L (19-24); ISTAT ARTERIAL BLOOD GAS PCO2 33 mmHg (35-46); ISTAT ARTERIAL BLOOD GAS PO2 58 mmHg (80-95); ISTAT ARTERIAL BLOOD GAS pH 7.49 (7.35-7.45); ISTAT CARBON DIOXIDE 26 mEq/l (24-31); ISTAT DELIVERY SYSTEM Cannula; ISTAT SITE Art Line
--- NOTE | 2016-03-20 23:09 | DIAGNOSTIC IMAGING REPORT ---
CHEST ONE VIEW PORTABLE HISTORY: Fever COMPARISON: Chest 03/18/2016. FINDINGS: Endotracheal tube is been removed. Nasogastric tube terminates below the diaphragm. The tip is not included on this study. Mildly distended gas-filled colon. The heart remains enlarged. There are postoperative changes. There is a new patchy airspace opacity within the right lung base. No pneumothorax. No evidence for pulmonary edema. No pleural effusions. Prior cholecystectomy. IMPRESSION: 1. Nasogastric tube terminates below the diaphragm. 2. Interval development of an airspace opacity within the right lower lobe. This likely represents a pneumonia, possibly secondary to aspiration. 3. Cardiomegaly, unchanged. 4. Mildly distended gas-filled colon. Electronically signed by: Sree Gilliam M.D. 03/20/2016 11:07 PM Dictated Date/Time: 03/20/2016 11:05 PM
[2016-03-21] VITALS (23 sets, daily range): BP systolic 129–200; BP diastolic 52–81; PULSE 65–92; TEMP 37.2–38.1; O2SAT 85–97
[2016-03-21] MEDS: INSULIN HUMAN REGULAR SC SCH ×8 (06:00→23:26)
[2016-03-21] MEDS: HydrALAZINE HCL 20 MG/ML VIAL IV. PRN (06:10)
[2016-03-21 08:24] LABS: COMPLETE YES; EOS % 0.3 %; HEMATOCRIT 30.7 % (37-47); IG% 0.1 %; LYMPH % 5.6 %; LYMPH ABS # 0.38 K/uL (1.2-3.4); MEAN CELL VOLUME 84.8 fL (80-100); MEAN CORPUSCULAR HEMOGLOBIN 29.3 pg (25-34); MEAN CORPUSCULAR HGB CONC 34.5 g/dl (32-36); MEAN PLATELET VOLUME 9.6 fL (7.4-10.4); MONO % 11.9 %; NEUT % 82.1 %; PLATELET COUNT 253 K/uL (130-400); RED BLOOD COUNT 3.62 M/uL (4.2-5.4); WHITE BLOOD COUNT 6.75 K/uL (4.8-10.8)
[2016-03-21 08:51] LABS: BUN/CREATININE RATIO 47.4 (10-20); CALCIUM 8.3 mg/dl (8.5-10.1); CREATININE 0.77 mg/dl (0.60-1.20); POTASSIUM 3.6 mmol/L (3.5-5.1)
--- NOTE | 2016-03-21 09:08 | DIAGNOSTIC IMAGING REPORT ---
SINGLE VIEW CHEST CLINICAL HISTORY: Recent extubation. Coarse breath sounds. FINDINGS: An AP, portable, upright chest radiograph is compared to study dated 03/20/16 and correlated with chest CT dated 07/24/2015. The examination is significantly degraded by portable technique and patient rotation. An enteric tube is unchanged in position. The patient is status post midline sternotomy. The heart is enlarged and there is atherosclerotic calcification of the thoracic aorta. The pulmonary vasculature is noncongested. Chronic interstitial thickening is unchanged. There are bibasilar patchy airspace opacities, right greater than left. Small pleural effusions are suspected. No pneumothorax is seen. The skeletal structures are osteopenic. The bony thorax is grossly intact. Cholecystectomy clips are noted. IMPRESSION: 1. There are bibasilar airspace opacities, right greater than left, similar in appearance to yesterday. Although this could represent atelectasis, correlate clinically for evidence of a developing infectious or inflammatory pneumonitis. 2. Cardiomegaly without radiographic evidence of congestive failure. Electronically signed by: Sergio Rizzo M.D. 03/21/2016 9:07 AM Dictated Date/Time: 03/21/2016 9:04 AM
--- NOTE | 2016-03-21 09:46 | Family Medicine Progress Note ---
Progress Note Date of Service Mar 21, 2016. Subjective Pt evaluation today including: conversation w/ patient, physical exam, chart review, lab review, review of studies The patient was seen and examined at bedside. Patient was recently extubated in the ICU. Heparin SQ was discontinued due to bleeding from the nose from the NG tube. According to nurseAngela, who had the patient over the weekend, the pt is more cognitively intact. Patient is not talking, she is able to eye track, she is able to nod yes, she cannot shake her head no. It is difficult to assess pain because the patient is non verbal and has poor communication ability. Pt is definitely alert and sitting upright in bed. Patient currently has an NG. Sawyer catheter is draining yellow urine. Pt has a chest X-ray ordered a few minutes before being seen. Unable to adequately assess a review of systems. Pt is in pain, does not adequately communicate the location of the pain to yes/no questions. Objective Physical Exam General Appearance: + mild distress Eyes: PERRL, + pertinent finding (Can open both eyes to command, at baseline eyes are half open. No facial swelling noted, lips are not swollen. ) ENT: pharynx normal Neck: supple, no adenopathy, no JVD, + pertinent finding (no signs of swelling) Respiratory/Chest: no respiratory distress, no accessory muscle use, + pertinent finding (coarse breath sounds bilaterally. ) Cardiovascular: regular rate, rhythm, no edema, no gallop, no JVD, no murmur Abdomen: normal bowel sounds, non tender, soft Extremities: + pertinent finding (Patient has two areas of cellulitis on the RLE. Patient can lift both arms upwards and has gross motor function intact in the UE bilaterally. ) Neurologic/Psychiatric: alert Skin: warm/dry Assessment and Plan 89F presenting with ventilator dependant respirator failure 2/2 Angioedema of unknown cause (suspect DEBBIE inhibitor use). Patient was at a SNF, sent here by concerns from her sister who believed her sister was in respiratory distress. Pt was intubated in the ER with a pediatric tube. Patient has showed continued clinical improved from facial swelling s/p 1 unit FFP and Solumedrol IV. Patient was extubated on hospital Day #4. Patient is currently on Hospital Day #5. Vent dependant Respiratory Failure 2/2 Angioedema, Acquired vs Hereditary - Pt is extubated with coarse breath sounds, chest X-ray showed clinical stability in breathing, unlikely CHF. - Oxygen saturation is 92% on 2LNC. - c/w Prednisone home dose of 5mg daily (pt is taking this for asthma) - Cc/w Duoneb, Atrovent, Benadryl and Famotidine - Started patient on Zosyn and Vancomycin today for Aspiration. - Sputum culture sent today. - Speech consult unable to assess today. Fever - likely 03/17 FFP - Febrile since Monday morning. - Blood cultures from 03/16/16 showed no growth. - Repeat blood cultures and starting empiric Abx. - Zosyn and Vancomycin today empirically. Encephalopathy (seen prior to sedation/intubation) - Pt has improved cognition according to nurse who has been with her for two days. Head CT without evidence of acute CVA - UA in 03/18 showed possible infection. - Blood cultures negative, no WBC count, possible Aspiration on X-ray. - Started patient on Zosyn for Aspiration. HTN - BP approximately 160/64. - c/w Hydralazine 10mg Q6 PRN + add on Metoprolol 5mg IV Q6H. Angioedema (resolved), unknown cause, suspect DEBBIE - Complement C3 and C4 levels normal. C1 esterase levels pending Bilateral Lower Extremity Wound Cellulitis - Wound Care on Board - optifoam, change q3 days and prn. Diabetes - Lantus + ISS. Monitor BSG with steroids CAD - continue to hold Statin, Held Imdur. GI prophylaxis - Famotidine 29ng IV Q12 DVT prophylaxis - Holding HepSQ due to nasal bleeding. Code: Full code. 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 Resident Involvement: Resident Care Provided Care Provided: Adult Hospital Medicine Reviewed: Pt Seen/Exam by Me History in bed, lethargic. unable to give any history nursing at bedside - denied any new concerns. General Appearance: no apparent distress Respiratory: lungs clear (anteriorly), no respiratory distress Cardiovascular: regular rate, rhythm Neurologic/Psychiatric: other (lethargic) Skin Characteristics: warm/dry Assessment/Plan I have reviewed the medical record and performed a history and physical examination of this patient today. I have discussed the case with Dr. Liang. The above note reflects my findings, conclusions, and recommendations.
[2016-03-21] MEDS: DOCUSATE SODIUM 100 MG/10 ML UDC PO SCH ×2 (10:51→21:35)
[2016-03-21] MEDS: SENNA 8.8 MG/5 ML UDP PO SCH (10:51)
[2016-03-21] MEDS: METOPROLOL TARTRATE 1 MG/ML VIAL IV. SCH ×3 (10:52→21:36)
[2016-03-21] MEDS: INSULIN GLARGINE SOLOSTAR 100 UNITS/ML 3 ML PEN SC SCH (10:56)
[2016-03-21] MEDS: ACETAMINOPHEN 325 MG TAB PO PRN (10:57)
--- NOTE | 2016-03-21 11:00 | Pharmacy Progress Note ---
Glycemic Control: Progress Nt Date of Service Mar 21, 2016. Scope Glycemic Pharmacist consulted by Dr Goldsmith on 03/17/16 for glycemic control and to write orders per [facility] inpatient glycemic control protocol. Objective Accuchecks BSG (last 24hrs): Test 03/20/16 12:47 03/20/16 23:51 03/21/16 08:17 Bedside Glucose 160 mg/dl (70-90) 137 mg/dl (70-90) Random Glucose 125 mg/dl (70-99) Laboratory Data (last 24hrs) Test 03/21/16 08:17 Anion Gap 11.0 mmol/L BUN/Creatinine Ratio 47.4 Blood Urea Nitrogen 37 mg/dl Creatinine 0.77 mg/dl Potassium Level 3.6 mmol/L Sodium Level 135 mmol/L White Blood Count 6.75 K/uL Red Blood Count 3.62 M/uL Hemoglobin 10.6 g/dL Hematocrit 30.7 % Mean Corpuscular Volume 84.8 fL Mean Corpuscular Hemoglobin 29.3 pg Mean Corpuscular Hemoglobin Concent 34.5 g/dl Platelet Count 253 K/uL Mean Platelet Volume 9.6 fL Neutrophils (%) (Auto) 82.1 % Lymphocytes (%) (Auto) 5.6 % Monocytes (%) (Auto) 11.9 % Eosinophils (%) (Auto) 0.3 % Basophils (%) (Auto) 0.0 % Neutrophils # (Auto) 5.54 K/uL Lymphocytes # (Auto) 0.38 K/uL Monocytes # (Auto) 0.80 K/uL Eosinophils # (Auto) 0.02 K/uL Basophils # (Auto) 0.00 K/uL HbA1c: 8.5% 02/23/16 Recent Pertinent Medications Outpatient Anti-diabetic Regimen: * Lantus 8 units daily * Novolog 0-16 units per day * A1c = 8.5 % 02/23/16 The patient is currently receiving: * Basal insulin: Lantus 10 units every 24 hours - dosed in the AM * Correctional Insulin: REGULAR insulin correction per scale Q 6 hours Goal Range: Low 140 mg/dL - High 180 mg/dL Correction Factor: 15 mg/dL/unit * Prandial insulin: 0-2 units of REGULAR insulin SQ Q 6 hours depending on rate of Peptamen Intense tube feeds * Oral Agents: None currently Risk Factors for Insulin Resistance: * Steroids: Prednisone 5 mg PO daily * Diet: will be restarting Peptamen Intense tube feeds this AM Assessment & Plan ASSESSMENT: 03/21/16 * Glycemic control has been acceptable over the last 24 hours; BSGs have fallen in the range of 125-160 * Patient was extubated yesterday afternoon and tube feeds have been off since. BSGs have slowly declined since extubation, down to 125 this AM. However she is to resume tube feeds and I anticipate her BSGs will then begin to climb again. * I plan to continue the same basal insulin rate for the time being, however if tube feeds are not tolerated for whatever reason I will reduce the basal dose further. * I have adjusted the Regular insulin prandial dose to account for tube feeds being restarted at a lower rate than previous. The tube feeds are to restart at 10cc/hr then gradual escalate to the 35cc/hr she was receiving prior to extubation. PLAN FOR INPATIENT GLYCEMIC CONTROL: * Continuing Lantus 10 units SQ Q AM; give 1/2 dose (5 units) if BSG less than 120 * Continuing correction factor of 15 mg/dl/unit * Cover carbs in continuous tube feeds per the following Regular insulin order Q 6 hrs: * Peptamen Intense at 10cc/hr give 0 units * Peptamen Intense at 20cc/hr give 1 unit * Peptamen Intense at 30cc/hr or more, give 2 units * Continuing goal range of Low 140 mg/dL - High 180 mg/dL * Please note that the plan above was derived based on current level of insulin resistance and hospital stress. These recommendations are appropriate for inpatient admission only. Plan of care upon discharge will need to be reassessed to avoid potential outpatient hypo/hyperglycemia. Thank you.
[2016-03-21] MEDS ORDERED: ALBUT/IPRATROP 3MG/0.5MG NEB 3 ML VIAL INH SCH (12:00)
[2016-03-21] MEDS: HydrALAZINE HCL 20 MG/ML VIAL IV. SCH ×2 (12:00→18:43)
[2016-03-21] MEDS ORDERED: PIPERACILL/TAZOBAC IV 3.375 GM in DEXTROSE 5% 100ML 100 ML IV ONE (12:30)
[2016-03-21] MEDS ORDERED: VANCOMYCIN CONSULT ACTIVE PRN (12:45)
[2016-03-21] MEDS ORDERED: ALBUT/IPRATROP 3MG/0.5MG NEB 3 ML VIAL INH PRN (12:45)
[2016-03-21] MEDS ORDERED: PIPERACILL/TAZOBAC CONSULT ACTIVE PRN (12:45)
[2016-03-21] MEDS: ALBUT/IPRATROP 3MG/0.5MG NEB 3 ML VIAL INH SCH ×4 (12:53→23:46)
--- NOTE | 2016-03-21 12:56 | Pharmacy Progress Note ---
Pharmacy Antibiotic Consult Date of Service: Mar 21, 2016. Pharmacy Dosing Scope Pharmacy is consulted to initiate IV VANCOMYCIN and ZOSYN therapy, order appropriate labs and adjust drug dose/frequency. Subjective The patient is a 89 year old female admitted on Mar 16, 2016 at 11:07 for mental status changes, acute respiratory failure and angioedema. She was intubated for a period of time. She has been febrile, lung sounds are coarse, concern for aspiration as well as UTI. Empiric abx therapy to be initiated after patient is cultured. Objective Height (Feet): 5 Height (Inches): 1.00 Weight (Kilograms): 52.900 Lab Results (24hrs): Laboratory Tests Test 03/21/16 08:17 BUN/Creatinine Ratio 47.4 Blood Urea Nitrogen 37 mg/dl Creatinine 0.77 mg/dl White Blood Count 6.75 K/uL Red Blood Count 3.62 M/uL Hemoglobin 10.6 g/dL Hematocrit 30.7 % Mean Corpuscular Volume 84.8 fL Mean Corpuscular Hemoglobin 29.3 pg Mean Corpuscular Hemoglobin Concent 34.5 g/dl Platelet Count 253 K/uL Mean Platelet Volume 9.6 fL Neutrophils (%) (Auto) 82.1 % Lymphocytes (%) (Auto) 5.6 % Monocytes (%) (Auto) 11.9 % Eosinophils (%) (Auto) 0.3 % Basophils (%) (Auto) 0.0 % Neutrophils # (Auto) 5.54 K/uL Lymphocytes # (Auto) 0.38 K/uL Monocytes # (Auto) 0.80 K/uL Eosinophils # (Auto) 0.02 K/uL Basophils # (Auto) 0.00 K/uL Micro Results: 03/16 negative MRSA nares 03/16 BLCX's x 2, no growth to date Assessment & Plan * Empiric ABX started for continued fever, concern for UTI vs aspiration PNX * Temp developed yesterday; Tmax 38.4 yesterday; pt did receive FFP on evening of 03/19 * today's CXR report: bibasilar opacities, R > L, similar to yesterday, could represent atelectasis vs developing infectious or inflammatory pneumonitis * 03/18 UA: 10-30 epis, + LE, however > 30 epis (likely contaminated), but negative for bacteria * VS: patient has been hypertensive today and RR in the 16-22 range * SCr continues to improve each day, likely at baseline now, good U.O. yesterday VANCOMYCIN * Will give ~25mg/kg loading dose x 1 (~1300mg) to quickly achieve a peak conc of ~30-35mcg/mL * Maintenance dose: 850mg (~16mg/kg) IV Q 24 hours * Goal trough: 15-20mcg/mL for treatment of possible pulmonary infxn * Will check trough level w/ 3rd maintenance dose * p'kinetic estimates: half-life ~20 hours; Beau 0.035 hr-1; Vd 0.7L/kg ZOSYN * eCrCl > 20cc/min; BMI 22 * Will initiate Zosyn 3.375gm loading dose over 30min; then begin extended- infusion therapy: 3.375gm IV over 4 hours every 8 hours Pharmacy will continue to follow and will adjust dose/frequency as necessary. Thank you
[2016-03-21] MEDS ORDERED: VANCOMYCIN INJ 1,300 MG in SODIUM CHLORIDE 0.9% 250ML 250 ML IV ONE (13:00)
[2016-03-21] MEDS: FAMOTIDINE IV INJ 20 MG in DEXTROSE 5% 100ML 100 ML IV SCH ×2 (13:15→23:27)
[2016-03-21] MEDS: GUAIFENESIN SUGAR FREE 200 MG/10 ML UDC NG SCH ×3 (13:15→23:27)
[2016-03-21] MEDS: POTASSIUM CHLORIDE INJ 40 MEQ in SODIUM CHLORIDE 0.9% 1000ML 1,000 ML IV SCH (13:16)
--- NOTE | 2016-03-21 16:44 | Critical Care Progress Note ---
Critical Care Progress Note Date of Service Mar 21, 2016. Attending Dr. Bonilla Subjective Patient continues to have copious secretions suctioned. Had small amount of bleeding post NT suction. She is extremely weak, cannot generate and adequate cough. Nasal trumpet inserted Continues to be febrile today Objective General: Lethargic, arousable, tries to follow commands, but is very weak HEENT: Mild tongue swelling, able to see part of the uvula on inspection with the tongue depressors Cardiovascular S1-S2 Lungs: Diffuse b/l rhonchi Abdomen: Soft nontender nondistended Extremities: Few small LE wounds, dressed Assessment & Plan Angioedema Respiratory failure, s/p intubation, extubation Right basilar pneumonia DM2 Asthma/COPD HTN Plan: The patient is at risk for reintubation given weakness, poor cough and significant pulmonary secretions. Has significant bronchitis and faint right basilar infiltrate. Recultured her today, blood and sputum Will start empiric Abx, Zosyn and Vancomycin Add Mucinex Start bronchodilators On chronic prednisone therapy C1 Esterase inhibitor level pending. C4 levels normal. Improvement noticed with FFP transfusion Per medical records, the patient should have been off DEBBIE/ARB, and did not seem to receive it in rehab either Per chart, she had a questionable episode of angioedema in the past BP improving, started on [id number] iv metoprolol and hydralazine. Unable to take PO meds. NPO for the time being, may require reintubation Continue Lantus and RISS DVT prophylaxis: Will hold SC heparin for the time, even though the bleeding seemed "minor", it can complicate her respiratory status Monitor in the ICU, patient in respiratory failure, requires oxygen, is unable to clear the secretions properly, is at high risk for reintubation Data Medications: Current Inpatient Medications Medications (Trade) Dose Ordered Sig/Remy Route Start Time Stop Time Status Last Admin Dose Admin Acetaminophen (Tylenol Tab) 650 mg Q4H PRN PO 03/16/16 11:00 04/15/16 10:59 03/21/16 10:57 650 MG Nitroglycerin (Nitrostat Tab) 0.4 mg UD PRN SL 03/16/16 11:00 04/15/16 10:59 Al Hydrox/Mg Hydrox/Simethicone (Maalox Max Susp) 15 ml Q4H PRN PO 03/16/16 11:00 04/15/16 10:59 Magnesium Hydroxide (Milk Of Magnesia Susp) 30 ml Q12H PRN PO 03/16/16 11:00 04/15/16 10:59 Ipratropium [place] (Atrovent 0.02% 0.5MG/2.5ML Neb) 0.5 mg QIDR INH 03/16/16 16:00 04/15/16 15:59 Future Hold Glucose (Glucose 40% Gel) 15-30 GRAMS 15 GRAMS... UD PRN PO 03/16/16 13:00 04/15/16 12:59 Glucose (Glucose Chew Tab) 4-8 Tablets 4 Tabl... UD PRN PO 03/16/16 13:00 04/15/16 12:59 Dextrose (Dextrose 50% 50ML Syringe) 25-50ML OF 50% DW IV FOR... UD PRN IV 03/16/16 13:00 04/15/16 12:59 Glucagon (Glucagon Inj) 1 mg UD PRN SQ 03/16/16 13:00 04/15/16 12:59 Hydralazine HCl 10 mg 10 mg Q4 PRN IV. 03/16/16 18:15 04/15/16 18:14 03/21/16 06:10 10 MG Famotidine/ Dextrose (Pepcid IV Inj/ D5 100ml) 102 ml @ 200 mls/hr Q12H IV 03/17/16 12:00 04/16/16 11:59 03/21/16 13:15 200 MLS/HR Prednisone (PredniSONE TAB) 5 mg DAILY PO 03/17/16 09:00 04/16/16 08:59 03/21/16 11:00 5 MG Miscellaneous Information (Consult Glycemic Management Pharmacy) 1 ea UD PRN N/A 03/17/16 09:30 04/16/16 09:29 Enteral Nutritional Formula (Peptamen Intense VHP) 1,000 ml UD OG 03/17/16 10:30 04/16/16 10:29 03/20/16 03:40 1,000 ML Insulin Human Regular (novoLIN-R) SLIDING SCALE Q6 SC 03/18/16 08:00 04/17/16 07:59 03/19/16 18:27 3 UNITS Senna (Senokot Syrup) 8.8 mg DAILY PO 03/19/16 09:00 04/18/16 08:59 03/21/16 10:51 8.8 MG Docusate Sodium (coLACE SYRUP) 100 mg BID PO 03/18/16 21:00 04/17/16 20:59 03/21/16 10:51 100 MG Insulin Glargine (Lantus Solostar Pen) 10 unit QAM SC 03/19/16 09:10 04/18/16 09:09 03/21/16 10:56 10 UNIT Ipratropium [place] (Atrovent Hfa Inhaler) 2 puffs QID PRN INH 03/20/16 14:00 04/19/16 13:59 Metoprolol Tartrate (Lopressor Iv) 5 mg Q6H IV. 03/21/16 10:00 04/20/16 09:59 03/21/16 10:52 5 MG Hydralazine HCl (HydrALAZINE INJ) 10 mg Q6 IV. 03/21/16 12:00 04/20/16 11:59 03/21/16 12:00 10 MG Insulin Human Regular -give 0 units if Pepta... Q6 SC 03/21/16 12:00 04/18/16 17:59 Vancomycin HCl/ Sodium Chloride (Vancomycin Inj/ Nss 250ml) 267 ml @ 125 mls/hr Q24H IV 03/22/16 13:00 03/29/16 12:59 Guaifenesin 400 mg 400 mg Q6H NG 03/21/16 12:00 04/20/16 11:59 03/21/16 13:15 400 MG Potassium Chloride 40 meq/ Sodium Chloride 1,020 ml @ 64 mls/hr [id number] IV 03/21/16 12:33 04/20/16 12:32 03/21/16 13:16 64 MLS/HR Piperacillin Sod/ Tazobactam Sod/ Dextrose (Zosyn Iv/D5 100ml) 115 ml @ 28.75 mls/ hr Q8H IV 03/21/16 18:00 03/28/16 17:59 Vancomycin HCl (Consult) 1 ea UD PRN N/A 03/21/16 12:45 04/20/16 12:44 Piperacillin Sod/ Tazobactam Sod (Consult) 1 ea UD PRN N/A 03/21/16 12:45 04/20/16 12:44 Albuterol/ Ipratropium (Duoneb) 3 ml Q4R INH 03/21/16 16:00 04/20/16 15:59 03/21/16 15:46 3 ML Albuterol/ Ipratropium (Duoneb) 3 ml Q2H PRN INH 03/21/16 12:45 04/20/16 12:44 I & O: 24-Hour Column 03/21/16 07:59 Intake Total 577 ml Output Total 2250 ml Balance -1673 ml Vital Signs: Date Time Temp Pulse Resp B/P Pulse Ox O2 Delivery O2 Flow Rate FiO2 03/21/16 15:46 88 20 95 Venturi Mask 15.0 03/21/16 14:00 37.6 73 20 129/55 94 Venturi Mask 10.0 50 03/21/16 12:58 37.8 85 0 155/65 93 Venturi Mask 10.0 50 03/21/16 12:53 88 24 94 Venturi Mask 15.0 03/21/16 12:33 38.0 87 0 174/66 85 Venturi Mask 10.0 50 03/21/16 12:00 Nasal Cannula 2.0 03/21/16 12:00 38.1 83 18 200/81 87 Nasal Cannula 6.0 03/21/16 10:52 86 167/65 03/21/16 10:00 38.1 86 22 167/65 92 Nasal Cannula 2.0 03/21/16 08:00 Nasal Cannula 2.0 03/21/16 08:00 38.0 90 22 172/62 92 Nasal Cannula 2.0 03/21/16 08:00 Nasal Cannula 03/21/16 06:00 86 20 185/71 92 03/21/16 04:06 37.6 82 20 187/76 92 03/21/16 04:00 Nasal Cannula 2.0 03/21/16 04:00 37.6 92 20 92 03/21/16 02:00 37.6 86 16 155/67 95 03/21/16 01:00 37.5 78 14 94 03/21/16 00:30 37.6 85 14 95 03/21/16 00:00 37.7 86 15 160/69 95 03/20/16 23:59 Nasal Cannula 2.0 03/20/16 22:59 38.1 105 23 182/75 92 03/20/16 22:30 38.4 98 21 92 03/20/16 22:06 38.4 94 25 188/83 99 03/20/16 21:30 38.4 108 26 93 03/20/16 20:58 38.4 98 21 155/74 94 03/20/16 20:30 38.3 106 18 92 03/20/16 20:07 38.3 103 16 173/91 97 03/20/16 20:00 Nasal Cannula 2.0 03/20/16 17:58 38.1 90 21 137/59 95 03/20/16 17:55 38.1 93 20 94 Laboratory Results: Last 24 Hours Test 03/20/16 23:51 03/21/16 08:17 03/21/16 10:55 Bedside Glucose 137 mg/dl 141 mg/dl White Blood Count 6.75 K/uL Red Blood Count 3.62 M/uL Hemoglobin 10.6 g/dL Hematocrit 30.7 % Mean Corpuscular Volume 84.8 fL Mean Corpuscular Hemoglobin 29.3 pg Mean Corpuscular Hemoglobin Concent 34.5 g/dl Platelet Count 253 K/uL Mean Platelet Volume 9.6 fL Neutrophils (%) (Auto) 82.1 % Lymphocytes (%) (Auto) 5.6 % Monocytes (%) (Auto) 11.9 % Eosinophils (%) (Auto) 0.3 % Basophils (%) (Auto) 0.0 % Neutrophils # (Auto) 5.54 K/uL Lymphocytes # (Auto) 0.38 K/uL Monocytes # (Auto) 0.80 K/uL Eosinophils # (Auto) 0.02 K/uL Basophils # (Auto) 0.00 K/uL RDW Standard Deviation 42.6 fL RDW Coefficient of Variation 13.6 % Immature Granulocyte % (Auto) 0.1 % Immature Granulocyte # (Auto) 0.01 K/uL Sodium Level 135 mmol/L Potassium Level 3.6 mmol/L Chloride Level 99 mmol/L Carbon Dioxide Level 25 mmol/L Anion Gap 11.0 mmol/L Blood Urea Nitrogen 37 mg/dl Creatinine 0.77 mg/dl Est Creatinine Clear Calc Drug Dose 38.1 ml/min Estimated GFR () 79.9 Estimated GFR (Non- 68.9 BUN/Creatinine Ratio 47.4 Random Glucose 125 mg/dl Calcium Level 8.3 mg/dl
[2016-03-21] MEDS: PIPERACILL/TAZOBAC IV 3.375 GM in DEXTROSE 5% 100ML IV SCH (18:48)
[2016-03-21] MEDS ORDERED: PIPERACILL/TAZOBAC IV 3.375 GM in DEXTROSE 5% 100ML IV SCH (20:00)
[2016-03-22] VITALS (23 sets, daily range): BP systolic 143–204; BP diastolic 58–96; PULSE 63–79; TEMP 37–37.3; O2SAT 92–98
[2016-03-22] MEDS: HydrALAZINE HCL 20 MG/ML VIAL IV. SCH ×2 (00:03→05:53)
[2016-03-22 01:42] LABS: C1 ESTERASE INHIB FUNC 96 % (>=68); C1 ESTERASE INHIB TC298 43 mg/dL (21-39)
[2016-03-22] MEDS: PIPERACILL/TAZOBAC IV 3.375 GM in DEXTROSE 5% 100ML IV SCH ×3 (01:51→18:08)
[2016-03-22] MEDS: ALBUT/IPRATROP 3MG/0.5MG NEB 3 ML VIAL INH SCH ×6 (03:30→23:41)
[2016-03-22] MEDS: METOPROLOL TARTRATE 1 MG/ML VIAL IV. SCH (04:03)
[2016-03-22] MEDS: GUAIFENESIN SUGAR FREE 200 MG/10 ML UDC NG SCH ×4 (05:53→23:37)
[2016-03-22 05:59] LABS: ISTAT ALLEN TEST Pass; ISTAT ARTERIAL BLOOD GAS HCO3 23 meq/L (19-24); ISTAT ARTERIAL BLOOD GAS PCO2 33 mmHg (35-46); ISTAT ARTERIAL BLOOD GAS PO2 87 mmHg (80-95); ISTAT ARTERIAL BLOOD GAS pH 7.44 (7.35-7.45); ISTAT CARBON DIOXIDE 23 mEq/l (24-31); ISTAT DELIVERY SYSTEM Cannula; ISTAT SITE R Radial
[2016-03-22] MEDS: INSULIN HUMAN REGULAR SC SCH ×8 (06:00→23:36)
[2016-03-22 06:47] LABS: HEMATOCRIT 28.8 % (37-47); MEAN CELL VOLUME 84.5 fL (80-100); MEAN CORPUSCULAR HEMOGLOBIN 29.6 pg (25-34); MEAN CORPUSCULAR HGB CONC 35.1 g/dl (32-36); MEAN PLATELET VOLUME 10.2 fL (7.4-10.4); PLATELET COUNT 266 K/uL (130-400); RED BLOOD COUNT 3.41 M/uL (4.2-5.4); WHITE BLOOD COUNT 6.28 K/uL (4.8-10.8)
[2016-03-22 07:02] LABS: BUN/CREATININE RATIO 43.1 (10-20); CALCIUM 8.1 mg/dl (8.5-10.1); CREATININE 0.7 mg/dl (0.60-1.20); PHOSPHORUS 2.2 mg/dl (2.5-4.9)
[2016-03-22 07:05] LABS: ALB/GLOB RATIO 0.6 (0.9-2)
[2016-03-22] MEDS: DOCUSATE SODIUM 100 MG/10 ML UDC PO SCH ×2 (07:46→20:59)
[2016-03-22] MEDS: SENNA 8.8 MG/5 ML UDP PO SCH (07:46)
[2016-03-22] MEDS: INSULIN GLARGINE SOLOSTAR 100 UNITS/ML 3 ML PEN SC SCH (07:47)
[2016-03-22] MEDS: POTASSIUM CHLORIDE INJ 40 MEQ in SODIUM CHLORIDE 0.9% 1000ML 1,000 ML IV SCH ×2 (08:00→23:37)
[2016-03-22] MEDS ORDERED: SODIUM PHOSPHATE 3 MMOL/1 ML INFUSION IV STA (08:04)
--- NOTE | 2016-03-22 08:24 | DIAGNOSTIC IMAGING REPORT ---
[facility] CLINICAL HISTORY: Nasogastric tube placement. COMPARISON STUDY: KUB March 16, 2016. FINDINGS: The tip of the nasogastric tube projects over the distal body of the stomach. There is no evidence for a bowel obstruction. There is a large amount of stool within the rectum. A suspected monitoring device is noted. There is extensive vascular calcification. IMPRESSION: 1. Tip of nasogastric tube projects over the distal body of the stomach. 2. Large amount of stool within the rectum and moderate amount of stool within the left colon. Electronically signed by: Ki Villalpando M.D. 03/22/2016 8:23 AM Dictated Date/Time: 03/22/2016 8:22 AM
--- NOTE | 2016-03-22 08:26 | DIAGNOSTIC IMAGING REPORT ---
SINGLE VIEW CHEST CLINICAL HISTORY: Pneumonia. FINDINGS: 2 AP, portable, upright chest radiographs are compared to study dated 03/21/16 and correlated with chest CT dated 07/24/2015. The examination is significantly degraded by portable technique and patient rotation, as well as by the patient's head obscuring the lung apices. An enteric tube is unchanged in position. The patient is status post midline sternotomy. The heart is enlarged and there is atherosclerotic calcification of the thoracic aorta. The pulmonary vasculature is noncongested. Chronic interstitial thickening is unchanged. There are small pleural effusions with bibasilar airspace opacities. No pneumothorax is seen. The skeletal structures are osteopenic. The bony thorax is grossly intact. Cholecystectomy clips are noted. IMPRESSION: 1. Cardiomegaly without radiographic evidence of congestive failure. 2. Pleural effusions with bibasilar airspace opacities, similar in appearance to yesterday. Electronically signed by: Sergio Rizzo M.D. 03/22/2016 8:24 AM Dictated Date/Time: 03/22/2016 8:23 AM
[2016-03-22] MEDS ORDERED: GLYCERIN ADULT 1 EA SUPP PR ONE (08:45)
[2016-03-22] MEDS: BUDESONIDE 0.25 MG/2 ML VIAL (PULMICORT) INH SCH ×2 (08:51→19:44)
--- NOTE | 2016-03-22 09:13 | Critical Care Progress Note ---
Critical Care Progress Note Date of Service Mar 22, 2016. Attending Dr. Bonilla Subjective Patient appears more alert this morning. Less audible upper airway secretions. She remains extremely weak and unable to cough. She tells me she was born in 1921 (actual 1925) and is also disorientated to person and place. She denies any pain. From nursing staff she managed to pull out her NG tube and nasal trumpet this morning. Objective General: More alert than yesterday, thin, tries to follow simple commands but remains very weak. No acute distress. Less audible upper airway secretions than the previous day. SKIN: Cool peripheries, open lesions on lower legs with dressings in place, no surrounding cellulitic changes noted. Hematoma just distal to left antecubital fossa noted. HEAD: Normocephalic and atraumatic EYES: extraocular muscles intact grossly, pupils equal and reactive to light OROPHARYNX: no tongue swelling evident. NECK: Supple, no adenopathy or meningismus LUNGS: diffuse rhonchi, no accessory muscle use, no respiratory distress HEART: Regular rate and rhythm, heart sounds 1+2, no murmurs ABDOMEN: Soft and nontender, bowel sounds increased EXTREMITIES: no calf tenderness/swelling, no pedal edema. NEUROLOGICALLY: Awake alert but not orientated to time, place or person. Right sided slight ptosis noted otherwise no facial droop. Denies focal sensory deficit. Assessment & Plan Neurology: Improving metabolic encephalopathy. Resp: Angioedema - mostly resolved. Will stop famotidine and switch back to PPI as O/ P med. C1 Esterase level normal. C4 levels normal. Improvement noticed with FFP transfusion. Not on ACEi or ARB recently. Asthma/COPD: no current exacerbation, on chronic oral steroid therapy for this. 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 Restart O/P singulair and convert steroid inhaler to pulmicort nebs. Continue duonebs Excessive secretions, likely pneumonia - BC 03/21/16 pending, CXR poor quality but show bibasilar consolidation (R>L) and pleural effusions, cover for hospital acquired pneumonia with Zosyn and Vancomycin. MRSA swab negative this admission. Will step down antibiotics pending clinical course, labs and BC results. CV: HTN - Currently on metoprolol 5mg Q6H IV, hydralazine 10mg Q6H IV (additional 30 mg given PRN 03/21/16). Metoprolol and imdur as O/P. Now she has NG tube will switch meds route (unable to crush imdur). Start metoprolol tartrate 25mg BID NG , hydralazine 25 mg Q12H NG. GI: x1 BM since admission. KUB this morning shows large amount of stool in rectum and left colon. Glycerin supp. x2 SD now. Will progress to tap water or milk of molluscs enemas if no result with glycerin supp. Currently on docusate 100mg BID and Senna 8.9 mg daily (O/P MiraLAX PRN). Nutrition: will restart NG tube feeds today. Monitor PO for refeeding. Replace with 15 mmol Na PO today. Switch famotidine to PPI as per O/P medication : Continue to monitor urine output. Continue IVF while remains low. Cr appears stable. Endo: Continue lantus 10 units daily. Sliding scale insulin. ACHS BSGs. ID: Zosyn and vancomycin covering for hospital acquired pneumonia as above VTE Prophylaxis: Holding SQ heparin for the time as previous nose bleeding. If continues to do well without suctioning will restart this later today Code: Full. Previous POLST form wishing full resuscitation. Disposition: Monitor in the ICU, patient in respiratory failure, requires oxygen, is unable to clear the secretions properly, is at high risk for reintubation Data Medications: Current Inpatient Medications Medications (Trade) Dose Ordered Sig/Remy Route Start Time Stop Time Status Last Admin Dose Admin Acetaminophen (Tylenol Tab) 650 mg Q4H PRN PO 03/16/16 11:00 04/15/16 10:59 03/21/16 10:57 650 MG Nitroglycerin (Nitrostat Tab) 0.4 mg UD PRN SL 03/16/16 11:00 04/15/16 10:59 Al Hydrox/Mg Hydrox/Simethicone (Maalox Max Susp) 15 ml Q4H PRN PO 03/16/16 11:00 04/15/16 10:59 Magnesium Hydroxide (Milk Of Magnesia Susp) 30 ml Q12H PRN PO 03/16/16 11:00 04/15/16 10:59 Glucose (Glucose 40% Gel) 15-30 GRAMS 15 GRAMS... UD PRN PO 03/16/16 13:00 04/15/16 12:59 Glucose (Glucose Chew Tab) 4-8 Tablets 4 Tabl... UD PRN PO 03/16/16 13:00 04/15/16 12:59 Dextrose (Dextrose 50% 50ML Syringe) 25-50ML OF 50% DW IV FOR... UD PRN IV 03/16/16 13:00 04/15/16 12:59 Glucagon (Glucagon Inj) 1 mg UD PRN SQ 03/16/16 13:00 04/15/16 12:59 Hydralazine HCl 10 mg 10 mg Q4 PRN IV. 03/16/16 18:15 04/15/16 18:14 03/21/16 06:10 10 MG Famotidine/ Dextrose (Pepcid IV Inj/ D5 100ml) 102 ml @ 200 mls/hr Q12H IV 03/17/16 12:00 04/16/16 11:59 03/21/16 23:27 200 MLS/HR Prednisone (PredniSONE TAB) 5 mg DAILY PO 03/17/16 09:00 04/16/16 08:59 03/22/16 07:46 5 MG Miscellaneous Information (Consult Glycemic Management Pharmacy) 1 ea UD PRN N/A 03/17/16 09:30 04/16/16 09:29 Enteral Nutritional Formula (Peptamen Intense VHP) 1,000 ml UD OG 03/17/16 10:30 04/16/16 10:29 03/20/16 03:40 1,000 ML Insulin Human Regular (novoLIN-R) SLIDING SCALE Q6 SC 03/18/16 08:00 04/17/16 07:59 03/19/16 18:27 3 UNITS Senna (Senokot Syrup) 8.8 mg DAILY PO 03/19/16 09:00 04/18/16 08:59 03/22/16 07:46 8.8 MG Docusate Sodium (coLACE SYRUP) 100 mg BID PO 03/18/16 21:00 04/17/16 20:59 03/22/16 07:46 100 MG Insulin Glargine (Lantus Solostar Pen) 10 unit QAM SC 03/19/16 09:10 04/18/16 09:09 03/22/16 07:47 10 UNIT Ipratropium [place] (Atrovent Hfa Inhaler) 2 puffs QID PRN INH 03/20/16 14:00 04/19/16 13:59 Insulin Human Regular -give 0 units if Pepta... Q6 SC 03/21/16 12:00 04/18/16 17:59 Vancomycin HCl/ Sodium Chloride (Vancomycin Inj/ Nss 250ml) 267 ml @ 125 mls/hr Q24H IV 03/22/16 13:00 03/29/16 12:59 Guaifenesin 400 mg 400 mg Q6H NG 03/21/16 12:00 04/20/16 11:59 03/22/16 05:53 400 MG Potassium Chloride 40 meq/ Sodium Chloride 1,020 ml @ 64 mls/hr [id number] IV 03/21/16 12:33 04/20/16 12:32 03/22/16 08:00 64 MLS/HR Piperacillin Sod/ Tazobactam Sod/ Dextrose (Zosyn Iv/D5 100ml) 115 ml @ 28.75 mls/ hr Q8H IV 03/21/16 18:00 03/28/16 17:59 03/22/16 01:51 28.75 MLS/HR Vancomycin HCl (Consult) 1 ea UD PRN N/A 03/21/16 12:45 04/20/16 12:44 Piperacillin Sod/ Tazobactam Sod (Consult) 1 ea UD PRN N/A 03/21/16 12:45 04/20/16 12:44 Albuterol/ Ipratropium (Duoneb) 3 ml Q4R INH 03/21/16 16:00 04/20/16 15:59 03/22/16 07:56 3 ML Albuterol/ Ipratropium (Duoneb) 3 ml Q2H PRN INH 03/21/16 12:45 04/20/16 12:44 Sodium Phosphate (Sodium Phosphate Replacement) 15 mmol NOW STAT IV 03/22/16 08:04 03/22/16 08:05 UNV Metoprolol Tartrate (Lopressor Tab) 25 mg BID PO 03/22/16 09:00 04/21/16 08:59 Hydralazine HCl (Apresoline Tab) 25 mg Q12 PO 03/22/16 09:00 04/21/16 08:59 Aspirin (Aspirin Chew) 81 mg DAILY NG 03/22/16 09:00 04/21/16 08:59 Budesonide (Pulmicort Respules 0.25MG/ 2ML Neb Soln) 0.25 mg Q12R INH 03/22/16 09:00 04/21/16 08:59 03/22/16 08:51 0.25 MG Glycerin (Glycerin Adult Supp) 2 ea NOW ONCE SD 03/22/16 08:45 03/22/16 08:46 UNV I & O: 24-Hour Column 03/22/16 08:00 Intake Total 1756 ml Output Total 700 ml Balance 1056 ml Vital Signs: Date Time Temp Pulse Resp B/P Pulse Ox O2 Delivery O2 Flow Rate FiO2 03/22/16 08:51 72 20 94 Room Air 03/22/16 08:00 37.2 74 16 172/69 98 Nasal Cannula 2.0 03/22/16 07:56 78 20 96 Nasal Cannula 2.0 03/22/16 06:00 65 16 172/70 97 Nasal Cannula 2.0 03/22/16 04:03 79 158/60 03/22/16 04:00 37.0 79 18 158/60 97 Nasal Cannula 2.0 03/22/16 04:00 Nasal Cannula 2.0 03/22/16 03:32 71 20 96 Nasal Cannula 2.0 03/22/16 02:09 69 16 160/59 96 Nasal Cannula 2.0 03/22/16 00:01 37.1 66 16 190/70 97 Nasal Cannula 3.0 03/21/16 23:59 Nasal Cannula 3.0 03/21/16 23:46 67 20 97 Nasal Cannula 3.0 03/21/16 22:00 65 20 168/62 95 Nasal Cannula 4.0 03/21/16 21:36 77 139/57 03/21/16 20:11 86 20 95 Nasal Cannula 4.0 03/21/16 20:00 Nasal Cannula 4.0 03/21/16 20:00 37.2 74 20 176/52 94 Nasal Cannula 4.0 03/21/16 18:00 37.3 69 16 179/71 97 Nasal Cannula 4.0 03/21/16 17:59 37.3 69 0 179/71 97 03/21/16 17:55 37.3 67 0 97 03/21/16 17:07 78 145/60 03/21/16 16:00 37.3 76 16 149/59 95 Venturi Mask 15.0 50 03/21/16 16:00 Venturi Mask 15.0 50 03/21/16 15:46 88 20 95 Venturi Mask 15.0 03/21/16 14:00 37.6 73 20 129/55 94 Venturi Mask 10.0 50 03/21/16 12:58 37.8 85 0 155/65 93 Venturi Mask 10.0 50 03/21/16 12:53 88 24 94 Venturi Mask 15.0 03/21/16 12:33 38.0 87 0 174/66 85 Venturi Mask 10.0 50 03/21/16 12:00 Nasal Cannula 2.0 03/21/16 12:00 38.1 83 18 200/81 87 Nasal Cannula 6.0 03/21/16 10:52 86 167/65 03/21/16 10:00 38.1 86 22 167/65 92 Nasal Cannula 2.0 Laboratory Results: Last 24 Hours Test 03/21/16 10:55 03/21/16 23:24 03/22/16 05:46 03/22/16 05:58 Bedside Glucose 141 mg/dl 128 mg/dl Blood Gas Sample Site R Radial Bedside Blood Gas pH (LAB) 7.44 Bedside Blood Gas pCO2 (LAB) 33 mmHg Bedside Blood Gas pO2 (LAB) 87 mmHg Bedside Blood Gas HCO3 (LAB) 23 meq/L Bedside Blood Gas Total CO2 23 mEq/l Bedside Blood Gas Base Excess (LAB) -2.0 meq/L Bedside Blood Gas O2 Saturation 97.0 % Parvez Test Pass Oxygen Delivery Device Cannula White Blood Count 6.28 K/uL Red Blood Count 3.41 M/uL Hemoglobin 10.1 g/dL Hematocrit 28.8 % Mean Corpuscular Volume 84.5 fL Mean Corpuscular Hemoglobin 29.6 pg Mean Corpuscular Hemoglobin Concent 35.1 g/dl RDW Standard Deviation 42.5 fL RDW Coefficient of Variation 13.7 % Platelet Count 266 K/uL Mean Platelet Volume 10.2 fL Sodium Level 135 mmol/L Potassium Level 4.0 mmol/L Chloride Level 102 mmol/L Carbon Dioxide Level 22 mmol/L Anion Gap 11.0 mmol/L Blood Urea Nitrogen 30 mg/dl Creatinine 0.70 mg/dl Est Creatinine Clear Calc Drug Dose 41.9 ml/min Estimated GFR () 89.7 Estimated GFR (Non- 77.4 BUN/Creatinine Ratio 43.1 Random Glucose 158 mg/dl Calcium Level 8.1 mg/dl Phosphorus Level 2.2 mg/dl Magnesium Level 2.0 mg/dl Total Bilirubin 0.5 mg/dl Aspartate Amino Transf (AST/SGOT) 12 U/L Alanine Aminotransferase (ALT/SGPT) 10 U/L Alkaline Phosphatase 64 U/L Total Protein 5.5 gm/dl Albumin 2.0 gm/dl Globulin 3.5 gm/dl Albumin/Globulin Ratio 0.6 Test 03/22/16 06:02 Bedside Glucose 162 mg/dl Resident Tracking Resident Involvement: Resident Care Provided Care Provided: Adult Hospital Medicine (ICU)
[2016-03-22] MEDS ORDERED: SODIUM PHOSPHATE INJ 15 MMOL in SODIUM CHLORIDE 0.9% 250ML 250 ML IV ONE (09:30)
[2016-03-22] MEDS: ASPIRIN 81 MG CHEW NG SCH (09:31)
[2016-03-22] MEDS: LANSOPRAZOLE SOLUTAB 30 MG NG SCH (09:31)
[2016-03-22] MEDS: METOPROLOL TARTRATE 25 MG TAB PO SCH ×2 (09:31→21:00)
[2016-03-22] MEDS: LEVOTHYROXINE 50 MCG TAB NG SCH (09:31)
--- NOTE | 2016-03-22 10:02 | Family Medicine Progress Note ---
Progress Note Date of Service Mar 22, 2016. Subjective Pt evaluation today including: conversation w/ patient, physical exam, chart review, lab review The patient was seen and examined at bedside. Patient continues to have respiratory secretions. Overnight patient pulled out NG tube and was put on 1 to 1 observation. Patient is more alert from previous day, can verbalize with difficulty, she can say the name of the hospital, however she fatigues quickly with questions. Here eyes are more open and the patient appears more alert. When asked about pain she nods in the affirmative, but cannot localize the pain. Pt has an NG tube and gutierrez in place. Patient denies being hungry. Plan of care was described to the patient and all questions were answered. student education specialist was present at bedside as well. Unable to assess a complete ROS. Objective Physical Exam General Appearance: WD/WN, no apparent distress Eyes: + pertinent finding (Eye tracking normally today, ) Neck: + pertinent finding (no signficant throat swelling, unchanged from previous day.) Respiratory/Chest: no respiratory distress, no accessory muscle use, + pertinent finding (patient has audible coarse breath sounds that can be ausculated without a stethoscope, present in all lung schneider with a stethscope , patient is unable to sit up on her own.) Cardiovascular: regular rate, rhythm, no edema, no gallop, no JVD, no murmur Abdomen: non tender, soft Extremities: no pedal edema, + pertinent finding (Has significant left sided weakness (cannot move left arm, cannot adduct left leg). Patient is able to lift right leg and has gross motor control of her right arm. ) Neurologic/Psychiatric: alert, normal mood/affect, + pertinent finding (unable to speak audibly, tries to form words, voice is hoarse. ) Assessment and Plan 89F presenting with ventilator dependant respirator failure 2/2 Angioedema of unknown cause (suspect DEBBIE inhibitor use). Patient was at a SNF, sent here by concerns from her sister who believed her sister was in respiratory distress. Possible signs of metabolic encephalopathy prior to admission. Head CT without evidence of acute CVA. Pt was intubated in the ER with a pediatric tube. Patient has showed continued clinical improved from facial swelling s/p 1 unit FFP and Solumedrol IV. Patient was extubated on hospital Day #4. Broad spectrum ABX for HCAP were started on hospital day #5. Patient is currently on Hospital Day #6, tried to remove her NG tube twice, placed on one to one observation. Metabolic Encephalopathy (seen prior to sedation/intubation) - Pt has improved cognition from previous day. Verified by nursing staff. - UA in 23 showed possible infection. - Blood cultures negative, no WBC count, possible Aspiration on X-ray. - Started patient on Zosyn (Day #17) for Aspiration. - Continue with 1 to 1 observation to prevent from pulling NGT again. Vent dependant Respiratory Failure 2/2 Angioedema, Acquired vs Hereditary - Pt is extubated with coarse breath sounds, chest X-ray showed clinical stability in breathing, unlikely CHF. - Oxygen saturation is 92% on 2LNC. - c/w Prednisone home dose of 5mg daily (pt is taking this for asthma) - c/w Duoneb, Atrovent, Benadryl and Famotidine - Started patient on Zosyn and Vancomycin today for HCAP and/or Aspiration. - Sputum and blood cultures still pending. - Speech consult unable to assess will continue to monitor. - Nasal trumpet placed to help with suction Fever - likely 2/2 FFP (resolved) - Febrile since Monday morning. - Blood cultures from 03/16/16 showed no growth. - Repeat blood cultures and starting empiric Abx. - Zosyn and Vancomycin today empirically for HCAP. HTN - BP is high. - Increase hydralazine to 25 mg Q12H NG and metoprolol tartrate to 25mg BID NG Constipation No BM for 4 days, KUB this morning shows large amount of stool in rectum and left colon. Glycerin supp. x2 NC now. Will progress to tap water or milk of molluscs enemas if no result with glycerin supp. c/w docusate 100mg BID and Senna 8.9 mg daily (O/P MiraLAX PRN). Angioedema (resolved), unknown cause, suspect DEBBIE - Complement C3 and C4 levels normal. C1 esterase levels high. Bilateral Lower Extremity Wound Cellulitis - Wound Care on Board - optifoam, change q3 days and prn. Diabetes - Lantus 10units daily + ISS. Monitor BSG with steroids CAD - continue to hold Statin, Held Imdur. GI prophylaxis - start on PPI DVT prophylaxis - Holding HepSQ due to nasal bleeding. Dispo: Restarting Tube feedings today. Full code as per POLST form. Per previous notes, sister would like further discussion about life support if pt requires long term care administrator ventilation. Resident Involvement: Resident Care Provided Care Provided: Adult Hospital Medicine Reviewed: Pt Seen/Exam by Me History restless in bed Constitutional: denies: fever Respiratory: negative: short of breath General Appearance: other (restless in bed) Ears, Nose, Throat: other (NGT in place) Respiratory: no respiratory distress, decreased breath sounds Cardiovascular: regular rate, rhythm Neurologic/Psychiatric: other (restless, somnolent) Skin Characteristics: warm/dry Assessment/Plan I have reviewed the medical record and performed a history and physical examination of this patient today. I have discussed the case with Dr. Liang. The above note reflects my findings, conclusions, and recommendations.
--- NOTE | 2016-03-22 10:23 | Pharmacy Progress Note ---
Glycemic Control: Progress Nt Date of Service Mar 22, 2016. Scope Glycemic Pharmacist consulted by Dr Goldsmith on 03/17/16 for glycemic control and to write orders per [facility] inpatient glycemic control protocol. Objective Accuchecks BSG (last 24hrs): Test 03/21/16 10:55 03/21/16 23:24 03/22/16 05:58 03/22/16 06:02 Bedside Glucose 141 mg/dl (70-90) 128 mg/dl (70-90) 162 mg/dl (70-90) Random Glucose 158 mg/dl (70-99) Laboratory Data (last 24hrs) Test 03/22/16 05:58 Anion Gap 11.0 mmol/L BUN/Creatinine Ratio 43.1 Blood Urea Nitrogen 30 mg/dl Creatinine 0.70 mg/dl Potassium Level 4.0 mmol/L Sodium Level 135 mmol/L White Blood Count 6.28 K/uL HbA1c: 8.5% 02/23/16 Recent Pertinent Medications Outpatient Anti-diabetic Regimen: * Lantus 8 units daily * Novolog 0-16 units per day * A1c = 8.5 % 02/23/16 The patient is currently receiving: * Basal insulin: Lantus 10 units every 24 hours - dosed in the AM * Correctional Insulin: REGULAR insulin correction per scale Q 6 hours Goal Range: Low 140 mg/dL - High 180 mg/dL Correction Factor: 15 mg/dL/unit * Prandial insulin: 0-2 units of REGULAR insulin SQ Q 6 hours depending on rate of Peptamen Intense tube feeds * Oral Agents: None currently Risk Factors for Insulin Resistance: * Steroids: Prednisone 5 mg PO daily * Diet: will be restarting Peptamen Intense tube feeds this AM Assessment & Plan ASSESSMENT: 03/21/16 * Glycemic control has been acceptable over the last 24 hours; BSGs have fallen in the range of 125-160 * Patient was extubated yesterday afternoon and tube feeds have been off since. BSGs have slowly declined since extubation, down to 125 this AM. However she is to resume tube feeds and I anticipate her BSGs will then begin to climb again. * I plan to continue the same basal insulin rate for the time being, however if tube feeds are not tolerated for whatever reason I will reduce the basal dose further. * I have adjusted the Regular insulin prandial dose to account for tube feeds being restarted at a lower rate than previous. The tube feeds are to restart at 10cc/hr then gradual escalate to the 35cc/hr she was receiving prior to extubation. 03/22/16 * BSGs have ranged 125-162 over the last 24 hrs -- all of which were fasting BSGs * Pt did not have tube feeds reinstated yesterday due to concern pt may need intubated again * Current fasting BSGs well controlled with 10 units of Lantus on board - will continue * No need to adjust Regular insulin orders today; plan to continue yesterday's orders for prandial coverage of tube feeds. There are plans to restart Peptamen Intense when NG placement confirmed. PLAN FOR INPATIENT GLYCEMIC CONTROL: * Continuing Lantus 10 units SQ Q AM; give 1/2 dose (5 units) if BSG less than 120 * Continuing correction factor of 15 mg/dl/unit * Cover carbs in continuous tube feeds per the following Regular insulin order Q 6 hrs: * Peptamen Intense at 10cc/hr give 0 units * Peptamen Intense at 20cc/hr give 1 unit * Peptamen Intense at 30cc/hr or more, give 2 units * Continuing goal range of Low 140 mg/dL - High 180 mg/dL * Please note that the plan above was derived based on current level of insulin resistance and hospital stress. These recommendations are appropriate for inpatient admission only. Plan of care upon discharge will need to be reassessed to avoid potential outpatient hypo/hyperglycemia. Thank you.
[2016-03-22] MEDS: FIBERSOURCE HN 1000ML BAG NG SCH ×2 (12:21)
--- NOTE | 2016-03-22 12:29 | DIAGNOSTIC IMAGING REPORT ---
[facility] CLINICAL HISTORY: NGT PLACEMENT COMPARISON STUDY: 03/22/2016 FINDINGS: There is a nasogastric tube positioned with its tip in the stomach. There are surgical clips within the right upper quadrant consistent with a prior cholecystectomy. There are no transition zones indicate bowel obstruction. There is moderate stool throughout the colon. A presumed monitoring device projects over the central pelvis. IMPRESSION: 1. No evidence of pathologic bowel dilatation 2. Nasogastric tube projected over the mid stomach Electronically signed by: Wei Ochoa M.D. 03/22/2016 12:27 PM Dictated Date/Time: 03/22/2016 12:26 PM
[2016-03-22] MEDS: PROSOURCE NOCARB 30ML/PKT NG SCH (12:34)
[2016-03-22] MEDS ORDERED: VANCOMYCIN INJ 850 MG in SODIUM CHLORIDE 0.9% 250ML 250 ML IV SCH (13:00)
[2016-03-22] MEDS: HydrALAZINE HCL 20 MG/ML VIAL IV. PRN (19:24)
[2016-03-23] VITALS (41 sets, daily range): BP systolic 140–224; BP diastolic 46–119; PULSE 60–85; TEMP 36.7–37.5; O2SAT 92–99
[2016-03-23] MEDS: PIPERACILL/TAZOBAC IV 3.375 GM in DEXTROSE 5% 100ML IV SCH ×3 (01:34→17:32)
[2016-03-23] MEDS: ACETAMINOPHEN 325 MG TAB PO PRN (02:02)
[2016-03-23] MEDS: HydrALAZINE HCL 20 MG/ML VIAL IV. PRN ×3 (02:03→19:27)
[2016-03-23] MEDS: ALBUT/IPRATROP 3MG/0.5MG NEB 3 ML VIAL INH SCH ×6 (03:40→23:12)
[2016-03-23] MEDS: LEVOTHYROXINE 50 MCG TAB NG SCH (05:27)
[2016-03-23] MEDS: GUAIFENESIN SUGAR FREE 200 MG/10 ML UDC NG SCH ×4 (05:27→23:44)
[2016-03-23] MEDS: INSULIN HUMAN REGULAR SC SCH ×8 (05:37→23:45)
[2016-03-23 06:06] LABS: HEMATOCRIT 27.3 % (37-47); MEAN CELL VOLUME 84.8 fL (80-100); MEAN CORPUSCULAR HEMOGLOBIN 29.5 pg (25-34); MEAN CORPUSCULAR HGB CONC 34.8 g/dl (32-36); MEAN PLATELET VOLUME 9.6 fL (7.4-10.4); PLATELET COUNT 279 K/uL (130-400); RED BLOOD COUNT 3.22 M/uL (4.2-5.4); WHITE BLOOD COUNT 5.21 K/uL (4.8-10.8)
[2016-03-23 06:32] LABS: BUN/CREATININE RATIO 38.6 (10-20); CALCIUM 7.9 mg/dl (8.5-10.1); CREATININE 0.8 mg/dl (0.60-1.20); POTASSIUM 3.2 mmol/L (3.5-5.1)
[2016-03-23] MEDS: PROSOURCE NOCARB 30ML/PKT NG SCH (07:24)
[2016-03-23] MEDS: LANSOPRAZOLE SOLUTAB 30 MG NG SCH (07:24)
[2016-03-23] MEDS: ASPIRIN 81 MG CHEW NG SCH (07:24)
[2016-03-23] MEDS: DOCUSATE SODIUM 100 MG/10 ML UDC PO SCH ×2 (07:25→21:20)
[2016-03-23] MEDS: SENNA 8.8 MG/5 ML UDP PO SCH (07:25)
[2016-03-23] MEDS: METOPROLOL TARTRATE 25 MG TAB PO SCH ×3 (07:25→21:20)
[2016-03-23] MEDS: INSULIN GLARGINE SOLOSTAR 100 UNITS/ML 3 ML PEN SC SCH (07:27)
[2016-03-23] MEDS: BUDESONIDE 0.25 MG/2 ML VIAL (PULMICORT) INH SCH ×2 (07:31→19:37)
[2016-03-23] MEDS ORDERED: KETAMINE HCL INJ 50 MG/ML 10 ML VIAL IV ONE (09:02)
[2016-03-23] MEDS ORDERED: SUCCINYLCHOLINE CHLORIDE 20 MG/ML 10 ML VIAL IV ONE (09:02)
[2016-03-23] MEDS: POTASSIUM CHLR 10 MEQ / WTR 10 MEQ in PREMIXED WATER 100 ML IV SCH ×2 (09:10→10:30)
--- NOTE | 2016-03-23 10:05 | Pharmacy Progress Note ---
Glycemic Control: Progress Nt Date of Service Mar 23, 2016. Scope Glycemic Pharmacist consulted by Dr Goldsmith on 03/17/16 for glycemic control and to write orders per [facility] inpatient glycemic control protocol. Objective Accuchecks BSG (last 24hrs): Test 03/22/16 12:13 03/22/16 18:02 03/22/16 23:28 03/23/16 05:15 Bedside Glucose 178 mg/dl (70-90) 213 mg/dl (70-90) 183 mg/dl (70-90) Random Glucose 228 mg/dl (70-99) Test 03/23/16 05:36 Bedside Glucose 258 mg/dl (70-90) Laboratory Data (last 24hrs) Test 03/23/16 05:15 03/23/16 05:45 Anion Gap 12.0 mmol/L BUN/Creatinine Ratio 38.6 Blood Urea Nitrogen 31 mg/dl Creatinine 0.80 mg/dl Potassium Level 3.2 mmol/L Sodium Level 137 mmol/L White Blood Count 5.21 K/uL HbA1c: Item Value Date Time Hemoglobin A1c 8.5 % H 02/23/16 0653 Estimated Average Glucose 197 mg/dl 02/23/16 0653 Recent Pertinent Medications Outpatient Anti-diabetic Regimen: * Lantus 8 units daily * Novolog 0-16 units per day * A1c = 8.5 % 02/23/16 The patient is currently receiving: * Basal insulin: Lantus 10 units every 24 hours - dosed in the AM * Correctional Insulin: REGULAR insulin correction per scale Q 6 hours Goal Range: Low 140 mg/dL - High 180 mg/dL Correction Factor: 15 mg/dL/unit * Prandial insulin: 0-3 units of REGULAR insulin SQ Q 6 hours depending on rate of Fibersource tube feeds * Oral Agents: None currently Risk Factors for Insulin Resistance: * Steroids: Prednisone 5 mg PO daily * Diet: tube feeds Assessment & Plan ASSESSMENT: 03/21/16 * Glycemic control has been acceptable over the last 24 hours; BSGs have fallen in the range of 125-160 * Patient was extubated yesterday afternoon and tube feeds have been off since. BSGs have slowly declined since extubation, down to 125 this AM. However she is to resume tube feeds and I anticipate her BSGs will then begin to climb again. * I plan to continue the same basal insulin rate for the time being, however if tube feeds are not tolerated for whatever reason I will reduce the basal dose further. * I have adjusted the Regular insulin prandial dose to account for tube feeds being restarted at a lower rate than previous. The tube feeds are to restart at 10cc/hr then gradual escalate to the 35cc/hr she was receiving prior to extubation. 03/22/16 * BSGs have ranged 125-162 over the last 24 hrs -- all of which were fasting BSGs * Pt did not have tube feeds reinstated yesterday due to concern pt may need intubated again * Current fasting BSGs well controlled with 10 units of Lantus on board - will continue * No need to adjust Regular insulin orders today; plan to continue yesterday's orders for prandial coverage of tube feeds. There are plans to restart Peptamen Intense when NG placement confirmed. 03/23/16 * BSGs have climbed to 258 mg/dL as tube feeds increased to goal * Tighten carb coverage slightly and continue current correctional insulin X 24 hours * Fasting BSG was 125 mg/dL on 03/21 and 162 mg/dL on 03/22--> this increase combined with tube feeds warrants a basal adjustment * Increase Lantus by 20% starting tomorrow PLAN FOR INPATIENT GLYCEMIC CONTROL: * Increase to Lantus 12 units SQ Q AM; give 1/2 dose (6 units) if BSG less than 120 * Continue correction factor of 15 mg/dl/unit * Cover carbs in continuous tube feeds per the following Regular insulin order Q 6 hrs: * Fibersource at 15 cc/hr give 2 units * Fibersource at 25 cc/hr give 3 unit * Fibersource at 35 cc/hr or more, give 4 units * Continue goal range of Low 140 mg/dL - High 180 mg/dL * Please note that the plan above was derived based on current level of insulin resistance and hospital stress. These recommendations are appropriate for inpatient admission only. Plan of care upon discharge will need to be reassessed to avoid potential outpatient hypo/hyperglycemia. Thank you.
[2016-03-23 10:23] LABS: URINE APPEARANCE CLOUDY (CLEAR); URINE BILIRUBIN NEG (NEG); URINE COLOR DK YELLOW; URINE NITRITE POS (NEG); URINE SPECIFIC GRAVITY 1.036 (1.000-1.030); UROBILINOGEN NEG (NEG)
[2016-03-23 10:28] LABS: MANUAL MICROSCOPIC REQUIRED? NO; REVIEW REQ? YES
[2016-03-23] MEDS ORDERED: LABETALOL HCL 5 MG/ML 20 ML VIAL - CCU EMERGENCY DRUG ONE (11:23)
[2016-03-23] MEDS ORDERED: MILK AND MOLASSES ENEMA PR ONE (11:30)
--- NOTE | 2016-03-23 11:30 | Family Medicine Progress Note ---
Progress Note Date of Service Mar 23, 2016. Subjective Pt evaluation today including: conversation w/ patient, physical exam, chart review, lab review The patient was seen and examined at bedside. No acute overnight events. Patient is sitting comfortably at bedside. Has improved eye tracking and conversational ability from previous day. 1 to 1 nurse is in the room. Patient's speech has improved, is able to communicate in short sentence. When solicited patient nodded that she was in any pain, when asked to point to the pain the patient didn't response. When asked if the pain was generalized body pain the patient nodded in the affirmative. When asked if the patient was comfortable she said yes. Patient mentioned she enjoyed watching the TV. Patient appeared weak still. NG tube is in place and patient was on NC. Patient denies chest pain or difficulty breathing. Patient did not cough while I was in the room. Patient verbalized that her left sided weakness is a chronic condition and not new. Patient was able to follow commands this visit. Obvious signs of clinical improvement. Objective Physical Exam General Appearance: WD/WN, no apparent distress, + thin Respiratory/Chest: chest non-tender, no respiratory distress, no accessory muscle use, + pertinent finding (improved breath sounds, slight rhonchi in posterior lung schneider on deep inhalation. ) Cardiovascular: regular rate, rhythm, no edema, no gallop, no JVD, no murmur Abdomen: normal bowel sounds, non tender, soft, + distended Extremities: no calf tenderness Neurologic/Psychiatric: + pertinent finding (obvious left sided weakness this visit, patient is able to lift right leg and flex and extend right ankle. Patient has intact gross motor in the RUE. Edematous and immobile LUE. Intact sensory response in the LE bilaterally. ) Assessment and Plan 89F presenting with ventilator dependant respirator failure 2/2 Angioedema of unknown cause (suspect DEBBIE inhibitor use). Patient was at a SNF, sent here by concerns from her sister who believed her sister was in respiratory distress. Possible signs of metabolic encephalopathy prior to admission. Head CT without evidence of acute CVA. Pt was intubated in the ER with a pediatric tube. Patient has showed continued clinical improved from facial swelling s/p 1 unit FFP and Solumedrol IV. Patient was extubated on hospital Day #4. Broad spectrum ABX for HCAP were started on hospital day #5. Blood cultures and back negative and sputum cultures showed normal jake. Patient had a several day course of fever that was attributed to the FFP, that resolved on Day #5. In the ICU once patient stabilized an NG tube was placed for enteral feeding and medications were changed from IV to PO. BP was elevated and Hydralazine and Metoprolol were titrated upwards and e- imbalances were monitored. Patient remained in the ICU due to intubation risk. Patient was placed on 1 to 1 observation on hospital day #7 due to two attempts of pulling our her NG tube. She showed clinical improved and was out of bed to chair on Hospital Day #8. Patient is verbalizing more frequently - according to pt her baseline is ambulation with a walker. Patient is currently on Hospital Day #8. Metabolic Encephalopathy (noted prior to sedation/intubation) - Pt has improved cognition, is now able to speak short sentences, this is an improvement from inaudible sounds when seen her 48 hours prior. - Blood cultures negative, no WBC count, possible Aspiration on X-ray. - c/w Zosyn for Aspiration. - continued 1 to 1 observation. Vent dependant Respiratory Failure 2/2 Angioedema, Acquired vs Hereditary - Pt is extubated, breath sounds improving and clinically improving. No signs of neck swelling. - Oxygen saturation is 92% on 2LNC. - c/w Prednisone home dose of 5mg daily (pt is taking this for asthma) - c/w Duoneb, Atrovent, Benadryl and Famotidine - c/w Zosyn and Vancomycin today for HCAP and/or Aspiration. - Blood cultures - no growth to date. - Sputum cultures - regular jake. - Speech consult - unable to asses will continue to follow. - continue tube feeds HTN - BP today was 147/58 - Increase hydralazine to 50 mg Q8H NG and metoprolol tartrate to 50mg BID NG Constipation - No BM for 5 days, KUB shows large amount of stool in rectum and left colon. - c/w docusate 100mg BID and Senna 8.9 mg daily - Will progress to tap water or milk of molluscs enemas if no result with glycerin supp. Angioedema (resolved), unknown cause, suspect DEBBIE usage - Complement C3 and C4 levels normal. C1 esterase levels high. Bilateral Lower Extremity Wound Cellulitis - Wound Care on Board - optifoam, change q3 days and prn. Diabetes - Lantus 10units daily + ISS. Monitor BSG with steroids CAD - continue to hold Statin, Held Imdur. GI prophylaxis - start on PPI Hypothyroid - c/w Levothyroxine 50mcg daily. DVT prophylaxis - resumed HepSQ Q8H today. Dispo - Tube feedings. Full code as per POLST form. Per previous notes, sister would like further discussion about life support if pt requires biochemistry specialist ventilation. Resident Involvement: Resident Care Provided Care Provided: Adult [facility] Medicine Reviewed: Pt Seen/Exam by Me History continues to be on 1 on 1. tolerating tube feeds no respiratory distress somnolent in am but more alert later in the day Constitutional: denies: fever General Appearance: no apparent distress Ears, Nose, Throat: other (nasal trumpet in place) Respiratory: no respiratory distress, decreased breath sounds Cardiovascular: regular rate, rhythm Gastrointestinal: normal bowel sounds, non tender, soft Neurologic/Psychiatric: other (somnolent but arousable) Assessment/Plan I have reviewed the medical record and performed a history and physical examination of this patient today. I have discussed the case with Dr. Liang. The above note reflects my findings, conclusions, and recommendations.
[2016-03-23] MEDS ORDERED: LABETALOL HCL IV 5 MG/ML 20ML IV ONE (11:45)
[2016-03-23] MEDS ORDERED: HEPARIN SOD 5000 UNIT/0.5 ML CARP SQ SCH (14:00)
--- NOTE | 2016-03-23 14:27 | Critical Care Progress Note ---
Critical Care Progress Note Date of Service Mar 23, 2016. Attending Dr. Bonilla Subjective Patient was woken from sleep. Not orientated to time, place or person. Wiggling fingers to command but not much else. Does not appear to be moving left arm as much. Denies any pain or difficulty breathing. Objective GENERAL: Similar alertness to the previous day, thin, able to wiggle fingers b/ l to command. No acute distress. No audible upper airway sounds externally. SKIN: Warm extremities, lesions on lower legs with dressings in place, no surrounding cellulitic changes noted. Hematoma just distal to left antecubital fossa and over radial artery (from previous ABG) noted. HEAD: Normocephalic and atraumatic EYES: extraocular muscles intact grossly, pupils equal and reactive to light OROPHARYNX: no tongue swelling evident NECK: Supple, no adenopathy, central trachea LUNGS: diffuse rhonchi appears improved from previously, poor inspiratory effort , no accessory muscle use, no respiratory distress HEART: Regular rate and rhythm, heart sounds 1+2, no murmurs ABDOMEN: Soft and nontender, appears more distended than previous day, bowel sounds increased EXTREMITIES: no calf tenderness/swelling, no pedal edema NEUROLOGICALLY: Awake alert but not orientated to time, place or person. Right sided slight ptosis noted otherwise no facial droop. Denies focal sensory deficit. Assessment & Plan 89 yo female admission for angioedema requiring intubation. from -20 Mar 2016. Appeared to improve . Post extubation had copious secretions and started on IV Abx to cover for hospital acquired pneumonia. Neurology: Improving metabolic encephalopathy. CT head on admission negative for CVA. Resp: Angioedema - resolved. C1 Esterase level normal. C4 levels normal. Improvement noticed with FFP transfusion. Not on ACEi or ARB recently. Consider allergy workup as outpatient. Asthma/COPD: no current exacerbation, on chronic oral steroid therapy for this. 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 Continue singulair, pulmicort and duonebs. Restart spiriva on d/c Excessive secretions, hospital acquired pneumonia - BC 03/21/16 negative to date, sputum moderate normal jake, CXR poor quality but show bibasilar consolidation (R>L) and small pleural effusions, cover for hospital acquired pneumonia initially with Zosyn and Vancomycin. MRSA swab negative this admission and since BC negative with improved oxygenation and clinical course will stop vancomycin today. CV: HTN - Metoprolol and imdur as O/P. Started metoprolol tartrate 25mg BID NG, hydralazine 25 mg Q12H NG (03/22/17). Increased hydralazine to 25mg Q8H 03/23/16 afternoon. Will increase metoprolol to 50 mg BID today. as her BP remains high. Hx CAD s/p CABG - ASA added, no previous GI bleed or known contraindication to this. GI: Constipation - x1 BM (smear) since admission. Excessive stool on KUB and increasing abdominal distension despite colace and senna. Milk of molasses enema ordered. Nutrition: Continue NG tube feeds (rate 35 MLS/HR) [facility] Monitor for refeeding, repeat PO tomorrow Continue PPI as per outpatient med (on lansoprazole due to NG tube) Speech therapy assessment today for swallow : Urine output poor (0.47 ml/kg/hr) however renal function stable. FENa 0.2% therefore likely prerenal cause. Continue IVF @ 64 MLS/HR (previous pulmonary edema from diastolic HF hospital admission). Total fluid intake yesterday 2024ml. Hypokalemia - continue 40 meq in IVF as above. Additional 20 meq KCl given this morning. Endo: Appreciate pharmacy glycemic management. Lantus increased to 12 units daily. Sliding scale insulin (total 7 units 03/22). Q6H BSGs. ID: Day 1 Zosyn covering for hospital acquired pneumonia (total 5-7 days) VTE Prophylaxis: Initially restarted heparin on morning rounds (none given) but then nose started bleeding again therefore holding off chemical prophylaxis at this time due to concern for aspirating blood. PT + OT OOB as tolerated. Code: Full. Previous POLST form stating wish for full resuscitation. Disposition: Consider transfer from ICU in afternoon as long as she remains stable Data Medications: Current Inpatient Medications Medications (Trade) Dose Ordered Sig/Remy Route Start Time Stop Time Status Last Admin Dose Admin Acetaminophen (Tylenol Tab) 650 mg Q4H PRN PO 03/16/16 11:00 04/15/16 10:59 03/23/16 02:02 650 MG Nitroglycerin (Nitrostat Tab) 0.4 mg UD PRN SL 03/16/16 11:00 04/15/16 10:59 Al Hydrox/Mg Hydrox/Simethicone (Maalox Max Susp) 15 ml Q4H PRN PO 03/16/16 11:00 04/15/16 10:59 Magnesium Hydroxide (Milk Of Magnesia Susp) 30 ml Q12H PRN PO 03/16/16 11:00 04/15/16 10:59 Glucose (Glucose 40% Gel) 15-30 GRAMS 15 GRAMS... UD PRN PO 03/16/16 13:00 04/15/16 12:59 Glucose (Glucose Chew Tab) 4-8 Tablets 4 Tabl... UD PRN PO 03/16/16 13:00 04/15/16 12:59 Dextrose (Dextrose 50% 50ML Syringe) 25-50ML OF 50% DW IV FOR... UD PRN IV 03/16/16 13:00 04/15/16 12:59 Glucagon (Glucagon Inj) 1 mg UD PRN SQ 03/16/16 13:00 04/15/16 12:59 Hydralazine HCl (HydrALAZINE INJ) 10 mg Q4 PRN IV. 03/16/16 18:15 04/15/16 18:14 03/23/16 02:03 10 MG Prednisone (PredniSONE TAB) 5 mg DAILY PO 03/17/16 09:00 04/16/16 08:59 03/23/16 07:25 5 MG Miscellaneous Information (Consult Glycemic Management Pharmacy) 1 ea UD PRN N/A 03/17/16 09:30 04/16/16 09:29 Insulin Human Regular (novoLIN-R) SLIDING SCALE Q6 SC 03/18/16 08:00 04/17/16 07:59 03/23/16 12:47 1 UNITS Senna (Senokot Syrup) 8.8 mg DAILY PO 03/19/16 09:00 04/18/16 08:59 03/23/16 07:25 8.8 MG Docusate Sodium (coLACE SYRUP) 100 mg BID PO 03/18/16 21:00 04/17/16 20:59 03/23/16 07:25 100 MG Ipratropium [place] (Atrovent Hfa Inhaler) 2 puffs QID PRN INH 03/20/16 14:00 3/7/17 13:59 Insulin Human Regular (novoLIN-R) -give 0 units if Fibersou... Q6 SC 03/21/16 12:00 04/18/16 17:59 03/23/16 12:48 4 UNITS Guaifenesin 400 mg 400 mg Q6H NG 03/21/16 12:00 04/20/16 11:59 03/23/16 12:49 400 MG Potassium Chloride 40 meq/ Sodium Chloride 1,020 ml @ 64 mls/hr [id number] IV 03/21/16 12:33 04/20/16 12:32 03/22/16 23:37 64 MLS/HR Piperacillin Sod/ Tazobactam Sod/ Dextrose (Zosyn Iv/D5 100ml) 115 ml @ 28.75 mls/ hr Q8H IV 03/21/16 18:00 03/26/16 18:30 03/23/16 09:15 28.75 MLS/HR Piperacillin Sod/ Tazobactam Sod (Consult) 1 ea UD PRN N/A 03/21/16 12:45 03/26/16 18:00 Albuterol/ Ipratropium (Duoneb) 3 ml Q4R INH 03/21/16 16:00 04/20/16 15:59 03/23/16 11:02 3 ML Albuterol/ Ipratropium (Duoneb) 3 ml Q2H PRN INH 03/21/16 12:45 04/20/16 12:44 Aspirin (Aspirin Chew) 81 mg DAILY NG 03/22/16 09:00 04/21/16 08:59 03/23/16 07:24 81 MG Budesonide (Pulmicort Respules 0.25MG/ 2ML Neb Soln) 0.25 mg Q12R INH 03/22/16 09:00 04/21/16 08:59 03/23/16 07:31 0.25 MG Levothyroxine Sodium (Synthroid Tab) 50 mcg DAILYBB NG 03/22/16 09:00 04/21/16 08:59 03/23/16 05:27 50 MCG Lansoprazole (Prevacid Solutab) 30 mg QAM NG 03/22/16 09:00 04/21/16 08:59 03/23/16 07:24 30 MG Enteral Nutritional Formula (Fibersource HN) 1,000 ml CONTINUOUS NG 03/22/16 12:00 04/21/16 11:59 03/22/16 12:21 1,000 ML Enteral Nutritional Formula (Prosource No Carb) 30 ml DAILY NG 03/22/16 12:00 04/21/16 11:59 03/23/16 07:24 30 ML Hydralazine HCl (Apresoline Tab) 50 mg Q8 PO 03/22/16 18:00 04/21/16 17:59 03/23/16 05:27 50 MG Metoprolol Tartrate (Lopressor Tab) 50 mg BID PO 03/23/16 09:00 04/22/16 08:59 03/23/16 09:15 25 MG Insulin Glargine (Lantus Solostar Pen) 12 unit QAM SC 03/24/16 09:00 04/23/16 08:59 I & O: 24-Hour Column 03/23/16 07:59 Intake Total 1947 ml Output Total 575 ml Balance 1372 ml Vital Signs: Date Time Temp Pulse Resp B/P Pulse Ox O2 Delivery O2 Flow Rate FiO2 03/23/16 12:00 37.4 76 16 163/74 98 Room Air 03/23/16 12:00 Room Air 03/23/16 11:02 70 20 96 Room Air 03/23/16 10:00 64 16 187/68 96 Room Air 03/23/16 09:30 37.4 66 0 96 03/23/16 09:00 37.4 62 0 94 03/23/16 08:58 37.4 68 0 180/71 95 03/23/16 08:30 37.4 64 0 96 03/23/16 08:13 78 20 95 Room Air 03/23/16 08:00 Room Air Nasal Cannula 03/23/16 08:00 Room Air 03/23/16 08:00 37.4 85 0 95 03/23/16 07:59 37.4 81 0 180/62 95 03/23/16 07:30 37.4 76 0 94 03/23/16 07:00 37.4 72 0 95 03/23/16 06:58 37.4 68 0 140/59 94 03/23/16 06:30 37.4 75 0 94 03/23/16 06:00 37.4 67 14 156/64 93 Room Air 03/23/16 06:00 37.4 71 0 95 03/23/16 04:00 37.3 71 14 147/58 92 Room Air 03/23/16 04:00 Room Air 03/23/16 03:40 70 20 96 Room Air 03/23/16 02:00 37.5 83 18 187/58 94 Room Air 03/23/16 00:00 37.3 70 16 169/62 94 Room Air 03/22/16 23:59 94 Room Air 03/22/16 23:41 68 20 95 Room Air 03/22/16 22:00 37.3 67 16 154/65 93 Room Air 03/22/16 20:00 94 Room Air 03/22/16 19:58 37.3 69 18 143/62 98 Room Air 03/22/16 19:44 79 20 93 Room Air 03/22/16 19:43 37.3 77 18 165/67 93 Room Air 03/22/16 19:41 37.3 73 16 166/67 94 Room Air 03/22/16 19:00 37.3 74 18 204/86 94 Room Air 03/22/16 18:00 72 16 194/76 95 Room Air 03/22/16 16:00 Room Air 03/22/16 16:00 37.1 77 16 190/66 94 Room Air 03/22/16 14:00 66 16 191/96 94 Room Air Laboratory Results: Last 24 Hours Test 03/22/16 18:02 03/22/16 23:28 03/23/16 05:15 03/23/16 05:36 Bedside Glucose 213 mg/dl 183 mg/dl 258 mg/dl Sodium Level 137 mmol/L Potassium Level 3.2 mmol/L Chloride Level 103 mmol/L Carbon Dioxide Level 22 mmol/L Anion Gap 12.0 mmol/L Blood Urea Nitrogen 31 mg/dl Creatinine 0.80 mg/dl Est Creatinine Clear Calc Drug Dose 36.7 ml/min Estimated GFR () 76.3 Estimated GFR (Non- 65.8 BUN/Creatinine Ratio 38.6 Random Glucose 228 mg/dl Calcium Level 7.9 mg/dl Test 03/23/16 05:45 03/23/16 09:15 03/23/16 11:24 White Blood Count 5.21 K/uL Red Blood Count 3.22 M/uL Hemoglobin 9.5 g/dL Hematocrit 27.3 % Mean Corpuscular Volume 84.8 fL Mean Corpuscular Hemoglobin 29.5 pg Mean Corpuscular Hemoglobin Concent 34.8 g/dl RDW Standard Deviation 42.7 fL RDW Coefficient of Variation 13.7 % Platelet Count 279 K/uL Mean Platelet Volume 9.6 fL Urine Color DK YELLOW Urine Appearance CLOUDY Urine pH 5.0 Urine Specific [place] 1.036 Urine Protein 1+ Urine Glucose (UA) NEG Urine Ketones TRACE Urine Occult Blood NEG Urine Nitrite POS Urine Bilirubin NEG Urine Urobilinogen NEG Urine Leukocyte Esterase LARGE Urine WBC (Auto) >30 /hpf Urine RBC (Auto) 0-4 /hpf Urine Hyaline Casts (Auto) 1-5 /lpf Urine Epithelial Cells (Auto) 10-20 /lpf Urine Bacteria (Auto) NEG Urine Yeast (Auto) BUD W/ HYPHAE Urine Random Creatinine 100.0 mg/dl Urine Random Sodium 30 mEq/L Bedside Glucose 194 mg/dl Resident Tracking Resident Involvement: Resident Care Provided Care Provided: Adult Hospital Medicine (ICU team)
[2016-03-23] MEDS: FIBERSOURCE HN 1000ML BAG NG SCH ×2 (17:32)
[2016-03-23] MEDS ORDERED: NURSING VERBAL MED ORDER ONE (19:45)
[2016-03-23] MEDS: ONDANSETRON INJ 2 MG/ML 2 ML VIAL IV PRN (19:55)
--- NOTE | 2016-03-23 21:32 | DIAGNOSTIC IMAGING REPORT ---
KUB CLINICAL HISTORY: Abdominal distention COMPARISON STUDY: 03/22/2016 FINDINGS: A nasogastric tube is again visualized. There is moderate fecal retention. There is progressive bowel distention. There is a nonspecific lucency within the right upper quadrant. If there is clinical concern over the presence of free intraperitoneal air, an erect chest x-ray or decubitus view of the abdomen should be obtained in follow-up. IMPRESSION: 1. Progressive colonic distention 2. Fecal retention 3. Nonspecific right upper quadrant lucency. If there is clinical concern over the presence of free air, then an erect chest x-ray, or decubitus view of the abdomen should be obtained in follow-up. Electronically signed by: Wei Ochoa M.D. 03/23/2016 9:31 PM Dictated Date/Time: 03/23/2016 9:29 PM
--- NOTE | 2016-03-23 22:34 | DIAGNOSTIC IMAGING REPORT ---
CHEST ONE VIEW PORTABLE CLINICAL HISTORY: Abdominal distention. Evaluate for free air. COMPARISON STUDY: Abdominal series dated 03/23/2016, chest x-ray dated to 717 FINDINGS: There is a nasogastric tube within the stomach. No free air is visualized. There is gaseous distention of the bowel. The study is rotated. There is a suspected right pleural effusion with right basilar atelectasis. There is mild pulmonary vascular congestion.[ IMPRESSION: 1. Nasogastric tube within the stomach 2. Pulmonary vascular congestion with a suspected subglottic right pleural effusion 3. No evidence of free intraperitoneal air Electronically signed by: Wei Ochoa M.D. 03/23/2016 10:33 PM Dictated Date/Time: 03/23/2016 10:31 PM
[2016-03-23] MEDS ORDERED: OPTIRAY 320 IV PRN (23:15)
[2016-03-24] VITALS (24 sets, daily range): BP systolic 98–185; BP diastolic 40–75; PULSE 55–82; TEMP 36.5–37.2; O2SAT 91–100
[2016-03-24] MEDS: HydrALAZINE HCL 20 MG/ML VIAL IV. PRN (00:32)
[2016-03-24] MEDS ORDERED: LACTULOSE SYRUP 30 GM/45 ML UDP PO STA (01:17)
[2016-03-24] MEDS: PIPERACILL/TAZOBAC IV 3.375 GM in DEXTROSE 5% 100ML IV SCH ×3 (01:43→17:32)
[2016-03-24] MEDS: ALBUT/IPRATROP 3MG/0.5MG NEB 3 ML VIAL INH SCH ×6 (03:40→23:18)
[2016-03-24] MEDS: INSULIN HUMAN REGULAR SC SCH ×6 (05:33→17:31)
[2016-03-24] MEDS: LEVOTHYROXINE 50 MCG TAB NG SCH (05:33)
[2016-03-24] MEDS: POTASSIUM CHLORIDE INJ 40 MEQ in SODIUM CHLORIDE 0.9% 1000ML 1,000 ML IV SCH (05:33)
[2016-03-24] MEDS: GUAIFENESIN SUGAR FREE 200 MG/10 ML UDC NG SCH ×3 (05:33→17:29)
[2016-03-24 06:13] LABS: COMPLETE YES; EOS % 0.1 %; HEMATOCRIT 30.3 % (37-47); IG% 0.1 %; LYMPH % 6.5 %; LYMPH ABS # 0.46 K/uL (1.2-3.4); MEAN CELL VOLUME 86.6 fL (80-100); MEAN CORPUSCULAR HGB CONC 34.7 g/dl (32-36); MEAN PLATELET VOLUME 10.1 fL (7.4-10.4); NEUT % 82.3 %; PLATELET COUNT 328 K/uL (130-400); WHITE BLOOD COUNT 7.11 K/uL (4.8-10.8)
--- NOTE | 2016-03-24 06:24 | Progress Note ---
Progress Note informed of dark brown bile from NG tube KUB done and concerning for perf CT abd to r/o perf and concerning for impaction - patient manually disimpacted by RN and one dose of lactulose given consider continuing lactulose
[2016-03-24 06:45] LABS: BUN/CREATININE RATIO 37.9 (10-20); CALCIUM 8.3 mg/dl (8.5-10.1); CREATININE 0.84 mg/dl (0.60-1.20); MAGNESIUM 2.7 mg/dl (1.8-2.4)
[2016-03-24 06:46] LABS: PHOSPHORUS 3.5 mg/dl (2.5-4.9); POTASSIUM 3.8 mmol/L (3.5-5.1)
--- NOTE | 2016-03-24 06:54 | DIAGNOSTIC IMAGING REPORT ---
CT OF THE ABDOMEN AND PELVIS WITH CONTRAST CLINICAL HISTORY: Abdominal distention. Abnormal radiograph. COMPARISON STUDY: KUB March 23, [address] of the pelvis August 29, 2015. TECHNIQUE: Following IV administration of 116 mL of [id number], axial images of the abdomen and pelvis were obtained from the lung bases to the proximal femurs. Images were reviewed in the axial, sagittal, and coronal planes. IV contrast was administered without complication. CT DOSE: 619.92 mGy.cm FINDINGS: Visualized portions of the lower chest demonstrate moderate cardiomegaly. There is a moderate right pleural effusion and small left pleural effusion. Associated airspace opacities likely reflect atelectasis. The tip of the nasogastric tube is within the gastric antrum. No pneumatosis, free air or portal venous gas is present. Mild biliary ductal dilatation is likely due to prior cholecystectomy. A 1.2 cm right renal lesion measures above water attenuation although a cyst is favored. This extensive atherosclerotic plaque. There is no hydronephrosis. Evaluation of the abdomen is difficult given a paucity of fat. Generalized anasarca is noted. There is a large amount of stool within the colon and the rectum. There is moderate colonic distention. There is no evidence for a bowel obstruction. No dilated small bowel loops are identified. No lymphadenopathy is identified. No suspicious osseous lesions are present. A Sawyer balloon is present within the bladder which is collapsed. IMPRESSION: 1. No free air. 2. Large amount of stool within the colon and rectum suggestive of fecal impaction. Moderate colonic distention. No convincing evidence for a bowel obstruction. 3. Generalized anasarca. 4. Moderate right and small left pleural effusions with associated atelectasis. Moderate cardiomegaly. 5. Difficult exam to interpret given the paucity of intra-abdominal fat and generalized anasarca. Electronically signed by: Ki Villalpando M.D. 03/24/2016 6:53 AM Dictated Date/Time: 03/24/2016 6:42 AM
[2016-03-24] MEDS: BUDESONIDE 0.25 MG/2 ML VIAL (PULMICORT) INH SCH ×2 (07:39→19:33)
[2016-03-24] MEDS ORDERED: MILK AND MOLASSES ENEMA PR ONE ×2 (09:00→10:15)
[2016-03-24] MEDS: ASPIRIN 81 MG CHEW NG SCH (09:11)
[2016-03-24] MEDS: POTASSIUM CHLORIDE INJ 40 MEQ in SODIUM CHLORIDE 0.45% 1000ML 1,000 ML IV SCH (09:11)
[2016-03-24] MEDS: PROSOURCE NOCARB 30ML/PKT NG SCH (09:12)
[2016-03-24] MEDS: DOCUSATE SODIUM 100 MG/10 ML UDC PO SCH ×2 (09:12→20:26)
[2016-03-24] MEDS: SENNA 8.8 MG/5 ML UDP PO SCH (09:13)
[2016-03-24] MEDS: METOPROLOL TARTRATE 25 MG TAB PO SCH ×2 (09:13→20:26)
[2016-03-24] MEDS: INSULIN GLARGINE SOLOSTAR 100 UNITS/ML 3 ML PEN SC SCH (09:16)
[2016-03-24] MEDS: HEPARIN SOD 5000 UNIT/0.5 ML CARP SQ SCH ×2 (09:17→20:27)
[2016-03-24] MEDS: PANTOprazole INJ 40 MG in SYRINGE 0 ML IV SCH (10:57)
[2016-03-24] MEDS ORDERED: SOD PHOSPHATE/SOD BIPHOSPHATE ENEMA 132 ML BTL PR STA (11:10)
[2016-03-24] MEDS ORDERED: ALBUMIN HUMAN 25% 12.5 GM/50 ML VIAL IV ONE (11:30)
[2016-03-24] MEDS ORDERED: VANCOMYCIN TROUGH SCH (12:30)
--- NOTE | 2016-03-24 13:03 | Critical Care Progress Note ---
Critical Care Progress Note Date of Service Mar 24, 2016. Attending Dr Tiffany Augustin Woken up from sleeping. Opens eyes to voice but not verbal this morning. Unable to follow simple commands. Overnight had vomiting. CT A/P ordered and had fecal impaction. Manual fecal disimpaction performed. Objective GENERAL: Possible decreased alertness from yesterday but may be just time of day dependant, thin, not following simple commands. No acute distress. No audible upper airway sounds externally. SKIN: Warm extremities, lesions on lower legs with dressings in place, no surrounding cellulitic changes noted. Hematoma just distal to left antecubital fossa and over radial artery (from previous ABG) noted stable. HEAD: Normocephalic and atraumatic EYES: extraocular muscles intact grossly, pupils equal and reactive to light OROPHARYNX: no tongue swelling evident NECK: Supple, no adenopathy, central trachea LUNGS: poor inspiratory effort, no accessory muscle use, no respiratory distress HEART: Regular rate and rhythm, heart sounds 1+2, no murmurs ABDOMEN: Soft and nontender, appears more distended than previous day, bowel sounds increased EXTREMITIES: no calf tenderness/swelling, no pedal edema NEUROLOGICALLY: Awake alert but not orientated to time, place or person. Right sided slight ptosis noted otherwise no facial droop. Denies focal sensory deficit. Assessment & Plan 89 yo female admission for angioedema requiring intubation (-20 Mar 2016). Appeared to improve with FFP. Post extubation had copious secretions and started on IV Zosyn to cover for hospital acquired pneumonia. Neurology: CT head on admission negative for CVA. Appears more lethargic and less communicative this morning, will continue to monitor throughout the day. OOB to chair as tolerated. Resp: Angioedema - resolved. C1 Esterase level normal. C4 levels normal. Improvement noticed with FFP transfusion. Not on ACEi or ARB recently. Consider allergy workup as outpatient. Asthma/COPD: no current exacerbation, on chronic oral steroid therapy for this. Mild obstructive disease on PFTs 2013 with bronchodilator. Continue singulair, pulmicort and duonebs. Restart spiriva on d/c Excessive secretions, hospital acquired + likely aspiration pneumonia - BC negative to date, sputum moderate normal jake, CXR poor quality but show bibasilar consolidation (R>L) and small pleural effusions. Cover for HAP and aspiration with Zosyn. Vancomycin stopped after negative cultures. CV: HTN - Metoprolol and imdur as O/P. Currently on metoprolol to 50 mg BID NG + Hydralazine 50 mg Q6H NG. Total 30mg hydralazine IV and 10mg labetalol given yesterday PRN for BP. Nitro paste added 1 inch to replace imdur O/P medication. Hx CAD s/p CABG - ASA added, no previous GI bleed or known contraindication to this. Statin on hold due to generalized weakness. GI: Constipation - x1 BM (smear) since admission. Excessive stool on KUB and increasing abdominal distension despite colace and senna. Milk of molasses enema given yesterday, no documentation to say i worked. Vomiting overnight, CT ordered showed no obstruction but fecal impaction. Manual fecal disimpaction overnight. Fleet enema ordered by Dr Allen this morning. Nutrition: NG tube feeds stopped due to vomiting overnight NPO + IVF 64 MLS/HR currently PO 3.5 Switch NG PPI to Protonix IV as may not be absorbing through NG tube. : Urine output poor (approx 0.5 ml/kg/hr for last 3 days). Cr stable. FENa 0.2% therefore likely prerenal cause. Continue IVF @ 64 MLS/HR (previous pulmonary edema from diastolic HF hospital admission). Total fluid intake yesterday 2219ml. Hypokalemia resolved (3.8 this morning) - continue 40 meq in IVF as above. Endo: Appreciate pharmacy glycemic management. Lantus increased to 12 units daily. Sliding scale insulin (total 7 units /). Q6H BSGs. ID: Day 2 Zosyn covering for hospital acquired pneumonia (total 5 days) VTE Prophylaxis: Restart heparin 5000 units Q12H as high risk for DVT. PT + OT OOB as tolerated. skin wounds limit SCD and GUDELIA use Code: Full. Previous POLST form stating wish for full resuscitation. Need to discuss with sister today regarding this. Disposition: Consider transfer from ICU in afternoon as long as she remains stable Resident Physician Supervision Note: I interviewed and examined the patient. Discussed with Dr. Johnson and agree with findings and plan as documented in the note. Any exceptions or clarifications are listed here: The patient's care was discussed in detail on multidisciplinary rounds as well. Her hospital course was reviewed. Her biggest issues presently are fecal impaction and metabolic encephalopathy as well as malnutrition. She had her tube feeds stopped again last night due to vomiting and CT shows fecal impaction despite milk of molasses enema yesterday. Fleet ordered today and if not effective, will do another milk of molasses. Consider GI consult. She may require more IVF depending on what her NGT drainage is - she is also getting fluids with meds. She would not answer questions or follow commands for me at all but does awaken and says ok. Responds to pain and is a bit weaker in LUE. Per staff, AMS is different from yesterday, however, she also did not get much rest last night. She is diffusely weak and not really able to participate with a speech eval (which she did poorly on yesterday). Agree with addition of nitrates for BP management. Continue Zosyn for 5 days. Consider tightening up blood sugar control. Keep in ICU and observe mental status throughout the day. Documented By: Kym Allen Data Medications: Current Inpatient Medications Medications (Trade) Dose Ordered Sig/Remy Route Start Time Stop Time Status Last Admin Dose Admin Acetaminophen (Tylenol Tab) 650 mg Q4H PRN PO 03/16/16 11:00 04/15/16 10:59 03/23/16 02:02 650 MG Nitroglycerin (Nitrostat Tab) 0.4 mg UD PRN SL 03/16/16 11:00 04/15/16 10:59 Al Hydrox/Mg Hydrox/Simethicone (Maalox Max Susp) 15 ml Q4H PRN PO 03/16/16 11:00 04/15/16 10:59 Magnesium Hydroxide (Milk Of Magnesia Susp) 30 ml Q12H PRN PO 03/16/16 11:00 04/15/16 10:59 Glucose (Glucose 40% Gel) 15-30 GRAMS 15 GRAMS... UD PRN PO 03/16/16 13:00 04/15/16 12:59 Glucose (Glucose Chew Tab) 4-8 Tablets 4 Tabl... UD PRN PO 03/16/16 13:00 04/15/16 12:59 Dextrose (Dextrose 50% 50ML Syringe) 25-50ML OF 50% DW IV FOR... UD PRN IV 03/16/16 13:00 04/15/16 12:59 Glucagon (Glucagon Inj) 1 mg UD PRN SQ 03/16/16 13:00 04/15/16 12:59 Hydralazine HCl (HydrALAZINE INJ) 10 mg Q4 PRN IV. 03/16/16 18:15 04/15/16 18:14 03/24/16 00:32 10 MG Prednisone (PredniSONE TAB) 5 mg DAILY PO 03/17/16 09:00 04/16/16 08:59 03/24/16 09:13 5 MG Miscellaneous Information (Consult Glycemic Management Pharmacy) 1 ea UD PRN N/A 03/17/16 09:30 04/16/16 09:29 Insulin Human Regular (novoLIN-R) SLIDING SCALE Q6 SC 03/18/16 08:00 04/17/16 07:59 03/24/16 05:58 1 UNITS Senna (Senokot Syrup) 8.8 mg DAILY PO 03/19/16 09:00 04/18/16 08:59 03/24/16 09:13 8.8 MG Docusate Sodium (coLACE SYRUP) 100 mg BID PO 03/18/16 21:00 04/17/16 20:59 03/24/16 09:12 100 MG Ipratropium [place] (Atrovent Hfa Inhaler) 2 puffs QID PRN INH 03/20/16 14:00 04/19/16 13:59 Insulin Human Regular (novoLIN-R) -give 0 units if Fibersou... Q6 SC 03/21/16 12:00 04/18/16 17:59 03/23/16 17:43 4 UNITS Guaifenesin 400 mg 400 mg Q6H NG 03/21/16 12:00 04/20/16 11:59 03/24/16 10:58 400 MG Piperacillin Sod/ Tazobactam Sod/ Dextrose (Zosyn Iv/D5 100ml) 115 ml @ 28.75 mls/ hr Q8H IV 03/21/16 18:00 03/26/16 18:30 03/24/16 10:57 28.75 MLS/HR Piperacillin Sod/ Tazobactam Sod (Consult) 1 ea UD PRN N/A 03/21/16 12:45 03/26/16 18:00 Albuterol/ Ipratropium (Duoneb) 3 ml Q4R INH 03/21/16 16:00 04/20/16 15:59 03/24/16 07:39 3 ML Albuterol/ Ipratropium (Duoneb) 3 ml Q2H PRN INH 03/21/16 12:45 04/20/16 12:44 Aspirin (Aspirin Chew) 81 mg DAILY NG 03/22/16 09:00 04/21/16 08:59 03/24/16 09:11 81 MG Budesonide (Pulmicort Respules 0.25MG/ 2ML Neb Soln) 0.25 mg Q12R INH 03/22/16 09:00 04/21/16 08:59 03/24/16 07:39 0.25 MG Levothyroxine Sodium (Synthroid Tab) 50 mcg DAILYBB NG 03/22/16 09:00 04/21/16 08:59 03/24/16 05:33 50 MCG Enteral Nutritional Formula (Fibersource HN) 1,000 ml CONTINUOUS NG 03/22/16 12:00 04/21/16 11:59 03/23/16 17:32 1,000 ML Enteral Nutritional Formula (Prosource No Carb) 30 ml DAILY NG 03/22/16 12:00 04/21/16 11:59 03/24/16 09:12 30 ML Metoprolol Tartrate (Lopressor Tab) 50 mg BID PO 03/23/16 09:00 04/22/16 08:59 03/24/16 09:13 50 MG Insulin Glargine (Lantus Solostar Pen) 12 unit QAM SC 03/24/16 09:00 04/23/16 08:59 03/24/16 09:16 12 UNIT Hydralazine HCl (Apresoline Tab) 50 mg Q6 PO 03/23/16 20:00 04/22/16 19:59 03/24/16 10:58 50 MG Ondansetron HCl (Zofran Inj) 4 mg Q6H PRN IV 03/23/16 20:00 04/22/16 19:59 03/23/16 19:55 4 MG Ioversol 125 ml 125 ml UD PRN IV 03/23/16 23:15 03/27/16 23:14 Potassium Chloride/Sodium Chloride (KCl Inj/1/2 Nss 1000ml) 1,020 ml @ 64 mls/hr [id number] IV 03/24/16 08:45 04/23/16 08:44 03/24/16 09:11 64 MLS/HR Heparin Sodium (Porcine) 5000 unit 5,000 unit Q12 SQ 03/24/16 09:00 04/23/16 08:59 03/24/16 09:17 5,000 UNIT Pantoprazole Sodium/Syringe (Protonix Inj/ Syringe) 10 ml @ 5 mls/min DAILY@11 IV 03/24/16 11:00 04/23/16 10:59 03/24/16 10:57 5 MLS/MIN I & O: 24-Hour Column 03/24/16 07:59 Intake Total 2006 ml Output Total 1300 ml Balance 706 ml Vital Signs: Date Time Temp Pulse Resp B/P Pulse Ox O2 Delivery O2 Flow Rate FiO2 03/24/16 10:00 63 16 145/54 96 Room Air 03/24/16 08:00 68 18 166/57 97 Room Air 03/24/16 08:00 97 Room Air 03/24/16 07:39 75 20 96 Room Air 03/24/16 06:00 67 18 139/54 94 Room Air 03/24/16 04:00 37.2 80 16 141/59 95 Room Air 03/24/16 04:00 95 Room Air 03/24/16 03:40 82 20 94 Room Air 03/24/16 02:00 67 16 165/52 95 Room Air 03/24/16 01:28 73 16 132/40 93 Room Air 03/24/16 01:10 82 16 162/54 91 Room Air 03/24/16 00:00 36.7 77 16 183/75 94 Room Air 03/23/16 23:59 95 Room Air 03/23/16 23:12 76 20 95 Room Air 03/23/16 22:00 73 18 152/74 93 Room Air 03/23/16 20:28 82 167/71 93 03/23/16 20:14 81 178/56 94 03/23/16 20:03 77 163/46 94 03/23/16 20:00 94 Room Air 03/23/16 20:00 36.7 78 16 196/69 93 Room Air 03/23/16 19:49 75 0 163/60 99 03/23/16 19:37 75 20 95 Room Air 03/23/16 19:00 83 18 203/67 94 03/23/16 18:00 68 18 202/82 95 Room Air 03/23/16 17:15 74 0 95 03/23/16 17:00 75 0 95 03/23/16 16:58 71 0 183/72 95 03/23/16 16:50 76 0 171/119 94 03/23/16 16:45 77 0 95 03/23/16 16:30 72 0 95 03/23/16 16:20 74 0 224/98 94 03/23/16 16:15 73 0 96 03/23/16 16:00 73 0 95 03/23/16 16:00 Room Air 03/23/16 16:00 36.7 70 16 224/98 96 Room Air 03/23/16 14:39 70 20 96 Room Air 03/23/16 14:00 60 16 174/64 98 Room Air 03/23/16 12:00 37.4 76 16 163/74 98 Room Air 03/23/16 12:00 Room Air Laboratory Results: Last 24 Hours Test 03/23/16 17:31 03/23/16 23:44 03/24/16 05:37 03/24/16 05:50 Bedside Glucose 226 mg/dl 140 mg/dl 183 mg/dl White Blood Count 7.11 K/uL Red Blood Count 3.50 M/uL Hemoglobin 10.5 g/dL Hematocrit 30.3 % Mean Corpuscular Volume 86.6 fL Mean Corpuscular Hemoglobin 30.0 pg Mean Corpuscular Hemoglobin Concent 34.7 g/dl Platelet Count 328 K/uL Mean Platelet Volume 10.1 fL Neutrophils (%) (Auto) 82.3 % Lymphocytes (%) (Auto) 6.5 % Monocytes (%) (Auto) 11.0 % Eosinophils (%) (Auto) 0.1 % Basophils (%) (Auto) 0.0 % Neutrophils # (Auto) 5.85 K/uL Lymphocytes # (Auto) 0.46 K/uL Monocytes # (Auto) 0.78 K/uL Eosinophils # (Auto) 0.01 K/uL Basophils # (Auto) 0.00 K/uL RDW Standard Deviation 44.6 fL RDW Coefficient of Variation 14.0 % Immature Granulocyte % (Auto) 0.1 % Immature Granulocyte # (Auto) 0.01 K/uL Sodium Level 142 mmol/L Potassium Level 3.8 mmol/L Chloride Level 110 mmol/L Carbon Dioxide Level 20 mmol/L Anion Gap 12.0 mmol/L Blood Urea Nitrogen 32 mg/dl Creatinine 0.84 mg/dl Est Creatinine Clear Calc Drug Dose 34.9 ml/min Estimated GFR () 71.9 Estimated GFR (Non- 62.1 BUN/Creatinine Ratio 37.9 Random Glucose 161 mg/dl Calcium Level 8.3 mg/dl Phosphorus Level 3.5 mg/dl Magnesium Level 2.7 mg/dl Test 03/24/16 08:01 Bedside Glucose 185 mg/dl Resident Tracking Resident Involvement: Resident Care Provided Care Provided: Adult Hospital Medicine (ICU)
[2016-03-24] MEDS: NITROGLYCERIN OINT 2% 1GM PACKET EXT SCH ×2 (14:00→17:28)
--- NOTE | 2016-03-24 15:15 | Family Medicine Progress Note ---
Progress Note Date of Service Mar 24, 2016. Subjective Pt evaluation today including: conversation w/ patient, physical exam, chart review, lab review The patient was seen and examined at bedside. Patient was manually disimpacted yesterday evening. Patient is resting comfortably in bed. Arousable. NG tube in place. Patient is answering questions, according to 1 to 1 pt didn't get a lot of sleep previous night. Patient is more somnolent than previous day. Is answering questions with short sentences before getting fatigued. Plan of care was described to the patient and all questions were answered. ROS: Unable to solicit a complete ROS because of difficulty communicating with patient. When solicited patient answered in the affirmative if she was in pain. Unable to ascertain more concrete information about the pain. Objective Physical Exam General Appearance: WD/WN, no apparent distress Respiratory/Chest: chest non-tender, lungs clear, normal breath sounds, no respiratory distress, no accessory muscle use Cardiovascular: regular rate, rhythm, no edema, no gallop, no JVD, no murmur Abdomen: normal bowel sounds, non tender, + pertinent finding (Patient has a distended abdomen, no gaurding, no tenderness to deep palpation. ) Neurologic/Psychiatric: alert, + pertinent finding (Patient is difficult to arouse and answers questions in short phrases. Is able to eye track. Chronic left sided weakness (UE and LE) unchanged from previous day. Pt is not oriented to time and place.) Assessment and Plan 89F presenting with ventilator dependant respirator failure 2/2 Angioedema of unknown cause (suspect DEBBIE inhibitor use). Patient was at a snf facility, sent here by concerns from her sister who believed her sister was in respiratory distress. Possible signs of metabolic encephalopathy prior to admission. Head CT without evidence of acute CVA. Pt was intubated in the ER with a pediatric tube. Patient has showed continued clinical improved from facial swelling s/p 1 unit FFP and Solumedrol IV. Patient was extubated on hospital Day #4. Broad spectrum ABX for HCAP were started on hospital day #5. Blood cultures and back negative and sputum cultures showed normal jake. Patient had a several day course of fever that was attributed to the FFP, that resolved on Day #5. In the ICU once patient stabilized an NG tube was placed for enteral feeding and medications were changed from IV to PO. BP was elevated and Hydralazine and Metoprolol were titrated upwards and e- imbalances were monitored. Patient remained in the ICU due to intubation risk. Patient was placed on 1 to 1 observation on hospital day #7 due to two attempts of pulling our her NG tube. She showed clinical improvement and was out of bed to chair on Hospital Day #8. Patient is verbalizing more frequently - according to pt her baseline is ambulation with a walker. Hospital Day #9 (03/24/16) patient was most somnolent during the day and was disimpacted the previous evening. Vancomycin was discontinued because MRSA was negative. Metabolic Encephalopathy (seen prior to sedation/intubation) - Pt has improved cognition, is now able to speak short sentences, this is a significant improvement from earlier in the hospital course.. - Blood cultures negative, no WBC count, possible Aspiration on X-ray. - c/w Zosyn Day #3/7 for Aspiration. (DC'ed Vanco) - continued 1 to 1 observation for pulling at NG tube. Vent dependant Respiratory Failure 2/2 Angioedema, Acquired vs Hereditary - Pt is extubated, lungs sound good. No signs of neck swelling. - Oxygen saturation is 94% on room air. - c/w Prednisone home dose of 5mg daily (pt is taking this for asthma) - c/w Duoneb, Atrovent, Benadryl and Famotidine - c/w Zosyn Day #3/7 for HCAP and/or Aspiration. (DC'ed Vanco) - Blood cultures - no growth to date. - Sputum cultures - regular jake. - Speech recommendations, 1. Continue NPO/NG-tube feeding 2. Frequent mouth care 3. SILO FILLER will continue to reassess patient daily for readiness for oral intake. HTN - BP today was 139/54 - change hydralazine to 50 mg Q6H NG + 10mg PRN for excessive BP and metoprolol tartrate to 50mg BID NG Constipation - Pt has clinical signs of stool retention, was disimpacted on 03/24/16, repeat enema showed no stool in the rectal vault. - c/w docusate 100mg BID and Senna 8.9 mg daily - KUB tomorrow in the AM. Angioedema (resolved), unknown cause, suspect DEBBIE usage - Complement C3 and C4 levels normal. C1 esterase levels high. Bilateral Lower Extremity Wound Cellulitis - Wound Care on Board - optifoam, change q3 days and prn. Diabetes - Lantus 10units daily + ISS. Monitor BSG with steroids - Added Aspirin 81mg on 03/24/16. CAD - continue to hold Statin, added nitro paste (pt was on Imdur at home) GI prophylaxis - c/w PPI, changed from PO to IV. Hypothyroid - c/w Levothyroxine 50mcg daily. Hypoalbuminemia (2.0)- Pt received 12.5mg of albumin today. Nutrition: Tube feedings stopped due to vomiting overnight. Start IVF NSS+KCL @ 64 MLS/HR currently DVT prophylaxis - c/w HepSQ Q12 today. Dispo - Full code as per POLST form. Per previous notes, sister would like further discussion about life support if pt requires longterm ventilation. Resident Involvement: Resident Care Provided Care Provided: Adult Hospital Medicine Reviewed: Pt Seen/Exam by Me History more alert today. unable to hold conversation though Constitutional: denies: fever General Appearance: no apparent distress Ears, Nose, Throat: other (NGT in place) Respiratory: lungs clear (anteriorly), no respiratory distress Cardiovascular: regular rate, rhythm Neurologic/Psychiatric: other (arousable - appropriately responsive) Skin Characteristics: warm/dry Assessment/Plan I have reviewed the medical record and performed a history and physical examination of this patient today. I have discussed the case with Dr. Liang. The above note reflects my findings, conclusions, and recommendations.
[2016-03-25] VITALS (33 sets, daily range): BP systolic 118–206; BP diastolic 49–86; PULSE 47–85; TEMP 36.3–36.6; O2SAT 92–100
[2016-03-25] MEDS: NITROGLYCERIN OINT 2% 1GM PACKET EXT SCH ×2 (00:15→05:57)
[2016-03-25] MEDS: GUAIFENESIN SUGAR FREE 200 MG/10 ML UDC NG SCH ×4 (00:15→18:24)
[2016-03-25] MEDS: PIPERACILL/TAZOBAC IV 3.375 GM in DEXTROSE 5% 100ML IV SCH ×3 (01:49→16:17)
[2016-03-25] MEDS: ALBUT/IPRATROP 3MG/0.5MG NEB 3 ML VIAL INH SCH ×6 (03:16→23:21)
[2016-03-25 05:41] LABS: BASO % 0.2 %; BASO ABS # 0.01 K/uL (0-0.2); EOS % 2.9 %; HEMATOCRIT 25.9 % (37-47); IG% 0.2 %; LYMPH % 13.9 %; LYMPH ABS # 0.82 K/uL (1.2-3.4); MEAN CELL VOLUME 86.6 fL (80-100); MEAN CORPUSCULAR HEMOGLOBIN 29.1 pg (25-34); MEAN CORPUSCULAR HGB CONC 33.6 g/dl (32-36); MEAN PLATELET VOLUME 9.3 fL (7.4-10.4); MONO % 8.8 %; PLATELET COUNT 303 K/uL (130-400); RED BLOOD COUNT 2.99 M/uL (4.2-5.4); WHITE BLOOD COUNT 5.89 K/uL (4.8-10.8)
[2016-03-25] MEDS: INSULIN HUMAN REGULAR SC SCH ×8 (05:51→18:30)
[2016-03-25] MEDS: LEVOTHYROXINE 50 MCG TAB NG SCH (05:57)
[2016-03-25 06:01] LABS: COMPLETE YES
[2016-03-25 06:14] LABS: BUN/CREATININE RATIO 35.2 (10-20); CALCIUM 7.8 mg/dl (8.5-10.1); CREATININE 1.1 mg/dl (0.60-1.20)
[2016-03-25 06:15] LABS: PHOSPHORUS 3.8 mg/dl (2.5-4.9)
--- NOTE | 2016-03-25 07:03 | DIAGNOSTIC IMAGING REPORT ---
KUB CLINICAL HISTORY: Abdominal distention COMPARISON STUDY: 03/23/2016 FINDINGS: There are surgical clips in the right upper quadrant consistent with a prior cholecystectomy. There is a nasogastric tube in stomach. There is mild gaseous distention of the colon. There are no transition zones indicate bowel obstruction. IMPRESSION: Mild gaseous distention of the colon. No evidence of bowel obstruction. Decreasing colonic stool. Electronically signed by: Wei Ochoa M.D. 03/25/2016 7:02 AM Dictated Date/Time: 03/25/2016 7:01 AM
[2016-03-25] MEDS: BUDESONIDE 0.25 MG/2 ML VIAL (PULMICORT) INH SCH ×2 (07:04→19:48)
[2016-03-25] MEDS: PROSOURCE NOCARB 30ML/PKT NG SCH (08:01)
[2016-03-25] MEDS: ASPIRIN 81 MG CHEW NG SCH (08:01)
[2016-03-25] MEDS: METOPROLOL TARTRATE 25 MG TAB PO SCH ×2 (08:03→20:35)
[2016-03-25] MEDS: DOCUSATE SODIUM 100 MG/10 ML UDC PO SCH ×2 (08:03→20:32)
[2016-03-25] MEDS: SENNA 8.8 MG/5 ML UDP PO SCH (08:07)
[2016-03-25] MEDS: HEPARIN SOD 5000 UNIT/0.5 ML CARP SQ SCH ×2 (08:19→20:36)
[2016-03-25] MEDS: INSULIN GLARGINE SOLOSTAR 100 UNITS/ML 3 ML PEN SC SCH (08:19)
[2016-03-25] MEDS ORDERED: POLYETHYLENE (MIRALAX) 17 GM PACK PO ONE (10:00)
[2016-03-25] MEDS: POTASSIUM CHLORIDE INJ 40 MEQ in SODIUM CHLORIDE 0.45% 1000ML 1,000 ML IV SCH (10:33)
[2016-03-25] MEDS: PANTOprazole INJ 40 MG in SYRINGE 0 ML IV SCH (10:36)
--- NOTE | 2016-03-25 11:04 | Pharmacy Progress Note ---
Glycemic Control: Progress Nt Date of Service Mar 25, 2016. Scope Glycemic Pharmacist consulted by Dr Goldsmith on 03/17/16 for glycemic control and to write orders per [facility] inpatient glycemic control protocol. Objective Accuchecks BSG (last 24hrs): Test 03/24/16 11:15 03/24/16 17:25 03/24/16 23:58 03/25/16 05:18 Bedside Glucose 157 mg/dl (70-90) 194 mg/dl (70-90) 180 mg/dl (70-90) Random Glucose 160 mg/dl (70-99) Test 03/25/16 05:48 Bedside Glucose 162 mg/dl (70-90) Laboratory Data (last 24hrs) Test 03/25/16 05:18 Anion Gap 11.0 mmol/L BUN/Creatinine Ratio 35.2 Blood Urea Nitrogen 39 mg/dl Creatinine 1.10 mg/dl Potassium Level 4.0 mmol/L Sodium Level 138 mmol/L White Blood Count 5.89 K/uL Red Blood Count 2.99 M/uL Hemoglobin 8.7 g/dL Hematocrit 25.9 % Mean Corpuscular Volume 86.6 fL Mean Corpuscular Hemoglobin 29.1 pg Mean Corpuscular Hemoglobin Concent 33.6 g/dl Platelet Count 303 K/uL Mean Platelet Volume 9.3 fL Neutrophils (%) (Auto) 74.0 % Lymphocytes (%) (Auto) 13.9 % Monocytes (%) (Auto) 8.8 % Eosinophils (%) (Auto) 2.9 % Basophils (%) (Auto) 0.2 % Neutrophils # (Auto) 4.36 K/uL Lymphocytes # (Auto) 0.82 K/uL Monocytes # (Auto) 0.52 K/uL Eosinophils # (Auto) 0.17 K/uL Basophils # (Auto) 0.01 K/uL HbA1c: Item Value Date Time Hemoglobin A1c 8.5 % H 02/23/16 0653 Recent Pertinent Medications Outpatient Anti-diabetic Regimen: * Lantus 8 units daily * Novolog 0-16 units per day * A1c = 8.5 % 02/23/16 The patient is currently receiving: * Basal insulin: Lantus 12 units every 24 hours - dosed in the AM * Correctional Insulin: REGULAR insulin correction per scale Q 6 hours Goal Range: Low 140 mg/dL - High 180 mg/dL Correction Factor: 15 mg/dL/unit * Prandial insulin: 0 units at this time; Tube feeds on hold * Oral Agents: None currently Risk Factors for Insulin Resistance: * Steroids: Prednisone 5 mg PO daily * Diet: tube feeds Assessment & Plan ASSESSMENT: 03/21/16 * Glycemic control has been acceptable over the last 24 hours; BSGs have fallen in the range of 125-160 * Patient was extubated yesterday afternoon and tube feeds have been off since. BSGs have slowly declined since extubation, down to 125 this AM. However she is to resume tube feeds and I anticipate her BSGs will then begin to climb again. * I plan to continue the same basal insulin rate for the time being, however if tube feeds are not tolerated for whatever reason I will reduce the basal dose further. * I have adjusted the Regular insulin prandial dose to account for tube feeds being restarted at a lower rate than previous. The tube feeds are to restart at 10cc/hr then gradual escalate to the 35cc/hr she was receiving prior to extubation. 03/22/16 * BSGs have ranged 125-162 over the last 24 hrs -- all of which were fasting BSGs * Pt did not have tube feeds reinstated yesterday due to concern pt may need intubated again * Current fasting BSGs well controlled with 10 units of Lantus on board - will continue * No need to adjust Regular insulin orders today; plan to continue yesterday's orders for prandial coverage of tube feeds. There are plans to restart Peptamen Intense when NG placement confirmed. 03/23/16 * BSGs have climbed to 258 mg/dL as tube feeds increased to goal * Tighten carb coverage slightly and continue current correctional insulin X 24 hours * Fasting BSG was 125 mg/dL on 03/21 and 162 mg/dL on 03/22--> this increase combined with tube feeds warrants a basal adjustment * Increase Lantus by 20% starting tomorrow 03/25/16 * Tube feeds held 03/24/16 due to vomiting and abdominal distention/constipation * BSGs have ranged 157-194 mg/dL over the last 24 hours- all of which were fasting BSGs * Per ICU rounds- plan is to restart tube feeds but change feeds to Impact * When the patient was previously on Fibersource- BSGs trended up and I had to tighten her prandial coverage * I will start where I left off, with a carb ratio of 8 and reassess in the AM PLAN FOR INPATIENT GLYCEMIC CONTROL: * Increase to Lantus 12 units SQ Q AM; give 1/2 dose (6 units) if BSG less than 120 * Continue correction factor of 15 mg/dl/unit * Cover carbs in continuous tube feeds per the following Regular insulin order Q 6 hrs: * Impact at 15 cc/hr give 2 units * Impact at 30 cc/hr give 3 unit * Impact at 45-50 cc/hr or more, give 5 units (goal rate = 50 cc/hr) * Continue goal range of Low 140 mg/dL - High 180 mg/dL * Please note that the plan above was derived based on current level of insulin resistance and hospital stress. These recommendations are appropriate for inpatient admission only. Plan of care upon discharge will need to be reassessed to avoid potential outpatient hypo/hyperglycemia. Thank you.
[2016-03-25 11:15] LABS: HEMATOCRIT 26.7 % (37-47)
[2016-03-25] MEDS: TUBE FEEDING WATER FLUSH PEG SCH ×3 (11:26→22:12)
[2016-03-25] MEDS: IMPACT LIQ 1000 ML BAG NG SCH (11:26)
[2016-03-25] MEDS: ISOSORBIDE DINITRATE 10 MG TAB NG SCH ×2 (11:31→16:06)
--- NOTE | 2016-03-25 11:37 | Critical Care Progress Note ---
Critical Care Progress Note Date of Service Mar 25, 2016. Attending Dr Tiffany Augustin Mrs Karen appear much more alert this morning. She was sleeping when I entered but easily woken and able to have a conversation. I discussed her care with her but she was unable to repeat back any of what I had told her. She is orientated to place and person. I also discussed resuscitation status and wishes for ongoing nutrition but she was unable to come to a decision and wished to defer matters to her sister therefore she does not have capacity at this time to make these decisions. Objective GENERAL: More awake and alert this morning, thin, able to follow commands. No acute distress. No audible upper airway sounds externally (thick mucus present on outside of mouth however). SKIN: Warm extremities, lesions on lower legs with dressings in place, no surrounding cellulitic changes noted. Hematoma just distal to left antecubital fossa and over radial artery (from previous ABG) appear stable. HEAD: Normocephalic and atraumatic EYES: extraocular muscles intact grossly, pupils equal and reactive to light OROPHARYNX: no tongue swelling evident, dry mucus membranes NECK: central trachea, no JVD LUNGS: poor inspiratory effort, reduced breath sounds b/l with occasional rhonchi, no accessory muscle use, no respiratory distress HEART: Regular rate and rhythm, heart sounds 1+2, no murmurs ABDOMEN: Soft and nontender, distension has improved, bowel sounds normal EXTREMITIES: no calf tenderness/swelling, no pedal edema NEUROLOGICALLY: Awake alert, orientated. Left arm weakness (chronic). Office Auditor strength b/l 4/5. Able to wiggle toes b/l to command. Assessment & Plan 89 yo female admission for angioedema requiring intubation (-20 Mar 2016). Appeared to improve with FFP. Post extubation had copious secretions and started on IV Zosyn to cover for hospital acquired pneumonia. Neurology: CT head on admission negative for CVA. Improving delirium - like secondary to constipation given vast improvement now that has resolved. Resp: Angioedema - resolved. C1 Esterase level normal. C4 levels normal. Improvement noticed with FFP transfusion. Not on ACEi or ARB recently. Consider allergy workup as outpatient. Asthma/COPD: no current exacerbation, on chronic oral steroid therapy for this. 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 Continue chronic prednisone use (5mg daily). Continue singulair, pulmicort and duonebs. Restart spiriva on d/c Excessive secretions, hospital acquired + likely aspiration pneumonia - BC negative, sputum moderate normal jake, CXR poor quality but show bibasilar consolidation (R>L) and small pleural effusions. Cover for HAP and aspiration with Zosyn. Vancomycin stopped after negative cultures. CV: HTN - Metoprolol XL 25 mg daily + Imdur XL 90mg daily as O/P. Currently on metoprolol to 50 mg BID NG + Hydralazine 50 mg Q6H NG + nitro paste 1 inch with erratic but generally elevated BP. No PRN meds given for HTN 02/22/16. Given resolution of constipation will start using NG again and switch paste to isosorbide dinitrate 10mg TID NG. Hx CAD s/p CABG - ASA added, no previous GI bleed or known contraindication to this. Hgb drop, will trend and may need to stop ASA GI bleed suspected. Statin on hold due to generalized weakness. GI: Constipation - x4 BM yesterday with fleet enema. Will add MiraLAX NG daily to Colace and senna that she is already receiving. Nutrition: Restart NG tube feeds. Discussed on ICU rounds with ice house supervisor and will switch to Impact, start slowly and increasing to goal. NPO pending speech eval, Continue IVF 64 MLS/HR as UO remains poor, consider stopping tomorrow and switching to flushes down NG to meet fluid requirement. Continue Protonix IV 40 mg until bowels have recovered. SALT - speech evaluation : Urine output poor (approx 0.5 ml/kg/hr for last 4 days). Cr stable. FENa 0.2% therefore likely prerenal cause. Continue IVF @ 64 MLS/HR (previous pulmonary edema from diastolic HF hospital admission). Total fluid intake yesterday 1150ml. Hypokalemia resolved - continue 40 meq in IVF as above. Endo: Appreciate pharmacy glycemic management. Lantus 12 units daily. Sliding scale insulin (total 2 units 03/24). Q6H BSGs. Heme: Anemia with acute drop in Hgb. Repeat Hgb at 11:00am ID: Day 3 Zosyn covering for hospital acquired pneumonia (total 5 days) VTE Prophylaxis: Continue heparin 5000 units Q12H as high risk for DVT, monitor for nose bleeds. PT + OT OOB as tolerated. skin wounds limit SCD and GUDELIA use Code: Full. Previous POLST form stating wish for full resuscitation. Need to discuss with sister today regarding this. Disposition: - step down from ICU care. Data Medications: Current Inpatient Medications Medications (Trade) Dose Ordered Sig/Remy Route Start Time Stop Time Status Last Admin Dose Admin Acetaminophen (Tylenol Tab) 650 mg Q4H PRN PO 03/16/16 11:00 04/15/16 10:59 03/23/16 02:02 650 MG Nitroglycerin (Nitrostat Tab) 0.4 mg UD PRN SL 03/16/16 11:00 04/15/16 10:59 Al Hydrox/Mg Hydrox/Simethicone (Maalox Max Susp) 15 ml Q4H PRN PO 03/16/16 11:00 04/15/16 10:59 Magnesium Hydroxide (Milk Of Magnesia Susp) 30 ml Q12H PRN PO 03/16/16 11:00 04/15/16 10:59 Glucose (Glucose 40% Gel) 15-30 GRAMS 15 GRAMS... UD PRN PO 03/16/16 13:00 04/15/16 12:59 Glucose (Glucose Chew Tab) 4-8 Tablets 4 Tabl... UD PRN PO 03/16/16 13:00 04/15/16 12:59 Dextrose (Dextrose 50% 50ML Syringe) 25-50ML OF 50% DW IV FOR... UD PRN IV 03/16/16 13:00 04/15/16 12:59 Glucagon (Glucagon Inj) 1 mg UD PRN SQ 03/16/16 13:00 04/15/16 12:59 Hydralazine HCl (HydrALAZINE INJ) 10 mg Q4 PRN IV. 03/16/16 18:15 04/15/16 18:14 03/24/16 00:32 10 MG Prednisone (PredniSONE TAB) 5 mg DAILY PO 03/17/16 09:00 04/16/16 08:59 03/25/16 08:03 5 MG Miscellaneous Information (Consult Glycemic Management Pharmacy) 1 ea UD PRN N/A 03/17/16 09:30 04/16/16 09:29 Insulin Human Regular (novoLIN-R) SLIDING SCALE Q6 SC 03/18/16 08:00 04/17/16 07:59 03/24/16 17:31 1 UNITS Senna (Senokot Syrup) 8.8 mg DAILY PO 03/19/16 09:00 04/18/16 08:59 03/25/16 08:07 8.8 MG Docusate Sodium (coLACE SYRUP) 100 mg BID PO 03/18/16 21:00 04/17/16 20:59 03/25/16 08:03 100 MG Ipratropium Henderson (Atrovent Hfa Inhaler) 2 puffs QID PRN INH 03/20/16 14:00 04/19/16 13:59 Insulin Human Regular (novoLIN-R) -give 0 units if IMP... Q6 SC 03/21/16 12:00 04/18/16 17:59 03/23/16 17:43 4 UNITS Guaifenesin 400 mg 400 mg Q6H NG 03/21/16 12:00 04/20/16 11:59 03/25/16 05:56 400 MG Piperacillin Sod/ Tazobactam Sod/ Dextrose (Zosyn Iv/D5 100ml) 115 ml @ 28.75 mls/ hr Q8H IV 03/21/16 18:00 03/26/16 18:30 03/25/16 10:33 28.75 MLS/HR Piperacillin Sod/ Tazobactam Sod (Consult) 1 ea UD PRN N/A 03/21/16 12:45 03/26/16 18:00 Albuterol/ Ipratropium (Duoneb) 3 ml Q4R INH 03/21/16 16:00 04/20/16 15:59 03/25/16 07:04 3 ML Albuterol/ Ipratropium (Duoneb) 3 ml Q2H PRN INH 03/21/16 12:45 04/20/16 12:44 Aspirin (Aspirin Chew) 81 mg DAILY NG 03/22/16 09:00 04/21/16 08:59 03/25/16 08:01 81 MG Budesonide (Pulmicort Respules 0.25MG/ 2ML Neb Soln) 0.25 mg Q12R INH 03/22/16 09:00 04/21/16 08:59 03/25/16 07:04 0.25 MG Levothyroxine Sodium (Synthroid Tab) 50 mcg DAILYBB NG 03/22/16 09:00 04/21/16 08:59 03/25/16 05:57 50 MCG Enteral Nutritional Formula (Prosource No Carb) 30 ml DAILY NG 03/22/16 12:00 04/21/16 11:59 03/25/16 08:01 30 ML Metoprolol Tartrate (Lopressor Tab) 50 mg BID PO 03/23/16 09:00 04/22/16 08:59 03/25/16 08:03 50 MG Insulin Glargine (Lantus Solostar Pen) 12 unit QAM SC 03/24/16 09:00 04/23/16 08:59 03/25/16 08:19 12 UNIT Hydralazine HCl (Apresoline Tab) 50 mg Q6 PO 03/23/16 20:00 04/22/16 19:59 03/25/16 05:57 50 MG Ondansetron HCl (Zofran Inj) 4 mg Q6H PRN IV 03/23/16 20:00 04/22/16 19:59 03/23/16 19:55 4 MG Ioversol 125 ml 125 ml UD PRN IV 03/23/16 23:15 03/27/16 23:14 Potassium Chloride/Sodium Chloride (KCl Inj/1/2 Nss 1000ml) 1,020 ml @ 64 mls/hr [id number] IV 03/24/16 08:45 04/23/16 08:44 03/25/16 10:33 64 MLS/HR Heparin Sodium (Porcine) 5000 unit 5,000 unit Q12 SQ 03/24/16 09:00 04/23/16 08:59 03/25/16 08:19 5,000 UNIT Pantoprazole Sodium/Syringe (Protonix Inj/ Syringe) 10 ml @ 5 mls/min DAILY@11 IV 03/24/16 11:00 04/23/16 10:59 03/25/16 10:36 5 MLS/MIN Polyethylene (Miralax Powder Packet) 17 gm QAM PO 03/26/16 09:00 04/25/16 08:59 Isosorbide Dinitrate (Isordil Tab) 10 mg TID@0700,1200,1700 NG 03/25/16 12:00 04/24/16 11:59 Enteral Nutritional Formula (Impact 1.0 Je) 1,000 ml UD NG 03/25/16 10:00 04/24/16 09:59 Sterile Water (Tube Feeding Water Flush) 1 ea Q6H PEG 03/25/16 10:00 04/24/16 09:59 I & O: 24-Hour Column 03/25/16 07:59 Intake Total 1296 ml Output Total 750 ml Balance 546 ml Vital Signs: Date Time Temp Pulse Resp B/P Pulse Ox O2 Delivery O2 Flow Rate FiO2 03/25/16 09:59 52 16 151/62 98 Room Air 03/25/16 09:00 51 18 96 03/25/16 08:59 51 16 147/50 94 Room Air 03/25/16 08:00 59 15 97 03/25/16 08:00 Room Air 03/25/16 07:58 36.6 61 15 163/55 92 Room Air 03/25/16 07:04 57 18 97 Room Air 03/25/16 07:00 54 16 100 03/25/16 06:00 54 16 162/61 98 Room Air 03/25/16 04:00 Room Air 03/25/16 04:00 36.5 85 15 157/75 99 Room Air 03/25/16 03:16 55 18 96 Room Air 03/25/16 02:00 52 16 118/49 99 Room Air 03/25/16 00:01 36.6 58 16 181/73 98 Room Air 03/24/16 23:59 Room Air 03/24/16 23:17 58 20 95 Room Air 03/24/16 22:15 59 17 169/67 98 03/24/16 21:58 60 15 178/63 98 03/24/16 20:58 62 16 98/46 97 03/24/16 20:00 36.5 03/24/16 20:00 98 Room Air 03/24/16 19:58 72 18 150/72 98 03/24/16 19:33 70 20 97 Room Air 03/24/16 18:58 67 16 124/71 98 03/24/16 18:00 73 20 157/75 98 Nasal Cannula 4.0 03/24/16 16:00 73 16 130/67 97 Room Air 03/24/16 16:00 97 Room Air 03/24/16 14:26 68 20 97 Room Air 03/24/16 14:00 64 20 140/73 100 Room Air 03/24/16 12:00 95 03/24/16 12:00 64 18 185/65 94 Room Air 03/24/16 11:29 55 20 94 Room Air Laboratory Results: Last 24 Hours Test 03/24/16 11:15 03/24/16 17:25 03/24/16 23:58 03/25/16 05:18 Bedside Glucose 157 mg/dl 194 mg/dl 180 mg/dl White Blood Count 5.89 K/uL Red Blood Count 2.99 M/uL Hemoglobin 8.7 g/dL Hematocrit 25.9 % Mean Corpuscular Volume 86.6 fL Mean Corpuscular Hemoglobin 29.1 pg Mean Corpuscular Hemoglobin Concent 33.6 g/dl Platelet Count 303 K/uL Mean Platelet Volume 9.3 fL Neutrophils (%) (Auto) 74.0 % Lymphocytes (%) (Auto) 13.9 % Monocytes (%) (Auto) 8.8 % Eosinophils (%) (Auto) 2.9 % Basophils (%) (Auto) 0.2 % Neutrophils # (Auto) 4.36 K/uL Lymphocytes # (Auto) 0.82 K/uL Monocytes # (Auto) 0.52 K/uL Eosinophils # (Auto) 0.17 K/uL Basophils # (Auto) 0.01 K/uL RDW Standard Deviation 44.6 fL RDW Coefficient of Variation 13.9 % Immature Granulocyte % (Auto) 0.2 % Immature Granulocyte # (Auto) 0.01 K/uL Red Blood Cell Morphology Unremarkable Sodium Level 138 mmol/L Potassium Level 4.0 mmol/L Chloride Level 106 mmol/L Carbon Dioxide Level 21 mmol/L Anion Gap 11.0 mmol/L Blood Urea Nitrogen 39 mg/dl Creatinine 1.10 mg/dl Est Creatinine Clear Calc Drug Dose 29.2 ml/min Estimated GFR () 51.9 Estimated GFR (Non- 44.8 BUN/Creatinine Ratio 35.2 Random Glucose 160 mg/dl Calcium Level 7.8 mg/dl Phosphorus Level 3.8 mg/dl Test 03/25/16 05:48 03/25/16 11:00 Bedside Glucose 162 mg/dl Resident Tracking Resident Involvement: Resident Care Provided Care Provided: Adult Hospital Medicine (ICU)
--- NOTE | 2016-03-25 14:18 | Progress Note ---
Progress Note Puppet Master Attending Addendum to Critical Care Progress Note documented by Dr. Johnson today I have personally interviewed and examined the patient. I have discussed her care with Dr. Johnson, reviewed his note and agree with the assessment and plan. Her care was also discussed in detail on multidisciplinary rounds today. I have reviewed the VS, I/O, meds, labs and recent imaging as well as other progress notes on this patient. There were no acute events overnight and the fleet enema was productive of some formed stool yesterday - hopefully she is no longer impacted. Mirlax was added today. Her abdomen is much softer and nontender on exam and we are starting tube feeds again today with water flushes - also changing to Impact from [employer] for the time being. She is profoundly weak and needs adequate nutrition in order to continue to improve. She was evaluated by Speech Therapy today and is able to swallow but I don't think she'll take enough nutrition on her own just yet. I suggest continuing tube feeds today and assessing for intolerance. If she does well, begin a diet tomorrow, discontinue IVF and run tube feeds at night until she is taking adequate po. Lung exam is essentially unchanged. She is still receiving chest percussion therapy via the bed, bronchodilators, antibiotics for pneumonia (5 days) and she is at risk for pulmonary decompensation due to inability to cough out secretions due to weakness. She has been on room air for 2 days and has not required NT suctioning in the past 2 days. Vest percussion therapy has been ordered and hopefully she will become stronger with sound nutrition. Could try a flutter valve but she does not consistently follow directions. Working on increasing her mobility and encouraging cough will also be helpful. Outpatient dose of prednisone was resumed today. Angioedema has been resolved and she is s/p bronchoscopic intubation and extubation. She may benefit from outpatient allergy testing Her blood pressure is labile but is primarily hypertensive. Enteral nitrates added today - convert to Imdur once swallowing pills. Heart rate will not allow escalation of beta jose a and she remains on hydralazine both scheduled and prn. She is stable for transfer to step down but is very debilitated. Suggest code status discussion with her power of research attorney. Please call me with any questions or concerns.
[2016-03-25] MEDS: HydrALAZINE HCL 20 MG/ML VIAL IV. PRN (16:09)
--- NOTE | 2016-03-25 18:03 | Family Medicine Progress Note ---
Progress Note Date of Service Mar 25, 2016. Subjective Pt evaluation today including: conversation w/ patient, physical exam, chart review, lab review The patient was seen and examined at bedside. No acute overnight events. Patient is sitting at bedside and answering questions. Denies having any pain. NG tube in place. Sawyer is draining clear fluid. Plan of care was described to the patient and all questions were answered. Constitutional: No chills, No fever, No sweats, No weight loss Respiratory: No cough, No shortness of breath, No sputum, No wheezing Cardiovascular: No chest pain Abdomen: No diarrhea, No nausea, No pain, No vomiting Female : No dysuria Objective Physical Exam General Appearance: WD/WN, no apparent distress Respiratory/Chest: chest non-tender, lungs clear, normal breath sounds, no accessory muscle use, + pertinent finding (Lung sounds are much improved from previous day. ) Cardiovascular: regular rate, rhythm, no edema, no gallop, no murmur Abdomen: normal bowel sounds, non tender, soft, no organomegaly Extremities: no pedal edema, no calf tenderness Neurologic/Psychiatric: no motor/sensory deficits, alert, normal mood/affect, + pertinent finding (continued left sided weakness as per patient's baseline. Patient can only communicate in short periods of time before getting tired. ) Assessment and Plan 89F presenting with ventilator dependant respirator failure 2/2 Angioedema of unknown cause (suspect DEBBIE inhibitor use). [facility], sent here by concerns from her sister who believed her sister was in respiratory distress. Possible signs of metabolic encephalopathy prior to admission. Head CT without evidence of acute CVA. Pt was intubated in the ER with a pediatric tube. Patient has showed continued clinical improved from facial swelling s/p 1 unit FFP and Solumedrol IV. Patient was extubated on hospital Day #4. Broad spectrum ABX for HCAP were started on hospital day #5. Blood cultures came back negative and sputum cultures showed normal jake. Patient had a several day course of fever that was attributed to the FFP, that resolved on Day #5. In the ICU once patient stabilized an NG tube was placed for enteral feeding and medications were changed from IV to PO. BP was elevated and Hydralazine and Metoprolol were titrated upwards and e- imbalances were monitored. Patient remained in the ICU due to intubation risk. Patient was placed on 1 to 1 observation on hospital day #7 due to two attempts of pulling our her NG tube. She showed clinical improvement and was out of bed to chair on Hospital Day #8. Patient is verbalizing more frequently - according to pt her baseline is ambulation with a walker. Hospital Day #9 (03/24/16) patient was most somnolent during the day and was disimpacted the previous evening. Vancomycin was discontinued because MRSA was negative. Patient was downgraded from ICU on 03/25/16. NG tube remains in place. Metabolic Encephalopathy (seen prior to sedation/intubation) - Pt has increased energy and is speaking more without getting tired. - Blood cultures negative, no WBC count, possible Aspiration on X-ray. - c/w Zosyn Day #4 for Aspiration. (DC'ed Vanco) Vent dependant Respiratory Failure 2/2 Angioedema, Acquired vs Hereditary - Pt is extubated on room air, lungs sound good. No signs of neck swelling. O2 saturation is 94% on room air. Pt is receiving chest percussion therapy via the bed - c/w Prednisone home dose of 5mg daily (pt is taking this for asthma) - c/w Duoneb, Atrovent, Benadryl and Famotidine - c/w Zosyn Day #3 for HCAP and/or Aspiration. (DC'ed Vanco)\ Nutrition - Speech recommendations, 1. Puree diet 2. Aspiration precautions: straws okay; FULLY UPRIGHT, encourage patient to feed herself, but assist as needed 3. HANDY MAN will follow to ensure safe intake of newly initiated oral diet when diet is ordered. Will also advance diet as patient demonstrates readiness. - IVF @ 64 MLS/HR + 40meQ KCL. HTN - BP today was 139/54 - change hydralazine to 50 mg Q6H NG + 10mg PRN for excessive BP and metoprolol tartrate to 50mg XL NG. - Enteral nitrates added today - convert to Imdur once swallowing pills Constipation (resolved) - 4BM yesterday, no signs of stool distension. - c/w docusate 100mg BID and Senna 8.9 mg daily Angioedema (resolved), unknown cause, suspect DEBBIE usage - Complement C3 and C4 levels normal. C1 esterase levels high. Bilateral Lower Extremity Wound Cellulitis - Wound Care on Board - optifoam, change q3 days and prn. Diabetes - Lantus 10units daily + ISS. Monitor BSG with steroids. c/w Aspirin 81mg on 03/24/16. CAD - continue to hold Statin, added nitro paste (pt was on Imdur at home) GI prophylaxis - c/w PPI, changed from PO to IV. Hypothyroid - c/w Levothyroxine 50mcg daily. Hypoalbuminemia (2.0)- Pt received 12.5mg of albumin on 03/25/16/. Nutrition: Tube feedings stopped due to vomiting overnight. Start IVF NSS+KCL @ 64 MLS/HR currently DVT prophylaxis - c/w HepSQ Q12 today. Dispo - Full code as per POLST form. 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 Resident Involvement: Resident Care Provided Care Provided: Adult [facility] Medicine Reviewed: Pt Seen/Exam by Me History still lethargic. unable to give much history Constitutional: denies: fever General Appearance: no apparent distress Ears, Nose, Throat: other (NGT in place) Respiratory: no respiratory distress, decreased breath sounds Cardiovascular: regular rate, rhythm Gastrointestinal: normal bowel sounds, non tender, soft Neurologic/Psychiatric: other (lethargic. in chair. ) Skin Characteristics: warm/dry Assessment/Plan I have reviewed the medical record and performed a history and physical examination of this patient today. I have discussed the case with Dr. Liang. The above note reflects my findings, conclusions, and recommendations. Transfer to [facility]. [facility] toilet. Continue NG feeds. speech eval for oral intake
[2016-03-25] MEDS: ISOSORBIDE DINITRATE 5 MG TAB PO SCH (18:24)
[2016-03-26] VITALS (13 sets, daily range): BP systolic 120–212; BP diastolic 31–82; PULSE 53–70; TEMP 36.6–37.2; O2SAT 94–99
[2016-03-26] MEDS: GUAIFENESIN SUGAR FREE 200 MG/10 ML UDC NG SCH ×5 (00:17→23:46)
[2016-03-26] MEDS: INSULIN HUMAN REGULAR SC SCH ×8 (00:19→18:00)
[2016-03-26] MEDS: PIPERACILL/TAZOBAC IV 3.375 GM in DEXTROSE 5% 100ML IV SCH ×3 (02:20→18:00)
[2016-03-26] MEDS: ALBUT/IPRATROP 3MG/0.5MG NEB 3 ML VIAL INH SCH ×5 (03:41→23:19)
[2016-03-26] MEDS: TUBE FEEDING WATER FLUSH PEG SCH ×4 (04:02→22:32)
[2016-03-26 06:10] LABS: BASO % 0.1 %; BASO ABS # 0.01 K/uL (0-0.2); COMPLETE YES; EOS % 4.3 %; HEMATOCRIT 26.4 % (37-47); IG% 0.3 %; LYMPH % 15.7 %; LYMPH ABS # 1.06 K/uL (1.2-3.4); MEAN CELL VOLUME 85.2 fL (80-100); MEAN CORPUSCULAR HEMOGLOBIN 29.7 pg (25-34); MEAN CORPUSCULAR HGB CONC 34.8 g/dl (32-36); MEAN PLATELET VOLUME 9.3 fL (7.4-10.4); NEUT % 71.6 %; PLATELET COUNT 359 K/uL (130-400); WHITE BLOOD COUNT 6.77 K/uL (4.8-10.8)
[2016-03-26] MEDS: LEVOTHYROXINE 50 MCG TAB NG SCH (06:34)
[2016-03-26 06:53] LABS: CREATININE 1.2 mg/dl (0.60-1.20)
[2016-03-26 06:54] LABS: BUN/CREATININE RATIO 37.3 (10-20); CALCIUM 7.8 mg/dl (8.5-10.1); MAGNESIUM 2.5 mg/dl (1.8-2.4); PHOSPHORUS 3.7 mg/dl (2.5-4.9); POTASSIUM 4.8 mmol/L (3.5-5.1)
[2016-03-26] MEDS: BUDESONIDE 0.25 MG/2 ML VIAL (PULMICORT) INH SCH ×2 (07:39→19:41)
[2016-03-26] MEDS: ISOSORBIDE DINITRATE 5 MG TAB PO SCH ×3 (08:02→18:00)
[2016-03-26] MEDS: PROSOURCE NOCARB 30ML/PKT NG SCH (08:03)
[2016-03-26] MEDS: ASPIRIN 81 MG CHEW NG SCH (08:04)
[2016-03-26] MEDS: METOPROLOL TARTRATE 25 MG TAB PO SCH ×2 (08:04→20:52)
[2016-03-26] MEDS: SENNA 8.8 MG/5 ML UDP PO SCH (08:04)
[2016-03-26] MEDS: POLYETHYLENE (MIRALAX) 17 GM PACK PO SCH (08:04)
[2016-03-26] MEDS: DOCUSATE SODIUM 100 MG/10 ML UDC PO SCH ×2 (08:05→20:52)
[2016-03-26] MEDS: HEPARIN SOD 5000 UNIT/0.5 ML CARP SQ SCH ×2 (08:07→20:53)
[2016-03-26] MEDS: INSULIN GLARGINE SOLOSTAR 100 UNITS/ML 3 ML PEN SC SCH (08:07)
[2016-03-26] MEDS: PANTOprazole INJ 40 MG in SYRINGE 0 ML IV SCH (11:43)
--- NOTE | 2016-03-26 12:08 | Family Medicine Progress Note ---
Progress Note Date of Service Mar 26, 2016. Subjective Pt evaluation today including: conversation w/ patient, physical exam, chart review, lab review Voiding: gutierrez catheter in place Patient was seen at the bedside. No acute events overnight. On tele sinus rhythm. Patient would answer my questions but would close her eyes after answering couple of questions. Denies chest pain, SOB, abdominal pain, nausea, vomiting, or any other additional complaints. Constitutional: No chills, No fever, No weight loss Respiratory: No cough, No shortness of breath, No wheezing Cardiovascular: No chest pain Abdomen: No diarrhea, No nausea, No pain, No vomiting Musculoskeletal: No muscle pain Medications Current Inpatient Medications Medications (Trade) Dose Ordered Sig/Remy Route Start Time Stop Time Status Last Admin Dose Admin Acetaminophen (Tylenol Tab) 650 mg Q4H PRN PO 03/16/16 11:00 04/15/16 10:59 03/23/16 02:02 650 MG Nitroglycerin (Nitrostat Tab) 0.4 mg UD PRN SL 03/16/16 11:00 04/15/16 10:59 Al Hydrox/Mg Hydrox/Simethicone (Maalox Max Susp) 15 ml Q4H PRN PO 03/16/16 11:00 04/15/16 10:59 Magnesium Hydroxide (Milk Of Magnesia Susp) 30 ml Q12H PRN PO 03/16/16 11:00 04/15/16 10:59 Glucose (Glucose 40% Gel) 15-30 GRAMS 15 GRAMS... UD PRN PO 03/16/16 13:00 04/15/16 12:59 Glucose (Glucose Chew Tab) 4-8 Tablets 4 Tabl... UD PRN PO 03/16/16 13:00 04/15/16 12:59 Dextrose (Dextrose 50% 50ML Syringe) 25-50ML OF 50% DW IV FOR... UD PRN IV 03/16/16 13:00 04/15/16 12:59 Glucagon (Glucagon Inj) 1 mg UD PRN SQ 03/16/16 13:00 04/15/16 12:59 Hydralazine HCl (HydrALAZINE INJ) 10 mg Q4 PRN IV. 03/16/16 18:15 04/15/16 18:14 03/25/16 16:09 10 MG Miscellaneous Information (Consult Glycemic Management Pharmacy) 1 ea UD PRN N/A 03/17/16 09:30 04/16/16 09:29 Insulin Human Regular (novoLIN-R) SLIDING SCALE Q6 SC 03/18/16 08:00 04/17/16 07:59 03/25/16 18:30 3 UNITS Senna (Senokot Syrup) 8.8 mg DAILY PO 03/19/16 09:00 04/18/16 08:59 03/26/16 08:04 8.8 MG Docusate Sodium (coLACE SYRUP) 100 mg BID PO 03/18/16 21:00 04/17/16 20:59 03/26/16 08:05 100 MG Ipratropium Letts (Atrovent Hfa Inhaler) 2 puffs QID PRN INH 03/20/16 14:00 04/19/16 13:59 Insulin Human Regular (novoLIN-R) -give 0 units if IMP... Q6 SC 03/21/16 12:00 04/18/16 17:59 03/26/16 06:39 2 UNITS Guaifenesin 400 mg 400 mg Q6H NG 03/21/16 12:00 04/20/16 11:59 03/26/16 06:33 400 MG Piperacillin Sod/ Tazobactam Sod/ Dextrose (Zosyn Iv/D5 100ml) 115 ml @ 28.75 mls/ hr Q8H IV 03/21/16 18:00 03/26/16 18:30 03/26/16 10:14 28.75 MLS/HR Piperacillin Sod/ Tazobactam Sod (Consult) 1 UD PRN N/A 03/21/16 12:45 03/26/16 18:00 Albuterol/ Ipratropium (Duoneb) 3 ml Q4R INH 03/21/16 16:00 04/20/16 15:59 03/22/16 10:40 3 ML Albuterol/ Ipratropium (Duoneb) 3 ml Q2H PRN INH 03/21/16 12:45 04/20/16 12:44 Aspirin (Aspirin Chew) 81 mg DAILY NG 03/22/16 09:00 04/21/16 08:59 03/26/16 08:04 81 MG Budesonide (Pulmicort Respules 0.25MG/ 2ML Neb Soln) 0.25 mg Q12R INH 03/22/16 09:00 04/21/16 08:59 03/26/16 07:39 0.25 MG Levothyroxine Sodium (Synthroid Tab) 50 mcg DAILYBB NG 03/22/16 09:00 04/21/16 08:59 03/26/16 06:34 50 MCG Enteral Nutritional Formula (Prosource No Carb) 30 ml DAILY NG 03/22/16 12:00 04/21/16 11:59 03/26/16 08:03 30 ML Metoprolol Tartrate (Lopressor Tab) 50 mg BID PO 03/23/16 09:00 04/22/16 08:59 03/26/16 08:04 50 MG Insulin Glargine (Lantus Solostar Pen) 12 unit QAM SC 03/24/16 09:00 04/23/16 08:59 03/26/16 08:07 12 UNIT Ondansetron HCl (Zofran Inj) 4 mg Q6H PRN IV 03/23/16 20:00 04/22/16 19:59 03/23/16 19:55 4 MG Ioversol (Optiray 320) 125 ml UD PRN IV 03/23/16 23:15 03/27/16 23:14 Heparin Sodium (Porcine) 5000 unit 5,000 unit Q12 SQ 03/24/16 09:00 04/23/16 08:59 03/26/16 08:07 5,000 UNIT Pantoprazole Sodium/Syringe (Protonix Inj/ Syringe) 10 ml @ 5 mls/min DAILY@11 IV 03/24/16 11:00 04/23/16 10:59 03/26/16 11:43 5 MLS/MIN Polyethylene (Miralax Powder Packet) 17 gm QAM PO 03/26/16 09:00 04/25/16 08:59 03/26/16 08:04 17 GM Enteral Nutritional Formula (Impact 1.0 Je) 1,000 ml UD NG 03/25/16 10:00 04/24/16 09:59 03/25/16 11:26 1,000 ML Sterile Water (Tube Feeding Water Flush) 1 ea Q6H PEG 03/25/16 10:00 04/24/16 09:59 03/26/16 10:14 1 EA Prednisone (PredniSONE TAB) 5 mg DAILY NG 03/26/16 09:00 04/25/16 08:59 03/26/16 08:01 5 MG Hydralazine HCl (Apresoline Tab) 50 mg Q6H PO 03/25/16 20:00 04/24/16 19:59 03/26/16 07:59 50 MG Isosorbide Dinitrate 15 mg 15 mg TID@0700,1200,1700 PO 03/25/16 17:00 04/24/16 16:59 03/26/16 08:02 15 MG Potassium Chloride/Sodium Chloride (KCl Inj/1/2 Nss 1000ml) 1,020 ml @ 64 mls/hr [id number] IV 03/26/16 19:00 04/25/16 18:59 Objective Vital Signs Date Time Temp Pulse Resp B/P Pulse Ox O2 Delivery O2 Flow Rate FiO2 03/26/16 10:40 56 18 96 Room Air 03/26/16 09:57 133/31 03/26/16 08:00 36.6 61 16 175/43 95 Room Air 03/26/16 08:00 94 Room Air 03/26/16 07:39 58 18 94 Room Air 03/26/16 04:04 36.6 53 0 179/60 95 Room Air 03/26/16 04:03 Room Air 4.0 03/26/16 03:42 54 18 95 Room Air 03/26/16 00:29 Room Air 4.0 03/25/16 23:58 36.6 52 0 142/62 95 03/25/16 23:21 52 18 94 Room Air 03/25/16 22:58 47 0 164/61 98 03/25/16 21:59 53 0 156/63 99 03/25/16 20:59 61 0 128/57 99 03/25/16 20:02 Room Air 4.0 03/25/16 19:59 36.3 63 0 188/73 100 03/25/16 19:48 56 18 93 Room Air 03/25/16 17:59 60 17 170/68 98 Room Air 03/25/16 16:58 63 18 150/59 03/25/16 16:03 52 18 93 Room Air 03/25/16 16:00 61 15 97 03/25/16 15:58 36.3 63 18 206/86 98 Room Air 03/25/16 15:45 99 Room Air 03/25/16 15:29 60 17 184/68 100 03/25/16 14:59 58 18 184/68 99 03/25/16 14:00 53 15 96 03/25/16 13:58 53 15 172/60 99 Room Air 03/25/16 13:30 56 17 149/63 100 03/25/16 12:59 54 18 149/63 03/25/16 12:00 36.5 60 15 96 Physical Exam General Appearance: no apparent distress ENT: + pertinent finding (NGT on place) Neck: supple, trachea midline Respiratory/Chest: chest non-tender, lungs clear, normal breath sounds, no respiratory distress Cardiovascular: regular rate, rhythm, no edema Abdomen: normal bowel sounds, non tender, soft Extremities: no pedal edema Neurologic/Psychiatric: alert, normal mood/affect Skin: normal color, warm/dry Laboratory Results Results Past 24 Hours Test 03/25/16 18:23 03/26/16 00:12 03/26/16 05:36 03/26/16 06:37 Range/Units Bedside Glucose 212 148 151 70-90 mg/dl White Blood Count 6.77 4.8-10.8 K/uL Red Blood Count 3.10 4.2-5.4 M/uL Hemoglobin 9.2 12.0-16.0 g/dL Hematocrit 26.4 37-47 % Mean Corpuscular Volume 85.2 80-100 fL Mean Corpuscular Hemoglobin 29.7 25-34 pg Mean Corpuscular Hemoglobin Concent 34.8 32-36 g/dl Platelet Count 359 130-400 K/uL Mean Platelet Volume 9.3 7.4-10.4 fL Neutrophils (%) (Auto) 71.6 % Lymphocytes (%) (Auto) 15.7 % Monocytes (%) (Auto) 8.0 % Eosinophils (%) (Auto) 4.3 % Basophils (%) (Auto) 0.1 % Neutrophils # (Auto) 4.85 1.4-6.5 K/uL Lymphocytes # (Auto) 1.06 1.2-3.4 K/uL Monocytes # (Auto) 0.54 0.11-0.59 K/uL Eosinophils # (Auto) 0.29 0-0.5 K/uL Basophils # (Auto) 0.01 0-0.2 K/uL RDW Standard Deviation 42.6 36.4-46.3 fL RDW Coefficient of Variation 13.7 11.5-14.5 % Immature Granulocyte % (Auto) 0.3 % Immature Granulocyte # (Auto) 0.02 0.00-0.02 K/uL Sodium Level 136 136-145 mmol/L Potassium Level 4.8 3.5-5.1 mmol/L Chloride Level 104 98-107 mmol/L Carbon Dioxide Level 21 21-32 mmol/L Anion Gap 11.0 3-11 mmol/L Blood Urea Nitrogen 45 7-18 mg/dl Creatinine 1.20 0.60-1.20 mg/dl Est Creatinine Clear Calc Drug Dose 26.8 ml/min Estimated GFR () 46.7 Estimated GFR (Non- 40.3 BUN/Creatinine Ratio 37.3 10-20 Random Glucose 139 70-99 mg/dl Calcium Level 7.8 8.5-10.1 mg/dl Phosphorus Level 3.7 2.5-4.9 mg/dl Magnesium Level 2.5 1.8-2.4 mg/dl Albumin 2.0 3.4-5.0 gm/dl Assessment and Plan This is a 89 y/o F presenting with ventilator dependant respirator failure 2/2 Angioedema of unknown cause (suspect DEBBIE inhibitor use). Patient was at a SNF sent here by concerns from her sister who believed her sister was in respiratory distress. Possible signs of metabolic encephalopathy prior to admission. Head CT without evidence of acute CVA. Pt was intubated in the ER with a pediatric tube. Patient has showed continued clinical improved from facial swelling s/p 1 unit FFP and Solumedrol IV. Patient was extubated on hospital Day #4. Broad spectrum ABX for HCAP were started on hospital day #5. Blood cultures came back negative and sputum cultures showed normal jake. Patient had a several day course of fever that was attributed to the FFP, that resolved on Day #5. In the ICU once patient stabilized an NG tube was placed for enteral feeding and medications were changed from IV to PO. BP was elevated and Hydralazine and Metoprolol were titrated upwards and e- imbalances were monitored. Patient was placed on 1 to 1 observation on hospital day #7 due to two attempts of pulling our her NG tube. She showed clinical improvement and was out of bed to chair on Hospital Day #8. Patient is verbalizing more frequently - according to pt her baseline is ambulation with a walker. Hospital Day #9 (03/24/16) patient was most somnolent during the day and was disimpacted the previous evening. Vancomycin was discontinued because MRSA was negative. Patient was downgraded from ICU on 03/25/16. NG tube remains in place. Day #11 (03/26/16) continue to monitor on Tele, no acute events overnight. 1. Metabolic Encephalopathy (seen prior to sedation/intubation) - Pt was answering to my questions today but would get tired after answering few questions - Blood cultures negative, no WBC count, possible Aspiration on X-ray. - c/w Zosyn Day #5 for Aspiration. (D/C'ed Vanco) 2. Vent dependant Respiratory Failure 2/2 Angioedema, Acquired vs Hereditary - Pt is extubated on room air, lungs sound good. No signs of neck swelling. O2 saturation is 95% on room air. Pt is receiving chest percussion therapy via the bed - c/w Prednisone home dose of 5mg daily (pt is taking this for asthma) - c/w Duoneb, Atrovent,and Pulmicort INH - c/w Zosyn Day #5 for HCAP and/or Aspiration. (D/C'ed Vanco) - Pul toilet 3. Asthma - Controlled, no wheezing was appreciated on lung exam - Continue Prednisone 5mg daily, Duoneb, Atrovent and Pulmicort INH 4. Nutrition - Per Speech recommendation puree diet for lunch was tried today but it didn't go well. Speech recommended to continue with NPO and NGT feeding. - Speech will continue to follow. - IVF @ 64 MLS/HR + 40meQ KCL. - Will reassess tomorrow 5. HTN - BP today was 179/60 (95) - Continue hydralazine to 50 mg Q6H NG + 10mg PRN for excessive BP and metoprolol tartrate to 50mg XL NG. - Enteral nitrates added today - convert to Imdur once swallowing pills 6. Constipation (resolved) - She had 4 bowel movement on 03/24/16, no signs of stool distension. - Continue docusate 100mg BID and Senna 8.9 mg daily - Continue to observe 7. Angioedema (resolved), unknown cause, suspect DEBBIE usage - Complement C3 and C4 levels normal. - C1 esterase levels high. 8. Bilateral Lower Extremity Wound Cellulitis - Wound Care on Board - optifoam, change q3 days and prn. 9. Diabetes - Lantus 12 units daily and ISS. - Monitor BSG with steroids 10. CAD - Continue to hold Statin, - Continue Nitro paste (pt was on Imdur at home) - Continue ASA 81 mg daily 11. GI prophylaxis - Continue with PPI IV 12. Hypothyroid - Continue Levothyroxine 50mcg daily. 13. DVT prophylaxis - Continue Heparin SQ Q12 Reviewed: Pt Seen/Exam by Me History lethargy almost the same Constitutional: denies: fever Respiratory: negative: short of breath Cardiovascular: denies chest pain General Appearance: no apparent distress Ears, Nose, Throat: other (NGT in place) Respiratory: no respiratory distress, decreased breath sounds Cardiovascular: regular rate, rhythm Neurologic/Psychiatric: other (lethargic) Skin Characteristics: warm/dry Assessment/Plan I have reviewed the medical record and performed a history and physical examination of this patient today. I have discussed the case with Dr. Dodson. The above note reflects my findings, conclusions, and recommendations. Pul toilet. Continue NG feeds. speech eval - NPO for now.
--- NOTE | 2016-03-26 13:15 | Pharmacy Progress Note ---
Glycemic Control: Progress Nt Date of Service Mar 26, 2016. Scope Glycemic Pharmacist consulted by Dr Goldsmith on 03/17/16 for glycemic control and to write orders per [facility] inpatient glycemic control protocol. Objective Accuchecks BSG (last 24hrs): Test 03/25/16 18:23 03/26/16 00:12 03/26/16 05:36 03/26/16 06:37 Bedside Glucose 212 mg/dl (70-90) 148 mg/dl (70-90) 151 mg/dl (70-90) Random Glucose 139 mg/dl (70-99) Laboratory Data (last 24hrs) Test 03/26/16 05:36 Anion Gap 11.0 mmol/L BUN/Creatinine Ratio 37.3 Blood Urea Nitrogen 45 mg/dl Creatinine 1.20 mg/dl Potassium Level 4.8 mmol/L Sodium Level 136 mmol/L White Blood Count 6.77 K/uL Red Blood Count 3.10 M/uL Hemoglobin 9.2 g/dL Hematocrit 26.4 % Mean Corpuscular Volume 85.2 fL Mean Corpuscular Hemoglobin 29.7 pg Mean Corpuscular Hemoglobin Concent 34.8 g/dl Platelet Count 359 K/uL Mean Platelet Volume 9.3 fL Neutrophils (%) (Auto) 71.6 % Lymphocytes (%) (Auto) 15.7 % Monocytes (%) (Auto) 8.0 % Eosinophils (%) (Auto) 4.3 % Basophils (%) (Auto) 0.1 % Neutrophils # (Auto) 4.85 K/uL Lymphocytes # (Auto) 1.06 K/uL Monocytes # (Auto) 0.54 K/uL Eosinophils # (Auto) 0.29 K/uL Basophils # (Auto) 0.01 K/uL HbA1c: 8.5% 02/23/16 Recent Pertinent Medications Outpatient Anti-diabetic Regimen: * Lantus 8 units daily * Novolog 0-16 units per day * A1c = 8.5 % 02/23/16 The patient is currently receiving: * Basal insulin: Lantus 12 units every 24 hours - dosed in the AM * Correctional Insulin: REGULAR insulin correction per scale Q 6 hours Goal Range: Low 140 mg/dL - High 180 mg/dL Correction Factor: 15 mg/dL/unit * Prandial insulin: 0-5 units of REGULAR insulin SQ Q 6 hours depending on rate of Impact tube feeds * Oral Agents: None currently Risk Factors for Insulin Resistance: * Steroids: Prednisone 5 mg PO daily * Infection: receiving Zosyn for PNX * Diet: MASSEUR/MASSEUSE evaluated the patient today and recommended continued NPO status, but continue Tube feeds. Impact currently running at 15cc/hr Assessment & Plan ASSESSMENT: 03/26/16 * Glycemic control remains acceptable despite change in tube feeds and insulin orders made yesterday * Regular insulin dose given with tube feeds has prevented hyperglycemia - carb ratio of ~1:8 appears appropriate with current diet and stressors. * No need to make adjustments today * A pureed diet was ordered for lunch today, however there is no order to d/c tube feeds at this time PLAN FOR INPATIENT GLYCEMIC CONTROL: * Continuing Lantus 12 units SQ Q AM; give 1/2 dose (6 units) if BSG less than 120 * Continuing correction factor of 15 mg/dl/unit * Cover carbs in continuous tube feeds per the following Regular insulin order Q 6 hrs: * Impact at 15 cc/hr give 2 units * Impact at 30 cc/hr give 3 unit * Impact at 45-50 cc/hr or more, give 5 units (goal rate = 50 cc/hr) * Continuing goal range of Low 140 mg/dL - High 180 mg/dL * Please note that the plan above was derived based on current level of insulin resistance and hospital stress. These recommendations are appropriate for inpatient admission only. Plan of care upon discharge will need to be reassessed to avoid potential outpatient hypo/hyperglycemia. Thank you.
[2016-03-26] MEDS: HydrALAZINE HCL 20 MG/ML VIAL IV. PRN (15:56)
[2016-03-26] MEDS ORDERED: POTASSIUM CHLORIDE INJ 40 MEQ in SODIUM CHLORIDE 0.45% 1000ML 1,000 ML IV SCH (19:00)
[2016-03-27] VITALS (17 sets, daily range): BP systolic 169–216; BP diastolic 68–92; PULSE 52–86; TEMP 36.4–36.9; O2SAT 92–99
[2016-03-27] MEDS: INSULIN HUMAN REGULAR SC SCH ×8 (00:18→18:14)
[2016-03-27] MEDS: IMPACT LIQ 1000 ML BAG NG SCH (01:54)
[2016-03-27] MEDS: ALBUT/IPRATROP 3MG/0.5MG NEB 3 ML VIAL INH SCH ×6 (03:11→23:01)
[2016-03-27] MEDS: TUBE FEEDING WATER FLUSH PEG SCH ×4 (04:00→21:48)
[2016-03-27] MEDS: HydrALAZINE HCL 20 MG/ML VIAL IV. PRN ×2 (04:04→17:16)
[2016-03-27 06:12] LABS: BASO % 0.2 %; BASO ABS # 0.02 K/uL (0-0.2); COMPLETE YES; EOS % 2.3 %; HEMATOCRIT 27.2 % (37-47); IG% 0.3 %; LYMPH % 9.9 %; LYMPH ABS # 0.89 K/uL (1.2-3.4); MEAN CELL VOLUME 84.5 fL (80-100); MEAN CORPUSCULAR HEMOGLOBIN 28.9 pg (25-34); MEAN CORPUSCULAR HGB CONC 34.2 g/dl (32-36); MEAN PLATELET VOLUME 9.3 fL (7.4-10.4); MONO % 6.4 %; NEUT % 80.9 %; PLATELET COUNT 362 K/uL (130-400); RED BLOOD COUNT 3.22 M/uL (4.2-5.4); WHITE BLOOD COUNT 9.01 K/uL (4.8-10.8)
[2016-03-27] MEDS: GUAIFENESIN SUGAR FREE 200 MG/10 ML UDC NG SCH ×3 (06:16→18:13)
[2016-03-27] MEDS: ISOSORBIDE DINITRATE 5 MG TAB PO SCH ×3 (06:17→16:32)
[2016-03-27] MEDS: LEVOTHYROXINE 50 MCG TAB NG SCH (06:17)
[2016-03-27 06:51] LABS: BUN/CREATININE RATIO 39.8 (10-20); CALCIUM 7.8 mg/dl (8.5-10.1); CREATININE 1.1 mg/dl (0.60-1.20); POTASSIUM 5.3 mmol/L (3.5-5.1)
[2016-03-27] MEDS: BUDESONIDE 0.25 MG/2 ML VIAL (PULMICORT) INH SCH ×2 (07:06→19:16)
[2016-03-27] MEDS: PROSOURCE NOCARB 30ML/PKT NG SCH (07:43)
[2016-03-27] MEDS: DOCUSATE SODIUM 100 MG/10 ML UDC PO SCH ×2 (07:45→21:47)
[2016-03-27] MEDS: METOPROLOL TARTRATE 25 MG TAB PO SCH ×2 (07:45→21:06)
[2016-03-27] MEDS: SENNA 8.8 MG/5 ML UDP PO SCH (07:46)
[2016-03-27] MEDS: POLYETHYLENE (MIRALAX) 17 GM PACK PO SCH (07:46)
[2016-03-27] MEDS: ASPIRIN 81 MG CHEW NG SCH (07:47)
[2016-03-27] MEDS: INSULIN GLARGINE SOLOSTAR 100 UNITS/ML 3 ML PEN SC SCH (07:49)
[2016-03-27] MEDS: HEPARIN SOD 5000 UNIT/0.5 ML CARP SQ SCH ×2 (07:49→21:09)
[2016-03-27] MEDS ORDERED: NURSING VERBAL MED ORDER ONE (10:30)
[2016-03-27] MEDS: PANTOprazole INJ 40 MG in SYRINGE 0 ML IV SCH (10:40)
[2016-03-27] MEDS: MENTHOL-ZINC OXIDE 360 APPLN/120 GM TUBE EXT SCH ×2 (11:30→21:09)
--- NOTE | 2016-03-27 15:08 | Family Medicine Progress Note ---
Progress Note Date of Service Mar 27, 2016. Subjective Pt evaluation today including: conversation w/ patient, physical exam, chart review, lab review Voiding: gutierrez catheter in place Patient was seen at the bedside. Patient blood pressure was elevated to 201/75. IVF is discontinued. Patient was very drowsy when I examined her. She denied any complaints today. Constitutional: No fever Respiratory: No cough, No shortness of breath, No wheezing Cardiovascular: No chest pain Abdomen: No constipation, No diarrhea, No nausea, No pain, No vomiting Musculoskeletal: No muscle pain Medications Current Inpatient Medications Medications (Trade) Dose Ordered Sig/Remy Route Start Time Stop Time Status Last Admin Dose Admin Acetaminophen (Tylenol Tab) 650 mg Q4H PRN PO 03/16/16 11:00 04/15/16 10:59 03/23/16 02:02 650 MG Nitroglycerin (Nitrostat Tab) 0.4 mg UD PRN SL 03/16/16 11:00 04/15/16 10:59 Al Hydrox/Mg Hydrox/Simethicone (Maalox Max Susp) 15 ml Q4H PRN PO 03/16/16 11:00 04/15/16 10:59 Magnesium Hydroxide (Milk Of Magnesia Susp) 30 ml Q12H PRN PO 03/16/16 11:00 04/15/16 10:59 Glucose (Glucose 40% Gel) 15-30 GRAMS 15 GRAMS... UD PRN PO 03/16/16 13:00 04/15/16 12:59 Glucose (Glucose Chew Tab) 4-8 Tablets 4 Tabl... UD PRN PO 03/16/16 13:00 04/15/16 12:59 Dextrose (Dextrose 50% 50ML Syringe) 25-50ML OF 50% DW IV FOR... UD PRN IV 03/16/16 13:00 04/15/16 12:59 Glucagon (Glucagon Inj) 1 mg UD PRN SQ 03/16/16 13:00 04/15/16 12:59 Hydralazine HCl (HydrALAZINE INJ) 10 mg Q4 PRN IV. 03/16/16 18:15 04/15/16 18:14 03/27/16 04:04 10 MG Miscellaneous Information (Consult Glycemic Management Pharmacy) 1 ea UD PRN N/A 03/17/16 09:30 04/16/16 09:29 Insulin Human Regular (novoLIN-R) SLIDING SCALE Q6 SC 03/18/16 08:00 04/17/16 07:59 03/27/16 12:51 1 UNITS Senna (Senokot Syrup) 8.8 mg DAILY PO 03/19/16 09:00 04/18/16 08:59 03/27/16 07:46 8.8 MG Docusate Sodium (coLACE SYRUP) 100 mg BID PO 03/18/16 21:00 04/17/16 20:59 03/27/16 07:45 100 MG Ipratropium [place] (Atrovent Hfa Inhaler) 2 puffs QID PRN INH 03/20/16 14:00 04/19/16 13:59 Insulin Human Regular (novoLIN-R) -give 0 units if IMP... Q6 SC 03/21/16 12:00 04/18/16 17:59 03/27/16 12:52 5 UNITS Guaifenesin (Robitussin Sugar Free Syrup) 400 mg Q6H NG 03/21/16 12:00 04/20/16 11:59 03/27/16 12:48 400 MG Albuterol/ Ipratropium (Duoneb) 3 ml Q4R INH 03/21/16 16:00 04/20/16 15:59 03/27/16 11:19 3 ML Albuterol/ Ipratropium (Duoneb) 3 ml Q2H PRN INH 03/21/16 12:45 04/20/16 12:44 Aspirin (Aspirin Chew) 81 mg DAILY NG 03/22/16 09:00 04/21/16 08:59 03/27/16 07:47 81 MG Budesonide (Pulmicort Respules 0.25MG/ 2ML Neb Soln) 0.25 mg Q12R INH 03/22/16 09:00 04/21/16 08:59 03/27/16 07:06 0.25 MG Levothyroxine Sodium (Synthroid Tab) 50 mcg DAILYBB NG 03/22/16 09:00 04/21/16 08:59 03/27/16 06:17 50 MCG Enteral Nutritional Formula (Prosource No Carb) 30 ml DAILY NG 03/22/16 12:00 04/21/16 11:59 03/27/16 07:43 30 ML Metoprolol Tartrate (Lopressor Tab) 50 mg BID PO 03/23/16 09:00 04/22/16 08:59 03/27/16 07:45 50 MG Insulin Glargine (Lantus Solostar Pen) 12 unit QAM SC 03/24/16 09:00 04/23/16 08:59 03/27/16 07:49 12 UNIT Ondansetron HCl (Zofran Inj) 4 mg Q6H PRN IV 03/23/16 20:00 04/22/16 19:59 03/23/16 19:55 4 MG Ioversol (Optiray 320) 125 ml UD PRN IV 03/23/16 23:15 03/27/16 23:14 Heparin Sodium (Porcine) 5000 unit 5,000 unit Q12 SQ 03/24/16 09:00 04/23/16 08:59 03/27/16 07:49 5,000 UNIT Pantoprazole Sodium/Syringe (Protonix Inj/ Syringe) 10 ml @ 5 mls/min DAILY@11 IV 03/24/16 11:00 04/23/16 10:59 03/27/16 10:40 5 MLS/MIN Polyethylene (Miralax Powder Packet) 17 gm QAM PO 03/26/16 09:00 04/25/16 08:59 03/27/16 07:46 17 GM Enteral Nutritional Formula (Impact 1.0 Je) 1,000 ml UD NG 03/25/16 10:00 04/24/16 09:59 03/27/16 01:54 1,000 ML Sterile Water (Tube Feeding Water Flush) 1 ea Q6H PEG 03/25/16 10:00 04/24/16 09:59 03/27/16 10:05 1 EA Prednisone (PredniSONE TAB) 5 mg DAILY NG 03/26/16 09:00 04/25/16 08:59 03/27/16 07:43 5 MG Hydralazine HCl (Apresoline Tab) 50 mg Q6H PO 03/25/16 20:00 04/24/16 19:59 03/27/16 14:04 50 MG Isosorbide Dinitrate (Isordil Tab) 15 mg TID@0700,1200,1700 PO 03/25/16 17:00 04/24/16 16:59 03/27/16 12:49 15 MG Menthol/Zinc Oxide (Calmoseptine Oint) 1 appln BID EXT 03/27/16 11:30 04/26/16 11:29 03/27/16 11:30 1 APPLN Objective Vital Signs Date Time Temp Pulse Resp B/P Pulse Ox O2 Delivery O2 Flow Rate FiO2 03/27/16 12:09 36.5 52 19 184/75 94 03/27/16 12:00 Room Air 03/27/16 11:19 66 18 94 Room Air 03/27/16 08:30 Room Air 03/27/16 07:06 66 18 94 Room Air 03/27/16 07:00 36.9 64 20 169/81 96 Room Air 03/27/16 04:00 36.6 65 20 201/75 96 Room Air 03/27/16 04:00 96 Room Air 03/27/16 03:11 57 18 96 Room Air 03/27/16 00:00 99 Room Air 03/27/16 00:00 36.7 55 20 179/68 99 Room Air 03/26/16 23:20 63 18 96 Room Air 03/26/16 20:00 Room Air 03/26/16 19:41 63 18 98 Room Air 03/26/16 18:55 37.2 70 22 178/72 97 Room Air 03/26/16 16:00 Room Air 03/26/16 15:57 36.8 59 20 212/71 97 Room Air 03/26/16 15:34 60 18 98 Room Air Physical Exam General Appearance: WD/WN, no apparent distress Neck: supple, trachea midline Respiratory/Chest: chest non-tender, lungs clear, no respiratory distress Cardiovascular: regular rate, rhythm, no edema Abdomen: normal bowel sounds, non tender, soft Extremities: non-tender Neurologic/Psychiatric: alert Skin: normal color, warm/dry Laboratory Results Results Past 24 Hours Test 03/26/16 17:55 03/27/16 00:12 03/27/16 05:37 03/27/16 06:23 Range/Units Bedside Glucose 73 140 169 70-90 mg/dl White Blood Count 9.01 4.8-10.8 K/uL Red Blood Count 3.22 4.2-5.4 M/uL Hemoglobin 9.3 12.0-16.0 g/dL Hematocrit 27.2 37-47 % Mean Corpuscular Volume 84.5 80-100 fL Mean Corpuscular Hemoglobin 28.9 25-34 pg Mean Corpuscular Hemoglobin Concent 34.2 32-36 g/dl Platelet Count 362 130-400 K/uL Mean Platelet Volume 9.3 7.4-10.4 fL Neutrophils (%) (Auto) 80.9 % Lymphocytes (%) (Auto) 9.9 % Monocytes (%) (Auto) 6.4 % Eosinophils (%) (Auto) 2.3 % Basophils (%) (Auto) 0.2 % Neutrophils # (Auto) 7.28 1.4-6.5 K/uL Lymphocytes # (Auto) 0.89 1.2-3.4 K/uL Monocytes # (Auto) 0.58 0.11-0.59 K/uL Eosinophils # (Auto) 0.21 0-0.5 K/uL Basophils # (Auto) 0.02 0-0.2 K/uL RDW Standard Deviation 42.7 36.4-46.3 fL RDW Coefficient of Variation 13.7 11.5-14.5 % Immature Granulocyte % (Auto) 0.3 % Immature Granulocyte # (Auto) 0.03 0.00-0.02 K/uL Sodium Level 133 136-145 mmol/L Potassium Level 5.3 3.5-5.1 mmol/L Chloride Level 104 98-107 mmol/L Carbon Dioxide Level 18 21-32 mmol/L Anion Gap 11.0 3-11 mmol/L Blood Urea Nitrogen 44 7-18 mg/dl Creatinine 1.10 0.60-1.20 mg/dl Est Creatinine Clear Calc Drug Dose 30.1 ml/min Estimated GFR () 51.9 Estimated GFR (Non- 44.8 BUN/Creatinine Ratio 39.8 10-20 Random Glucose 148 70-99 mg/dl Calcium Level 7.8 8.5-10.1 mg/dl Test 03/27/16 11:17 Range/Units Bedside Glucose 164 70-90 mg/dl Assessment and Plan This is a 89 y/o F presenting with ventilator dependant respirator failure 2/2 Angioedema of unknown cause (suspect DEBBIE inhibitor use). Patient was at a SNF sent here by concerns from her sister who believed her sister was in respiratory distress. Possible signs of metabolic encephalopathy prior to admission. Head CT without evidence of acute CVA. Pt was intubated in the ER with a pediatric tube. Patient has showed continued clinical improved from facial swelling s/p 1 unit FFP and Solumedrol IV. Patient was extubated on hospital Day #4. Broad spectrum ABX for HCAP were started on hospital day #5. Blood cultures came back negative and sputum cultures showed normal jake. Patient had a several day course of fever that was attributed to the FFP, that resolved on Day #5. In the ICU once patient stabilized an NG tube was placed for enteral feeding and medications were changed from IV to PO. BP was elevated and Hydralazine and Metoprolol were titrated upwards and e- imbalances were monitored. Patient was placed on 1 to 1 observation on hospital day #7 due to two attempts of pulling our her NG tube. She showed clinical improvement and was out of bed to chair on Hospital Day #8. Patient is verbalizing more frequently - according to pt her baseline is ambulation with a walker. Hospital Day #9 (2) patient was most somnolent during the day and was disimpacted the previous evening. Vancomycin was discontinued because MRSA was negative. Patient was downgraded from ICU on 2. NG tube remains in place. Day #11 (03/26/16) continue to monitor on Tele, no acute events overnight. Day# 12 (03/27/16) d/meet IVF given elevated BP and increase in potassium level. 1. Metabolic Encephalopathy (seen prior to sedation/intubation) - Pt was answering to my questions today but would get tired after answering few questions - Blood cultures negative, no WBC count, possible Aspiration on X-ray. - c/w Zosyn Day #6/7 for Aspiration. (D/C'ed Vanco) 2. Vent dependant Respiratory Failure 2/2 Angioedema, Acquired vs Hereditary - Pt is extubated on room air, lungs sound good. No signs of neck swelling. O2 saturation is 95% on room air. Pt is receiving chest percussion therapy via the bed - c/w Prednisone home dose of 5mg daily (pt is taking this for asthma) - c/w Duoneb, Atrovent,and Pulmicort INH - c/w Zosyn Day #6/7 for HCAP and/or Aspiration. (D/C'ed Vanco) 3. Asthma - Controlled, no wheezing was appreciated on lung exam - Continue Prednisone 5mg daily, Duoneb, Atrovent and Pulmicort INH 4. Nutrition - Per Speech recommendation puree diet for lunch was tried yesterday but it didn't go well. Speech recommended to continue with NPO and NGT feeding. - Speech will continue to follow. - D/meet IVF given increased BP and potassium level - Will reassess tomorrow 5. HTN - BP today was 169/81 - D/meet IVF - Continue hydralazine to 50 mg Q6H NG + 10mg PRN for excessive BP and metoprolol tartrate to 50mg XL NG. - Enteral nitrates added today - convert to Imdur once swallowing pills 6. Constipation (resolved) - She had 4 bowel movement on 03/24/16, no signs of stool distension. - Continue docusate 100mg BID and Senna 8.9 mg daily - Continue to observe 7. Angioedema (resolved), unknown cause, suspect DEBBIE usage - Complement C3 and C4 levels normal. - C1 esterase levels high. 8. Bilateral Lower Extremity Wound Cellulitis - Wound Care on Board - optifoam, change q3 days and prn. 9. Diabetes - Lantus 12 units daily and ISS. - Monitor BSG with steroids 10. CAD - Continue to hold Statin, - Continue Nitro paste (pt was on Imdur at home) - Continue ASA 81 mg daily 11. GI prophylaxis - Continue with PPI IV 12. Hypothyroid - Continue Levothyroxine 50mcg daily. 13. DVT prophylaxis - Continue Heparin SQ Q12 14. Code Status - Full code Reviewed: Pt Seen/Exam by Me History more alert today. confused - ? dementia Constitutional: denies: fever Respiratory: negative: short of breath Cardiovascular: denies chest pain General Appearance: no apparent distress Ears, Nose, Throat: other (NGT in place) Respiratory: no respiratory distress, decreased breath sounds Cardiovascular: regular rate, rhythm Neurologic/Psychiatric: other (oriented to person. Yr - 1925, place - mom's house) Assessment/Plan I have reviewed the medical record and performed a history and physical examination of this patient today. I have discussed the case with Dr. Dodson. The above note reflects my findings, conclusions, and recommendations. Pul toilet. Continue NG feeds. speech eval - NPO for now. await speech therapy reeval to resume oral feeds
[2016-03-27] MEDS ORDERED: AMLODIPINE BESYLATE 5 MG TAB PO ONE (18:30)
[2016-03-28] VITALS (15 sets, daily range): BP systolic 160–193; BP diastolic 62–77; PULSE 53–116; TEMP 36.4–36.8; O2SAT 93–98
[2016-03-28] MEDS: HydrALAZINE HCL 20 MG/ML VIAL IV. PRN (01:03)
[2016-03-28] MEDS: ALBUT/IPRATROP 3MG/0.5MG NEB 3 ML VIAL INH SCH ×6 (03:29→23:29)
[2016-03-28] MEDS: TUBE FEEDING WATER FLUSH PEG SCH ×4 (04:00→21:59)
[2016-03-28] MEDS: INSULIN HUMAN REGULAR SC SCH ×8 (06:00→18:47)
[2016-03-28] MEDS: GUAIFENESIN SUGAR FREE 200 MG/10 ML UDC NG SCH ×4 (06:00→16:51)
[2016-03-28] MEDS: LEVOTHYROXINE 50 MCG TAB NG SCH (06:05)
[2016-03-28 06:22] LABS: BASO % 0.1 %; BASO ABS # 0.01 K/uL (0-0.2); COMPLETE YES; EOS % 2.2 %; HEMATOCRIT 26.5 % (37-47); IG% 0.2 %; LYMPH ABS # 0.97 K/uL (1.2-3.4); MEAN CELL VOLUME 82.3 fL (80-100); MEAN CORPUSCULAR HEMOGLOBIN 28.6 pg (25-34); MEAN CORPUSCULAR HGB CONC 34.7 g/dl (32-36); MEAN PLATELET VOLUME 9.2 fL (7.4-10.4); MONO % 7.3 %; NEUT % 78.2 %; PLATELET COUNT 369 K/uL (130-400); RED BLOOD COUNT 3.22 M/uL (4.2-5.4); WHITE BLOOD COUNT 8.07 K/uL (4.8-10.8)
[2016-03-28 06:48] LABS: BUN/CREATININE RATIO 49.1 (10-20); CALCIUM 7.9 mg/dl (8.5-10.1); CREATININE 0.87 mg/dl (0.60-1.20); POTASSIUM 4.9 mmol/L (3.5-5.1)
[2016-03-28] MEDS: BUDESONIDE 0.25 MG/2 ML VIAL (PULMICORT) INH SCH ×2 (07:09→18:58)
[2016-03-28] MEDS: ISOSORBIDE DINITRATE 5 MG TAB PO SCH ×2 (08:05→13:26)
[2016-03-28] MEDS: MENTHOL-ZINC OXIDE 360 APPLN/120 GM TUBE EXT SCH ×2 (08:07→22:01)
[2016-03-28] MEDS: METOPROLOL TARTRATE 25 MG TAB PO SCH ×2 (08:09→22:00)
[2016-03-28] MEDS: AMLODIPINE BESYLATE 5 MG TAB PO SCH (08:09)
[2016-03-28] MEDS: HEPARIN SOD 5000 UNIT/0.5 ML CARP SQ SCH ×2 (08:25→22:02)
[2016-03-28] MEDS ORDERED: INSULIN GLARGINE SOLOSTAR 100 UNITS/ML 3 ML PEN SC SCH (09:00)
--- NOTE | 2016-03-28 11:14 | Pharmacy Progress Note ---
Glycemic Control: Progress Nt Date of Service Mar 28, 2016. Scope Glycemic Pharmacist consulted by Dr Goldsmith on 03/17/16 for glycemic control and to write orders per [facility] inpatient glycemic control protocol. Objective Accuchecks BSG (last 24hrs): Test 03/27/16 11:17 03/27/16 18:02 03/28/16 05:28 03/28/16 06:32 Bedside Glucose 164 mg/dl (70-90) 107 mg/dl (70-90) 149 mg/dl (70-90) Random Glucose 126 mg/dl (70-99) Laboratory Data (last 24hrs) Test 03/28/16 05:28 Anion Gap 11.0 mmol/L BUN/Creatinine Ratio 49.1 Blood Urea Nitrogen 43 mg/dl Creatinine 0.87 mg/dl Potassium Level 4.9 mmol/L Sodium Level 133 mmol/L White Blood Count 8.07 K/uL Red Blood Count 3.22 M/uL Hemoglobin 9.2 g/dL Hematocrit 26.5 % Mean Corpuscular Volume 82.3 fL Mean Corpuscular Hemoglobin 28.6 pg Mean Corpuscular Hemoglobin Concent 34.7 g/dl Platelet Count 369 K/uL Mean Platelet Volume 9.2 fL Neutrophils (%) (Auto) 78.2 % Lymphocytes (%) (Auto) 12.0 % Monocytes (%) (Auto) 7.3 % Eosinophils (%) (Auto) 2.2 % Basophils (%) (Auto) 0.1 % Neutrophils # (Auto) 6.30 K/uL Lymphocytes # (Auto) 0.97 K/uL Monocytes # (Auto) 0.59 K/uL Eosinophils # (Auto) 0.18 K/uL Basophils # (Auto) 0.01 K/uL Recent Pertinent Medications Outpatient Anti-diabetic Regimen: * Lantus 8 units SQ daily * NovoLog sliding scale (around 0-16 units per day) * Correction factor: ~8mg/dL/unit * Goal <150mg/dL * A1c = 8.5 % 02/23/16 The patient is currently receiving: * Basal insulin: Lantus 12 units every 24 hours - dosed in the AM * Correctional Insulin: REGULAR insulin correction per scale Q 6 hours Goal Range: Low 140 mg/dL - High 180 mg/dL Correction Factor: 15 mg/dL/unit * Prandial insulin: 0-5 units of REGULAR insulin SQ Q 6 hours depending on rate of Impact tube feeds * Oral Agents: None currently Risk Factors for Insulin Resistance: * Steroids: Prednisone 5 mg PO daily * Diet: Continuous tube feedings with Impact Assessment & Plan ASSESSMENT: * Glycemic control remains acceptable with current orders. Pt is receiving basal insulin dosed daily in the morning + prandial insulin (dosing based on rate of continuous tube feed rate). * Pt has been receiving ~ 20 units of insulin per day. More or less insulin given based on tube feeding rate * Stress/correctional insulin coverage has not been needed indicating current basal + prandial insulin coverage is adequate * BSGs [phone] over the past 24hrs. * Tube feedings are on hold since midnight last night for video swallow eval * prandial insulin coverage held per order * Will reduce basal insulin slightly for NPO to prevent hypo. PLAN FOR INPATIENT GLYCEMIC CONTROL: * Give a one time reduced dose of Lantus 10 units SQ x 1 this morning for NPO status. Then, continue Lantus 12 units SQ Q AM; give 1/2 dose (6 units) if BSG less than 120 tomorrow * Continue correction factor of 15 mg/dl/unit * Cover carbs in continuous tube feeds per the following Regular insulin order Q 6 hrs: * Impact at 15 cc/hr give 2 units * Impact at 30 cc/hr give 3 unit * Impact at 45-50 cc/hr or more, give 5 units (goal rate = 50 cc/hr) * Continue goal range of Low 140 mg/dL - High 180 mg/dL * Please note that the plan above was derived based on current level of insulin resistance and hospital stress. These recommendations are appropriate for inpatient admission only. Plan of care upon discharge will need to be reassessed to avoid potential outpatient hypo/hyperglycemia. Thank you.
--- NOTE | 2016-03-28 11:41 | DIAGNOSTIC IMAGING REPORT ---
VIDEO SWALLOW HISTORY: Dysphagia assess for aspiration, please schedule a time on 03/28/16. TECHNIQUE: Video fluoroscopic evaluation of swallowing was performed in the AP and lateral projections by the speech pathology staff. The patient is fed nectar-thick and thin liquid barium, a barium coated wafer, and barium pudding. FLUOROSCOPY TIME: 3.4 minutes. COMPARISON STUDY: None. FINDINGS: Poor oral and hypopharyngeal motility. Trace amount of aspiration with thin liquids. Trace amount of aspiration also with semisolid liquids. Aspiration is noted with semisolid foods. Epiglottic motility is diminished. No significant penetration or aspiration identified. Swallowing function is within normal limits. IMPRESSION: 1. 1. Aspiration. 2. Please see the speech pathologist report for detailed findings and recommendations. Electronically signed by: Justino Baptiste M.D. 03/28/2016 11:40 AM Dictated Date/Time: 03/28/2016 11:39 AM
[2016-03-28] MEDS: PROSOURCE NOCARB 30ML/PKT NG SCH (13:21)
[2016-03-28] MEDS: ASPIRIN 81 MG CHEW NG SCH (13:22)
[2016-03-28] MEDS: SENNA 8.8 MG/5 ML UDP PO SCH (13:22)
[2016-03-28] MEDS: POLYETHYLENE (MIRALAX) 17 GM PACK PO SCH (13:23)
[2016-03-28] MEDS: DOCUSATE SODIUM 100 MG/10 ML UDC PO SCH ×2 (13:23→21:58)
[2016-03-28] MEDS: PANTOprazole INJ 40 MG in SYRINGE 0 ML IV SCH (13:25)
[2016-03-28] MEDS: SODIUM CHLORIDE 0.9% 1000ML 1,000 ML IV SCH (13:45)
[2016-03-28] MEDS: IMPACT LIQ 1000 ML BAG NG SCH (14:28)
[2016-03-28] MEDS: DEXAMETHASONE INJ 4 MG in SYRINGE 0 ML IV SCH (16:48)
[2016-03-28] MEDS: ISOSORBIDE DINITRATE 10 MG TAB PO SCH (16:51)
[2016-03-28] MEDS ORDERED: ISOSORBIDE DINITRATE 5 MG TAB PO SCH (17:00)
--- NOTE | 2016-03-28 18:21 | Family Medicine Progress Note ---
Progress Note Date of Service Mar 28, 2016. Subjective Pt evaluation today including: conversation w/ patient, physical exam, chart review, lab review, review of studies, review of inpatient medication list Pain: denies pain PO Intake: NPO Voiding: gutierrez catheter in place Pt had no complaints overnight. She denied CP, SOB. Pt remains NPO after failed Video Swallowing Study. NG tube in place. Constitutional: No chills, No fever Respiratory: No cough, No shortness of breath, No sputum, No wheezing Cardiovascular: No chest pain, No edema, No palpitations Abdomen: No diarrhea, No nausea, No pain, No vomiting Musculoskeletal: No calf pain, No swelling Female : + problem reported (has gutierrez catheter) Skin: No itch, No rash Medications Current Inpatient Medications Medications (Trade) Dose Ordered Sig/Remy Route Start Time Stop Time Status Last Admin Dose Admin Acetaminophen (Tylenol Tab) 650 mg Q4H PRN PO 03/16/16 11:00 04/15/16 10:59 03/23/16 02:02 650 MG Nitroglycerin (Nitrostat Tab) 0.4 mg UD PRN SL 03/16/16 11:00 04/15/16 10:59 Al Hydrox/Mg Hydrox/Simethicone (Maalox Max Susp) 15 ml Q4H PRN PO 03/16/16 11:00 04/15/16 10:59 Magnesium Hydroxide (Milk Of Magnesia Susp) 30 ml Q12H PRN PO 03/16/16 11:00 04/15/16 10:59 Glucose (Glucose 40% Gel) 15-30 GRAMS 15 GRAMS... UD PRN PO 03/16/16 13:00 04/15/16 12:59 Glucose (Glucose Chew Tab) 4-8 Tablets 4 Tabl... UD PRN PO 03/16/16 13:00 04/15/16 12:59 Dextrose (Dextrose 50% 50ML Syringe) 25-50ML OF 50% DW IV FOR... UD PRN IV 03/16/16 13:00 04/15/16 12:59 Glucagon (Glucagon Inj) 1 mg UD PRN SQ 03/16/16 13:00 04/15/16 12:59 Hydralazine HCl (HydrALAZINE INJ) 10 mg Q4 PRN IV. 03/16/16 18:15 04/15/16 18:14 03/28/16 01:03 10 MG Miscellaneous Information (Consult Glycemic Management Pharmacy) 1 ea UD PRN N/A 03/17/16 09:30 04/16/16 09:29 Insulin Human Regular (novoLIN-R) SLIDING SCALE Q6 SC 03/18/16 08:00 04/17/16 07:59 03/28/16 13:29 3 UNITS Senna (Senokot Syrup) 8.8 mg DAILY PO 03/19/16 09:00 04/18/16 08:59 03/28/16 13:22 8.8 MG Docusate Sodium (coLACE SYRUP) 100 mg BID PO 03/18/16 21:00 04/17/16 20:59 03/28/16 13:23 100 MG Ipratropium [place] (Atrovent Hfa Inhaler) 2 puffs QID PRN INH 03/20/16 14:00 04/19/16 13:59 Insulin Human Regular (novoLIN-R) -give 0 units if IMP... Q6 SC 03/21/16 12:00 04/18/16 17:59 03/27/16 18:14 5 UNITS Guaifenesin (Robitussin Sugar Free Syrup) 400 mg Q6H NG 03/21/16 12:00 04/20/16 11:59 03/27/16 18:13 400 MG Albuterol/ Ipratropium (Duoneb) 3 ml Q4R INH 03/21/16 16:00 04/20/16 15:59 03/28/16 15:04 3 ML Albuterol/ Ipratropium (Duoneb) 3 ml Q2H PRN INH 03/21/16 12:45 04/20/16 12:44 Aspirin (Aspirin Chew) 81 mg DAILY NG 03/22/16 09:00 04/21/16 08:59 03/28/16 13:22 81 MG Budesonide (Pulmicort Respules 0.25MG/ 2ML Neb Soln) 0.25 mg Q12R INH 03/22/16 09:00 04/21/16 08:59 03/28/16 07:09 0.25 MG Levothyroxine Sodium (Synthroid Tab) 50 mcg DAILYBB NG 03/22/16 09:00 04/21/16 08:59 03/28/16 06:05 50 MCG Enteral Nutritional Formula (Prosource No Carb) 30 ml DAILY NG 03/22/16 12:00 04/21/16 11:59 03/28/16 13:21 30 ML Metoprolol Tartrate (Lopressor Tab) 50 mg BID PO 03/23/16 09:00 04/22/16 08:59 03/28/16 08:09 50 MG Insulin Glargine (Lantus Solostar Pen) 12 unit QAM SC 03/24/16 09:00 04/23/16 08:59 Future hold 03/27/16 07:49 12 UNIT Ondansetron HCl (Zofran Inj) 4 mg Q6H PRN IV 03/23/16 20:00 04/22/16 19:59 03/23/16 19:55 4 MG Heparin Sodium (Porcine) 5000 unit 5,000 unit Q12 SQ 03/24/16 09:00 04/23/16 08:59 03/28/16 08:25 5,000 UNIT Pantoprazole Sodium/Syringe (Protonix Inj/ Syringe) 10 ml @ 5 mls/min DAILY@11 IV 03/24/16 11:00 04/23/16 10:59 03/28/16 13:25 5 MLS/MIN Polyethylene (Miralax Powder Packet) 17 gm QAM PO 03/26/16 09:00 04/25/16 08:59 03/28/16 13:23 17 GM Enteral Nutritional Formula (Impact 1.0 Je) 1,000 ml UD NG 03/25/16 10:00 04/24/16 09:59 03/28/16 14:28 1,000 ML Sterile Water (Tube Feeding Water Flush) 1 ea Q6H PEG 03/25/16 10:00 04/24/16 09:59 03/28/16 16:48 1 EA Prednisone (PredniSONE TAB) 5 mg DAILY NG 03/26/16 09:00 04/25/16 08:59 Future Hold 03/28/16 08:08 5 MG Hydralazine HCl (Apresoline Tab) 50 mg Q6H PO 03/25/16 20:00 04/24/16 19:59 03/28/16 13:31 50 MG Menthol/Zinc Oxide (Calmoseptine Oint) 1 appln BID EXT 03/27/16 11:30 04/26/16 11:29 03/28/16 08:07 1 APPLN Amlodipine Besylate 10 mg 10 mg QAM PO 03/28/16 09:00 04/27/16 08:59 03/28/16 08:09 10 MG Sodium Chloride (Nss 1000ml) 1,000 ml @ 50 mls/hr Q20H IV 03/28/16 13:30 04/27/16 13:29 03/28/16 13:45 50 MLS/HR Atorvastatin Calcium (Lipitor Tab) 20 mg QPM PO 03/28/16 21:00 04/27/16 20:59 Isosorbide Dinitrate 30 mg 30 mg TID@0700,1200,1700 PO 03/28/16 17:00 04/27/16 16:59 03/28/16 16:51 30 MG Dexamethasone Sodium Phosphate/ Syringe (Decadron Inj/ Syringe) 1 ml @ 1 mls/min Q8H IV 03/28/16 16:00 03/31/16 15:29 03/28/16 16:48 1 MLS/MIN Objective Vital Signs Date Time Temp Pulse Resp B/P Pulse Ox O2 Delivery O2 Flow Rate FiO2 03/28/16 18:58 63 18 94 Room Air 03/28/16 17:30 94 Room Air 03/28/16 15:47 36.7 59 22 176/77 98 Room Air 03/28/16 15:04 61 18 94 Room Air 03/28/16 14:14 95 Room Air 03/28/16 11:54 36.7 53 18 189/77 95 Room Air 03/28/16 09:33 94 Room Air 03/28/16 07:55 36.4 116 17 191/66 93 Room Air 03/28/16 07:09 54 18 93 Room Air 03/28/16 04:05 36.5 58 18 160/62 98 Room Air 03/28/16 04:00 95 Room Air 03/28/16 03:29 60 18 96 Room Air 03/28/16 00:01 36.8 61 18 178/73 98 Room Air 03/27/16 23:59 95 Room Air 03/27/16 23:00 56 18 95 Room Air 03/27/16 21:04 76 184/68 03/27/16 20:13 Room Air Physical Exam General Appearance: WD/WN, no apparent distress Eyes: PERRL, EOMI Neck: supple, no adenopathy, trachea midline Respiratory/Chest: lungs clear, normal breath sounds Cardiovascular: regular rate, rhythm, no edema, + systolic murmur Abdomen: normal bowel sounds, non tender, soft Extremities: no pedal edema, no calf tenderness Neurologic/Psychiatric: alert, + disoriented (Oriented to person ONLY) Skin: normal color, warm/dry Laboratory Results Results Past 24 Hours Test 03/28/16 05:28 03/28/16 06:32 03/28/16 11:50 03/28/16 15:55 Range/Units White Blood Count 8.07 4.8-10.8 K/uL Red Blood Count 3.22 4.2-5.4 M/uL Hemoglobin 9.2 12.0-16.0 g/dL Hematocrit 26.5 37-47 % Mean Corpuscular Volume 82.3 80-100 fL Mean Corpuscular Hemoglobin 28.6 25-34 pg Mean Corpuscular Hemoglobin Concent 34.7 32-36 g/dl Platelet Count 369 130-400 K/uL Mean Platelet Volume 9.2 7.4-10.4 fL Neutrophils (%) (Auto) 78.2 % Lymphocytes (%) (Auto) 12.0 % Monocytes (%) (Auto) 7.3 % Eosinophils (%) (Auto) 2.2 % Basophils (%) (Auto) 0.1 % Neutrophils # (Auto) 6.30 1.4-6.5 K/uL Lymphocytes # (Auto) 0.97 1.2-3.4 K/uL Monocytes # (Auto) 0.59 0.11-0.59 K/uL Eosinophils # (Auto) 0.18 0-0.5 K/uL Basophils # (Auto) 0.01 0-0.2 K/uL RDW Standard Deviation 41.7 36.4-46.3 fL RDW Coefficient of Variation 13.7 11.5-14.5 % Immature Granulocyte % (Auto) 0.2 % Immature Granulocyte # (Auto) 0.02 0.00-0.02 K/uL Sodium Level 133 136-145 mmol/L Potassium Level 4.9 3.5-5.1 mmol/L Chloride Level 102 98-107 mmol/L Carbon Dioxide Level 20 21-32 mmol/L Anion Gap 11.0 3-11 mmol/L Blood Urea Nitrogen 43 7-18 mg/dl Creatinine 0.87 0.60-1.20 mg/dl Est Creatinine Clear Calc Drug Dose 38.0 ml/min Estimated GFR () 68.9 Estimated GFR (Non- 59.5 BUN/Creatinine Ratio 49.1 10-20 Random Glucose 126 70-99 mg/dl Calcium Level 7.9 8.5-10.1 mg/dl Bedside Glucose 149 205 228 70-90 mg/dl Test 03/28/16 17:45 Range/Units Urine Osmolality 626 500-800 mOms/kg Urine Random Sodium 70 mEq/L Assessment and Plan 89 yo F w/ hx of Dementia, COPD, Asthma p/w Ventilator dependent Resp Failure s /p Extubation, in the setting of Angioedema Metabolic Encephalopathy encephalopathy complicated by Baseline dementia , - Alert/ Oriented x 1, minimal improvement in mental status - Blood Cxs negative, WBC count wnl, Aspiration - previous CXR (03/21/16) showing findings consistent with infectious vs. inflammatory pneumonitis - Video swallow study today confirmed aspiration - Per Speech recommendations, Pt being kept NPO Vent dependant Respiratory Failure -likely due to Angioedema, - s/p extubation, clinically stable, 98% on rm air - held Prednisone home dose of 5mg daily - started Decadron 4 mg q8 IV to treat residual angioedema -Continue to monitor - c/w Duoneb, Atrovent,and Pulmicort INH Angioedema - likely due to DEBBIE-I usage, given recent onset of angioedema - DEBBIE-I remains held - Complement C3 and C4 levels normal. - C1 esterase levels high. - ENT consulted for input and possible laryngoscopy Asthma - Controlled, no wheezing was appreciated on lung exam - Prednisone held as indicated above - Duoneb, Atrovent and Pulmicort INH Nutrition - Aspiration on Video swallowing study - Patient to remain NPO per Speech recommendation as clinically safest option - Will reassess tomorrow Hyponatremia - mild, asx - ordered Uosm, Monica, serum osm HTN - BP remains elevated 160/62 , up to 216 systolic within previous 24 hrs. - Continue hydralazine to 50 mg Q6H NG + 10mg PRN for excessive BP and metoprolol tartrate to 50mg XL NG. - Increased Isosorbide dinitrate to 30 TID - Continue to monitor Constipation - resolved - Continue docusate 100mg BID and Senna 8.9 mg daily - Continue to observe Bilateral Lower Extremity Wound Cellulitis - Continue Wound Care Diabetes - Lantus 12 units daily and ISS. - Monitor BSG with steroids CAD - Statin restarted - Started Isosorbide dinitrate to 30 TID - Continue ASA 81 mg daily GI prophylaxis - Continue with PPI IV Hypothyroid - Continue Levothyroxine 50mcg daily. DVT prophylaxis - Continue Heparin SQ Q12 PT/OT Code Status - Full code Attending Attestation: Pt seen/examined, chart reviewed, care plan d/w PGY 1 Dr. Mook Barrett. I agree with the salas components of his progress note documentation with the following exceptions - none. Pt w/o complains during our visit. She knew she was in the hospital but was otherwise unable to tell us complaints. Video swallow results reviewed by phone with speech therapist. Tolerating tube feedings. VSS except BPs quite high gen - nad heent - voice hoarse; mouth - MM slightly dry, no thrush; nose w/ NG tube in place neck - no JVD heart - 02/18 JEFF LSB, RRR lungs - CTA b/l abd - distended but NT ext - no edema video swallow - aspiration of thins, thickened liquids as well epiglottic excursion reduced A/P: 1. recent angioedema leading to acute hypoxic resp failure 2. ongoing dysphagia with poor video swallow results today 3. hoarse voice 4. deconditioning 5. dementia with mild superimposed encephalopathy, ? of hospital psychosis 6. uncontrolled HTN in light of #1 above, ongoing hoarse voice, and dysphagia will empirically give IV decadron for lingering laryngeal/pharyngeal edema ENT consult for consideration of laryngoscopy cont NG tube feedings need to d/w family code status, artificial nutrition, etc adjust BP olivia HARRIS MD Continued [facility] stay due to: multiple IV medications needed Resident Tracking Resident Involvement: Resident Care Provided Care Provided: Adult Hospital Medicine
[2016-03-28] MEDS: ATORVASTATIN 20 MG TAB PO SCH (21:59)
[2016-03-29] VITALS (14 sets, daily range): BP systolic 125–211; BP diastolic 70–83; PULSE 54–82; TEMP 36.3–36.6; O2SAT 94–98
[2016-03-29] MEDS: HydrALAZINE HCL 20 MG/ML VIAL IV. PRN (00:17)
[2016-03-29] MEDS: GUAIFENESIN SUGAR FREE 200 MG/10 ML UDC NG SCH ×4 (00:18→16:57)
[2016-03-29] MEDS: DEXAMETHASONE INJ 4 MG in SYRINGE 0 ML IV SCH ×3 (00:18→16:56)
[2016-03-29] MEDS: INSULIN HUMAN REGULAR SC SCH ×8 (00:21→17:02)
[2016-03-29] MEDS: TUBE FEEDING WATER FLUSH PEG SCH ×4 (03:25→20:43)
[2016-03-29] MEDS: ALBUT/IPRATROP 3MG/0.5MG NEB 3 ML VIAL INH SCH ×6 (03:55→22:54)
[2016-03-29] MEDS: LEVOTHYROXINE 50 MCG TAB NG SCH (06:30)
[2016-03-29] MEDS: BUDESONIDE 0.25 MG/2 ML VIAL (PULMICORT) INH SCH ×2 (07:08→20:04)
[2016-03-29 07:51] LABS: COMPLETE YES; HEMATOCRIT 26.1 % (37-47); IG% 0.2 %; LYMPH ABS # 0.32 K/uL (1.2-3.4); MEAN CELL VOLUME 83.4 fL (80-100); MEAN CORPUSCULAR HEMOGLOBIN 28.8 pg (25-34); MEAN CORPUSCULAR HGB CONC 34.5 g/dl (32-36); MEAN PLATELET VOLUME 9.6 fL (7.4-10.4); MONO % 2.8 %; PLATELET COUNT 389 K/uL (130-400); RED BLOOD COUNT 3.13 M/uL (4.2-5.4); WHITE BLOOD COUNT 6.42 K/uL (4.8-10.8)
--- NOTE | 2016-03-29 07:52 | Family Medicine Progress Note ---
Progress Note Date of Service Mar 29, 2016. Subjective Pt evaluation today including: conversation w/ patient, physical exam, chart review, lab review, review of studies, review of inpatient medication list Pain: denies pain PO Intake: NPO, NG tube in place Voiding: gutierrez catheter in place Pt reported productive cough overnight along with SOB, which has since improved. denies CP, Abdominal pain. Pt reports feeling constipated. It does not appear she has had BM since 03/24/16. Per nurse, Pt has been confused, BP elevated this morning. Per Telemetry , patient has been in sinus bradycardia 50-60's over night with some 2 second pauses Constitutional: No chills, No fever Respiratory: + cough, + shortness of breath, + sputum, No wheezing Cardiovascular: No chest pain, No edema Abdomen: + constipation, No diarrhea, No nausea, No pain, No vomiting Female : + problem reported (has gutierrez catheter) Skin: No itch, No rash Medications Current Inpatient Medications Medications (Trade) Dose Ordered Sig/Remy Route Start Time Stop Time Status Last Admin Dose Admin Acetaminophen (Tylenol Tab) 650 mg Q4H PRN PO 03/16/16 11:00 04/15/16 10:59 03/23/16 02:02 650 MG Nitroglycerin (Nitrostat Tab) 0.4 mg UD PRN SL 03/16/16 11:00 04/15/16 10:59 Al Hydrox/Mg Hydrox/Simethicone (Maalox Max Susp) 15 ml Q4H PRN PO 03/16/16 11:00 04/15/16 10:59 Magnesium Hydroxide (Milk Of Magnesia Susp) 30 ml Q12H PRN PO 03/16/16 11:00 04/15/16 10:59 Glucose (Glucose 40% Gel) 15-30 GRAMS 15 GRAMS... UD PRN PO 03/16/16 13:00 04/15/16 12:59 Glucose (Glucose Chew Tab) 4-8 Tablets 4 Tabl... UD PRN PO 03/16/16 13:00 04/15/16 12:59 Dextrose (Dextrose 50% 50ML Syringe) 25-50ML OF 50% DW IV FOR... UD PRN IV 03/16/16 13:00 04/15/16 12:59 Glucagon (Glucagon Inj) 1 mg UD PRN SQ 03/16/16 13:00 04/15/16 12:59 Hydralazine HCl (HydrALAZINE INJ) 10 mg Q4 PRN IV. 03/16/16 18:15 04/15/16 18:14 03/29/16 00:17 10 MG Miscellaneous Information (Consult Glycemic Management Pharmacy) 1 ea UD PRN N/A 03/17/16 09:30 04/16/16 09:29 Insulin Human Regular (novoLIN-R) SLIDING SCALE Q6 SC 03/18/16 08:00 04/17/16 07:59 03/29/16 06:31 7 UNITS Senna (Senokot Syrup) 8.8 mg DAILY PO 03/19/16 09:00 04/18/16 08:59 03/28/16 13:22 8.8 MG Docusate Sodium (coLACE SYRUP) 100 mg BID PO 03/18/16 21:00 04/17/16 20:59 03/28/16 21:58 100 MG Ipratropium [place] (Atrovent Hfa Inhaler) 2 puffs QID PRN INH 03/20/16 14:00 04/19/16 13:59 Insulin Human Regular (novoLIN-R) -give 0 units if IMP... Q6 SC 03/21/16 12:00 04/18/16 17:59 03/29/16 06:32 5 UNITS Guaifenesin (Robitussin Sugar Free Syrup) 400 mg Q6H NG 03/21/16 12:00 04/20/16 11:59 03/29/16 06:30 400 MG Albuterol/ Ipratropium (Duoneb) 3 ml Q4R INH 03/21/16 16:00 04/20/16 15:59 03/29/16 03:55 3 ML Albuterol/ Ipratropium (Duoneb) 3 ml Q2H PRN INH 03/21/16 12:45 04/20/16 12:44 Aspirin (Aspirin Chew) 81 mg DAILY NG 03/22/16 09:00 04/21/16 08:59 03/28/16 13:22 81 MG Budesonide (Pulmicort Respules 0.25MG/ 2ML Neb Soln) 0.25 mg Q12R INH 03/22/16 09:00 04/21/16 08:59 03/28/16 18:58 0.25 MG Levothyroxine Sodium (Synthroid Tab) 50 mcg DAILYBB NG 03/22/16 09:00 04/21/16 08:59 03/29/16 06:30 50 MCG Enteral Nutritional Formula (Prosource No Carb) 30 ml DAILY NG 03/22/16 12:00 04/21/16 11:59 03/28/16 13:21 30 ML Metoprolol Tartrate (Lopressor Tab) 50 mg BID PO 03/23/16 09:00 04/22/16 08:59 03/28/16 22:00 50 MG Insulin Glargine (Lantus Solostar Pen) 12 unit QAM SC 03/24/16 09:00 04/23/16 08:59 Future hold 03/27/16 07:49 12 UNIT Ondansetron HCl (Zofran Inj) 4 mg Q6H PRN IV 03/23/16 20:00 04/22/16 19:59 03/23/16 19:55 4 MG Heparin Sodium (Porcine) 5000 unit 5,000 unit Q12 SQ 03/24/16 09:00 04/23/16 08:59 03/28/16 22:02 5,000 UNIT Pantoprazole Sodium/Syringe (Protonix Inj/ Syringe) 10 ml @ 5 mls/min DAILY@11 IV 03/24/16 11:00 04/23/16 10:59 03/28/16 13:25 5 MLS/MIN Polyethylene (Miralax Powder Packet) 17 gm QAM PO 03/26/16 09:00 04/25/16 08:59 03/28/16 13:23 17 GM Enteral Nutritional Formula (Impact 1.0 Je) 1,000 ml UD NG 03/25/16 10:00 04/24/16 09:59 03/28/16 14:28 1,000 ML Sterile Water (Tube Feeding Water Flush) 1 ea Q6H PEG 03/25/16 10:00 04/24/16 09:59 03/29/16 03:25 1 EA Prednisone (PredniSONE TAB) 5 mg DAILY NG 03/26/16 09:00 04/25/16 08:59 Future Hold 03/28/16 08:08 5 MG Hydralazine HCl (Apresoline Tab) 50 mg Q6H PO 03/25/16 20:00 04/24/16 19:59 03/29/16 02:09 50 MG Menthol/Zinc Oxide (Calmoseptine Oint) 1 appln BID EXT 03/27/16 11:30 04/26/16 11:29 03/28/16 22:01 1 APPLN Amlodipine Besylate 10 mg 10 mg QAM PO 03/28/16 09:00 04/27/16 08:59 03/28/16 08:09 10 MG Sodium Chloride (Nss 1000ml) 1,000 ml @ 50 mls/hr Q20H IV 03/28/16 13:30 04/27/16 13:29 03/28/16 13:45 50 MLS/HR Atorvastatin Calcium (Lipitor Tab) 20 mg QPM PO 03/28/16 21:00 04/27/16 20:59 03/28/16 21:59 20 MG Isosorbide Dinitrate 30 mg 30 mg TID@0700,1200,1700 PO 03/28/16 17:00 04/27/16 16:59 03/28/16 16:51 30 MG Dexamethasone Sodium Phosphate/ Syringe (Decadron Inj/ Syringe) 1 ml @ 1 mls/min Q8H IV 03/28/16 16:00 03/31/16 15:29 03/29/16 00:18 1 MLS/MIN Objective Vital Signs Date Time Temp Pulse Resp B/P Pulse Ox O2 Delivery O2 Flow Rate FiO2 03/29/16 07:32 36.3 61 18 190/75 97 Room Air 03/29/16 04:00 Room Air 03/29/16 03:55 63 18 98 Room Air 03/29/16 03:48 36.6 60 18 173/70 96 Room Air 03/29/16 02:08 60 150/72 03/29/16 00:15 Room Air 03/29/16 00:00 36.3 54 18 180/77 97 Room Air 03/28/16 23:30 63 18 98 Room Air 03/28/16 21:00 Room Air 03/28/16 19:13 36.6 63 18 193/68 96 187/73 03/28/16 18:58 63 18 94 Room Air 03/28/16 17:30 94 Room Air 03/28/16 15:47 36.7 59 22 176/77 98 Room Air 03/28/16 15:04 61 18 94 Room Air 03/28/16 14:14 95 Room Air 03/28/16 11:54 36.7 53 18 189/77 95 Room Air 03/28/16 09:33 94 Room Air 03/28/16 07:55 36.4 116 17 191/66 93 Room Air Physical Exam General Appearance: WD/WN, no apparent distress Eyes: PERRL, EOMI ENT: + pertinent finding (NG Tube in place) Neck: supple, trachea midline Respiratory/Chest: chest non-tender, no respiratory distress, no accessory muscle use, + crackles, + pertinent finding (coarse breaths sounds mark) Cardiovascular: regular rate, rhythm, no edema, no JVD, + systolic murmur Abdomen: normal bowel sounds, non tender, soft Extremities: no pedal edema, no calf tenderness Neurologic/Psychiatric: alert, + disoriented (Oriented to person ONLY) Skin: normal color, warm/dry Laboratory Results Results Past 24 Hours Test 03/28/16 11:50 03/28/16 15:55 03/28/16 17:45 03/29/16 00:07 Range/Units Bedside Glucose 205 228 212 70-90 mg/dl Urine Osmolality 626 500-800 mOms/kg Urine Random Sodium 70 mEq/L Test 03/29/16 04:44 03/29/16 06:08 03/29/16 07:06 Range/Units Transferrin % Saturation 15-50 % Bedside Glucose 260 70-90 mg/dl White Blood Count 6.42 4.8-10.8 K/uL Red Blood Count 3.13 4.2-5.4 M/uL Hemoglobin 9.0 12.0-16.0 g/dL Hematocrit 26.1 37-47 % Mean Corpuscular Volume 83.4 80-100 fL Mean Corpuscular Hemoglobin 28.8 25-34 pg Mean Corpuscular Hemoglobin Concent 34.5 32-36 g/dl Platelet Count 389 130-400 K/uL Mean Platelet Volume 9.6 7.4-10.4 fL Neutrophils (%) (Auto) 92.0 % Lymphocytes (%) (Auto) 5.0 % Monocytes (%) (Auto) 2.8 % Eosinophils (%) (Auto) 0.0 % Basophils (%) (Auto) 0.0 % Neutrophils # (Auto) 5.91 1.4-6.5 K/uL Lymphocytes # (Auto) 0.32 1.2-3.4 K/uL Monocytes # (Auto) 0.18 0.11-0.59 K/uL Eosinophils # (Auto) 0.00 0-0.5 K/uL Basophils # (Auto) 0.00 0-0.2 K/uL RDW Standard Deviation 41.8 36.4-46.3 fL RDW Coefficient of Variation 13.6 11.5-14.5 % Immature Granulocyte % (Auto) 0.2 % Immature Granulocyte # (Auto) 0.01 0.00-0.02 K/uL Assessment and Plan 89 yo F w/ Hx of Dementia, COPD, Asthma p/w Ventilator dependent Resp Failure s /p Extubation, in the setting of Angioedema Metabolic Encephalopathy - Encephalopathy complicated by Baseline dementia - Alert/ Oriented x 1, minimal improvement in mental status - Blood Cx's negative, WBC count wnl Aspiration - previous CXR (03/21/16) showing findings consistent with infectious vs. inflammatory pneumonitis - Video swallow study today confirmed aspiration - Per Speech recommendations, Pt being kept NPO - ENT consulted, laryngoscopy showing residual angioedema. - Consider Repeat Swallowing study following removal of NG tube Vent dependant Respiratory Failure -likely due to Angioedema - s/p extubation, clinically stable, 98% on rm air - held Prednisone home dose of 5mg daily - started Decadron 4 mg q8 IV to treat residual angioedema -Continue to monitor - c/w Duoneb, Atrovent,and Pulmicort INH Angioedema - likely due to DEBBIE-I usage, given recent onset of angioedema - DEBBIE-I remains held - Complement C3 and C4 levels normal. - C1 esterase levels high. 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 - Continue Isosorbide dinitrate to 30 TID - Continue to monitor BP, add manual BP Constipation s/p BM this morning w/ Biscodyl suppository - Continue docusate 100mg BID and Senna 8.9 mg daily - Ordered Bisacodyl suppository. Bilateral Lower Extremity Wound Cellulitis - Continue Wound Care Diabetes - Lantus 12 units daily and ISS. - Monitor BSG with steroids CAD - Statin restarted - Started Isosorbide dinitrate to 30 TID - Continue ASA 81 mg daily GI prophylaxis - Continue with PPI IV Hypothyroid - Continue Levothyroxine 50mcg daily. DVT prophylaxis - Continue Heparin SQ Q12 PT/OT Code Status - Full code Attending Attestation: Pt seen/examined, chart reviewed, care plan d/w PGY 1 Dr. Mook Barrett. I agree with the salas components of his progress note documentation with the following exceptions - none. Pt awake during my visit and says "I'm doing ok" but otherwise offers no complaints and speaks very little. tele stable overnight. ENT consult completed - laryngoscopy shows normal vocal cord movement but residual angioedema. afebrile, BPs high, o2 sats normal gen - nad heent - voice hoarse; mouth - MMM; NG tube in left nare neck - no JVD heart - /6 JEFF LSB, RRR lungs - CTA b/l but course BS on right abd - distension continues, BS+ but diminished ext - no edema labs - Na 130 A/P: 1. recent angioedema leading to acute hypoxic resp failure - improved but not resolved as confirmed by direct laryngoscopy by ENT 2. ongoing dysphagia 2nd to angioedema 3. hyponatremia 4. deconditioning 5. dementia with mild superimposed encephalopathy, ? of hospital psychosis 6. uncontrolled HTN * continue IV steroids * serum Osm, urine Osm, urine Na seem c/w SIADH; begin fluid restriction; consider salt tabs +/- lasix * cont NG tube feedings due to dysphagia; need to d/w POA what the patient's wishes would be for permanent feeding tube but would discourage such in light of advanced age, dementia, etc * adjust BP meds * bowel regimen for severe constipation and recent colonic ileus Frances HARRIS MD Continued [facility] stay due to: abnormal vital signs, multiple IV medications needed Resident Tracking Resident Involvement: Resident Care Provided Care Provided: Adult Hospital Medicine
[2016-03-29] MEDS: ISOSORBIDE DINITRATE 10 MG TAB PO SCH ×3 (08:19→16:57)
[2016-03-29] MEDS: MENTHOL-ZINC OXIDE 360 APPLN/120 GM TUBE EXT SCH ×2 (08:23→20:40)
[2016-03-29 08:25] LABS: BUN/CREATININE RATIO 46.7 (10-20); CREATININE 0.83 mg/dl (0.60-1.20)
[2016-03-29] MEDS: PROSOURCE NOCARB 30ML/PKT NG SCH (08:25)
[2016-03-29] MEDS: DOCUSATE SODIUM 100 MG/10 ML UDC PO SCH ×2 (08:25→20:41)
[2016-03-29] MEDS: METOPROLOL TARTRATE 25 MG TAB PO SCH ×2 (08:26→20:39)
[2016-03-29] MEDS: POLYETHYLENE (MIRALAX) 17 GM PACK PO SCH (08:26)
[2016-03-29] MEDS: AMLODIPINE BESYLATE 5 MG TAB PO SCH (08:26)
[2016-03-29] MEDS: SENNA 8.8 MG/5 ML UDP PO SCH (08:27)
[2016-03-29] MEDS: HEPARIN SOD 5000 UNIT/0.5 ML CARP SQ SCH ×2 (08:29→20:43)
[2016-03-29] MEDS: INSULIN GLARGINE SOLOSTAR 100 UNITS/ML 3 ML PEN SC SCH (08:29)
[2016-03-29 08:30] LABS: FERRITIN 274.2 ng/ml (8.0-388.0); PHOSPHORUS 3.7 mg/dl (2.5-4.9)
[2016-03-29] MEDS: ASPIRIN 81 MG CHEW NG SCH (09:00)
[2016-03-29] MEDS: SODIUM CHLORIDE 0.9% 1000ML 1,000 ML IV SCH (09:30)
[2016-03-29] MEDS ORDERED: BISACODYL 10 MG SUPP PR STA (09:31)
--- NOTE | 2016-03-29 11:53 | Pharmacy Progress Note ---
Glycemic Control: Progress Nt Date of Service Mar 29, 2016. Scope Glycemic Pharmacist consulted by Dr Goldsmith on 03/17/16 for glycemic control and to write orders per [facility] inpatient glycemic control protocol. Objective Accuchecks BSG (last 24hrs): Test 03/28/16 11:50 03/28/16 15:55 03/29/16 00:07 03/29/16 06:08 Bedside Glucose 205 mg/dl (70-90) 228 mg/dl (70-90) 212 mg/dl (70-90) 260 mg/dl (70-90) Test 03/29/16 07:06 03/29/16 11:01 Random Glucose 244 mg/dl (70-99) Bedside Glucose 258 mg/dl (70-90) Laboratory Data (last 24hrs) Test 03/29/16 07:06 Anion Gap 11.0 mmol/L BUN/Creatinine Ratio 46.7 Blood Urea Nitrogen 39 mg/dl Creatinine 0.83 mg/dl Potassium Level 5.0 mmol/L Sodium Level 130 mmol/L White Blood Count 6.42 K/uL Red Blood Count 3.13 M/uL Hemoglobin 9.0 g/dL Hematocrit 26.1 % Mean Corpuscular Volume 83.4 fL Mean Corpuscular Hemoglobin 28.8 pg Mean Corpuscular Hemoglobin Concent 34.5 g/dl Platelet Count 389 K/uL Mean Platelet Volume 9.6 fL Neutrophils (%) (Auto) 92.0 % Lymphocytes (%) (Auto) 5.0 % Monocytes (%) (Auto) 2.8 % Eosinophils (%) (Auto) 0.0 % Basophils (%) (Auto) 0.0 % Neutrophils # (Auto) 5.91 K/uL Lymphocytes # (Auto) 0.32 K/uL Monocytes # (Auto) 0.18 K/uL Eosinophils # (Auto) 0.00 K/uL Basophils # (Auto) 0.00 K/uL HbA1c: 8.5% on 02/23/16 Recent Pertinent Medications Outpatient Anti-diabetic Regimen: * Lantus 8 units SQ daily * NovoLog sliding scale (around 0-16 units per day) * Correction factor: ~8mg/dL/unit * Goal <150mg/dL * A1c = 8.5 % 02/23/16 The patient is currently receiving: * Basal insulin: Lantus 12 units every 24 hours - dosed in the AM * Correctional Insulin: REGULAR insulin correction per scale Q 6 hours Goal Range: Low 140 mg/dL - High 180 mg/dL Correction Factor: 15 mg/dL/unit * Prandial insulin: 0-5 units of REGULAR insulin SQ Q 6 hours depending on rate of Impact tube feeds * Oral Agents: None currently Risk Factors for Insulin Resistance: * Steroids: Dexamethasone 4mg IV Q8hrs x 3 days * Diet: Continuous tube feedings with Impact Assessment & Plan ASSESSMENT: * Glycemic control has deteriorated with the increase in steroid dosing. Steroids increased from prednisone 5mg PO daily to Dexamethasone (DXM) 4mg IV Q8hrs x 3 days. * Pt is receiving basal insulin dosed daily in the morning + prandial insulin ( dosing based on rate of continuous tube feed rate) + correctional insulin for stress/steroid hyperglycemia. * Steroids have their most profound effect on post-prandial hyperglycemia. * Will increase prandial insulin dosing * Since DXM is a very long acting steroid and is being dose RTC will slightly increase basal insulin as well. * Will taper insulin regimen when nearing DXM d/c to prevent hypoglycemia. * Pt has been receiving ~ 20 units of insulin per day, but expect this to double with the addition of DXM. * BSGs [phone] over the past 24hrs since starting DXM PLAN FOR INPATIENT GLYCEMIC CONTROL: * Increase basal insulin with Lantus to 25 units SQ daily in AM; give 1/2 dose ( 6 units) if BSG less than 120mg/dl. Will taper dosing back down once DXM tapers. * Continue correction factor of 15 mg/dl/unit * Cover carbs in continuous tube feeds per the following Regular insulin order Q 6 hrs: * Impact at 15 cc/hr give 3 units * Impact at 30 cc/hr give 4 unit * Impact at 45-50 cc/hr or more, give 6 units (goal rate = 50 cc/hr) * Continue goal range of Low 120 mg/dL - High 160 mg/dL * Please note that the plan above was derived based on current level of insulin resistance and hospital stress. These recommendations are appropriate for inpatient admission only. Plan of care upon discharge will need to be reassessed to avoid potential outpatient hypo/hyperglycemia. Thank you.
[2016-03-29] MEDS ORDERED: INSULIN GLARGINE SOLOSTAR 100 UNITS/ML 3 ML PEN SC SCH (12:00)
[2016-03-29] MEDS: PANTOprazole INJ 40 MG in SYRINGE 0 ML IV SCH (12:38)
--- NOTE | 2016-03-29 18:12 | CONSULTATION REPORT ---
DATE OF CONSULTATION: 03/16/2016 DIAGNOSIS: Resolving angioedema. HISTORY OF PRESENT ILLNESS: An 89-year-old lady who presented to the ER with altered mental status. She was transferred from [facility]. She had difficulty breathing and underwent intubation by Dr. Harding in the Emergency Room on March 16. She was extubated on the ; however, she continues to have dysphagia and the recent video swallow shows signs of aspiration. Consultation was requested for the aspiration. PAST MEDICAL HISTORY: As noted on chart. PHYSICAL EXAMINATION: ENT: Examination today showed the nasal passages to have blood in the right naris and NG tube in the left naris. The throat shows minimal edema, evidently the whole posterior pharynx was very edematous on admission on March 16. I am able to see the uvula and the posterior pharynx. Fiberoptic examination of the endolarynx showed mild edema of the arytenoids and of the epiglottis; however, the vocal cords were mobile with fair glottis. The NG tube is in the esophagus in the postcricoid area. IMPRESSION: Resolving angioedema with persistent dysphagia and aspiration. RECOMMENDATIONS: The patient's angioedema is resolving; however, the swallowing mechanism may take a while to return. She should be kept n.p.o. until she is able to swallow better on video swallow. Repeat study should be performed without NG tube in place to disturb swallowing function. The only other option would be a GI consult with possible PEG tube. HOANG
[2016-03-29] MEDS: ATORVASTATIN 20 MG TAB PO SCH (20:39)
[2016-03-29] MEDS: BUTT PASTE 171 APPLN/57 GM JAR EXT SCH (20:42)
[2016-03-30] VITALS (17 sets, daily range): BP systolic 106–202; BP diastolic 52–95; PULSE 62–74; TEMP 36.3–37.2; O2SAT 93–97
[2016-03-30] MEDS: GUAIFENESIN SUGAR FREE 200 MG/10 ML UDC NG SCH ×5 (00:22→23:48)
[2016-03-30] MEDS: DEXAMETHASONE INJ 4 MG in SYRINGE 0 ML IV SCH ×4 (00:22→23:48)
[2016-03-30] MEDS: INSULIN HUMAN REGULAR SC SCH ×10 (00:25→23:51)
[2016-03-30] MEDS: HydrALAZINE HCL 20 MG/ML VIAL IV. PRN (00:44)
[2016-03-30] MEDS: ALBUT/IPRATROP 3MG/0.5MG NEB 3 ML VIAL INH SCH ×6 (03:37→23:16)
--- NOTE | 2016-03-30 04:00 | Progress Note ---
Progress Note I was paged at approximately 03:20. Patient was noted to have a new wet sounding cough. I arrived at the to the bedside to assess the patient: Nursing notes that he wet sounding cough compared this evening. She has otherwise seemed well. Does not seem short of breath. He attempted to aspirate from the tube, and gastric content. No blood. Note that abdomen seems a little bit more and did today the first night she is looking after the patient, so does not have a baseline for comparison. SUBJECTIVE: Patient awoken. She denies any pain. OBJECTIVE: - Vital signs from 00:30 reviewed Patient markedly hypertensive with sBP 202 - Updated vital signs pending - Feed rate 50 ml/hr - Patient sleeping, appears comfortable, no obvious distress. She can be awoken - Respiratory: No crackles or wheezes noted - Abdomen: Nontender, mildly distended, good bowel sounds in all 4 quadrants ASSESSMENT/PLAN: 89-year-old admitted for angioedema, since with new occasional wet sounding cough, with NG tube in place with continuous feeds. Abdomen seems slightly distended but there are good bowel sounds, patient does not have any tenderness to palpation. It was noted that she was having issues with aspirating NG contents previously. Plan is as follows:: - I have asked that tube feeds be stopped. - Check vital signs now Confirm stable respiratory vitals Patient noted to have gotten 50 mg hydralazine at 02:50; improved BP to sBP systolic 170 with repeat vitals - We will check a blood sugar now, increased frequency of checks every 4 hours - We'll monitor through the remainder of the overnight improvement or progression of abdominal distension - If coughing persists, will obtain chest x-ray to assess for possible aspiration pneumonia. - We will sign off today team. If tube feeds need to be stopped for longer than 4 hours would consider adding on IV fluids with dextrose to prevent hypoglycemia
[2016-03-30] MEDS: TUBE FEEDING WATER FLUSH PEG SCH ×4 (04:05→21:44)
[2016-03-30] MEDS: LEVOTHYROXINE 50 MCG TAB NG SCH (05:58)
[2016-03-30] MEDS: ISOSORBIDE DINITRATE 10 MG TAB PO SCH ×3 (05:59→16:32)
[2016-03-30] MEDS: BUDESONIDE 0.25 MG/2 ML VIAL (PULMICORT) INH SCH ×2 (07:18→20:33)
[2016-03-30 08:08] LABS: COMPLETE YES; HEMATOCRIT 26.4 % (37-47); IG% 0.2 %; LYMPH % 2.9 %; LYMPH ABS # 0.48 K/uL (1.2-3.4); MEAN CELL VOLUME 82.8 fL (80-100); MEAN CORPUSCULAR HEMOGLOBIN 29.2 pg (25-34); MEAN CORPUSCULAR HGB CONC 35.2 g/dl (32-36); MEAN PLATELET VOLUME 9.7 fL (7.4-10.4); MONO % 3.9 %; PLATELET COUNT 499 K/uL (130-400); RED BLOOD COUNT 3.19 M/uL (4.2-5.4); WHITE BLOOD COUNT 16.39 K/uL (4.8-10.8)
[2016-03-30 08:33] LABS: BUN/CREATININE RATIO 45.2 (10-20); CALCIUM 8.7 mg/dl (8.5-10.1); CREATININE 0.83 mg/dl (0.60-1.20); POTASSIUM 4.7 mmol/L (3.5-5.1)
[2016-03-30 08:36] LABS: URIC ACID 2.9 mg/dl (2.6-7.2)
[2016-03-30] MEDS: BUTT PASTE 171 APPLN/57 GM JAR EXT SCH ×2 (09:00→21:38)
[2016-03-30] MEDS: PROSOURCE NOCARB 30ML/PKT NG SCH (09:00)
[2016-03-30] MEDS: MENTHOL-ZINC OXIDE 360 APPLN/120 GM TUBE EXT SCH ×2 (09:00→21:37)
[2016-03-30] MEDS: ASPIRIN 81 MG CHEW NG SCH (09:00)
[2016-03-30] MEDS: AMLODIPINE BESYLATE 5 MG TAB PO SCH (09:00)
[2016-03-30] MEDS: SENNA 8.8 MG/5 ML UDP PO SCH (09:00)
[2016-03-30] MEDS: METOPROLOL TARTRATE 25 MG TAB PO SCH (09:00)
[2016-03-30] MEDS: DOCUSATE SODIUM 100 MG/10 ML UDC PO SCH ×2 (09:00→21:39)
[2016-03-30] MEDS ORDERED: SODIUM CHLORIDE 1 GM TAB PO ONE (09:55)
[2016-03-30] MEDS ORDERED: FUROSEMIDE 20 MG TAB PO ONE (10:00)
[2016-03-30] MEDS: INSULIN GLARGINE SOLOSTAR 100 UNITS/ML 3 ML PEN SC SCH (10:33)
[2016-03-30] MEDS: PANTOprazole INJ 40 MG in SYRINGE 0 ML IV SCH (10:34)
[2016-03-30] MEDS: HEPARIN SOD 5000 UNIT/0.5 ML CARP SQ SCH ×2 (10:34→21:43)
--- NOTE | 2016-03-30 11:25 | DIAGNOSTIC IMAGING REPORT ---
CHEST 2 VIEWS ROUTINE HISTORY: Short of breath. ?new pneumonia COMPARISON: Chest 03/23/2016. FINDINGS: The heart remains enlarged. There are poststernotomy changes. Nasogastric tube terminates in the stomach. No pneumothorax. Small right and trace left pleural effusion persist. Hazy appearance the right lung base. The upper lung zones are clear. No evidence for pulmonary edema. IMPRESSION: 1. Nasogastric tube terminates in the stomach. 2. Small right and trace left pleural effusion persist. 3. Hazy appearance the right lung base likely represents accommodation the pleural fluid and right basilar airspace opacity. This favors atelectasis from the pleural fluid. However, a pneumonia could also have a similar appearance. Electronically signed by: Sree Gilliam M.D. 03/30/2016 11:24 AM Dictated Date/Time: 03/30/2016 11:21 AM
--- NOTE | 2016-03-30 11:47 | Family Medicine Progress Note ---
Progress Note Date of Service Mar 30, 2016. Subjective Pt evaluation today including: conversation w/ patient, physical exam, chart review, lab review, review of studies, review of inpatient medication list Pain: denies pain PO Intake: NPO, NG Tube in place, turned off overnight due to gurgling,cough Voiding: gutierrez catheter in place Overnight, Pt was reportedly gurgling /coughing with NG tube feeds. NG tube feeds were then stopped . Tube remains in place. Pt confirmed SOB, cough . Pt continues to complain of constipation. Additional Comments: Constitutional: No chills, No fever Respiratory: + cough, + shortness of breath, + sputum, No wheezing Cardiovascular: No chest pain, No edema Abdomen: + constipation, No diarrhea, No nausea, No pain, No vomiting Female : + problem reported (has gutierrez catheter) Skin: No itch, No rash Medications Current Inpatient Medications Medications (Trade) Dose Ordered Sig/Remy Route Start Time Stop Time Status Last Admin Dose Admin Acetaminophen (Tylenol Tab) 650 mg Q4H PRN PO 03/16/16 11:00 04/15/16 10:59 03/23/16 02:02 650 MG Nitroglycerin (Nitrostat Tab) 0.4 mg UD PRN SL 03/16/16 11:00 04/15/16 10:59 Al Hydrox/Mg Hydrox/Simethicone (Maalox Max Susp) 15 ml Q4H PRN PO 03/16/16 11:00 04/15/16 10:59 Magnesium Hydroxide (Milk Of Magnesia Susp) 30 ml Q12H PRN PO 03/16/16 11:00 04/15/16 10:59 Glucose (Glucose 40% Gel) 15-30 GRAMS 15 GRAMS... UD PRN PO 03/16/16 13:00 04/15/16 12:59 Glucose (Glucose Chew Tab) 4-8 Tablets 4 Tabl... UD PRN PO 03/16/16 13:00 04/15/16 12:59 Dextrose (Dextrose 50% 50ML Syringe) 25-50ML OF 50% DW IV FOR... UD PRN IV 03/16/16 13:00 04/15/16 12:59 Glucagon (Glucagon Inj) 1 mg UD PRN SQ 03/16/16 13:00 04/15/16 12:59 Hydralazine HCl (HydrALAZINE INJ) 10 mg Q4 PRN IV. 03/16/16 18:15 04/15/16 18:14 03/30/16 00:44 10 MG Miscellaneous Information (Consult Glycemic Management Pharmacy) 1 ea UD PRN N/A 03/17/16 09:30 04/16/16 09:29 Insulin Human Regular (novoLIN-R) SLIDING SCALE Q6 SC 03/18/16 08:00 04/17/16 07:59 03/30/16 00:25 5 UNITS Senna (Senokot Syrup) 8.8 mg DAILY PO 03/19/16 09:00 04/18/16 08:59 03/29/16 08:27 8.8 MG Docusate Sodium (coLACE SYRUP) 100 mg BID PO 03/18/16 21:00 04/17/16 20:59 03/29/16 20:41 100 MG Ipratropium [place] (Atrovent Hfa Inhaler) 2 puffs QID PRN INH 03/20/16 14:00 04/19/16 13:59 Insulin Human Regular (novoLIN-R) -give 0 units if IMP... Q6 SC 03/21/16 12:00 04/18/16 17:59 03/30/16 00:26 6 UNITS Guaifenesin (Robitussin Sugar Free Syrup) 400 mg Q6H NG 03/21/16 12:00 04/20/16 11:59 03/30/16 00:22 400 MG Albuterol/ Ipratropium (Duoneb) 3 ml Q4R INH 03/21/16 16:00 04/20/16 15:59 03/30/16 07:18 3 ML Albuterol/ Ipratropium (Duoneb) 3 ml Q2H PRN INH 03/21/16 12:45 04/20/16 12:44 Aspirin (Aspirin Chew) 81 mg DAILY NG 03/22/16 09:00 04/21/16 08:59 03/29/16 09:00 81 MG Budesonide (Pulmicort Respules 0.25MG/ 2ML Neb Soln) 0.25 mg Q12R INH 03/22/16 09:00 04/21/16 08:59 03/30/16 07:18 0.25 MG Levothyroxine Sodium (Synthroid Tab) 50 mcg DAILYBB NG 03/22/16 09:00 04/21/16 08:59 03/30/16 05:58 50 MCG Enteral Nutritional Formula (Prosource No Carb) 30 ml DAILY NG 03/22/16 12:00 04/21/16 11:59 03/29/16 08:25 30 ML Metoprolol Tartrate (Lopressor Tab) 50 mg BID PO 03/23/16 09:00 04/22/16 08:59 03/29/16 20:39 50 MG Ondansetron HCl (Zofran Inj) 4 mg Q6H PRN IV 03/23/16 20:00 04/22/16 19:59 03/23/16 19:55 4 MG Heparin Sodium (Porcine) 5000 unit 5,000 unit Q12 SQ 03/24/16 09:00 04/23/16 08:59 03/30/16 10:34 5,000 UNIT Pantoprazole Sodium/Syringe (Protonix Inj/ Syringe) 10 ml @ 5 mls/min DAILY@11 IV 03/24/16 11:00 04/23/16 10:59 03/30/16 10:34 5 MLS/MIN Enteral Nutritional Formula (Impact 1.0 Je) 1,000 ml UD NG 03/25/16 10:00 04/24/16 09:59 03/28/16 14:28 1,000 ML Sterile Water (Tube Feeding Water Flush) 1 ea Q6H PEG 03/25/16 10:00 04/24/16 09:59 03/30/16 04:05 1 EA Prednisone (PredniSONE TAB) 5 mg DAILY NG 03/26/16 09:00 04/25/16 08:59 Future Hold 03/28/16 08:08 5 MG Hydralazine HCl (Apresoline Tab) 50 mg Q6H PO 03/25/16 20:00 04/24/16 19:59 03/30/16 02:51 50 MG Menthol/Zinc Oxide (Calmoseptine Oint) 1 appln BID EXT 03/27/16 11:30 04/26/16 11:29 03/28/16 22:01 1 APPLN Amlodipine Besylate (Norvasc Tab) 10 mg QAM PO 03/28/16 09:00 04/27/16 08:59 03/29/16 08:26 10 MG Atorvastatin Calcium (Lipitor Tab) 20 mg QPM PO 03/28/16 21:00 04/27/16 20:59 03/29/16 20:39 20 MG Isosorbide Dinitrate 30 mg 30 mg TID@0700,1200,1700 PO 03/28/16 17:00 04/27/16 16:59 03/30/16 05:59 30 MG Dexamethasone Sodium Phosphate/ Syringe (Decadron Inj/ Syringe) 1 ml @ 1 mls/min Q8H IV 03/28/16 16:00 03/31/16 15:29 03/30/16 08:00 1 MLS/MIN Insulin Glargine (Lantus Solostar Pen) 15 unit QAM SC 03/29/16 09:00 04/28/16 08:59 03/30/16 10:33 15 UNIT Sodium Chloride (Sodium Chloride Tab) 1 gm DAILY PO 03/31/16 09:00 04/30/16 08:59 Polyethylene (Miralax Powder Packet) 17 gm BID PO 03/30/16 21:00 04/29/16 20:59 Objective Vital Signs Date Time Temp Pulse Resp B/P Pulse Ox O2 Delivery O2 Flow Rate FiO2 03/30/16 08:00 97 Room Air 03/30/16 08:00 36.4 65 20 172/52 97 Room Air 03/30/16 07:18 62 20 96 Room Air 03/30/16 04:00 36.5 62 24 177/81 96 Room Air 03/30/16 04:00 Room Air 03/30/16 03:37 68 18 96 Room Air 03/30/16 02:00 176/84 03/30/16 00:26 37.0 65 19 202/71 96 03/29/16 23:59 Room Air 03/29/16 22:54 80 18 96 Room Air 03/29/16 20:05 67 18 98 Room Air 03/29/16 20:00 36.5 68 24 211/83 95 Room Air 03/29/16 20:00 Room Air 03/29/16 16:00 Room Air 03/29/16 15:38 82 18 96 Room Air 03/29/16 15:07 36.4 64 22 184/76 97 Room Air 03/29/16 12:00 Room Air 03/29/16 11:51 36.5 78 16 125/78 97 Physical Exam Notes: General Appearance: WD/WN, no apparent distress Eyes: PERRL, EOMI ENT: + pertinent finding (NG Tube in place) Neck: supple, trachea midline Respiratory/Chest: chest non-tender, no respiratory distress, no accessory muscle use, + crackles, + pertinent finding (coarse breaths sounds mark) Cardiovascular: regular rate, rhythm, no edema, no JVD, + systolic murmur Abdomen: normal bowel sounds, non tender, +distended Extremities: no pedal edema, no calf tenderness Neurologic/Psychiatric: alert, + disoriented (Oriented to person ONLY) Skin: normal color, warm/dry Laboratory Results Results Past 24 Hours Test 03/30/16 06:04 03/30/16 07:36 03/30/16 11:36 03/30/16 16:03 Range/Units Bedside Glucose 193 164 101 70-90 mg/dl White Blood Count 16.39 4.8-10.8 K/uL Red Blood Count 3.19 4.2-5.4 M/uL Hemoglobin 9.3 12.0-16.0 g/dL Hematocrit 26.4 37-47 % Mean Corpuscular Volume 82.8 80-100 fL Mean Corpuscular Hemoglobin 29.2 25-34 pg Mean Corpuscular Hemoglobin Concent 35.2 32-36 g/dl Platelet Count 499 130-400 K/uL Mean Platelet Volume 9.7 7.4-10.4 fL Neutrophils (%) (Auto) 93.0 % Lymphocytes (%) (Auto) 2.9 % Monocytes (%) (Auto) 3.9 % Eosinophils (%) (Auto) 0.0 % Basophils (%) (Auto) 0.0 % Neutrophils # (Auto) 15.23 1.4-6.5 K/uL Lymphocytes # (Auto) 0.48 1.2-3.4 K/uL Monocytes # (Auto) 0.64 0.11-0.59 K/uL Eosinophils # (Auto) 0.00 0-0.5 K/uL Basophils # (Auto) 0.00 0-0.2 K/uL RDW Standard Deviation 41.7 36.4-46.3 fL RDW Coefficient of Variation 13.7 11.5-14.5 % Immature Granulocyte % (Auto) 0.2 % Immature Granulocyte # (Auto) 0.04 0.00-0.02 K/uL Sodium Level 129 136-145 mmol/L Potassium Level 4.7 3.5-5.1 mmol/L Chloride Level 99 98-107 mmol/L Carbon Dioxide Level 20 21-32 mmol/L Anion Gap 10.0 3-11 mmol/L Blood Urea Nitrogen 38 7-18 mg/dl Creatinine 0.83 0.60-1.20 mg/dl Est Creatinine Clear Calc Drug Dose 40.1 ml/min Estimated GFR () 73.0 Estimated GFR (Non- 63.0 BUN/Creatinine Ratio 45.2 10-20 Random Glucose 174 70-99 mg/dl Uric Acid 2.9 2.6-7.2 mg/dl Calcium Level 8.7 8.5-10.1 mg/dl Thyroid Stimulating Hormone (TSH) 12.400 0.300-4.500 uIu/ml Test 03/30/16 23:51 Range/Units Bedside Glucose 71 70-90 mg/dl Assessment and Plan 89 yo F w/ Hx of Dementia, COPD, Asthma p/w Ventilator dependent Resp Failure s /p Extubation, in the setting of Angioedema Metabolic Encephalopathy - Encephalopathy complicated by Baseline dementia - Alert/ Oriented x 1, minimal improvement in mental status - Blood Cx's negative, WBC count wnl Continue to monitor Aspiration - previous CXR (03/21/16) showing findings consistent with infectious vs. inflammatory pneumonitis - Video swallow study today confirmed aspiration - Per Speech recommendations, Pt being kept NPO - ENT consulted, laryngoscopy showing residual angioedema. - Per Speech therapy, pt would not show improvement with repeat swallowing study with NG tube removed due to lack of epiglottis inversion, severe aspiration risk Vent dependant Respiratory Failure -likely due to Angioedema - s/p extubation, clinically stable, 98% on rm air - held Prednisone home dose of 5mg daily - Continue Decadron 4 mg q8 IV to treat residual angioedema -Continue to monitor - c/w Duoneb, Atrovent,and Pulmicort INH Angioedema - likely due to DEBBIE-I usage, given recent onset of angioedema - DEBBIE-I remains held - Complement C3 and C4 levels normal. - C1 esterase levels high. 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 - Continue Isosorbide dinitrate to 30 TID - Continue to monitor BP, add manual BP Constipation s/p BM this morning w/ Biscodyl suppository - Continue docusate 100mg BID and Senna 8.9 mg daily - ordered KUB Bilateral Lower Extremity Wound Cellulitis - Continue Wound Care Diabetes - Lantus 12 units daily and ISS. - Monitor BSG with steroids CAD - Statin restarted - Started Isosorbide dinitrate to 30 TID - Continue ASA 81 mg daily GI prophylaxis - Continue with PPI IV Hypothyroid - Continue Levothyroxine 50mcg daily. F/u TSH DVT prophylaxis - Continue Heparin SQ Q12 PT/OT Code Status - Full code Plan Discuss with family patient's poor prognosis, code status, Resident Physician Supervision Note: I was present with PGY1 Dr. Mook Barrett during the history and exam. I discussed the case with the resident and agree with the findings and plan as documented in the note. Any exceptions or clarifications are listed here: none. During my visit the patient was quite sleepy. NG tube was draining bilious material. exam - abd - distended, tympanic to percussion, BS diminished, tender CT abd/pelvis obtained urgently - showed severe fecal impaction but no SBO A/P: Despite no true obstructive process on CT, she clearly has bile in her NG tube, indicating stasis/ileus throughout her entire GI tract due to her severe fecal impaction. Recommend - * npo * IVF * enema now; manual disimpaction may be needed as well * NG tube to intermittent, low-wall suction * stop tube feedings Pt overall doing very poorly. May need to transition to comfort care soon if no improvement next day or two. Documented By: Beau Quiroz MD Continued [facility] stay due to: multiple IV medications needed, home environment unsafe for pt Resident Tracking Resident Involvement: Resident Care Provided Care Provided: Adult Hospital Medicine
--- NOTE | 2016-03-30 12:07 | DIAGNOSTIC IMAGING REPORT ---
KUB CLINICAL HISTORY: Possible small bowel obstruction. COMPARISON STUDY: CT of the abdomen and pelvis March 23, 2016 and KUB March 25, 2016. FINDINGS: A small amount of contrast is noted within the stomach from recent modified barium swallow. The tip of the nasogastric tube projects over the proximal stomach. Moderate colonic distention is noted. There is suspected gastric distention. There is no evidence for a small bowel obstruction. IMPRESSION: 1. Moderate colonic distention, similar to prior exam but improved since CT of March 23, 2016. 2. No evidence for a small bowel obstruction. 3. Moderate gastric distention. Electronically signed by: Ki Villalpando M.D. 03/30/2016 12:06 PM Dictated Date/Time: 03/30/2016 12:04 PM
--- NOTE | 2016-03-30 14:34 | Pharmacy Progress Note ---
Glycemic Control: Progress Nt Date of Service Mar 30, 2016. Scope Glycemic Pharmacist consulted for glycemic control and to write orders per [facility] inpatient glycemic control protocol. Objective Accuchecks BSG (last 24hrs): Test 03/29/16 16:09 03/30/16 00:12 03/30/16 06:04 03/30/16 07:36 Bedside Glucose 204 mg/dl (70-90) 240 mg/dl (70-90) 193 mg/dl (70-90) Random Glucose 174 mg/dl (70-99) Test 03/30/16 11:36 Bedside Glucose 164 mg/dl (70-90) Laboratory Data (last 24hrs) Test 03/30/16 07:36 Anion Gap 10.0 mmol/L BUN/Creatinine Ratio 45.2 Blood Urea Nitrogen 38 mg/dl Creatinine 0.83 mg/dl Potassium Level 4.7 mmol/L Sodium Level 129 mmol/L White Blood Count 16.39 K/uL Red Blood Count 3.19 M/uL Hemoglobin 9.3 g/dL Hematocrit 26.4 % Mean Corpuscular Volume 82.8 fL Mean Corpuscular Hemoglobin 29.2 pg Mean Corpuscular Hemoglobin Concent 35.2 g/dl Platelet Count 499 K/uL Mean Platelet Volume 9.7 fL Neutrophils (%) (Auto) 93.0 % Lymphocytes (%) (Auto) 2.9 % Monocytes (%) (Auto) 3.9 % Eosinophils (%) (Auto) 0.0 % Basophils (%) (Auto) 0.0 % Neutrophils # (Auto) 15.23 K/uL Lymphocytes # (Auto) 0.48 K/uL Monocytes # (Auto) 0.64 K/uL Eosinophils # (Auto) 0.00 K/uL Basophils # (Auto) 0.00 K/uL HbA1c: 8.5% on 02/23/16 Recent Pertinent Medications Outpatient Anti-diabetic Regimen: * Lantus 8 units SQ daily * NovoLog sliding scale (around 0-16 units per day) * Correction factor: ~8mg/dL/unit * Goal <150mg/dL * A1c = 8.5 % 02/23/16 The patient is currently receiving: * Basal insulin: Lantus 15 units every 24 hours - dosed in the AM * Correctional Insulin: REGULAR insulin correction per scale Q 6 hours Goal Range: Low 140 mg/dL - High 180 mg/dL Correction Factor: 15 mg/dL/unit * Prandial insulin: 0-5 units of REGULAR insulin SQ Q 6 hours depending on rate of Impact tube feeds * Oral Agents: None currently Risk Factors for Insulin Resistance: * Steroids: Dexamethasone 4mg IV Q8hrs x 3 days * Diet: Continuous tube feedings with Impact Assessment & Plan ASSESSMENT: * Glycemic control had deteriorated with the increase in steroid dosing over the past few days. Steroids increased from prednisone 5mg PO daily to Dexamethasone (DXM) 4mg IV Q8hrs x 3 days. Insulin regimen was increased accordingly. * Overnight, pt with acute aspiration and continuous tube feedings are on hold. Prandial coverage will be held accordingly per order. * Last day of DXM will be tomorrow - order set to d/c tomorrow afternoon. Will need to empirically decrease Lantus dosing for tomorrow with this step down in steroid dosing in addition to NPO status. * Pt has been receiving 30-40 units of insulin per day with sub-adequate control d/t continuous tube feeds and dexamethasone RTC. * Expect glycemic control to improve with DXM d/c and tube feedings on hold * regimen needs decreased to prevent hypo PLAN FOR INPATIENT GLYCEMIC CONTROL: * DECREASE basal insulin with Lantus SQ daily in the morning - dose based on AM fasting BSG * If BSG 120mg/dl or below --> do not give Lantus * If BSG 121-179mg/dl --> give Lantus 8 units (outpatient dosing) * If BSG 180mg/dl or above --> give Lantus 12 units * Loosen correction factor to 30 mg/dl/unit * Hold carb coverage while tube feedings are on hold. * Regular insulin order Q 6 hrs: ON HOLD * Impact at 15 cc/hr give 3 units * Impact at 30 cc/hr give 4 unit * Impact at 45-50 cc/hr or more, give 6 units (goal rate = 50 cc/hr) * Continue goal range of Low 120 mg/dL - High 160 mg/dL * Please note that the plan above was derived based on current level of insulin resistance and hospital stress. These recommendations are appropriate for inpatient admission only. Plan of care upon discharge will need to be reassessed to avoid potential outpatient hypo/hyperglycemia. Thank you.
[2016-03-30] MEDS: METOPROLOL TARTRATE 1 MG/ML VIAL IV. SCH ×2 (16:30→23:52)
[2016-03-30] MEDS ORDERED: METOPROLOL TARTRATE 1 MG/ML VIAL ONE (16:35)
--- NOTE | 2016-03-30 18:45 | DIAGNOSTIC IMAGING REPORT ---
ABDOMEN AND PELVIS CT WITH ORAL CONTRAST CT DOSE: 612.71 mGy.cm HISTORY: Pain eval for SBO TECHNIQUE: Multiaxial CT images of the abdomen and pelvis were performed following the use of oral contrast. COMPARISON STUDY: 03/23/2016 FINDINGS: No major change in the prior study. The colon impaction. Extensive increase in fecal load throughout the colon. Components of fecal stasis are most likely present. Bilateral pleural effusions. Bibasilar atelectasis. IMPRESSION: No change from the prior study. Extensive fecal material throughout the colon. Fecal impaction. Body wall anasarca. Electronically signed by: Justino Baptiste M.D. 03/30/2016 6:44 PM Dictated Date/Time: 03/30/2016 6:35 PM
--- NOTE | 2016-03-30 18:52 | PROGRESS NOTE ---
DATE: 03/30/2016 DIAGNOSIS: Aspiration. The patient had an episode of apparent aspiration last night and was kept n.p.o., but continues to have bile coming up through the NG tube. She has been sent to x-ray for CT scan of her abdomen. Further management will be determined after reviewing the CAT scan.
[2016-03-30] MEDS ORDERED: SOAP SUDS ENEMA PR ONE (19:00)
[2016-03-30] MEDS: POLYETHYLENE (MIRALAX) 17 GM PACK PO SCH (21:38)
[2016-03-30] MEDS: ATORVASTATIN 20 MG TAB PO SCH (21:39)
[2016-03-31] VITALS (13 sets, daily range): BP systolic 93–166; BP diastolic 50–70; PULSE 31–67; TEMP 36.5–36.8; O2SAT 92–100
[2016-03-31] MEDS: ALBUT/IPRATROP 3MG/0.5MG NEB 3 ML VIAL INH SCH ×6 (03:07→23:24)
[2016-03-31] MEDS: TUBE FEEDING WATER FLUSH PEG SCH ×2 (03:13→08:46)
[2016-03-31] MEDS: METOPROLOL TARTRATE 1 MG/ML VIAL IV. SCH ×2 (05:33→11:08)
[2016-03-31] MEDS: GUAIFENESIN SUGAR FREE 200 MG/10 ML UDC NG SCH ×2 (05:33→11:10)
[2016-03-31] MEDS: LEVOTHYROXINE 50 MCG TAB NG SCH (05:44)
[2016-03-31] MEDS: INSULIN HUMAN REGULAR SC SCH ×4 (05:44→11:14)
[2016-03-31 06:24] LABS: MEAN CELL VOLUME 82.7 fL (80-100); MEAN CORPUSCULAR HEMOGLOBIN 29.1 pg (25-34); MEAN CORPUSCULAR HGB CONC 35.2 g/dl (32-36); MEAN PLATELET VOLUME 9.3 fL (7.4-10.4); PLATELET COUNT 357 K/uL (130-400); RED BLOOD COUNT 2.78 M/uL (4.2-5.4); WHITE BLOOD COUNT 12.37 K/uL (4.8-10.8)
[2016-03-31] MEDS: ISOSORBIDE DINITRATE 10 MG TAB PO SCH ×2 (07:00→11:10)
[2016-03-31] MEDS: BUDESONIDE 0.25 MG/2 ML VIAL (PULMICORT) INH SCH (07:07)
[2016-03-31 07:16] LABS: BUN/CREATININE RATIO 43.4 (10-20); CREATININE 0.8 mg/dl (0.60-1.20); POTASSIUM 4.5 mmol/L (3.5-5.1)
[2016-03-31] MEDS: PROSOURCE NOCARB 30ML/PKT NG SCH (08:45)
[2016-03-31] MEDS: POLYETHYLENE (MIRALAX) 17 GM PACK PO SCH (08:45)
[2016-03-31] MEDS: ASPIRIN 81 MG CHEW NG SCH (08:45)
[2016-03-31] MEDS: DOCUSATE SODIUM 100 MG/10 ML UDC PO SCH (08:45)
[2016-03-31] MEDS: SENNA 8.8 MG/5 ML UDP PO SCH (08:46)
[2016-03-31] MEDS: AMLODIPINE BESYLATE 5 MG TAB PO SCH (08:46)
[2016-03-31] MEDS: BUTT PASTE 171 APPLN/57 GM JAR EXT SCH ×2 (09:00→21:39)
[2016-03-31] MEDS ORDERED: SODIUM CHLORIDE 1 GM TAB PO SCH (09:00)
[2016-03-31] MEDS: DEXAMETHASONE INJ 4 MG in SYRINGE 0 ML IV SCH (09:00)
[2016-03-31] MEDS ORDERED: INSULIN GLARGINE SOLOSTAR 100 UNITS/ML 3 ML PEN SC SCH (09:00)
[2016-03-31] MEDS: MENTHOL-ZINC OXIDE 360 APPLN/120 GM TUBE EXT SCH (09:01)
[2016-03-31] MEDS: HEPARIN SOD 5000 UNIT/0.5 ML CARP SQ SCH (09:02)
[2016-03-31] MEDS: PANTOprazole INJ 40 MG in SYRINGE 0 ML IV SCH (11:06)
[2016-03-31] MEDS ORDERED: MILK AND MOLASSES ENEMA PR ONE (12:00)
[2016-03-31] MEDS ORDERED: SODIUM CHLORIDE 0.9% 1000ML 1,000 ML IV SCH (12:15)
[2016-03-31] MEDS ORDERED: LORAZEPAM 2 MG/ML 1 ML VIAL IV PRN (12:15)
--- NOTE | 2016-03-31 12:16 | Progress Note ---
Progress Note 03/31/16 12:15 PM Meeting held with myself and Dr. Quiroz, Case Management and patient's sisters. Discussed code status, plan of care for comfort measures. Previous POLST form indicated no feeding tube , therefore comfort care was recommended. Patient's family agrees to comfort care and code status change to DNR. (Mook Barrett MD)
--- NOTE | 2016-03-31 12:50 | Family Medicine Progress Note ---
Progress Note Date of Service Mar 31, 2016. Subjective Pt evaluation today including: conversation w/ patient, conversation w/ family , physical exam, chart review, lab review, review of studies, review of inpatient medication list Patient was somnolent but awoke to my voice. She mumbled but it was apparent that she understood what i was saying and could answer my questions yes or no. She reported cough, SOB overnight.No Cp, NO palpitation . She denies constipation, had a BM yesterday. Additional Comments: Constitutional: No chills, No fever Respiratory: + cough, + shortness of breath, + sputum, No wheezing Cardiovascular: No chest pain, No edema Abdomen: + constipation, No diarrhea, No nausea, No pain, No vomiting Female : + problem reported (has gutierrez catheter) Skin: No itch, No rash Medications Current Inpatient Medications Medications (Trade) Dose Ordered Sig/Remy Route Start Time Stop Time Status Last Admin Dose Admin Albuterol/ Ipratropium (Duoneb) 3 ml Q4R INH 03/21/16 16:00 04/20/16 15:59 03/31/16 11:16 3 ML Albuterol/ Ipratropium (Duoneb) 3 ml Q2H PRN INH 03/21/16 12:45 04/20/16 12:44 Ondansetron HCl 4 mg 4 mg Q6H PRN IV 03/23/16 20:00 04/22/16 19:59 03/23/16 19:55 4 MG Pantoprazole Sodium/Syringe (Protonix Inj/ Syringe) 10 ml @ 5 mls/min DAILY@11 IV 03/24/16 11:00 04/23/16 10:59 03/31/16 11:06 5 MLS/MIN Morphine Sulfate (MoRPHine SULFATE INJ) 2 mg Q1H PRN IV 03/31/16 12:15 04/14/16 12:14 Lorazepam (Ativan Inj) 0.5 mg Q4H PRN IV 03/31/16 12:15 04/30/16 12:14 Scopolamine (Transderm-Scop Patch) 1.5 mg Q72H TD 03/31/16 12:15 04/30/16 12:14 Miscellaneous (Remove Transderm-Scop Patch) 1 ea Q72H N/A 04/03/16 12:14 05/03/16 12:14 Miscellaneous Information 1 ea 1 ea QS N/A 03/31/16 16:00 04/30/16 15:59 Sodium Chloride (Nss 1000ml) 1,000 ml @ 0 mls/hr Q0M IV 03/31/16 12:15 04/30/16 12:14 Objective Vital Signs Date Time Temp Pulse Resp B/P Pulse Ox O2 Delivery O2 Flow Rate FiO2 03/31/16 12:00 100 Room Air 03/31/16 11:47 36.7 65 18 166/70 97 Room Air 03/31/16 11:16 31 16 95 Room Air 03/31/16 11:08 68 166/70 03/31/16 08:00 100 Room Air 03/31/16 07:59 36.8 62 18 117/50 93 Room Air 03/31/16 07:05 60 16 92 Room Air 03/31/16 04:00 Nasal Cannula 03/31/16 03:50 36.5 67 18 93/59 92 Room Air 03/31/16 03:07 58 16 93 Room Air 03/31/16 00:00 Nasal Cannula 03/30/16 23:52 67 149/64 03/30/16 23:30 36.9 67 16 106/56 96 Room Air 03/30/16 23:16 67 18 96 Room Air 03/30/16 20:35 70 20 93 Room Air 03/30/16 20:00 96 Room Air 03/30/16 19:54 36.3 74 14 149/64 96 Room Air 03/30/16 18:03 37.2 66 12 112/54 03/30/16 16:42 74 201/95 03/30/16 16:30 74 201/95 03/30/16 16:00 94 Room Air 03/30/16 15:32 74 20 95 Room Air 03/30/16 15:27 36.9 74 20 201/95 95 Room Air Physical Exam Notes: General Appearance: WD/WN, no apparent distress Eyes: PERRL, EOMI ENT: + pertinent finding (NG Tube in place) Neck: supple, trachea midline Respiratory/Chest: chest non-tender, no respiratory distress, no accessory muscle use, + crackles, + pertinent finding (coarse breaths sounds mark) Cardiovascular: regular rate, rhythm, no edema, no JVD, + systolic murmur Abdomen: normal bowel sounds, non tender, +distended Extremities: no pedal edema, no calf tenderness Neurologic/Psychiatric: alert, + disoriented (Oriented to person ONLY) Skin: normal color, warm/dry Laboratory Results Results Past 24 Hours Test 03/30/16 16:03 03/30/16 23:51 03/31/16 05:40 03/31/16 06:10 Range/Units Bedside Glucose 101 71 103 70-90 mg/dl White Blood Count 12.37 4.8-10.8 K/uL Red Blood Count 2.78 4.2-5.4 M/uL Hemoglobin 8.1 12.0-16.0 g/dL Hematocrit 23.0 37-47 % Mean Corpuscular Volume 82.7 80-100 fL Mean Corpuscular Hemoglobin 29.1 25-34 pg Mean Corpuscular Hemoglobin Concent 35.2 32-36 g/dl RDW Standard Deviation 42.2 36.4-46.3 fL RDW Coefficient of Variation 13.8 11.5-14.5 % Platelet Count 357 130-400 K/uL Mean Platelet Volume 9.3 7.4-10.4 fL Sodium Level 131 136-145 mmol/L Potassium Level 4.5 3.5-5.1 mmol/L Chloride Level 97 98-107 mmol/L Carbon Dioxide Level 22 21-32 mmol/L Anion Gap 12.0 3-11 mmol/L Blood Urea Nitrogen 35 7-18 mg/dl Creatinine 0.80 0.60-1.20 mg/dl Est Creatinine Clear Calc Drug Dose 41.0 ml/min Estimated GFR () 76.3 Estimated GFR (Non- 65.8 BUN/Creatinine Ratio 43.4 10-20 Random Glucose 91 70-99 mg/dl Calcium Level 8.0 8.5-10.1 mg/dl Test 03/31/16 11:12 Range/Units Bedside Glucose 153 70-90 mg/dl Assessment and Plan 89 yo F w/ Hx of Dementia, COPD, Asthma p/w Ventilator dependent Resp Failure s /p Extubation, in the setting of Angioedema Discussed poor prognosis with family along with case management and Dr. Quiroz and the goals of care. Family including patient's two sisters were present. Family agreed to comfort measures and change in code status to DNR. Hospice agency consulted. Comfort Measures Date Time Sodium Chloride 0.9% 1000ML (Nss 1000ML) (PHA) 03/31/16 1210 MoRPHine SULFATE INJ (MoRPHine SULFATE I (PHA) 03/31/16 1209 LORAZEPAM INJ (Ativan Inj) (PHA) 03/31/16 1209 SCOPOLAMINE PATCH (Transderm-Scop Patch) (PHA) 03/31/16 1209 Milk And Molasses Enema (Milk And Molass (PHA) 03/31/16 1200 Metabolic Encephalopathy - Encephalopathy complicated by Baseline dementia - Alert/ Oriented x 1, minimal improvement in mental status - Blood Cx's negative, WBC count wnl Aspiration - previous CXR (03/21/16) showing findings consistent with infectious vs. inflammatory pneumonitis - Video swallow study today confirmed aspiration - Pt being kept NPO with NG tube - ENT consulted, laryngoscopy showing residual angioedema. - Per Speech therapy, pt would not show improvement with repeat swallowing study with NG tube removed due to lack of epiglottis inversion, severe aspiration risk Vent dependant Respiratory Failure -likely due to Angioedema - s/p extubation, clinically stable, 98% on rm air - held Prednisone home dose of 5mg daily - Continue Decadron 4 mg q8 IV to treat residual angioedema -Continue to monitor - c/w Duoneb, Atrovent,and Pulmicort INH Angioedema - likely due to DEBBIE-I usage, given recent onset of angioedema - DEBBIE-I remains held - Complement C3 and C4 levels normal. - C1 esterase levels high. 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 - Stopped Isosorbide dinitrate to 30 TID -Stopped vital signs - All Hypertension medicine stopped with comfort care Constipation Ct abdomen shoed extensive stool in the colon s/p BM x2 today with Enema - Stppoed docusate 100mg BID and Senna 8.9 mg daily Bilateral Lower Extremity Wound Cellulitis - Continue Wound Care Diabetes - Lantus 12 units daily and ISS. - Monitor BSG with steroids -Diabetic medication stopped with comfort care CAD - Statin stopped - Stopped Isosorbide dinitrate to 30 TID -Stopped ASA 81 mg daily Discontinued CAD medication with comfort care GI prophylaxis - Continue with PPI IV Hypothyroid DC'd Synthroid DVT prophylaxis - Stopped Heparin SQ Q12 Disposition: transferred to E Code Status - Full code Resident Physician Supervision Note: I was present with PGY1 Dr. Mook Barrett during the history and exam. I discussed the case with the resident and agree with the findings and plan as documented in the note. Any exceptions or clarifications are listed here: none. End-of-life discussion held with pt's sisters one of whom is the patient's POA. We discussed her continued decline despite maximal medical efforts. We discussed her options for care in light of her POLST form which indicates NO artificial nutrition/tube feedings. After considerable discussion her sister (POA) opted to transition Ms. Jones to comfort care measures. exam - gen - largely obtunded heart - RRR, s1, s2 lungs - course BS b/l with rales abd - severe distension, seems tender, BS+ but diminished ext - warm A/P: 1. recent acute hypoxic resp failure 2nd to angioedema 2. aspiration pneumonia 3. severe dysphagia 2nd to #1 4. severe obstipation/ileus 2nd to fecal impaction 5. failure to thrive DNR comfort care measures morphine, ativan prn scop patch q72h leave NG tube in place to low wall suction as palliative measure due to ongoing bilious output and abd distension support given to pt's family move to med/surg Documented By: Beau Quiroz MD Continued [facility] stay due to: inadequate po fluid intake, multiple IV medications needed, home environment unsafe for pt Discharge planning: other (Comfort Measures) Resident Tracking Resident Involvement: Resident Care Provided Care Provided: Adult Hospital Medicine
[2016-03-31] MEDS: SCOPOLAMINE 1.5 MG TDSY TD SCH (13:22)
[2016-03-31] MEDS: CHECK SCOPOLAMINE PATCH PLACEMENT SCH (16:32)
[2016-03-31] MEDS: MoRPHine SULFATE 2 MG/ML CARP IV PRN (18:59)
[2016-03-31] MEDS ORDERED: NURSING VERBAL MED ORDER ONE (19:15)
[2016-03-31] MEDS: ONDANSETRON INJ 2 MG/ML 2 ML VIAL IV PRN (21:39)
[2016-04-01] MEDS: CHECK SCOPOLAMINE PATCH PLACEMENT SCH ×3 (00:25→16:00)
[2016-04-01 04:09] VITALS: PULSE 58; O2SAT 95
[2016-04-01] MEDS: ALBUT/IPRATROP 3MG/0.5MG NEB 3 ML VIAL INH SCH ×4 (04:09→19:58)
[2016-04-01] MEDS ORDERED: LEVOTHYROXINE 75 MCG TAB NG SCH (06:00)
[2016-04-01] MEDS ORDERED: MINERAL OIL ENEMA 133 ML BTL PR ONE (07:00)
[2016-04-01 07:05] VITALS: PULSE 58; O2SAT 97
[2016-04-01] MEDS: BUTT PASTE 171 APPLN/57 GM JAR EXT SCH ×2 (07:54→09:00)
[2016-04-01] MEDS: MoRPHine SULFATE 2 MG/ML CARP IV PRN ×2 (07:57→12:36)
--- NOTE | 2016-04-01 08:43 | Family Medicine Progress Note ---
Progress Note Date of Service Apr 01, 2016. Subjective Pt evaluation today including: conversation w/ patient, physical exam, chart review, lab review, review of studies, review of inpatient medication list Pain: denies pain PO Intake: NPO Voiding: gutierrez catheter in place Patient has transitioned to comfort care. She opened her eyes to verbal stimuli and mumbles answers to questions. She appears to understand and can confirm or deny few symptoms. She denies pain. Additional Comments: could not assess review of systems in patient's state Medications Current Inpatient Medications Medications (Trade) Dose Ordered Sig/Remy Route Start Time Stop Time Status Last Admin Dose Admin Albuterol/ Ipratropium (Duoneb) 3 ml Q4R INH 03/21/16 16:00 04/20/16 15:59 04/01/16 07:05 3 ML Albuterol/ Ipratropium (Duoneb) 3 ml Q2H PRN INH 03/21/16 12:45 04/20/16 12:44 Ondansetron HCl 4 mg 4 mg Q6H PRN IV 03/23/16 20:00 04/22/16 19:59 03/31/16 21:39 4 MG Pantoprazole Sodium/Syringe (Protonix Inj/ Syringe) 10 ml @ 5 mls/min DAILY@11 IV 03/24/16 11:00 04/23/16 10:59 03/31/16 11:06 5 MLS/MIN Morphine Sulfate (MoRPHine SULFATE INJ) 2 mg Q1H PRN IV 03/31/16 12:15 04/14/16 12:14 04/01/16 07:57 2 MG Lorazepam (Ativan Inj) 0.5 mg Q4H PRN IV 03/31/16 12:15 04/30/16 12:14 Scopolamine (Transderm-Scop Patch) 1.5 mg Q72H TD 03/31/16 12:15 04/30/16 12:14 03/31/16 13:22 1.5 MG Miscellaneous (Remove Transderm-Scop Patch) 1 ea Q72H N/A 04/03/16 12:14 05/03/16 12:14 Miscellaneous Information 1 ea 1 ea QS N/A 03/31/16 16:00 04/30/16 15:59 04/01/16 07:54 1 EA Sodium Chloride (Nss 1000ml) 1,000 ml @ 0 mls/hr Q0M IV 03/31/16 12:15 04/30/16 12:14 Heparin Sodium (Porcine) (Heparin 10 Unit/ ml 5 ml Flush) 5 ml PRN PRN FLUSH 03/31/16 20:15 04/30/16 20:14 04/01/16 07:58 5 ML Objective Vital Signs Date Time Temp Pulse Resp B/P Pulse Ox O2 Delivery O2 Flow Rate FiO2 04/01/16 07:05 58 16 97 Room Air 04/01/16 04:09 58 16 95 Room Air 04/01/16 00:00 Room Air 03/31/16 23:24 56 16 95 Room Air 03/31/16 19:17 51 16 93 Room Air 03/31/16 16:15 100 Room Air 03/31/16 15:23 55 16 93 Room Air 03/31/16 14:01 36.7 65 18 100 03/31/16 12:00 100 Room Air 03/31/16 11:47 36.7 65 18 166/70 97 Room Air 03/31/16 11:16 31 16 95 Room Air 03/31/16 11:08 68 166/70 Physical Exam Notes: General Appearance: WD/WN, no apparent distress Eyes: PERRL, EOMI ENT: + pertinent finding (NG Tube in place) Neck: supple, trachea midline Respiratory/Chest: chest non-tender, no respiratory distress, no accessory muscle use, + crackles, + pertinent finding (coarse breaths sounds mark) Cardiovascular: regular rate, rhythm, no edema, no JVD, + systolic murmur Abdomen: normal bowel sounds, non tender, +distended Extremities: no pedal edema, no calf tenderness Neurologic/Psychiatric: alert, + disoriented (Oriented to person ONLY) Skin: normal color, warm/dry Laboratory Results Results Past 24 Hours Test 03/31/16 11:12 Range/Units Bedside Glucose 153 70-90 mg/dl Assessment and Plan 89 yo F w/ Hx of Dementia, COPD, Asthma p/w Ventilator dependent Resp Failure s /p Extubation, in the setting of Angioedema currently transition ed comfort care Comfort measures -Continue IV NS, Morphine PRN, Ativan PRN, Scoploamine patch, Metabolic Encephalopathy - Encephalopathy complicated by Baseline dementia - Alert/ Oriented x 1, minimal improvement in mental status - Blood Cx's negative, WBC count wnl Aspiration - previous CXR (03/21/16) showing findings consistent with infectious vs. inflammatory pneumonitis - Video swallow study today confirmed aspiration - Pt being kept NPO with NG tube - Vent dependant Respiratory Failure -likely due to Angioedema - s/p extubation, clinically stable, 98% on rm air - held Prednisone home dose of 5mg daily - Continue Decadron 4 mg q8 IV to treat residual angioedema -Continue to monitor - c/w Duoneb, Atrovent,and Pulmicort INH Angioedema - likely due to DEBBIE-I usage, given recent onset of angioedema - DEBBIE-I remains held - Complement C3 and C4 levels normal. - C1 esterase levels high. 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 - Stopped Isosorbide dinitrate to 30 TID -Stopped vital signs - All Hypertension medicine stopped with comfort care Constipation Ct abdomen shoed extensive stool in the colon s/p BM x2 today with Enema - Stppoed docusate 100mg BID and Senna 8.9 mg daily Bilateral Lower Extremity Wound Cellulitis - Continue Wound Care Diabetes - Lantus 12 units daily and ISS. - Monitor BSG with steroids -Diabetic medication stopped with comfort care CAD - Statin stopped - Stopped Isosorbide dinitrate to 30 TID -Stopped ASA 81 mg daily Discontinued CAD medication with comfort care GI prophylaxis - Continue with PPI IV Hypothyroid DC'd Synthroid DVT prophylaxis - Stopped Heparin SQ Q12 Disposition: transferred to [facility] Resident Physician Supervision Note: I was present with PGY1 Dr. Mook Barrett during the history and exam. I discussed the case with the resident and agree with the findings and plan as documented in the note. Any exceptions or clarifications are listed here: all meds except for those related to comfort care stopped. Pt sleeping during my visit; family at bedside. exam - gen - sleeping, snoring heent - NG tube in place; bilious drainage mouth - MM dry heart - RRR, s1, s2 lungs - course BS b/l abd - distended, firm, BS+ (high pitched) ext - warm A/P: Palliative care patient; on comfort care measures. Leave NG tube in place for now as this is likely providing comfort by decompressing the abdomen. Consider repeat enema or manual disimpaction for severe constipation. Cont morphine prn. family support given Frances HARRIS MD Continued [facility] stay due to: other (comfort care) Resident Tracking Resident Involvement: Resident Care Provided Care Provided: Adult Hospital Medicine
[2016-04-01] MEDS: PANTOprazole INJ 40 MG in SYRINGE 0 ML IV SCH (11:11)
[2016-04-01 15:35] VITALS: PULSE 60; O2SAT 95
[2016-04-01 20:40] VITALS: PULSE 71; O2SAT 95
[2016-04-02 00:35] VITALS: PULSE 74; O2SAT 90
[2016-04-02] MEDS: ALBUT/IPRATROP 3MG/0.5MG NEB 3 ML VIAL INH SCH ×5 (00:35→19:50)
[2016-04-02 01:14] VITALS: PULSE 74; O2SAT 90
[2016-04-02] MEDS: CHECK SCOPOLAMINE PATCH PLACEMENT SCH ×3 (03:07→16:37)
[2016-04-02 03:47] VITALS: PULSE 56; O2SAT 92
[2016-04-02 07:38] VITALS: PULSE 56; O2SAT 92
[2016-04-02] MEDS: MoRPHine SULFATE 2 MG/ML CARP IV PRN ×2 (08:46→14:11)
[2016-04-02] MEDS: PANTOprazole INJ 40 MG in SYRINGE 0 ML IV SCH (12:20)
[2016-04-02] MEDS ORDERED: MoRPHine SULF/NSS INJ 1 MG/ML 250 ML BTL ONE (14:03)
[2016-04-02] MEDS ORDERED: MoRPHine SULFATE 2 MG/ML CARP IV ONE (14:30)
[2016-04-02] MEDS ORDERED: MoRPHine SULF/NSS 250MG/250ML 250 ML IV SCH (14:45)
[2016-04-02 16:00] VITALS: PULSE 64; O2SAT 94
--- NOTE | 2016-04-02 16:14 | Family Medicine Progress Note ---
Progress Note Date of Service Apr 02, 2016. Subjective Pt evaluation today including: conversation w/ patient, physical exam, chart review, lab review The patient was seen and examined at bedside. No acute overnight events. Sister is present at bedside on 1st exam, Niece, Nephew and Sister present on 2nd exam. Patient still has an NG tube, with green bile. According to family the NG is at the same level as it was the previous day. Patient is moving and pulling at her NG tube. She makes eye contact and grunting sounds. ROS was not able to be assessed due to the patient's poor condition. Plan of care was described to the patient and family and all questions were answered. Objective Physical Exam General Appearance: WD/WN, + mild distress Respiratory/Chest: no respiratory distress, no accessory muscle use, + pertinent finding (coarse lung sounds) Cardiovascular: no edema, no gallop, no JVD, no murmur, + tachycardia Abdomen: + pertinent finding (Patient has a distended abdomen with tympanic sounds. ) Neurologic/Psychiatric: alert, + pertinent finding (patient is non verbal, unable to assess orientation, is able to eye track.) Assessment and Plan 89 yo F w/ Hx of Dementia, COPD, Asthma p/w Ventilator dependent Resp Failure s /p Extubation, in the setting of Angioedema. Patient deterioted over the hospital course due to inability to tolerate oral feeds and chronic constipation. Patient's POLST form specifically mentioned a desire for no enteral feeding. Plan of care transitioned to comfort measures only. Palliation - Morphine Sulfate drip, 2mg loading dose, starting at 2mg/hr and transitioning upwards 1mg every 20 minutes until patient is comfortable. - Ativan PRN for agitation. - Scopolamine patch PRN. - Milk and Molasses Enema PRN. Metabolic Encephalopathy Dementia at baseline. No medical intervention at this point. Aspiration - Video swallow study confirmed aspiration. POLST confirmed no enteral feedings. - NG tube will be removed for comfort measures. Vent dependant Respiratory Failure - c/w Duoneb PRN Bilateral Lower Extremity Wound Cellulitis - Continue Wound Care Diabetes - Discontinue all insulin regimes. CAD - Discontinued statin, isosorbide dinitrate, ASA. GI prophylaxis - Continue with PPI IV Hypothyroid - DC'd Synthroid DVT prophylaxis - Stopped Heparin SQ Q12 Disposition DNR, comfort measures, no vital signs or non comfort medications. Resident Physician Supervision Note: I was present with PGY1 Dr. Justino Liang during the history and exam. I discussed the case with the resident and agree with the findings and plan as documented in the note. Any exceptions or clarifications are listed here: none. Pt agitated this am although she is nonverbal and quite lethargic. exam - gen - appears uncomfortable, pulling gown, trying to pull at NG tube mouth - MM dry heart - RRR lungs - course BS b/l abd - distension slightly better A/P: Comfort care measures for 89yo female with recent hypoxic resp failure 2nd to angioedema requiring intubation/mech ventilation. Hospital course complicated by severe dysphagia and development of obstipation/ severe ileus. POLST with NO permanent PEG tube/artificial nutrition. Recommend - 1. start morphine drip 2. once she is more comfortable plan to d/c NG tube 3. continue all other comfort measures family updated Documented By: Beau Quiroz MD Resident Involvement: Resident Care Provided Care Provided: Adult Hospital Medicine
[2016-04-02] MEDS ORDERED: NURSING VERBAL MED ORDER ONE (19:15)
[2016-04-03] VITALS: PULSE 75; O2SAT 86
[2016-04-03] MEDS: CHECK SCOPOLAMINE PATCH PLACEMENT SCH ×3 (01:54→15:54)
[2016-04-03] MEDS: ALBUT/IPRATROP 3MG/0.5MG NEB 3 ML VIAL INH SCH ×3 (03:14→07:59)
[2016-04-03] MEDS: BUTT PASTE 171 APPLN/57 GM JAR EXT SCH (08:35)
--- NOTE | 2016-04-03 10:23 | Family Medicine Progress Note ---
Progress Note Date of Service Apr 03, 2016. Subjective Pt evaluation today including: conversation w/ patient, physical exam, chart review, lab review The patient was seen and examined at bedside. NG tube was removed yesterday. Patient has not drained any urine in two hours from 6am when examined. Patient appears to be sleeping with audible breath sounds. Sister, grandson and granddaughter are at bedside. Pt is on a 2mg/hr morphine drip. Plan of care was described to the patient and family and all questions were answered. Objective Physical Exam General Appearance: + mild distress Respiratory/Chest: no respiratory distress, no accessory muscle use, + pertinent finding (Lungs have rhonchi at the lung bases bilaterally. ) Cardiovascular: regular rate, rhythm, no edema, no gallop, no JVD, no murmur Abdomen: + pertinent finding (Patient has a distended abdomen. ) Extremities: + pertinent finding (Patient is somnolent, non responsive to verbal commands.) Neurologic/Psychiatric: + pertinent finding (Not responsing to verbal commands. ) Assessment and Plan 89 yo F w/ Hx of Dementia, COPD, Asthma p/w Ventilator dependent Resp Failure s /p Extubation, in the setting of Angioedema. Patient deteriorated over the hospital course due to inability to tolerate oral feeds and chronic constipation. Patient's POLST form specifically mentioned a desire for no enteral feeding. Plan of care transitioned to comfort measures only. NG tube removed on 04/02/16 and morphine drip was started. Family is declining repositioning. Family at bedside, will alert nurse with any concerns. Family counselled extensively on what to expect during hospital course. Palliation - c/w Morphine Sulfate drip, 2mg loading dose, starting at 2mg/hr and transitioning upwards 1mg every 20 minutes until patient is comfortable. - Ativan PRN for agitation. - Scopolamine patch PRN. - Milk and Molasses Enema PRN. Metabolic Encephalopathy Dementia at baseline. No medical intervention at this point. Aspiration NG tube removed. Vent dependant Respiratory Failure Stopped Duonebs. Bilateral Lower Extremity Wound Cellulitis Continue Wound Care Diabetes Discontinue all insulin regimes. CAD Discontinued statin, isosorbide dinitrate, ASA. GI prophylaxis DC PPI IV Hypothyroid DC'd Synthroid DVT prophylaxis Stopped Heparin SQ Q12 Disposition DNR, comfort measures, no vital signs or non palliative medications. Resident Physician Supervision Note: I was present with PGY1 Dr. Jsutino Liang during the history and exam. I discussed the case with the resident and agree with the findings and plan as documented in the note. Any exceptions or clarifications are listed here: none. Pt obtunded during my visit. Family report she has been comfortable this am. exam - gen - obtunded; girgling breath sounds mouth - MM dry heart - RRR lungs - course BS b/l abd - distension worse but nontender A/P: Comfort care measures for 89yo female with recent hypoxic resp failure 2nd to angioedema requiring intubation/mech ventilation. Hospital course complicated by severe dysphagia and development of obstipation/ severe ileus. POLST with NO permanent PEG tube/artificial nutrition - thus transitioned to comfort care measures. Recommend - 1. cont morphine drip 2. add atropine drops prn for excessive secretions 3. continue all other comfort measures family updated and support given Documented By: Beau Quiroz MD Resident Involvement: Resident Care Provided Care Provided: Adult Hospital Medicine
[2016-04-03] MEDS: SCOPOLAMINE 1.5 MG TDSY TD SCH (12:16)
[2016-04-03] MEDS ORDERED: MoRPHine SULF/NSS 250MG/250ML 250 ML IV SCH (14:15)
[2016-04-03] MEDS ORDERED: ATROPINE SULFATE 1% OP SOLN 2 ML BTL PO PRN (20:00)
[2016-04-04] MEDS: CHECK SCOPOLAMINE PATCH PLACEMENT SCH ×2 (00:08→08:20)
--- NOTE | 2016-04-04 09:29 | Death Pronouncement Note ---
Pronouncement Note Date & Time of Apr 04, 2016. 8:58 Pronouncement At time of pronouncement the patients pupils were fixed and dilated, there was no spontaneous respiratory effort, no palpable pulse, no audible heart tones, and no response to pain or voice.
--- NOTE | 2016-04-04 09:36 | Death Summary ---
Summary of Admission Date Mar 16, 2016 at 11:07 Date & Time of Apr 04, 2016. 8:58 Cause of Acute hypoxic respiratory failure Secondary Diagnoses Ileus with obstipation Hospital Course 89 yo F w/ Hx of Dementia, COPD, Asthma p/w Ventilator dependent Resp Failure s /p Extubation, in the setting of Angioedema. Patient deteriorated over the hospital course due to inability to tolerate oral feeds and chronic constipation. Patient's POLST form specifically mentioned a desire for no enteral feeding. Plan of care transitioned to comfort measures only. NG tube removed on 04/02/16 and morphine drip was started. Palliation - c/w Morphine Sulfate drip, 2mg loading dose, starting at 2mg/hr and transitioning upwards 1mg every 20 minutes until patient is comfortable. - Ativan PRN for agitation. - Scopolamine patch PRN. - Milk and Molasses Enema PRN. Metabolic Encephalopathy Dementia at baseline. No medical intervention at this point. Aspiration NG tube removed. Vent dependant Respiratory Failure Stopped Duonebs. Bilateral Lower Extremity Wound Cellulitis Continue Wound Care Diabetes Discontinue all insulin regimes. CAD Discontinued statin, isosorbide dinitrate, ASA. GI prophylaxis DC PPI IV Hypothyroid DC'd Synthroid DVT prophylaxis Stopped Heparin SQ Q12 Disposition DNR, comfort measures, no vital signs or non palliative medications. Recommend - 1. cont morphine drip 2. add atropine drops prn for excessive secretions 3. continue all other comfort measures family updated and support given 89 year old female that presented with acute hypoxic failure that required intubation and mechanical ventilation. Her course was further complicated with difficulty swallowing and the development of ileus and subsequent obstipation. The patient had a POLST form fillled out that stated the patient did not want to have a permanent PEG tube or artificial nutrition started. Patient was placed on comfort care measured and this morning at 8:58.
--- NOTE | 2016-04-06 12:50 | Anesthesiology Progress Note ---
Anesthesia Progress Note Date of Service Apr 06, 2016. Progress Notes Anesthesiology was consulted upon the patient's admission to the ER by the heel sorter for assistance with airway management. I did attend the patient's bedside to assist in the case of difficulty or emergency however the procedure was performed by Dr Goldsmith. No formal consult on the patient was completed.
== END 2016-04-04 12:00 | disposition expired | DRG 208 ==
LOC: ENRESERVTM → ENRESERVDT → EDBD 09:13 → C.EDC 09:16 → C.MSICU 11:07 → C.2T 03-26 14:15 → C.4E 03-31 14:06
PROVIDERS: ADMIT Family Medicine; ATTEND Internal Medicine
PROC: 5A1945Z Respiratory Ventilation, 24-96 Consecutive Hours (ICD-10-PCS; principal; 2016-03-16)
PROC: 0BH17EZ Insertion of Endotracheal Airway into Trachea, Via Natural or Artificial Opening (ICD-10-PCS; principal; 2016-03-16)
PROC: 03HY32Z Insertion of Monitoring Device into Upper Artery, Percutaneous Approach (ICD-10-PCS; 2016-03-16)
DX: J96.91 Respiratory failure, unspecified with hypoxia (principal); G93.41 Metabolic encephalopathy; J69.0 Pneumonitis due to inhalation of food and vomit; E87.1 Hypo-osmolality and hyponatremia; K56.7 Ileus, unspecified; L03.115 Cellulitis of right lower limb; L03.116 Cellulitis of left lower limb; N17.9 Acute kidney failure, unspecified; Z51.5 Encounter for palliative care; J45.909 Unspecified asthma, uncomplicated; T78.3XXA Angioneurotic edema, initial encounter; I25.10 Atherosclerotic heart disease of native coronary artery without angina pectoris; N18.3 Chronic kidney disease, stage 3 (moderate); J44.9 Chronic obstructive pulmonary disease, unspecified; F03.90 Unspecified dementia, unspecified severity, without behavioral disturbance, psychotic disturbance, mood disturbance, and anxiety; K21.9 Gastro-esophageal reflux disease without esophagitis; E78.5 Hyperlipidemia, unspecified; I12.9 Hypertensive chronic kidney disease with stage 1 through stage 4 chronic kidney disease, or unspecified chronic kidney disease; D64.9 Anemia, unspecified; E83.42 Hypomagnesemia; E03.9 Hypothyroidism, unspecified; Z66 Do not resuscitate; Z82.49 Family history of ischemic heart disease and other diseases of the circulatory system; Z86.718 Personal history of other venous thrombosis and embolism; Z95.5 Presence of coronary angioplasty implant and graft; Z82.5 Family history of asthma and other chronic lower respiratory diseases; Z86.73 Personal history of transient ischemic attack (TIA), and cerebral infarction without residual deficits; E11.649 Type 2 diabetes mellitus with hypoglycemia without coma; T38.0X5A Adverse effect of glucocorticoids and synthetic analogues, initial encounter; R50.9 Fever, unspecified; T45.8X5A Adverse effect of other primarily systemic and hematological agents, initial encounter; R13.10 Dysphagia, unspecified

== ENCOUNTER → 2016-03-16 | Outpatient (CLI) | payer OTHER ==
[~2016-03-16] MED LIST changes: +ACET-1311 PO; +ATRINSX INH; +AZTR1INJ5 IV; +CEPH-571 PO; +INSDGIPEN SC; -LSX40 PO; +MOME6000 NAE; +MULT-16 PO; +NTRS PO; +NVLGI/PEN SC; -POTA-327 PO; +PRLSR20 PO; -TORS20TA2 PO; +TRAM-10 PO; +ULT50X PO
[2016-03-16 08:47] LABS: BLOOD UREA NITROGEN 11 mg/dl (7-18); BUN/CREATININE RATIO 16.3 (10-20); C-REACTIVE PROTEIN 0.69 mg/dl (0-0.29); CALCIUM 7.8 mg/dl (8.5-10.1); CARBON DIOXIDE 22 mmol/L (21-32); CHLORIDE 97 mmol/L (98-107); CREATININE 0.65 mg/dl (0.60-1.20); GLUCOSE 213 mg/dl (70-99); SODIUM 130 mmol/L (136-145)
[2016-03-16 08:50] LABS: ALB/GLOB RATIO 0.7 (0.9-2); ALKALINE PHOSPHATASE 70 U/L (45-117); ALT/SGPT 12 U/L (12-78); AST/SGOT 13 U/L (15-37)
== END | disposition home or self-care (01) ==
LOC: C.LABUPNIT 08:10
PROVIDERS: ATTEND Family Medicine
DX: N18.9 Chronic kidney disease, unspecified (principal)